=== PATIENT | male | born 1980 | race Caucasian/White ===

== ENCOUNTER 2025-04-13 18:12 | Inpatient (IN) | payer BC, SELFPAY ==
--- NOTE | ~2025-04-13 | CT_ITS ---
EXAMINATION: CTA chest PE protocol DATE: 04/13/2025 19:59 INDICATION: Shortness of breath TECHNIQUE: Computed tomography (CT) pulmonary angiogram of the chest was performed with 100 mL Omnipa que-350 intravenous contrast. Additional 3D reconstructions utilizing coronal maximum intensity proje ction (MIP) were performed. Automated exposure control and iterative reconstruction technique were em ployed. The dose-length product was 324.26 mGy-cm. COMPARISON: None FINDINGS: There are multiple pulmonary arterial filling defects consistent with pulmonary emboli including the medial segment of the right middle lobe, couple branches of the lateral and posterior basilar segment s of the right lower lobe, subsegmental pulmonary artery and the anterior segment of the left upper l obe and the inferior segmental pulmonary artery of the lingula. Mild dependent atelectasis in both rosendo ngs. No pneumonia, pulmonary edema, pleural effusion or pneumothorax. Heart size is normal. No leftwa rd bowing of the ventricular septum to suggest right heart strain. No pericardial effusion. Thoracic aorta is normal in caliber with no dissection. No pathologically enlarged thoracic lymphadenopathy. V isualized upper abdomen and bones are unremarkable. IMPRESSION: 1. Multiple bilateral pulmonary emboli with mild to moderate clot burden but without evident right he art strain. Dr. Leahy discussed these findings with Dr. Hunt at 8:32 PM. Reviewed, dictated and finalized at location A. IMPRESSION: 1. Multiple bilateral pulmonary emboli with mild to moderate clot burden but wi thout evident right heart strain. Dr. Leahy discussed these findings with Dr Kelley Hunt at 8:32 PM.
--- NOTE | ~2025-04-13 | US_ITS ---
EXAMINATION: US venous doppler [facility] DATE: 04/13/2025 19:43 INDICATION: Calf pain TECHNIQUE: Grayscale ultrasound images without and with compression and Doppler ultrasound images of the left lower extremity veins were obtained. COMPARISON: None. FINDINGS: The visualized portions of left common femoral vein, profunda (deep) femoral vein, femoral vein, popl iteal vein, peroneal veins, posterior tibial veins, and greater saphenous vein outflow are patent. IMPRESSION: 1. No deep venous thrombosis. Reviewed, dictated and finalized at location A.
--- NOTE | ~2025-04-13 | XR_ITS ---
CHEST RADIOGRAPH, PA AND LATERAL CLINICAL HISTORY: shortness of breath . COMPARISON: None available TECHNIQUE: PA and lateral views of the chest. FINDINGS The cardiomediastinal silhouette is unremarkable. The lungs are clear. IMPRESSION: No focal infiltrate or effusion. Reviewed, dictated and finalized at location A.
--- NOTE | 2025-04-13 18:29 | ECG_ITS ---
Test Date: 2025-04-13 18:28:53 Measurements Intervals [place] Rate: 82 P: 23 PA: 140 QRS: 27 QRSD: 88 T: 50 QT: 361 QTc: 424 Interpretive Statements SINUS RHYTHM No previous ECG available for comparison Electronically Signed On 04-14-2025 17:15:35 CDT by Francis Dennis D.O
--- NOTE | 2025-04-13 18:38 | ED.SOB ---
HPI - SOB/Dyspnea General Chief Complaint: Extremity Problem,Nontraumatic <Brenda Lay APRN - Last Filed: 04/13/25 18:41> Stated Complaint: concerned for a DVT in the LLE <Brenda Lay APRN - Last Filed: 04/13/25 18:41> Time Seen by Provider: 04/13/25 18:30 <Brenda Lay APRN - Last Filed: 04/13/25 18:41> Focused HPI: Patient is a 45-year-old male who presents to the ER with shortness of breath and tachypnea. He reports he was recently hospitalized for kidney stones and hematuria. Patient reports he was recently discharged, but he has a urologist to follow-up. He reports this morning he started experiencing pain in his left leg that radiates to his chest. Patient denies any history of blood clots, but was more immobile due to his recent hospitalization. He denies any other medical history relevant to this ER visit. Patient denies any acute back pain, recent fevers, chest pain or abdominal pain. GENERAL: Ill-appearing, well-nourished, and in acute distress. HEAD: Normocephalic, atraumatic. CHEST: Clear to auscultation. ?+ respiratory distress. Tachypnea HEART: Regular rate and rhythm.? NEURO: ?Alert and oriented x3. Patient screened in triage and initial orders placed.? ?Additional care and disposition to be based upon?diagnostic testing and treatment. <Brenda Lay APRN - Last Filed: 04/13/25 18:41> Source: patient <Jamal Waldrop MD - Last Filed: 04/13/25 21:27> Mode of arrival: ambulatory <Jamal Waldrop MD - Last Filed: 04/13/25 21:27> Limitations: no limitations <Jamal Waldrop MD - Last Filed: 04/13/25 21:27> History of Present Illness HPI Narrative: 45-year-old with his kidney stones recently discharged from [facility] after a prolonged stay on the bed for Hematuria sec to Kidney stone , pt states he was on the bed with CBI for few days , got discharged home and was lying on the bed started having pain in his left calf and now radiating to his left chest , denies any SOB <Jamal Waldrop MD - Last Filed: 04/13/25 21:27> MD elicited complaint: shortness of breath <Jamal Waldrop MD - Last Filed: 04/13/25 21:27> Onset (ago): day(s) (1) <Jamal Waldrop MD - Last Filed: 04/13/25 21:27> Context: recent illness <Jamal Waldrop MD - Last Filed: 04/13/25 21:27> Timing: constant <Jamal Waldrop MD - Last Filed: 04/13/25 21:27> Severity: moderate <Jamal Waldrop MD - Last Filed: 04/13/25 21:27> Exacerbating factors: nothing <Jamal Waldrop MD - Last Filed: 04/13/25 21:27> Relieving factors: nothing <Jamal Waldrop MD - Last Filed: 04/13/25 21:27> Associated symptoms: denies other symptoms <Jamal Waldrop MD - Last Filed: 04/13/25 21:27> Treatment prior to arrival: none <Jamal Waldrop MD - Last Filed: 04/13/25 21:27> Related Data Home oxygen amount: none <Jamal Waldrop MD - Last Filed: 04/13/25 21:27> Allergies/Adverse Reactions: Allergies Allergy/AdvReac Type Severity Reaction Status Date / Time No Known Allergies Allergy Verified 04/13/25 19:23 <Brenda Lay APRN - Last Filed: 04/13/25 18:41> Review of Systems Review of Systems: All systems reviewed & are unremarkable except as noted in HPI and below <Jamal Waldrop MD - Last Filed: 04/13/25 21:27> Constitutional: Constitutional: Reports no additional constitutional complaints <Jamal Waldrop MD - Last Filed: 04/13/25 21:27> Eyes: Eyes: Reports no additional eye complaints <Jamal Waldrop MD - Last Filed: 04/13/25 21:27> ENT: Reports system reviewed and no additional complaints, except as documented <Jamal Waldrop MD - Last Filed: 04/13/25 21:27> Cardiovascular: Cardiovascular: Reports as per HPI <Jamal Waldrop MD - Last Filed: 04/13/25 21:27> Respiratory: Respiratory: Reports as per HPI <Jamal Waldrop MD - Last Filed: 04/13/25 21:27> Musculoskeletal: Musculoskeletal: Reports as per HPI <Jamal Waldrop MD - Last Filed: 04/13/25 21:27> Neurologic: Reports system reviewed and no additional complaints, except as documented <Jamal Waldrop MD - Last Filed: 04/13/25 21:27> Exam Narrative: GENERAL: Well-appearing, well-nourished, and in no acute distress. HEAD: Normocephalic, atraumatic. EYES: PERRLA and EOMI. ENT: Nares clear, no rhinorrhea or epistaxis. Mucous membranes moist. NECK: Supple. CHEST: Clear to auscultation. No respiratory distress. HEART: Regular rate and rhythm. No murmur heard. Normal peripheral pulses. ABDOMEN: Soft, nontender, nondistended, normal active bowel sounds. EXTREMITIES: Normal range of motion. No edema. SKIN: Warm, dry, no rash. NEURO: No focal deficits. Alert and oriented x3. PSYCH: Normal mood and affect. <Jamal Waldrop MD - Last Filed: 04/13/25 21:27> Course Course Emergency Course: Patient comfortably resting on bed in no discomfort informed him about his lab work, CT findings. Agreeable with admission. <Jamal Waldrop MD - Last Filed: 04/13/25 21:27> Vital Signs Vital signs: Vital Signs Pulse Rate 77 04/13/25 18:46 Respiratory Rate 18 04/13/25 18:46 Blood Pressure 84/50 L 04/13/25 18:46 Pulse Oximetry 100 04/13/25 18:46 Pulse Rate 77 04/13/25 18:46 Respiratory Rate 18 04/13/25 18:46 Blood Pressure 84/50 L 04/13/25 18:46 Pulse Oximetry 100 04/13/25 18:46 <Brenda Lay APRN - Last Filed: 04/13/25 18:41> Vital Signs Pulse Rate 77 04/13/25 18:46 Respiratory Rate 18 04/13/25 18:46 Blood Pressure 84/50 L 04/13/25 18:46 Pulse Oximetry 100 04/13/25 18:46 Pulse Rate 77 04/13/25 18:46 Respiratory Rate 18 04/13/25 18:46 Blood Pressure 84/50 L 04/13/25 18:46 Pulse Oximetry 100 04/13/25 18:46 <Jamal Waldrop MD - Last Filed: 04/13/25 21:27> MDM - SOB/Dyspnea Differential Diagnosis Differential diagnosis: Likely congestive heart failure, community acquired pneumonia and pulmonary embolism <Jamal Waldrop MD - Last Filed: 04/13/25 21:27> Medical Records Attestation: I reviewed the patient's medical records. <Jamal Waldrop MD - Last Filed: 04/13/25 21:27> Lab Data Attestation: I reviewed the patient's lab results. <Jamal Waldrop MD - Last Filed: 04/13/25 21:27> Result diagrams: 04/13/25 18:47 04/13/25 18:47 <Brenda Lay APRN - Last Filed: 04/13/25 18:41> Labs: Lab Results 04/13/25 04/13/25 Range/Units 18:47 20:31 WBC 10.6 H (4.5-10.0) K/mm3 RBC 4.46 L (4.6-6.20) M/mm3 Hgb 13.8 L (14.0-18.0) g/dL Hct 38.8 L (42.0-52.0) % MCV 87.0 (80-100) fl MCH 30.9 (26-34) pg MCHC 35.6 (32-36) g/dl RDW 11.7 (11.5-14.5) % Plt Count 322 (150-375) k/mm3 MPV 10.1 (7.4-10.4) fl Immature Gran % (Auto) 1.7 H (0-0.5) % Neut % (Auto) 58.2 (45.5-73.1) % Lymph % (Auto) 29.2 (18.3-44.2) % [place] % (Auto) 8.7 H (2.6-8.5) % Eos % (Auto) 1.2 (0-4.4) % Baso % (Auto) 1.0 (0.2-1.2) % Lymph # (Auto) 3.10 (0.9-3.2) K/mm3 [place] # (Auto) 0.9 H (0.1-0.6) K/mm3 Eos # (Auto) 0.1 (0-0.3) K/mm3 Baso # (Auto) 0.1 (0.0-0.1) K/mm3 Abs Immat Gran (auto) 0.18 H (0.00-0.031) K/mm3 Absolute Neuts (auto) 6.2 (1.3-6.7) K/mm3 Absolute Nucleated RBC 0.000 (0.0-0.012) K/mm3 Nucleated RBC % 0.0 (0.0-0.2) % PT 12.9 (11.1-14.7) Seconds INR 1.0 APTT 23.8 (22.3-36.8) Seconds Sodium 136 L (137-145) mmol/L Potassium 3.3 L (3.4-5.0) mmol/L Chloride 102 (98-107) mmol/L Carbon Dioxide 21 L (22-30) mmol/L Anion Gap 13 H (4-12) mmol/L BUN 13 (9-20) mg/dL Creatinine 1.09 (0.7-1.3) mg/dL Estim Creat Clear Calc 79 ml/min Estimated GFR > 60 (59 - ) Glucose 111 H (65-110) mg/dL Lactic Acid 4.0 H (0.7-2.0) mmol/L Calcium 9.8 (8.4-10.2) mg/dL Total Bilirubin 0.4 (0.2-1.3) mg/dL AST 26 (17-59) U/L ALT 21 (6-50) U/L Alkaline Phosphatase 69 (38-126) U/L C-Reactive Protein < 0.5 (<1.0) mg/dL Total Protein 7.3 (6.3-8.2) g/dL Albumin 4.4 (3.5-5.1) g/dL Urine Color Yellow (Yellow) Urine Appearance Clear (Clear) Urine pH 6.5 (5.0-9.0) Ur Specific [place] 1.035 (1.001-1.035) Urine Protein Negative (Negative) mg/dL Urine Glucose (UA) Negative (Negative) mg/dL Urine Ketones Negative (Negative) mg/dL Ur Blood (Man) 2+ H (Negative) Urine Nitrate Negative (Negative) Urine Bilirubin Negative (Negative) Urine Urobilinogen 0.2 (<2.0) mg/dL Add Ur Microanalysis Reviewed Leukocyte Esterase Rfl 1+ H (Negative) FLOYD/UL Urine RBC 11-20 H (0-2) /hpf Urine WBC 0-5 (0-3) /hpf Ur Squamous Epith Cells None seen (Few) /hpf Urine Bacteria None seen /hpf Urine Casts 0-2 <Brenda Lay, INJECTION MACHINE OPERATOR - Last Filed: 04/13/25 18:41> Lab Results 04/13/25 04/13/25 Range/Units 18:47 20:31 WBC 10.6 H (4.5-10.0) K/mm3 RBC 4.46 L (4.6-6.20) M/mm3 Hgb 13.8 L (14.0-18.0) g/dL Hct 38.8 L (42.0-52.0) % MCV 87.0 (80-100) fl MCH 30.9 (26-34) pg MCHC 35.6 (32-36) g/dl RDW 11.7 (11.5-14.5) % Plt Count 322 (150-375) k/mm3 MPV 10.1 (7.4-10.4) fl Immature Gran % (Auto) 1.7 H (0-0.5) % Neut % (Auto) 58.2 (45.5-73.1) % Lymph % (Auto) 29.2 (18.3-44.2) % [place] % (Auto) 8.7 H (2.6-8.5) % Eos % (Auto) 1.2 (0-4.4) % Baso % (Auto) 1.0 (0.2-1.2) % Lymph # (Auto) 3.10 (0.9-3.2) K/mm3 [place] # (Auto) 0.9 H (0.1-0.6) K/mm3 Eos # (Auto) 0.1 (0-0.3) K/mm3 Baso # (Auto) 0.1 (0.0-0.1) K/mm3 Abs Immat Gran (auto) 0.18 H (0.00-0.031) K/mm3 Absolute Neuts (auto) 6.2 (1.3-6.7) K/mm3 Absolute Nucleated RBC 0.000 (0.0-0.012) K/mm3 Nucleated RBC % 0.0 (0.0-0.2) % PT 12.9 (11.1-14.7) Seconds INR 1.0 APTT 23.8 (22.3-36.8) Seconds Sodium 136 L (137-145) mmol/L Potassium 3.3 L (3.4-5.0) mmol/L Chloride 102 (98-107) mmol/L Carbon Dioxide 21 L (22-30) mmol/L Anion Gap 13 H (4-12) mmol/L BUN 13 (9-20) mg/dL Creatinine 1.09 (0.7-1.3) mg/dL Estim Creat Clear Calc 79 ml/min Estimated GFR > 60 (59 - ) Glucose 111 H (65-110) mg/dL Lactic Acid 4.0 H (0.7-2.0) mmol/L Calcium 9.8 (8.4-10.2) mg/dL Total Bilirubin 0.4 (0.2-1.3) mg/dL AST 26 (17-59) U/L ALT 21 (6-50) U/L Alkaline Phosphatase 69 (38-126) U/L C-Reactive Protein < 0.5 (<1.0) mg/dL Total Protein 7.3 (6.3-8.2) g/dL Albumin 4.4 (3.5-5.1) g/dL Urine Color Yellow (Yellow) Urine Appearance Clear (Clear) Urine pH 6.5 (5.0-9.0) Ur Specific [place] 1.035 (1.001-1.035) Urine Protein Negative (Negative) mg/dL Urine Glucose (UA) Negative (Negative) mg/dL Urine Ketones Negative (Negative) mg/dL Ur Blood (Man) 2+ H (Negative) Urine Nitrate Negative (Negative) Urine Bilirubin Negative (Negative) Urine Urobilinogen 0.2 (<2.0) mg/dL Add Ur Microanalysis Reviewed Leukocyte Esterase Rfl 1+ H (Negative) FLOYD/UL Urine RBC 11-20 H (0-2) /hpf Urine WBC 0-5 (0-3) /hpf Ur Squamous Epith Cells None seen (Few) /hpf Urine Bacteria None seen /hpf Urine Casts 0-2 <Jamal Waldrop MD - Last Filed: 04/13/25 21:27> Imaging Data Radiologist's impression: ITS Impressions Venous Doppler Study 04/13/25 19:44 IMPRESSION: 1. No deep venous thrombosis. Chest X-Ray 04/13/25 19:55 IMPRESSION: No focal infiltrate or effusion. Chest CTA 04/13/25 20:26 IMPRESSION: 1. Multiple bilateral pulmonary emboli with mild to moderate clot burden but without evident right heart strain. Dr. Leahy discussed these findings with Dr. Hunt at 8:32 PM. <Jamal Waldrop MD - Last Filed: 04/13/25 21:27> ECG Data EKG #1: ECG completion date: 04/13/25 <Jamal Waldrop MD - Last Filed: 04/13/25 21:27> ECG completion time: 18:28 <Jamal Waldrop MD - Last Filed: 04/13/25 21:27> EKG Interpretation: normal rate (82), sinus rhythm, no ectopy, no ST changes and normal QRS <Jamal Waldrop MD - Last Filed: 04/13/25 21:27> Discharge Plan Discharge Clinical Impression: Pulmonary embolism Qualifiers: Pulmonary embolism type: unspecified Chronicity: acute Acute cor pulmonale presence: without acute cor pulmonale Qualified Code(s): I26.99 - Other pulmonary embolism without acute cor pulmonale <Brenda Lay APRN - Last Filed: 04/13/25 18:41> Patient Disposition: Still a Patient <Brenda Lay APRN - Last Filed: 04/13/25 18:41> Condition: Stable <Brenda Lay APRN - Last Filed: 04/13/25 18:41> Patient Language: Czech <Brenda Lay APRN - Last Filed: 04/13/25 18:41> Follow-up/Referrals: Inder Josue M., MD [Physician] - <Brenda Lay APRN - Last Filed: 04/13/25 18:41> Time of Disposition: 21:26 <Brenda Lay APRN - Last Filed: 04/13/25 18:41> 21:26 <Jamal Waldrop MD - Last Filed: 04/13/25 21:27>
[2025-04-13 18:46] VITALS: BP 84/50; PULSE 77; RESP 18; O2SAT 100
[2025-04-13 19:11] LABS: Hematocrit 38.8 % (42.0-52.0); Hemoglobin 13.8 g/dL (14.0-18.0); Immature Granulocyte Percent A 1.7 % (0-0.5); Lymphocytes Absolute Auto 3.10 K/mm3 (0.9-3.2); Mean Corpuscular HGB Conc 35.6 g/dl (32-36); Mean Corpuscular Hemoglobin 30.9 pg (26-34); Mean Corpuscular Volume 87.0 fl (80-100); Nucleated Red Blood Cells Absolute Auto 0.000 K/mm3 (0.0-0.012); Nucleated Red Blood Cells Perc 0.0 % (0.0-0.2); Platelet Count Result 322 k/mm3 (150-375); Red Blood Count 4.46 M/mm3 (4.6-6.20); White Blood Count 10.6 K/mm3 (4.5-10.0)
[2025-04-13 19:23] LABS: INR 1.0; Prothrombin Time 12.9 Seconds (11.1-14.7)
[2025-04-13] MEDS: SODIUM CHLORIDE 0.9% IV 1,000 ML 999 ML IV CONT (19:23)
[2025-04-13 19:24] LABS: Partial Thromboplastin Time 23.8 Seconds (22.3-36.8)
--- OUTSIDE RECORDS SUMMARY | 2025-04-13 19:30 | XMS_ITS | Encounter Summary ---
Author Organization [facility] Healthcare Address [address] [place] [address] Care Team Providers Care Director Personal Name Role Phone Margie Santos MD Primary Care Provider Reason for Visit * Reason Comments Urinary Problem Flank Pain * Auth/Cert (Routine) Specialty Diagnoses / Procedures Referred By Contac t Referred To Contact Diagnoses Gross hematuria Procedures na Referral ID Status Reason Start Date Expiration Date Visits Re quested Visits Authorized [id number] 1 1 Encounter Details Date Type Department Care Team (Latest Contact Info) Description 04/07/2025 1:37 AM CDT - 04/13/2025 10:04 AM CDT Hospital Encounter [place] [id number] Med Surg [address] [place] [id number] Felix Hardy, DO [facility] [place] [address] Feroz Jarquin DO [facility] [place] [address] Indra Welsh MD [facility] [place], [place] [id number] Kirill Stroud MD [facility] [place] [address] Lillie Schafer MD [address] [facility] [address] Gross hematuria (Primary Dx); Acute left flank pain; History of kidney stones Discharge Disposition: Discharge to home or self care Social History Tobacco Use Types Packs/Day Years Used Date Smoking Tobacco: Never Smokeless Tobacco: Never Comments:No usage ever [facility] Utilities Answer Date Recorded In the past 12 months has e [employer], gas, oil, or water company threatened to shut off services in your home? No 04/08/2025 Social Connection and Isolat ion Panel [NHANES] Answer Date Recorded In a typical week, how many times do you talk on the phone with family, friends, or neighbors? More than three times a week 04/08/2025 How often do you get togethe r with friends or relatives? More than three times a week 04/08/2025 How often do you attend chur ch or quaker services? Never 04/08/2025 Do you belong to any clubs o r organizations such as latter-day groups, unions, fraternal or athletic groups, or school groups? No 04/08/2025 How often do you attend meet ings of the clubs or organizations you belong to? Never 04/08/2025 Are you , , di vorced, , never , or living with a partner? 04/08/2025 AUDIT-C Answer Date Recorded Q1: How often do you have a drink containing alc ohol? 2-3 times a week 03/06/2025 Q2: How many drinks containi ng alcohol do you have on a typical day when you are drinking? 1 or 2 03/06/2025 Q3: How often do you have si x or more drinks on one occasion? Never 03/06/2025 Overall Financial Resource Strain (CARDIA) Answe r Date Recorded How hard is it for you to pa y for the very basics like food, housing, medical care, and heating? Not hard at all 04/08/2025 PHQ-2 Answer Date Recorded PHQ-2 Total Score (If total score is 3 or more points, staff should administer the PHQ-9) 0 02/13/2023 Hunger Vital Sign Answer Date Recorded Within the past 12 months, y ou worried that your food would run out before you got the money to buy more. Never true 04/08/20 25 Within the past 12 months, t he food you bought just didn't last and you didn't have money to get more. Never true 04/08/2025 PRAPARE - Transportation Answer Date Re corded In the past 12 months, has l ack of transportation kept you from medical appointments or from getting medications? No 03/18 In the past 12 months, has l ack of transportation kept you from meetings, work, or from getting things needed for daily living? No 04/08/2025 Housing Stability Vital Sign Answer Michael e Recorded In the last 12 months, was t here a time when you were not able to pay the mortgage or rent on time? No 04/08/2025 In the past 12 months, how m any times have you moved where you were living? 0 04/08/2025 At any time in the past 12 m onths, were you homeless or living in a long term (including now)? No 04/08/2025 Personal Safety Answer Date Recorded Have you ever been in or are you currently in a harmful physical or emotional relationship or is someone making you feel afraid or unsafe? Denies 04/07/2025 Sex and Gender Information Value Date Recorded Sex Assigned at Not on file Legal Sex Male 7:26 PM VP PATIENT Gender Identity Not on file Sexual Orientation Not on file documented as of this encounter Last Filed Vital Signs Vital Sign Reading Time Taken Comments Blood Pressure 138/97 04/13/2025 9:50 AM CDT Pulse 81 04/13/2025 9:50 AM CDT Temperature 36.4 C (97.5 F) 04/13/2025 9:50 AM CDT Respiratory Rate 20 04/13/2025 9:50 AM CDT Oxygen Saturation 97% 04/13/2025 9:50 AM CDT Inhaled Oxygen Concentration - - Weight 98.4 kg (216 lb 14.9 oz) 04/07/2025 9:38 PM CDT Height 180.3 cm (5' 11) 04/07/2025 9:38 PM CDT Body Mass Index 30.26 04/07/2025 9:38 PM CDT documented in this encounter Discharge Summaries * Lillie Schafer MD - 04/13/2025 10:04 AM CDT Inpatient Discharge Summary Patient Name - Katelin Solis Patient Age - 45 yrs Patient - [id number] [facility] - [id number] Document Creation Date: 04/13/2025 Admitting Provider, : Indra Calzada MD Discharge Provider, : No att. providers found Primary Care Physician at Discharge: Margie Santos MD [phone] Admission Date: 04/07/2025 Discharge Date/time: Admission Location: [facility] LOS - LOS: 6 days DETAILS OF HOSPITAL STAY Hospital Problems/Diagnoses Principal Problem: Gross hematuria Reason for Hospitalization: Gross hematuria Hospital Course: 45 y.o. male with history of kidney stone. Patient to the ED complaint of hematuria. CT abdomen pelvis results shows Mild left hydronephrosis and proximal hydroureter with heterogeneous high density material seen within the proximal ureter and bladder, consistent with blood products. No discrete stone is identified. The stones seen in the left kidney and proximal left ureter are no longer visualized. High density material layering posteriorly within the bladder, most consistent with blood clots. An underlying bladder tumor cannot entirely be excluded. Stable nonobstructing right nephrolithiasis. Patient was started on continued bladder irrigation. Urology consulted. Patient's hematuria improved, however continued to be persistent. His H&H remained stable without significant drop. He had a CT abdomen and pelvis with contrast that showed Mild patchy enhancement in the midportion and inferior pole of the left kidney, which may be related to pyelonephritis. Tiny, 2 mm nonobstructing stone in the right kidney. No hydronephrosis or hydroureter. Patient's subsequent UA showed possibility of UTI. He was started on IV ceftriaxone and completed for three doses. Urine culture was positive for Greater than or equal to 100,000 colonies/mL of Bacillus species, not Bacillus anthracis No further workup. Discussed with ID. No further need of antibiotics. Patient will be discharged to follow up with primary doctor and Urology as outpatient. Patient was cleared to be discharged by Urology consult. He will be discharged to follow up with primary doctor and Urology as outpatient. These fluid and electrolyte abnormalities are being treated, evaluated or monitored: No fluid or electrolyte disorders Discharge Details Physical Exam at Discharge: Discharge Condition: stable Pulse: 81 Resp: 20 BP: 138/97 Temp: 36.4 ??C (97.5 ??F) Weight: 98.4 kg (216 lb 14.9 oz) Pertinent Exam Findings at Discharge: Physical Exam Constitutional: Patient is awake alert, no acute distress. Skin: Warm, dry, no rashes in visible areas. Eyes: Equal, round and reactive, conjunctiva clear. ENT: Good dentition, oropharynx clear. Neck: Trachea midline, no masses or thyromegaly. Respiratory: Unlabored respirations, lungs clear to auscultation, no wheezes, no rhonchi, no crackles. Cardiovascular: Normal S1, S2, no murmurs. Abdomen: Soft, non tender, no obvious masses noted, bowel sounds + Neuro: No gross focal deficits. Psych: Alert and oriented x3, normal affect. Extremities: No edema. Musculoskeletal: No obvious joint deformities noted. Gait: Not assessed. Discharge Disposition: Discharge to home or self care Code Status at Discharge: Full Code Active Issues & Recommended Plan for Follow-up: Patient should closely follow up with his urologist for further management Allergies: Patient has no known allergies. Discharge Medications: Your medication list CONTINUE taking these medications Instructions Last Dose Given Next Dose Due acetaminophen 500 mg tablet Commonly known as: TYLENOL Take 2 tablets (1,000 mg total) by mouth every 6 (six) hours as needed for pain loratadine 10 mg tablet Commonly known as: CLARITIN Take 1 tablet (10 mg total) by mouth every morning multivitamin tablet Take 1 tablet by mouth daily tamsulosin 0.4 mg extended release capsule Commonly known as: FLOMAX Take 1 capsule (0.4 mg total) by mouth daily Time Spent in Discharge Process: I have spent 34 minutes on discharge planning activities. Time spent was on Coordination of care Test Results Pending at Discharge (If Blank, None Found): Operative Procedures Performed (If Blank, None Found): Outpatient Follow-Up: Future Appointments Date Time Provider Department Center 04/20/2025 3:00 PM Margie Santos MD PCP IM 250 PC 04/21/2025 9:[address] [id number] 04/21/2025 9:40 AM Estela Suh NP URO M[facility]4 [facility] Contact Information for Follow-ups Christopher Yates MD Specialty: Urology [address] [facility] [address] DIV SURG UROLOGY [facility] [address] Next Steps: Call today Instructions: to get follow up in 1 week. Margie Santos MD Specialty: Internal Medicine, Family Medicine Relationship: PCP - General [address] [place] [id number] Next Steps: Follow up in 1 week(s) Margie Santos MD Specialty: Internal Medicine, Family Medicine Relationship: PCP - General [address] [place] [id number] Next Steps: Follow up in 1 week(s) Please schedule an appointment with the following provider(s): Christopher Yates MD [address] [facility] [address] DIV SURG UROLOGY [facility] [address] Call today to get follow up in 1 week. Margie Santos MD [address] [place] [address] [phone] Follow up in 1 week(s) Margie Santos MD [address] [place] [address] [phone] Follow up in 1 week(s) ANCILLARY INFORMATION Other Procedures & Diagnostic Tests: CT Abdomen Pelvis WO Contrast Result Date: 04/07/2025 EXAM DESCRIPTION: CT ABDOMEN PELVIS WO CONTRAST REASON FOR STUDY: Abdominal/flank pain, stone suspected, left flank pain hx kidney stones Pt reports onset of urinating blood clots tonight around 1999, while he was getting ready for bed. Pt then with onset of left flank\lower back pain. Hx of kidney stones at the end of February which he had a stent placed. TECHNIQUE: CT scan of the abdomen and pelvisperformed without intravenous and without oral contrast using helical scanning technique. Reconstructed coronal and sagittal MPR images reviewed. All images stored on PACS. Automated exposure controlwas used as a dose optimization technique for this examination. COMPARISON: CT of the chest of 2024. FINDINGS: The sensitivity for detection of visceral lesions is diminished without the use of intravenous contrast. LOWER CHEST: The lung bases are clear. LIVER: The liver is normal in attenuation without focal lesion. GALLBLADDER: No stones identified. Normal wall. No evidence of pericholecystic fluid. BILE DUCTS: No intrahepatic or extrahepatic ductal dilatation. PANCREAS: Normal. SPLEEN: No focal lesions. Spleen is normal in size. ADRENALS: Normal. KIDNEYS/URINARY TRACT: No significant cystic or solid masses. There is a tiny nonobstructing stone in the right kidney measuring approximately 2 mm, unchanged from previous. There is mild left hydronephrosis and proximal hydroureter with heterogeneous high density material seen within the proximal ureter with Hounsfield units in the 60s. No discrete stone is identified. The 5 mm stone seen in the left kidney on previous study is nolonger visualized. The 4 mm proximal left ureteral stones seen on previous study is also no longer v isualized. There is an irregular area of high density within the posterior aspect of the bladder measuring approximately 3.4 x 1.7 cm with Hounsfield units in the 50s. The bladder is otherwise unremarkable. VASCULATURE: No acute abnormality seen. No abdominal aortic aneurysm. GI: The stomach appears normal. There is no significant small bowel dilation or visible thickening. No gross colonic abnormalities identified. The appendix is normal. PERITONEUM/MESENTERY: No ascites or free air. LYMPH NODES: There are no enlarged lymph nodes seen by CT size criteria. RETROPERITONEUM: No retroperitoneal abnormalities. REPRODUCTIVE: The prostate and seminal vesicles are unremarkable. MUSCULOSKELETAL: Nosignificant abnormality. OTHER: No other abnormality. IMPRESSION: 1. Mild left hydronephrosis and proximal hydroureter with heterogeneous high density material seen within the proximal ureter and bladder, consistent with blood products. No discrete stone is identified. The stones seen in the left kidney and proximal left ureter are no longer visualized. 2. High density material layering posteriorly within the bladder, most consistent with blood clots. An underlying bladder tumor cannot entirelybe excluded. 3. Stable nonobstructing right nephrolithiasis. THIS IS AN ELECTRONICALLY VERIFIED FINAL REPORT 04/07/2025 2:28 AM - Electronically signed by Jane Bailey M.D. SN:SN Report ID: [id number] Reading Location: [place] [address] Recent Labs: Recent Labs Lab Units 04/13/25 0606 04/12/25 0403 04/11/25 0535 WBC K/cumm 8.15 8.10 9.21 HEMOGLOBIN g/dL 13.8 13.9 14.0 HEMATOCRIT % 39.2 39.6 39.1 PLATELETS K/cumm 239 206 220 Recent Labs Lab Units 04/13/25 0606 04/12/25 0403 04/11/25 0535 WBC K/cumm 8.15 8.10 9.21 HEMOGLOBIN g/dL 13.8 13.9 14.0 HEMATOCRIT % 39.2 39.6 39.1 PLATELETS K/cumm 239 206 220 NEUTROS PCT % 70.1 65.1 70.8 LYMPHS PCT % 16.6 19.6 16.6 MONOS PCT % 8.8 9.4 8.7 EOS PCT % 1.8 3.1 1.5 Recent Labs Lab Units 04/13/25 0606 04/12/25 0403 04/11/25 0535 04/08/25 0540 04/07/25 0149 SODIUM mmol/L 140 141 141 < > 138 POTASSIUM PLASMA mmol/L 3.7 4.1 4.4 < > 4.1 CHLORIDE mmol/L 102 103 103 < > 98 CO2 mmol/L 27 24 24 < > 18* BUN SERUM mg/dL 13 13 12 < > 15 CREATININE mg/dL 1.00 1.03 1.06 < > 1.19 [id number] mL/min/1.73 m2 >90 90 87 < > 76 GLUCOSE mg/dL 89 91 97 < > 114 CALCIUM mg/dL 9.3 9.7 9.8 < > 10.2 ALBUMIN g/dL -- -- -- -- 4.7 < > = values in this interval not displayed. Recent Labs Lab Units 04/13/25 0606 04/12/25 0403 04/11/25 0535 04/08/25 0540 04/07/25 0149 SODIUM mmol/L 140 141 141 < > 138 POTASSIUM PLASMA mmol/L 3.7 4.1 4.4 < > 4.1 CHLORIDE mmol/L 102 103 103 < > 98 CO2 mmol/L 27 24 24 < > 18* ANIONGAP mmol/L 11 14 14 < > 22* GLUCOSE mg/dL 89 91 97 < > 114 BUN SERUM mg/dL 13 13 12 < > 15 CREATININE mg/dL 1.00 1.03 1.06 < > 1.19 CALCIUM mg/dL 9.3 9.7 9.8 < > 10.2 ALBUMIN g/dL -- -- -- -- 4.7 ALK PHOS Units/L -- -- -- -- 79 ALT Units/L -- -- -- -- 17 AST Units/L -- -- -- -- 31 BILIRUBIN TOTAL mg/dL -- -- -- -- 0.4 < > = values in this interval not displayed. Recent Labs Lab Units 04/07/25 014 ALK PHOS Units/L 79 BILIRUBIN TOTAL mg/dL 0.4 TOTAL PROTEIN g/dL 7.5 ALT Units/L 17 AST Units/L 31 Lab Results Component Value Date GLUCOSE 89 04/13/2025 GLUCOSE 91 04/12/2025 GLUCOSE 97 04/11/2025 Implant: Implants No active implants to display in this view. General Precautions (If Blank, None Found): Isolation Status: No active isolations Nutritional Status and in-house recommendations: Dietary Orders (From admission, onward) Start Ordered 04/07/25 0708 Adult Diet Regular Diet effective now Question: (MHB/MHE) Diet type Answer: Regular 04/07/25 0707 Anticoagulation Indication: INR: No results found for requested labs within last 30 days. Warfarin Administrations (last 168 hours) None Oxygen Status: O2 Therapy for the past 12 hrs: O2 Therapy 04/13/25 0950 None (Room air) 04/13/25 0815 None (Room air) 04/13/25 0405 None (Room air) Wound Care Instructions Wound (Active) Wound (Active) Other Instructions Call provider for: Temperature -Temperature greater than 101 degrees F Call provider for: difficulty breathing or chest pain Call provider for: extreme fatigue Call provider for: persistent dizziness or light-headedness Call provider for: severe uncontrolled pain Call provider for: headache, visual disturbances, weakness and speech changes Active LDAs (If Blank, None Found): Urethral Catheter Latex;Triple-lumen (Active) Placement Date/Time: 04/07/25 040 Inserted by: AMELIA Vasquez Assisted Insertion?: Yes Assisted By: AMELIA Duran Catheter Type: Latex;Triple-lumen Tube Size (Fr.): 24 Fr Catheter Balloon Size: 30 mL Urine Returned: Yes Peripheral IV 04/07/25 20 G Posterior;Right Hand (Active) Placement Date/Time: 04/07/25 014 Length of Catheter: 1.16 in Size (Gauge): 20 G Location Orientation: Posterior;Right Location: Hand Site Prep: Chlorhexidine Technique: Anatomical landmarks Verification: Able to advance catheter;Irrigates ea... Patient Emergency Contact: Primary Emergency Contact: ODALYS SOLIS Immunization Status at Discharge Immunization History Administered Date(s) Administered COVID-19 mRNA ([employer]) 0.3 mL (30 mcg) vaccine (12 years and up) 07/22/2023 Influenza, Quadrivalent, Cell Culture-based MDCK, Preservative Free, Antibiotic Free, Gxrzozozyfcpq64/18/2018, 07/15/2019, 06/10/2020, 07/13/2021, 07/12/2022, 07/04/2023 Influenza, Trivalent, Cell Culture-based MDCK, Preservative Free, Antibiotic Free, Intramuscular 06/18/2024 Pfizer SARS-CoV-2 Monovalent Vaccination (12+ Yrs) PURPLE 12/13/2020, 01/03/2021, 08/10/2021 Tdap 07/20/2019 Lillie Kingston MD Voice recognition software [employer] Direct was used dictate and transcribe this document. [employer] variances may occur. Despite proofreading, typographical errors may occur. documented in this encounter Discharge Instructions * Attachments The following attachments cannot be sent through Care Everywhere. * Acute Hematuria (Discharge Care) (Bangladeshi) documented in this encounter Medications at Time of Discharge acetaminophen (TYLENOL) 500 mg tablet Take 2 tablets (1,000 mg total) by mouth every 6 (six) hours as needed for pain 30 tablet 02/23/2025 loratadine (CLARITIN) 10 mg tablet Take 1 tablet (10 mg total) by mouth every morning multivitamin tablet Take 1 tablet by mouth daily tamsulosin (FLOMAX) 0.4 mg extended release capsuleIndication s:Urolithiasis Take 1 capsule (0.4 mg total) by mouth daily 30 capsule 1 02/23/2025 04/24/2025 documented as of this encounter Discharge Disposition Disposition Code Departure Means Destination Comment s Discharge to home or self care documented in this encounter Progress Notes * Vashti Madrid, Lillie Elizondo MD - 04/12/2025 1:47 PM CDT Images from the original note were not included. General Medicine Daily Progress SUBJECTIVE Patient is seen in follow up of gross hematuria and left hydronephrosis Patient seen and examined at bedside. Patient denies further hematuria. He has remained afebrile. No other new complaints voiced. OBJECTIVE Vitals: 24hr Min/Max: Temp Min: 36.6 ??C (97.9 ??F) Max: 37.3 ??C (99.1 ??F) Pulse Min: 65 Max: 89 BP Min: 126/89 Max: 140/85 Resp Min: 17 Max: 20 SpO2 Min: 96 % Max: 98 % Most Recent : Vitals: 04/12/25 0847 BP: 139/93 Pulse: 77 Resp: 20 Temp: 36.6 ??C (97.9 ??F) SpO2: 98% I/O last 2 completed shifts: In: 300 [P.O.:300] Out: 450 [Urine:450] I/O this shift: In: 250 [P.O.:250] Out: - O2 Therapy for the past 12 hrs: O2 Therapy 04/12/25 0847 None (Room air) 04/12/25 0845 None (Room air) 04/12/25 0358 None (Room air) Physical Exam: Vitals reviewed Constitutional: NAD, comfortable, in bed Eyes: anicteric, vision grossly intact, glasses ENT: MMM Lungs: Normal depth and effort of breathing, on RA Heart: Regular, no murmur, no ankle edema Abd: +BS, Non Tender, Non distended : no indwelling simmons catheter Neuro: No new deficits appreciated Musculoskeletal: ROM grossly intact Skin: warm dry Psychiatric: alert, oriented Lab/Current Medication Review: Recent Results (from the past 24 hours) Basic metabolic panel Collection Time: 04/12/25 4:03 AM Result Value Ref Range Sodium 141 135 - 145 mmol/L Potassium, pl 4.1 3.3 - 4.9 mmol/L Chloride 103 97 - 110 mmol/L CO2 24 22 - 32 mmol/L Anion gap 14 2 - 15 mmol/L BUN 13 6 - 25 mg/dL Creatinine 1.03 0.80 - 1.30 mg/dL Glucose 91 70 - 199 mg/dL Calcium 9.7 8.5 - 10.3 mg/dL CBC with auto differential Collection Time: 04/12/25 4:03 AM Result Value Ref Range WBC 8.10 3.80 - 9.90 K/cumm Hgb 13.9 13.0 - 17.5 g/dL Hct 39.6 38.9 - 50.3 % Plt 206 150 - 400 K/cumm MPV 11.1 9.1 - 12.3 fL RBC 4.55 4.30 - 5.80 M/cumm MCV 87.0 81.3 - 96.4 fL MCH 30.5 27.1 - 33.3 pg MCHC 35.1 32.3 - 35.7 g/dL RDW CV 11.7 11.1 - 14.9 % RDW SD 37.2 35.7 - 48.1 fL NRBC abs 0.00 0.00 - 0.01 K/cumm Differential, auto Collection Time: 04/12/25 4:03 AM Result Value Ref Range Neutrophil abs 5.27 1.50 - 6.50 K/cumm Imm gran abs 0.13 (H) 0.00 - 0.10 K/cumm Lymphocyte abs 1.59 0.80 - 3.30 K/cumm Monocyte abs 0.76 0.20 - 0.80 K/cumm Eosinophil abs 0.25 0.00 - 0.50 K/cumm Basophil abs 0.10 0.00 - 0.10 K/cumm Neutrophil pct 65.1 % Imm gran pct 1.6 % Lymphocyte pct 19.6 % Monocyte pct 9.4 % Eosinophil pct 3.1 % Basophil pct 1.2 % eGFR Collection Time: 04/12/25 4:03 AM Result Value Ref Range eGFR 90 >=60 mL/min/1.[address] Abdomen Pelvis WO Contrast Result Date: 04/07/2025 Narrative: EXAM DESCRIPTION: CT ABDOMEN PELVIS WO CONTRAST REASON FOR STUDY: Abdominal/flank pain, stone suspected, left flank pain hx kidney stones Pt reports onset of urinating blood clots tonight around 1999, while he was getting ready for bed. Pt then with onset of left flank\lower back pain. Hx of kidney stones at the end of February which he had a stent placed. TECHNIQUE: CT scan of the abdomenand pelvis performed without intravenous and without oral contrast using helical scanning technique. Reconstructed coronal and sagittal MPR images reviewed. All images stored on PACS. Automated exposure control was used as a dose optimization technique for this examination. COMPARISON: CT of the chest of February 15, 2025. FINDINGS: The sensitivity for detection of visceral lesions is diminished without the use of intravenous contrast. LOWER CHEST: The lung bases are clear. LIVER: The liver is normal in attenuation without focal lesion. GALLBLADDER: No stones identified. Normal wall. No evidence of pericholecystic fluid. BILE DUCTS: No intrahepatic or extrahepatic ductal dilatation. PANCREAS: Normal. SPLEEN: No focal lesions. Spleen is normal in size. ADRENALS: Normal. KIDNEYS/URINARY TRACT: No significant cystic or solid masses. There is a tiny nonobstructing stone in the right kidney measuring approximately 2 mm, unchanged from previous. There is mild left hydronephrosis and proximal hydroureter with heterogeneous high density material seen within the proximal ureter with Hounsfield units in the 60s. No discrete stone is identified. The 5 mm stone seen in the left kidney on previous study is no longer visualized. The 4 mm proximal left ureteral stones seen on previous study is alsono longer visualized. There is an irregular area of high density within the posterior aspect of thebladder measuring approximately 3.4 x 1.7 cm with Hounsfield units in the 50s. The bladder is otherwise unremarkable. VASCULATURE: No acute abnormality seen. No abdominal aortic aneurysm. GI: The stomach appears normal. There is no significant small bowel dilation or visible thickening. No gross col onic abnormalities identified. The appendix is normal. PERITONEUM/MESENTERY: No ascites or free air. LYMPH NODES: There are no enlarged lymph nodes seen by CT size criteria. RETROPERITONEUM: No retroperitoneal abnormalities. REPRODUCTIVE: The prostate and seminal vesicles are unremarkable. MUSCULOSKELETAL: No significant abnormality. OTHER: No other abnormality. IMPRESSION: 1. Mild left hydronephrosis and proximal hydroureter with heterogeneous high density material seen within the proximal ureter and bladder, consistent with blood products. No discrete stone is identified. The stones seen inthe left kidney and proximal left ureter are no longer visualized. 2. High density material layering posteriorly within the bladder, most consistent with blood clots. An underlying bladder tumor cannot entirely be excluded. 3. Stable nonobstructing right nephrolithiasis. THIS IS AN ELECTRONICALLY VERIFIED FINAL REPORT 04/07/2025 2:28 AM - Electronically signed by Jane Bailey M.D. SN: Report ID: [id number] Reading Location: [place] [address] A/P: Principal Problem: Gross hematuria Resolved Problems: No resolved hospital problems. Gross hematuria Left hydronephrosis Suspected acute left pyelonephritis CT abdomen pelvis results shows Mild left hydronephrosis and proximal hydroureter with heterogeneous high density material seen within the proximal ureter and bladder, consistent with blood products.No discrete stone is identified. The stones seen in the left kidney and proximal left ureter are no longer visualized.High density material layering posteriorly within the bladder, most consistent with blood clots. An underlying bladder tumor cannot entirely be excluded. Stable nonobstructing rightnephrolithiasis. Patient's gross hematuria has resolved. Discussed with Urology, patient's Simmons catheter will be discontinued. CTA of the abdomen shows Mild patchy enhancement in the midportion and inferior pole of the left kidney, which may be related to pyelonephritis. Repeat clean-catch UA shows 2+ leukocyte esterase and WBC suspicious for UTI. No epithelial cells ruling out possibility of contaminated sample. We will start IV ceftriaxone given concerns for acute pyelonephritis Follow up urine culture results for antibiotic sensitivities. Plan to discharge on oral antibioticsonce culture sensitivities are available. 04/12/25 Continue with IV ceftriaxone day 2. Urine culture is pending, follow up results Patient is currently remaining stable. Tentative discharge planning in 1-2 days after completing 3 days of IV ceftriaxone on oral antibiotics. These fluid and electrolyte abnormalities are being treated, evaluated or monitored: No fluid or electrolyte disorders Code status: Full Code DVT prophylaxis: Patient at low risk PT/OT: As needed Case discussed Air Brake Adjuster Bedside nurse Medical decision making complexity low Voice recognition software MModal Fluency Direct may have been used dictate and transcribe this document. Taxi [employer] variances may occur. Despite proofreading, typographical errors may occur. Lillie Kingston MD 04/12/2025 1:47 PM * Lillie Schafer MD - 04/11/2025 1:10 PM CDT Images from the original note were not included. General Medicine Daily Progress SUBJECTIVE Patient is seen in follow up of gross hematuria and left hydronephrosis Patient seen and examined at bedside. Patient has remained afebrile. Denies any gabriel flank pains. Hematuria has resolved. No other new complaints voiced. OBJECTIVE Vitals: 24hr Min/Max: Temp Min: 36.6 ??C (97.9 ??F) Max: 37.1 ??C (98.8 ??F) Pulse Min: 59 Max: 73 BP Min: 129/93 Max: 148/88 Resp Min: 17 Max: 20 SpO2 Min: 94 % Max: 98 % Most Recent : Vitals: 04/11/25 0815 BP: 148/88 Pulse: 73 Resp: 20 Temp: 37.1 ??C (98.8 ??F) SpO2: 95% I/O last 2 completed shifts: In: - Out: 4950 [Urine:4950] I/O this shift: In: - Out: 450 [Urine:450] O2 Therapy for the past 12 hrs: O2 Therapy 04/11/25 0815 None (Room air) Physical Exam: Vitals reviewed Constitutional: NAD, comfortable, in bed Eyes: anicteric, vision grossly intact, glasses ENT: MMM Lungs: Normal depth and effort of breathing, on RA Heart: Regular, no murmur, no ankle edema Abd: +BS, Non Tender, Non distended : no indwelling simmons catheter Neuro: No new deficits appreciated Musculoskeletal: ROM grossly intact Skin: warm dry Psychiatric: alert, oriented Lab/Current Medication Review: Recent Results (from the past 24 hours) Basic metabolic panel Collection Time: 04/11/25 5:35 AM Result Value Ref Range Sodium 141 135 - 145 mmol/L Potassium, pl 4.4 3.3 - 4.9 mmol/L Chloride 103 97 - 110 mmol/L CO2 24 22 - 32 mmol/L Anion gap 14 2 - 15 mmol/L BUN 12 6 - 25 mg/dL Creatinine 1.06 0.80 - 1.30 mg/dL Glucose 97 70 - 199 mg/dL Calcium 9.8 8.5 - 10.3 mg/dL CBC with auto differential Collection Time: 04/11/25 5:35 AM Result Value Ref Range WBC 9.21 3.80 - 9.90 K/cumm Hgb 14.0 13.0 - 17.5 g/dL Hct 39.1 38.9 - 50.3 % Plt 220 150 - 400 K/cumm MPV 10.5 9.1 - 12.3 fL RBC 4.48 4.30 - 5.80 M/cumm MCV 87.3 81.3 - 96.4 fL MCH 31.3 27.1 - 33.3 pg MCHC 35.8 (H) 32.3 - 35.7 g/dL RDW CV 11.8 11.1 - 14.9 % RDW SD 37.2 35.7 - 48.1 fL NRBC abs 0.00 0.00 - 0.01 K/cumm Differential, auto Collection Time: 04/11/25 5:35 AM Result Value Ref Range Neutrophil abs 6.52 (H) 1.50 - 6.50 K/cumm Imm gran abs 0.11 (H) 0.00 - 0.10 K/cumm Lymphocyte abs 1.53 0.80 - 3.30 K/cumm Monocyte abs 0.80 0.20 - 0.80 K/cumm Eosinophil abs 0.14 0.00 - 0.50 K/cumm Basophil abs 0.11 (H) 0.00 - 0.10 K/cumm Neutrophil pct 70.8 % Imm gran pct 1.2 % Lymphocyte pct 16.6 % Monocyte pct 8.7 % Eosinophil pct 1.5 % Basophil pct 1.2 % eGFR Collection Time: 04/11/25 5:35 AM Result Value Ref Range eGFR 87 >=60 mL/min/1.73 m2 Urinalysis reflex to microscopic and culture Urine, clean voided Collection Time: 04/11/25 9:25 AM Specimen: Urine, clean voided Result Value Ref Range Color, ur Yellow Yellow Clarity, ur Clear Clear Specific gravity, ur 1.015 1.003 - 1.030 pH, urine 6.5 Protein, ur ql Negative Negative Glucose, ur ql Negative Negative Ketones, ur Negative Negative Bilirubin, ur Negative Negative Blood, ur 2+ (A) Negative Urobilinogen, ur <2.0 <2.0 mg/dL Nitrite, ur Negative Negative Leukocyte esterase, ur 2+ (A) Negative UA reflex comment Reflex to microscopic UA will be performed. Urinalysis, microscopic only Collection Time: 04/11/25 9:25 AM Result Value Ref Range WBC, ur 11-20 (A) 0 - 5 /HPF RBC, ur 11-20 (A) 0 - 2 /HPF Epithelial cells, squamous, ur 1-5 0 - 5 /HPF Bacteria, ur 4+ (A) Mucous, ur Present (A) Culture Reflex Comment Reflex to urine culture will be performed. CT Abdomen Pelvis WO Contrast Result Date: 04/07/2025 Narrative: EXAM DESCRIPTION: CT ABDOMEN PELVIS WO CONTRAST REASON FOR STUDY: Abdominal/flank pain, stone suspected, left flank pain hx kidney stones Pt reports onset of urinating blood clots tonight around 1999, while he was getting ready for bed. Pt then with onset of left flank\lower back pain. Hx of kidney stones at the end of February which he had a stent placed. TECHNIQUE: CT scan of the abdomenand pelvis performed without intravenous and without oral contrast using helical scanning technique. Reconstructed coronal and sagittal MPR images reviewed. All images stored on PACS. Automated exposure control was used as a dose optimization technique for this examination. COMPARISON: CT of the chest of February 15, 2025. FINDINGS: The sensitivity for detection of visceral lesions is diminished without the use of intravenous contrast. LOWER CHEST: The lung bases are clear. LIVER: The liver is normal in attenuation without focal lesion. GALLBLADDER: No stones identified. Normal wall. No evidence of pericholecystic fluid. BILE DUCTS: No intrahepatic or extrahepatic ductal dilatation. PANCREAS: Normal. SPLEEN: No focal lesions. Spleen is normal in size. ADRENALS: Normal. KIDNEYS/URINARY TRACT: No significant cystic or solid masses. There is a tiny nonobstructing stone in the right kidney measuring approximately 2 mm, unchanged from previous. There is mild left hydronephrosis and proximal hydroureter with heterogeneous high density material seen within the proximal ureter with Hounsfield units in the 60s. No discrete stone is identified. The 5 mm stone seen in the left kidney on previous study is no longer visualized. The 4 mm proximal left ureteral stones seen on previous study is alsono longer visualized. There is an irregular area of high density within the posterior aspect of thebladder measuring approximately 3.4 x 1.7 cm with Hounsfield units in the 50s. The bladder is otherwise unremarkable. VASCULATURE: No acute abnormality seen. No abdominal aortic aneurysm. GI: The stomach appears normal. There is no significant small bowel dilation or visible thickening. No gross col onic abnormalities identified. The appendix is normal. PERITONEUM/MESENTERY: No ascites or free air. LYMPH NODES: There are no enlarged lymph nodes seen by CT size criteria. RETROPERITONEUM: No retroperitoneal abnormalities. REPRODUCTIVE: The prostate and seminal vesicles are unremarkable. MUSCULOSKELETAL: No significant abnormality. OTHER: No other abnormality. IMPRESSION: 1. Mild left hydronephrosis and proximal hydroureter with heterogeneous high density material seen within the proximal ureter and bladder, consistent with blood products. No discrete stone is identified. The stones seen inthe left kidney and proximal left ureter are no longer visualized. 2. High density material layering posteriorly within the bladder, most consistent with blood clots. An underlying bladder tumor cannot entirely be excluded. 3. Stable nonobstructing right nephrolithiasis. THIS IS AN ELECTRONICALLY VERIFIED FINAL REPORT 04/07/2025 2:28 AM - Electronically signed by Jane Bailey M.D. SN: Report ID: [id number] Reading Location: [place] [address] A/P: Principal Problem: Gross hematuria Resolved Problems: No resolved hospital problems. Gross hematuria Left hydronephrosis Suspected acute left pyelonephritis CT abdomen pelvis results shows Mild left hydronephrosis and proximal hydroureter with heterogeneous high density material seen within the proximal ureter and bladder, consistent with blood products.No discrete stone is identified. The stones seen in the left kidney and proximal left ureter are no longer visualized.High density material layering posteriorly within the bladder, most consistent with blood clots. An underlying bladder tumor cannot entirely be excluded. Stable nonobstructing rightnephrolithiasis. Patient's gross hematuria has resolved. Discussed with Urology, patient's Simmons catheter will be discontinued. CTA of the abdomen shows Mild patchy enhancement in the midportion and inferior pole of the left kidney, which may be related to pyelonephritis. Repeat clean-catch UA shows 2+ leukocyte esterase and WBC suspicious for UTI. No epithelial cells ruling out possibility of contaminated sample. We will start IV ceftriaxone given concerns for acute pyelonephritis Follow up urine culture results for antibiotic sensitivities. Plan to discharge on oral antibioticsonce culture sensitivities are available. These fluid and electrolyte abnormalities are being treated, evaluated or monitored: No fluid or electrolyte disorders Code status: Full Code DVT prophylaxis: Patient at low risk PT/OT: As needed Case discussed Air Brake Adjuster Bedside nurse My total encounter time on 04/11/2025 was 37 minutes which was spent in the activities documented in the note. This includes the time spent prior to the visit and after the visit in direct care of the patient. This time does not include the time spent in any separately reportable services. Voice recognition software [employer] Direct may have been used dictate and transcribe this document. Tax[employer] variances may occur. Despite proofreading, typographical errors may occur. Lillie Kingston MD 04/11/2025 1:10 PM * Lillie Schafer MD - 04/10/2025 3:19 PM CDT Images from the original note were not included. General Medicine Daily Progress SUBJECTIVE Patient is seen in follow up of gross hematuria and left hydronephrosis Patient seen and examined at bedside. Patient continues to have hematuria in Simmons catheter bag. Nolarge blood clots noted. Has remained afebrile. No other complaints. OBJECTIVE Vitals: 24hr Min/Max: Temp Min: 36.5 ??C (97.7 ??F) Max: 37.2 ??C (99 ??F) Pulse Min: 59 Max: 72 BP Min: 133/90 Max: 136/73 Resp Min: 14 Max: 16 SpO2 Min: 95 % Max: 96 % Most Recent : Vitals: 04/10/25 0859 BP: 136/73 Pulse: 72 Resp: Temp: 37.1 ??C (98.8 ??F) SpO2: 96% I/O last 2 completed shifts: In: 3187.5 [P.O.:1400; I.V.:1787.5] Out: 9400 [Urine:9400] I/O this shift: In: - Out: 1500 [Urine:1500] O2 Therapy for the past 12 hrs: O2 Therapy 04/10/25 0352 None (Room air) Physical Exam: Vitals reviewed Constitutional: NAD, comfortable, in bed Eyes: anicteric, vision grossly intact, glasses ENT: MMM Lungs: Normal depth and effort of breathing, on RA Heart: Regular, no murmur, no ankle edema Abd: +BS, Non Tender, Non distended : no indwelling simmons catheter Neuro: No new deficits appreciated Musculoskeletal: ROM grossly intact Skin: warm dry Psychiatric: alert, oriented Lab/Current Medication Review: Recent Results (from the past 24 hours) Basic metabolic panel Collection Time: 04/10/25 5:55 AM Result Value Ref Range Sodium 140 135 - 145 mmol/L Potassium, pl 4.4 3.3 - 4.9 mmol/L Chloride 105 97 - 110 mmol/L CO2 23 22 - 32 mmol/L Anion gap 12 2 - 15 mmol/L BUN 12 6 - 25 mg/dL Creatinine 1.08 0.80 - 1.30 mg/dL Glucose 95 70 - 199 mg/dL Calcium 9.4 8.5 - 10.3 mg/dL CBC with auto differential Collection Time: 04/10/25 5:55 AM Result Value Ref Range WBC 7.73 3.80 - 9.90 K/cumm Hgb 12.8 (L) 13.0 - 17.5 g/dL Hct 36.4 (L) 38.9 - 50.3 % Plt 198 150 - 400 K/cumm MPV 10.6 9.1 - 12.3 fL RBC 4.11 (L) 4.30 - 5.80 M/cumm MCV 88.6 81.3 - 96.4 fL MCH 31.1 27.1 - 33.3 pg MCHC 35.2 32.3 - 35.7 g/dL RDW CV 11.8 11.1 - 14.9 % RDW SD 37.9 35.7 - 48.1 fL NRBC abs 0.00 0.00 - 0.01 K/cumm Differential, auto Collection Time: 04/10/25 5:55 AM Result Value Ref Range Neutrophil abs 5.25 1.50 - 6.50 K/cumm Imm gran abs 0.06 0.00 - 0.10 K/cumm Lymphocyte abs 1.51 0.80 - 3.30 K/cumm Monocyte abs 0.68 0.20 - 0.80 K/cumm Eosinophil abs 0.15 0.00 - 0.50 K/cumm Basophil abs 0.08 0.00 - 0.10 K/cumm Neutrophil pct 68.0 % Imm gran pct 0.8 % Lymphocyte pct 19.5 % Monocyte pct 8.8 % Eosinophil pct 1.9 % Basophil pct 1.0 % eGFR Collection Time: 04/10/25 5:55 AM Result Value Ref Range eGFR 85 >=60 mL/min/1.[address] Abdomen Pelvis WO Contrast Result Date: 04/07/2025 Narrative: EXAM DESCRIPTION: CT ABDOMEN PELVIS WO CONTRAST REASON FOR STUDY: Abdominal/flank pain, stone suspected, left flank pain hx kidney stones Pt reports onset of urinating blood clots tonight around 1999, while he was getting ready for bed. Pt then with onset of left flank\lower back pain. Hx of kidney stones at the end of February which he had a stent placed. TECHNIQUE: CT scan of the abdomenand pelvis performed without intravenous and without oral contrast using helical scanning technique. Reconstructed coronal and sagittal MPR images reviewed. All images stored on PACS. Automated exposure control was used as a dose optimization technique for this examination. COMPARISON: CT of the chest of February 15, 2025. FINDINGS: The sensitivity for detection of visceral lesions is diminished without the use of intravenous contrast. LOWER CHEST: The lung bases are clear. LIVER: The liver is normal in attenuation without focal lesion. GALLBLADDER: No stones identified. Normal wall. No evidence of pericholecystic fluid. BILE DUCTS: No intrahepatic or extrahepatic ductal dilatation. PANCREAS: Normal. SPLEEN: No focal lesions. Spleen is normal in size. ADRENALS: Normal. KIDNEYS/URINARY TRACT: No significant cystic or solid masses. There is a tiny nonobstructing stone in the right kidney measuring approximately 2 mm, unchanged from previous. There is mild left hydronephrosis and proximal hydroureter with heterogeneous high density material seen within the proximal ureter with Hounsfield units in the 60s. No discrete stone is identified. The 5 mm stone seen in the left kidney on previous study is no longer visualized. The 4 mm proximal left ureteral stones seen on previous study is alsono longer visualized. There is an irregular area of high density within the posterior aspect of thebladder measuring approximately 3.4 x 1.7 cm with Hounsfield units in the 50s. The bladder is otherwise unremarkable. VASCULATURE: No acute abnormality seen. No abdominal aortic aneurysm. GI: The stomach appears normal. There is no significant small bowel dilation or visible thickening. No gross col onic abnormalities identified. The appendix is normal. PERITONEUM/MESENTERY: No ascites or free air. LYMPH NODES: There are no enlarged lymph nodes seen by CT size criteria. RETROPERITONEUM: No retroperitoneal abnormalities. REPRODUCTIVE: The prostate and seminal vesicles are unremarkable. MUSCULOSKELETAL: No significant abnormality. OTHER: No other abnormality. IMPRESSION: 1. Mild left hydronephrosis and proximal hydroureter with heterogeneous high density material seen within the proximal ureter and bladder, consistent with blood products. No discrete stone is identified. The stones seen inthe left kidney and proximal left ureter are no longer visualized. 2. High density material layering posteriorly within the bladder, most consistent with blood clots. An underlying bladder tumor cannot entirely be excluded. 3. Stable nonobstructing right nephrolithiasis. THIS IS AN ELECTRONICALLY VERIFIED FINAL REPORT 04/07/2025 2:28 AM - Electronically signed by Jane Bailey M.D. SN: Report ID: [id number] Reading Location: [place] [address] A/P: Principal Problem: Gross hematuria Resolved Problems: No resolved hospital problems. Gross hematuria Left hydronephrosis CT abdomen pelvis results shows Mild left hydronephrosis and proximal hydroureter with heterogeneous high density material seen within the proximal ureter and bladder, consistent with blood products.No discrete stone is identified. The stones seen in the left kidney and proximal left ureter are no longer visualized.High density material layering posteriorly within the bladder, most consistent with blood clots. An underlying bladder tumor cannot entirely be excluded. Stable nonobstructing rightnephrolithiasis. Patient continues to have gross hematuria. Hemoglobin remains stable currently at 12.5. Urology consulted, appreciate recommendations Patient will be restarted on CBI due to continued gross hematuria Hold antiplatelets, anticoagulants Monitor H&H Transfuse RBC as needed IV fluid NS 75 ml.hr Pain control with Tylenol, hydrocodone, Dilaudid IV PRN We will defer definitive treatment to Urology consult 04/09/25 Patient has been restarted on CBI Currently hematuria has resolved Neurology consulted, appreciate recommendations H&H is remaining stable Defer overall management urology consult 04/10/25 Was personally seen and assessed at bedside Currently off of CBI Continues to have hematuria Discussed with Urology. Urology is planning for CTA. If CTA is negative plan for DC Simmons catheter for voiding trial These fluid and electrolyte abnormalities are being treated, evaluated or monitored: No fluid or electrolyte disorders Code status: Full Code DVT prophylaxis: Patient at low risk PT/OT: As needed Case discussed Air Brake Adjuster Bedside nurse Medical decision making complexity low Voice recognition software MModal Fluency Direct may have been used dictate and transcribe this document. Taxi [employer] variances may occur. Despite proofreading, typographical errors may occur. Lillie Kingston MD 04/10/2025 3:19 PM * Brenda Pryor - 04/10/2025 2:37 PM CDT Spiritual Care Note Brenda Pryor M.Div, [facility] Pt supported by his bedside, has a tremendous amount of support/visits/calls from latter-day. Invited pt to reach out if needed. 04/10/25 1400 Time Spent Start Time 1430 Patient Spiritual Assessment Spirituality Assessed Yes Gnosticist Affiliation Judaism Active in [facility] Yes Place of L[facility] Day [facility] Clinical Encounter Type Visited With Patient and family together (supported by his bedside.) Response Type Routine visit Advance Directives (For Healthcare) Advance Directive Patient does not have advance directive Interventions Interventions Offer spiritual/quaker support * Marline Griffin NP - 04/10/2025 7:12 AM CDT Images from the original note were not included. Urology Progress Note Subjective Patient is a 45 y.o. male evaluated for hematuria. Interval History: -CBI stopped since yesterday afternoon - Urine is tubing clear yellow - Hgb 12.8 - Cr 1.08 Objective Recent Vitals(24hr Range): Vitals: 04/09/25 0805 04/09/25 1502 04/09/25202404/10/25 0352 BP: 141/87 135/81 133/92 133/90 BP Location: Right arm Right arm Patient Position: HOB 30 degrees HOB 30 degrees Pulse: 62 65 68 59 Resp: 18 18 16 14 Temp: 36.9 ??C (98.4 ??F) 36.7 ??C (98.1 ??F) 37.2 ??C (99 ??F) 36.5 ??C (97.7 ??F) TempSrc: Oral Oral SpO2: 96% 96% 95% 96% Weight: Height: I and Os: I/O last 3 completed shifts: In: 5597.5 [P.O.:2000; I.V.:3597.5] Out: 17870 [Urine:31825] No intake/output data recorded. I/O last 2 completed shifts: In: 3187.5 [P.O.:1400; I.V.:1787.5] Out: 9400 [Urine:9400] No intake/output data recorded. Physical exam: Physical Exam Constitutional: oriented to person, place, and time and well-developed, well- nourished, and in no distress. Vital signs are normal. Eye: pupils equal. Pulmonary/Chest: Effort normal. No accessory muscle usage. No respiratory distress. Abdominal: Soft. There is no CVA tenderness. Gu: simmons catheter with yellow urine in tubing, blood tinged in catheter bag Lab/Radiology/Diagnostic Review: Chem/LFT Lab History Latest Ref Rng & Units 02/15/2025 01:29 04/07/2025 01:49 04/08/2025 05:40 04/09/2025 06:01 Labs-Chem/LFT Sodium 135 - 145 mmol/L 140 138 141 139 Creatinine 0.80 - 1.30 mg/dL 1.35 1.19 1.12 1.10 Bilirubin, total 0.1 - 1.2 mg/dL 0.3 0.4 AST 10 - 50 Units/L 31 31 ALT 7 - 55 Units/L 28 17 Alk phos 40 - 130 Units/L 72 79 CrCl- Actual Body Weight (Cockcroft-Gault) 94.4 106.8 113.5 115.5 Hematology Lab History Latest Ref Rng & Units 04/07/2025 04/08/2025 04/09/2025 06:01 04/10/2025 05:55 Labs - Hematology WBC 3.80 - 9.90 K/cumm 9.82 6.83 7.71 7.73 Total Hb, POC 13.0 - 17.5 g/dL 12.6 13.3 12.5 12.8 Hct 38.9 - 50.3 % 36.1 37.7 37.3 36.4 Plt 150 - 400 K/cumm 233 166 170 198 Neutrophil abs 1.50 - 6.50 K/cumm 6.21 4.78 5.16 5.25 Lymphocytes, abs 0.80 - 3.30 K/cumm 2.54 1.12 1.56 1.51 Details More abnormal values are hidden. Newest values shown. Go to activity for more data. Assessment /Plan Principal Problem: Gross hematuria 45 y.o. male with history of kidney stone presented to ED with hematuria. He had left ureteroscopy on 02/23 and 03/[address] Yates. His stent was removed 03/13. After stent removal he has had a couple episodes of hematuria that resolved. He went on a trip to [facility] and did a lot of walking while on this trip. He returned and noted to have hematuria with blood clots and was not able to urinate well. He would urinate small amounts and feel as if he was incompletely emptying. CT scan shown tohave mild hydronephrosis and proximal hydroureter with heterogeneous high density material seen within the proximal ureter and bladder, consistent with blood products. High density material layering p osteriorly within the bladder, most consistent with blood clots. Recent cystoscopy on 03/06/2025 didnot reveal any bladder tumors or lesions. CBI started in ED this morning. On rounds CBI had been stopped and urine output was red tinged. Irrigated at bedside with moderate amount of clot return. Patient is roughly a month out from his stent removal in February following ureteroscopy. It is suspected bleeding is likely coming from kidney. UA negative. Expect bleeding will resolve. Continue 3 way simmons catheter at this time and irrigate as needed. Trend Hgb. Reassess urine output tomorrow. If audie aring would recommend removal of simmons catheter. 04/08/25- 3-way simmons catheter draining blood tinged urine without CBI; per patient report hematuriais improved in comparison to yesterday. Simmons irrigated manually by urology at bedside with return of yellow urine and no clots expressed. Plan to reassess urine output tomorrow, if hematuria resolves, then suggest removal of simmons catheter. 04/09/2025 - urine blood tinged with CBI at slow rate. CBI stopped on rounds today. Will continue tomonitor. If clear tomorrow AM recommend discontinue simmons catheter. 04/10/2025 - urine in clear yellow in tubing, blood tinged in catheter bag. Hgb stable, Recommend CTangiogram. If this is negative recommend discontinue simmons catheter for void trial. Marline Griffin NP 04/10/2025 * Lillie Schafer MD - 04/09/2025 2:22 PM CDT Images from the original note were not included. General Medicine Daily Progress SUBJECTIVE Patient is seen in follow up of gross hematuria and left hydronephrosis Patient seen and examined at bedside. Patient started having hematuria again yesterday's afternoon and was restarted on CBI. Currently on CBI. Currently hematuria has resolved. Denies any other specific new complaints. OBJECTIVE Vitals: 24hr Min/Max: Temp Min: 36.9 ??C (98.4 ??F) Max: 37.2 ??C (99 ??F) Pulse Min: 59 Max: 79 BP Min: 132/79 Max: 143/88 Resp Min: 16 Max: 18 SpO2 Min: 95 % Max: 97 % Most Recent : Vitals: 04/09/25 0805 BP: 141/87 Pulse: 62 Resp: 18 Temp: 36.9 ??C (98.4 ??F) SpO2: 96% I/O last 2 completed shifts: In: 5436 [P.O.:2280; I.V.:3156] Out: 88669 [Urine:42630] I/O this shift: In: 200 [P.O.:200] Out: 4675 [Urine:4675] O2 Therapy for the past 12 hrs: O2 Therapy 04/09/25 0351 None (Room air) Physical Exam: Vitals reviewed Constitutional: NAD, comfortable, in bed Eyes: anicteric, vision grossly intact, glasses ENT: MMM Lungs: Normal depth and effort of breathing, on RA Heart: Regular, no murmur, no ankle edema Abd: +BS, Non Tender, Non distended : no indwelling simmons catheter Neuro: No new deficits appreciated Musculoskeletal: ROM grossly intact Skin: warm dry Psychiatric: alert, oriented Lab/Current Medication Review: Recent Results (from the past 24 hours) Hemoglobin and hematocrit Collection Time: 04/08/25 7:21 PM Result Value Ref Range Hgb 13.3 13.0 - 17.5 g/dL Hct 37.7 (L) 38.9 - 50.3 % Basic metabolic panel Collection Time: 04/09/25 6:01 AM Result Value Ref Range Sodium 139 135 - 145 mmol/L Potassium, pl 3.9 3.3 - 4.9 mmol/L Chloride 107 97 - 110 mmol/L CO2 21 (L) 22 - 32 mmol/L Anion gap 11 2 - 15 mmol/L BUN 11 6 - 25 mg/dL Creatinine 1.10 0.80 - 1.30 mg/dL Glucose 94 70 - 199 mg/dL Calcium 8.7 8.5 - 10.3 mg/dL CBC with auto differential Collection Time: 04/09/25 6:01 AM Result Value Ref Range WBC 7.71 3.80 - 9.90 K/cumm Hgb 12.5 (L) 13.0 - 17.5 g/dL Hct 37.3 (L) 38.9 - 50.3 % Plt 170 150 - 400 K/cumm MPV 10.8 9.1 - 12.3 fL RBC 4.09 (L) 4.30 - 5.80 M/cumm MCV 91.2 81.3 - 96.4 fL MCH 30.6 27.1 - 33.3 pg MCHC 33.5 32.3 - 35.7 g/dL RDW CV 11.9 11.1 - 14.9 % RDW SD 39.9 35.7 - 48.1 fL NRBC abs 0.00 0.00 - 0.01 K/cumm Differential, auto Collection Time: 04/09/25 6:01 AM Result Value Ref Range Neutrophil abs 5.16 1.50 - 6.50 K/cumm Imm gran abs 0.05 0.00 - 0.10 K/cumm Lymphocyte abs 1.56 0.80 - 3.30 K/cumm Monocyte abs 0.73 0.20 - 0.80 K/cumm Eosinophil abs 0.13 0.00 - 0.50 K/cumm Basophil abs 0.08 0.00 - 0.10 K/cumm Neutrophil pct 67.0 % Imm gran pct 0.6 % Lymphocyte pct 20.2 % Monocyte pct 9.5 % Eosinophil pct 1.7 % Basophil pct 1.0 % eGFR Collection Time: 04/09/25 6:01 AM Result Value Ref Range eGFR 83 >=60 mL/min/1.[address] Abdomen Pelvis WO Contrast Result Date: 04/07/2025 Narrative: EXAM DESCRIPTION: CT ABDOMEN PELVIS WO CONTRAST REASON FOR STUDY: Abdominal/flank pain, stone suspected, left flank pain hx kidney stones Pt reports onset of urinating blood clots tonight around 1999, while he was getting ready for bed. Pt then with onset of left flank\lower back pain. Hx of kidney stones at the end of February which he had a stent placed. TECHNIQUE: CT scan of the abdomenand pelvis performed without intravenous and without oral contrast using helical scanning technique. Reconstructed coronal and sagittal MPR images reviewed. All images stored on PACS. Automated exposure control was used as a dose optimization technique for this examination. COMPARISON: CT of the chest of February 15, 2025. FINDINGS: The sensitivity for detection of visceral lesions is diminished without the use of intravenous contrast. LOWER CHEST: The lung bases are clear. LIVER: The liver is normal in attenuation without focal lesion. GALLBLADDER: No stones identified. Normal wall. No evidence of pericholecystic fluid. BILE DUCTS: No intrahepatic or extrahepatic ductal dilatation. PANCREAS: Normal. SPLEEN: No focal lesions. Spleen is normal in size. ADRENALS: Normal. KIDNEYS/URINARY TRACT: No significant cystic or solid masses. There is a tiny nonobstructing stone in the right kidney measuring approximately 2 mm, unchanged from previous. There is mild left hydronephrosis and proximal hydroureter with heterogeneous high density material seen within the proximal ureter with Hounsfield units in the 60s. No discrete stone is identified. The 5 mm stone seen in the left kidney on previous study is no longer visualized. The 4 mm proximal left ureteral stones seen on previous study is alsono longer visualized. There is an irregular area of high density within the posterior aspect of thebladder measuring approximately 3.4 x 1.7 cm with Hounsfield units in the 50s. The bladder is otherwise unremarkable. VASCULATURE: No acute abnormality seen. No abdominal aortic aneurysm. GI: The stomach appears normal. There is no significant small bowel dilation or visible thickening. No gross col onic abnormalities identified. The appendix is normal. PERITONEUM/MESENTERY: No ascites or free air. LYMPH NODES: There are no enlarged lymph nodes seen by CT size criteria. RETROPERITONEUM: No retroperitoneal abnormalities. REPRODUCTIVE: The prostate and seminal vesicles are unremarkable. MUSCULOSKELETAL: No significant abnormality. OTHER: No other abnormality. IMPRESSION: 1. Mild left hydronephrosis and proximal hydroureter with heterogeneous high density material seen within the proximal ureter and bladder, consistent with blood products. No discrete stone is identified. The stones seen inthe left kidney and proximal left ureter are no longer visualized. 2. High density material layering posteriorly within the bladder, most consistent with blood clots. An underlying bladder tumor cannot entirely be excluded. 3. Stable nonobstructing right nephrolithiasis. THIS IS AN ELECTRONICALLY VERIFIED FINAL REPORT 04/07/2025 2:28 AM - Electronically signed by Jane Bailey M.D. SN: Report ID: [id number] Reading Location: [place] [address] A/P: Principal Problem: Gross hematuria Resolved Problems: No resolved hospital problems. Gross hematuria Left hydronephrosis CT abdomen pelvis results shows Mild left hydronephrosis and proximal hydroureter with heterogeneous high density material seen within the proximal ureter and bladder, consistent with blood products.No discrete stone is identified. The stones seen in the left kidney and proximal left ureter are no longer visualized.High density material layering posteriorly within the bladder, most consistent with blood clots. An underlying bladder tumor cannot entirely be excluded. Stable nonobstructing rightnephrolithiasis. Patient continues to have gross hematuria. Hemoglobin remains stable currently at 12.5. Urology consulted, appreciate recommendations Patient will be restarted on CBI due to continued gross hematuria Hold antiplatelets, anticoagulants Monitor H&H Transfuse RBC as needed IV fluid NS 75 ml.hr Pain control with Tylenol, hydrocodone, Dilaudid IV PRN We will defer definitive treatment to Urology consult 04/09/25 Patient has been restarted on CBI Currently hematuria has resolved Neurology consulted, appreciate recommendations H&H is remaining stable Defer overall management urology consult These fluid and electrolyte abnormalities are being treated, evaluated or monitored: No fluid or electrolyte disorders Code status: Full Code DVT prophylaxis: Patient at low risk PT/OT: As needed Case discussed Air Brake Adjuster Bedside nurse Medical decision making complexity low Voice recognition software MModal Fluency Direct may have been used dictate and transcribe this document. Taxi Servicer variances may occur. Despite proofreading, typographical errors may occur. Lillie Kingston MD 04/09/2025 2:23 PM * Marline Griffin NP - 04/09/2025 7:33 AM CDT Images from the original note were not included. Urology Progress Note Subjective Patient is a 45 y.o. male evaluated for hematuria . Interval History: - CBI running slowly with lightly blood tinged urine, stopped on rounds. - Hgb 12.5 - Cr 1.10 Objective Recent Vitals(24hr Range): Vitals: 04/08/25 0755 04/08/25 1735 04/08/25 1937 04/09/25 0351 BP: 128/89 143/88 134/90 132/79 BP Location: Right arm Right arm Right arm Right arm Patient Position: Lying Lying HOB 30 degrees HOB 30 degrees Pulse: 67 59 79 61 Resp: 18 18 18 16 Temp: 37.2 ??C (99 ??F) 36.9 ??C (98.4 ??F) 37.2 ??C (99 ??F) 37.1 ??C (98.8 ??F) TempSrc: Oral Oral Oral Oral SpO2: 97% 97% 95% 97% Weight: Height: I and Os: I/O last 3 completed shifts: In: 8222.3 [P.O.:3580; I.V.:4642.3] Out: 48752 [Urine:29950] No intake/output data recorded. I/O last 2 completed shifts: In: 5436 [P.O.:2280; I.V.:3156] Out: 28471 [Urine:62208] No intake/output data recorded. Physical exam: Physical Exam Constitutional: oriented to person, place, and time and well-developed, well- nourished, and in no distress. Vital signs are normal. Eye: pupils equal. Pulmonary/Chest: Effort normal. No accessory muscle usage. No respiratory distress. Abdominal: Soft. There is no CVA tenderness. Gu: 3way simmons catheter with CBI running lightly blood tinged urine Lab/Radiology/Diagnostic Review: Chem/LFT Lab History Latest Ref Rng & Units 02/15/2025 01:29 04/07/2025 01:49 04/08/2025 05:40 04/09/2025 06:01 Labs-Chem/LFT Sodium 135 - 145 mmol/L 140 138 141 139 Creatinine 0.80 - 1.30 mg/dL 1.35 1.19 1.12 1.10 Bilirubin, total 0.1 - 1.2 mg/dL 0.3 0.4 AST 10 - 50 Units/L 31 31 ALT 7 - 55 Units/L 28 17 Alk phos 40 - 130 Units/L 72 79 CrCl- Actual Body Weight (Cockcroft-Gault) 94.4 106.8 113.5 115.5 Hematology Lab History Latest Ref Rng & Units 02/15/2025 01:29 04/07/2025 04/08/2025 04/09/2025 06:01 Labs - Hematology WBC 3.80 - 9.90 K/cumm 9.56 9.82 6.83 7.71 Total Hb, POC 13.0 - 17.5 g/dL 15.0 12.6 13.3 12.5 Hct 38.9 - 50.3 % 42.0 36.1 37.7 37.3 Plt 150 - 400 K/cumm 230 233 166 170 Neutrophil abs 1.50 - 6.50 K/cumm 6.59 6.21 4.78 5.16 Lymphocytes, abs 0.80 - 3.30 K/cumm 1.94 2.54 1.12 1.56 Details More abnormal values are hidden. Newest values shown. Go to activity for more data. Assessment /Plan Principal Problem: Gross hematuria 45 y.o. male with history of kidney stone presented to ED with hematuria. He had left ureteroscopyon 02/23 and 03/[address] Yates. His stent was removed 03/13. After stent removal he has had a coupleepisodes of hematuria that resolved. He went on a trip to [facility] and did a lot of walking while on this trip. He returned and noted to have hematuria with blood clots and was not able to urinat e well. He would urinate small amounts and feel as if he was incompletely emptying. CT scan shown to have mild hydronephrosis and proximal hydroureter with heterogeneous high density material seen within the proximal ureter and bladder, consistent with blood products. High density material layering posteriorly within the bladder, most consistent with blood clots. Recent cystoscopy on 03/06/2025 did not reveal any bladder tumors or lesions. CBI started in ED this morning. On rounds CBI had been stopped and urine output was red tinged. Irrigated at bedside with moderate amount of clot return. Patient is roughly a month out from his stent removal in February following ureteroscopy. It is suspected bleeding is likely coming from kidney. UA negative. Expect bleeding will resolve. Continue [address] way simmons catheter at this time and irrigate as needed. Trend Hgb. Reassess urine output tomorrow. If audie aring would recommend removal of simmons catheter. 04/08/25- 3-way simmons catheter draining blood tinged urine without CBI; per patient report hematuriais improved in comparison to yesterday. Simmons irrigated manually by urology at bedside with return of yellow urine and no clots expressed. Plan to reassess urine output tomorrow, if hematuria resolves, then suggest removal of simmons catheter. 04/09/2025 - urine blood tinged with CBI at slow rate. CBI stopped on rounds today. Will continue tomonitor. If clear tomorrow AM recommend discontinue simmons catheter. Marline Griffin NP 04/09/2025 * Lillie Schafer MD - 04/08/2025 3:41 PM CDT Images from the original note were not included. General Medicine Daily Progress SUBJECTIVE Patient is seen in follow up of gross hematuria and left hydronephrosis Patient seen and examined at bedside. In the morning his hematuria has improved on CBI. However later in the afternoon he started passing blood clots again with urine. He denies any pain. Has remained afebrile. OBJECTIVE Vitals: 24hr Min/Max: Temp Min: 36.7 ??C (98.1 ??F) Max: 37.2 ??C (99 ??F) Pulse Min: 67 Max: 73 BP Min: 127/81 Max: 128/89 Resp Min: 18 Max: 18 SpO2 Min: 94 % Max: 97 % Most Recent : Vitals: 04/08/25 0755 BP: 128/89 Pulse: 67 Resp: 18 Temp: 37.2 ??C (99 ??F) SpO2: 97% I/O last 2 completed shifts: In: 4888.3 [P.O.:1660; I.V.:3228.3] Out: 5000 [Urine:5000] I/O this shift: In: 3026 [P.O.:1680; I.V.:1346] Out: 2400 [Urine:2400] O2 Therapy for the past 12 hrs: O2 Therapy 04/08/25 0755 None (Room air) Physical Exam: Vitals reviewed Constitutional: NAD, comfortable, in bed Eyes: anicteric, vision grossly intact, glasses ENT: MMM Lungs: Normal depth and effort of breathing, on RA Heart: Regular, no murmur, no ankle edema Abd: +BS, Non Tender, Non distended : no indwelling simmons catheter Neuro: No new deficits appreciated Musculoskeletal: ROM grossly intact Skin: warm dry Psychiatric: alert, oriented Lab/Current Medication Review: Recent Results (from the past 24 hours) Hemoglobin and hematocrit Collection Time: 04/07/25 6:36 PM Result Value Ref Range Hgb 12.7 (L) 13.0 - 17.5 g/dL Hct 35.9 (L) 38.9 - 50.3 % Hemoglobin and hematocrit Collection Time: 04/07/25 11:30 PM Result Value Ref Range Hgb 12.6 (L) 13.0 - 17.5 g/dL Hct 36.1 (L) 38.9 - 50.3 % Basic metabolic panel Collection Time: 04/08/25 5:40 AM Result Value Ref Range Sodium 141 135 - 145 mmol/L Potassium, pl 4.2 3.3 - 4.9 mmol/L Chloride 108 97 - 110 mmol/L CO2 23 22 - 32 mmol/L Anion gap 10 2 - 15 mmol/L BUN 12 6 - 25 mg/dL Creatinine 1.12 0.80 - 1.30 mg/dL Glucose 100 70 - 199 mg/dL Calcium 8.7 8.5 - 10.3 mg/dL CBC with auto differential Collection Time: 04/08/25 5:40 AM Result Value Ref Range WBC 6.83 3.80 - 9.90 K/cumm Hgb 12.4 (L) 13.0 - 17.5 g/dL Hct 36.3 (L) 38.9 - 50.3 % Plt 166 150 - 400 K/cumm MPV 10.3 9.1 - 12.3 fL RBC 4.06 (L) 4.30 - 5.80 M/cumm MCV 89.4 81.3 - 96.4 fL MCH 30.5 27.1 - 33.3 pg MCHC 34.2 32.3 - 35.7 g/dL RDW CV 12.0 11.1 - 14.9 % RDW SD 39.1 35.7 - 48.1 fL NRBC abs 0.00 0.00 - 0.01 K/cumm Differential, auto Collection Time: 04/08/25 5:40 AM Result Value Ref Range Neutrophil abs 4.78 1.50 - 6.50 K/cumm Imm gran abs 0.06 0.00 - 0.10 K/cumm Lymphocyte abs 1.12 0.80 - 3.30 K/cumm Monocyte abs 0.71 0.20 - 0.80 K/cumm Eosinophil abs 0.10 0.00 - 0.50 K/cumm Basophil abs 0.06 0.00 - 0.10 K/cumm Neutrophil pct 69.9 % Imm gran pct 0.9 % Lymphocyte pct 16.4 % Monocyte pct 10.4 % Eosinophil pct 1.5 % Basophil pct 0.9 % eGFR Collection Time: 04/08/25 5:40 AM Result Value Ref Range eGFR 82 >=60 mL/min/1.73 m2 Hemoglobin and hematocrit Collection Time: 04/08/25 1:29 PM Result Value Ref Range Hgb 12.5 (L) 13.0 - 17.5 g/dL Hct 36.2 (L) 38.9 - 50.3 % CT Abdomen Pelvis WO Contrast Result Date: 04/07/2025 Narrative: EXAM DESCRIPTION: CT ABDOMEN PELVIS WO CONTRAST REASON FOR STUDY: Abdominal/flank pain, stone suspected, left flank pain hx kidney stones Pt reports onset of urinating blood clots tonight around 1999, while he was getting ready for bed. Pt then with onset of left flank\lower back pain. Hx of kidney stones at the end of February which he had a stent placed. TECHNIQUE: CT scan of the abdomenand pelvis performed without intravenous and without oral contrast using helical scanning technique. Reconstructed coronal and sagittal MPR images reviewed. All images stored on PACS. Automated exposure control was used as a dose optimization technique for this examination. COMPARISON: CT of the chest of February 15, 2025. FINDINGS: The sensitivity for detection of visceral lesions is diminished without the use of intravenous contrast. LOWER CHEST: The lung bases are clear. LIVER: The liver is normal in attenuation without focal lesion. GALLBLADDER: No stones identified. Normal wall. No evidence of pericholecystic fluid. BILE DUCTS: No intrahepatic or extrahepatic ductal dilatation. PANCREAS: Normal. SPLEEN: No focal lesions. Spleen is normal in size. ADRENALS: Normal. KIDNEYS/URINARY TRACT: No significant cystic or solid masses. There is a tiny nonobstructing stone in the right kidney measuring approximately 2 mm, unchanged from previous. There is mild left hydronephrosis and proximal hydroureter with heterogeneous high density material seen within the proximal ureter with Hounsfield units in the 60s. No discrete stone is identified. The 5 mm stone seen in the left kidney on previous study is no longer visualized. The 4 mm proximal left ureteral stones seen on previous study is alsono longer visualized. There is an irregular area of high density within the posterior aspect of thebladder measuring approximately 3.4 x 1.7 cm with Hounsfield units in the 50s. The bladder is otherwise unremarkable. VASCULATURE: No acute abnormality seen. No abdominal aortic aneurysm. GI: The stomach appears normal. There is no significant small bowel dilation or visible thickening. No gross col onic abnormalities identified. The appendix is normal. PERITONEUM/MESENTERY: No ascites or free air. LYMPH NODES: There are no enlarged lymph nodes seen by CT size criteria. RETROPERITONEUM: No retroperitoneal abnormalities. REPRODUCTIVE: The prostate and seminal vesicles are unremarkable. MUSCULOSKELETAL: No significant abnormality. OTHER: No other abnormality. IMPRESSION: 1. Mild left hydronephrosis and proximal hydroureter with heterogeneous high density material seen within the proximal ureter and bladder, consistent with blood products. No discrete stone is identified. The stones seen inthe left kidney and proximal left ureter are no longer visualized. 2. High density material layering posteriorly within the bladder, most consistent with blood clots. An underlying bladder tumor cannot entirely be excluded. 3. Stable nonobstructing right nephrolithiasis. THIS IS AN ELECTRONICALLY VERIFIED FINAL REPORT 04/07/2025 2:28 AM - Electronically signed by Jane Bailey M.D. SN: Report ID: [id number] Reading Location: [place] [address] A/P: Principal Problem: Gross hematuria Resolved Problems: No resolved hospital problems. Gross hematuria Left hydronephrosis CT abdomen pelvis results shows Mild left hydronephrosis and proximal hydroureter with heterogeneous high density material seen within the proximal ureter and bladder, consistent with blood products.No discrete stone is identified. The stones seen in the left kidney and proximal left ureter are no longer visualized.High density material layering posteriorly within the bladder, most consistent with blood clots. An underlying bladder tumor cannot entirely be excluded. Stable nonobstructing rightnephrolithiasis. Patient continues to have gross hematuria. Hemoglobin remains stable currently at 12.5. Urology consulted, appreciate recommendations Patient will be restarted on CBI due to continued gross hematuria Hold antiplatelets, anticoagulants Monitor H&H Transfuse RBC as needed IV fluid NS 75 ml.hr Pain control with Tylenol, hydrocodone, Dilaudid IV PRN We will defer definitive treatment to Urology consult These fluid and electrolyte abnormalities are being treated, evaluated or monitored: No fluid or electrolyte disorders Code status: Full Code DVT prophylaxis: Patient at low risk PT/OT: As needed Case discussed Air Brake Adjuster Bedside nurse My total encounter time on 04/08/2025 was 36 minutes which was spent in the activities documented in the note. This includes the time spent prior to the visit and after the visit in direct care of the patient. This time does not include the time spent in any separately reportable services. Voice recognition software GrupHediye Direct may have been used dictate and transcribe this document. Taxi Servicer variances may occur. Despite proofreading, typographical errors may occur. Lillie Kingston MD 04/08/2025 3:41 PM * John Wallace PRODUCTION CONTROL EXPERT - 04/08/2025 11:23 AM CDT Urology Progress Note Subjective Objective Assessment /Plan Principal Problem: Gross hematuria 45 y.o. male with history of kidney stone presented to ED with hematuria. He had left ureteroscopy on 02/23 and 03/[address] Yates. His stent was removed 03/13. After stent removal he has had a couple episodes of hematuria that resolved. He went on a trip to [facility] and did a lot of walking while on this trip. He returned and noted to have hematuria with blood clots and was not able to urinate well. He would urinate small amounts and feel as if he was incompletely emptying. CT scan shown tohave mild hydronephrosis and proximal hydroureter with heterogeneous high density material seen within the proximal ureter and bladder, consistent with blood products. High density material layering p osteriorly within the bladder, most consistent with blood clots. Recent cystoscopy on 03/06/2025 did not reveal any bladder tumors or lesions. CBI started in ED this morning. On rounds CBI had been stopped and urine output was red tinged. Irrigated at bedside with moderate amount of clot return. Patient is roughly a month out from his stent removal in February following ureteroscopy. It is suspected bleeding is likely coming from kidney. UA negative. Expect bleeding will resolve. Continue [address] way simmons catheter at this time and irrigate as needed. Trend Hgb. Reassess urine output tomorrow. If audie aring would recommend removal of simmons catheter. 04/08/25- 3-way simmons catheter draining blood tinged urine without CBI; per patient report hematuriais improved in comparison to yesterday. Simmons irrigated manually by urology at bedside with return of yellow urine and no clots expressed. Plan to reassess urine output tomorrow, if hematuria resolves, then suggest removal of simmons catheter. John Wallace NP 04/08/2025 documented in this encounter H&P Notes * Kinza Mackey NP - 04/07/2025 7:59 AM CDT History and Physical CHIEF COMPLAINT Chief Complaint Patient presents with Urinary Problem Flank Pain HPI Patient is a 45 y.o. male with history of kidney stone. Patient to the ED complaint of hematuria. Patient reports he was getting ready for bed last night when he went to urinate and saw blood clots in his urine. Patient states he was evaluated on February 15 in the ED and was found to have Kidney stones. Patient reports he followed up with a Urologist on February 23 who tried to take them out, however his ureter was reportedly too narrow. Patient states he went back on the and successfully had them removed. Patient reports left-sided flank pain and hypogastric pain. Denies fever, chills, shortness of breath, chest pain, nausea or vomiting, headache or dizziness. Denies smoking, marijuana or illicit drug use. Claims he drinks 1 beer, 3-4 times per week. Last drink was yesterday night. Pertinent vitals, labs, and diagnostics on admission: Blood pressure 134/66, RR 20, HR 80, temperature 36.9??, SpO2 100%. Chemistry results within normal limits except CO2 18, anion gap 22. Hematology results within normal limits except MCHC 36.0. Urine analysis results shows negative for nitrites and leukocyte esterase. CT abdomen pelvis results shows Mild left hydronephrosis and proximal hydroureter with heterogeneous high density material seen within the proximal ureter and bladder, consistent with blood products. No discrete stone is identified. The stones seen in the left kidney and proximal left ureter are no longer visualized. High density material layering posteriorly within the blad silvino, most consistent with blood clots. An underlying bladder tumor cannot entirely be excluded. Stable nonobstructing right nephrolithiasis. Treatment given in the ED includes [place] 1 tablet p.o. once, ketorolac 30 mg IV once, sodium chloride 2000 mL irrigation once, NS 1000 mL IV bolus. I agree to admit to inpatient for further evaluation and treatment. PAST MEDICAL HISTORY No past medical history on file. PAST SURGICAL HISTORY Past Surgical History: Procedure Laterality Date ORAL SURGERY ALLERGIES No Known Allergies FAMILY HISTORY family history includes Asthma in his mother; Hyperlipidemia in his father; Memory loss in his father's brother; Testicular cancer in his brother. SOCIAL HISTORY Social History Tobacco Use Smoking status: Never Smokeless tobacco: Never Tobacco comments: No usage ever Vaping Use Vaping status: Never Used Substance and Sexual Activity Alcohol use: None Drug use: Never Sexual activity: Defer HOME MEDICATIONS Prior to Admission medications Medication Sig Start Date End Date Taking? Authorizing Provider acetaminophen (TYLENOL) 500 mg tablet Take 2 tablets (1,000 mg total) by mouth every 6 (six) hours as needed for pain 02/23/25 Sonya Small MD loratadine (CLARITIN) 10 mg tablet Take 1 tablet (10 mg total) by mouth every morning Adrián Rosales MD MULTIVITAMIN ORAL Take 1 tablet by mouth every morning Patient not taking: Reported on 04/07/2025 Adrián Rosales MD naproxen (ALEVE) 220 mg tablet Take 2 tablets (440 mg total) by mouth as needed for pain Patient not taking: Reported on 04/07/2025 Adrián Rosales MD ondansetron ODT (ZOFRAN-ODT) 4 mg disintegrating tablet Take 1 tablet (4 mg total) by mouth every 4(four) hours as needed for nausea Patient taking differently: Take 1 tablet (4 mg total) by mouth every 4 (four) hours as needed for nausea Has not taken yet 02/15/25 Felix Hardy DO oxyBUTYnin (DITROPAN) 5 mg tablet Take 1 tablet (5 mg total) by mouth 3 (three) times a day as needed (bladder spasms) 03/06/25 04/07/25 Bereket Bhakta MD phenazopyridine (PYRIDIUM) 100 mg tablet Take 1 tablet (100 mg total) by mouth 3 (three) times a day as needed for urinary pain 03/06/25 Christopher Yates MD tamsulosin (FLOMAX) 0.4 mg extended release capsule Take 1 capsule (0.4 mg total) by mouth daily 02/23/25 04/24/25 Sonya Small MD ZINC ORAL Take 1 tablet by mouth every morning Provider, MD Adrián REVIEW OF SYSTEMS Review of Systems Constitutional: Negative. HENT: Negative. Eyes: Negative. Cardiovascular: Negative. Gastrointestinal: Positive for abdominal pain (hypogastric). Genitourinary: Positive for flank pain (left) and hematuria. Skin: Negative. Neurological: Negative. Endo/Heme/Allergies: Negative. Psychiatric/Behavioral: Negative. OBJECTIVE Temp Av.9 ??C (98.5 ??F) Min: 36.9 ??C (98.5 ??F) Max: 36.9 ??C (98.5 ??F) BP Min: 134/66 Max: 151/77 Pulse Av.3 Min: 70 Max: 85 Resp Av Min: 20 Max: 20 SpO2 Av.8 % Min: 99 % Max: 100 % I/O last 3 completed shifts: In: 1000 [IV Piggyback:1000] Out: 2700 [Urine:2700] Weight: Wt Readings from Last 1 Encounters: 04/07/25 98.4 kg (216 lb 14.9 oz) PHYSICAL EXAM Physical Exam Vitals and nursing note reviewed. HENT: Head: Normocephalic. Nose: Nose normal. Eyes: Pupils: Pupils are equal, round, and reactive to light. Cardiovascular: Rate and Rhythm: Normal rate and regular rhythm. Pulses: Normal pulses. Heart sounds: Normal heart sounds. Pulmonary: Effort: Pulmonary effort is normal. Breath sounds: Normal breath sounds. Abdominal: General: Bowel sounds are normal. Tenderness: There is abdominal tenderness (hypogastric area). Genitourinary: Comments: Simmons catheter with bloody urine Musculoskeletal: General: Normal range of motion. Cervical back: Normal range of motion. Skin: General: Skin is warm. Capillary Refill: Capillary refill takes less than 2 seconds. Neurological: Mental Status: He is alert and oriented to person, place, and time. Psychiatric: Behavior: Behavior normal. LAB/RADIOLOGY/DIAGNOSTIC: Recent Labs Lab Units 04/07/25 0149 WBC K/cumm 9.82 HEMOGLOBIN g/dL 14.9 HEMATOCRIT % 41.4 PLATELETS K/cumm 233 NEUTROS PCT % 63.3 LYMPHS PCT % 25.9 MONOS PCT % 8.2 EOS PCT % 0.9 Recent Labs Lab Units 04/07/25 0149 SODIUM mmol/L 138 POTASSIUM PLASMA mmol/L 4.1 CHLORIDE mmol/L 98 CO2 mmol/L 18* ANIONGAP mmol/L 22* GLUCOSE mg/dL 114 BUN SERUM mg/dL 15 CREATININE mg/dL 1.19 CALCIUM mg/dL 10.2 ALBUMIN g/dL 4.7 ALK PHOS Units/L 79 ALT Units/L 17 AST Units/L 31 BILIRUBIN TOTAL mg/dL 0.4 No results found for: TROPONINI No results found for: BNP No results found for: TSH Recent Labs Lab Units 04/07/25 0639 COLOR U Red* CLARITY U Cloudy* SPEC GRAV U 1.013 PH, URINE 8.0 PROTEIN UR QL Trace* GLUCOSE URQL Negative KETONES UR Negative BLOOD UR 3+* NITRITE UR Negative LEUKOCYTE ESTERASE UR Negative LAB TREND CBC: Lab Results Component Value Date WBC 9.82 04/07/2025 HGB 14.9 04/07/2025 HCT 41.4 04/07/2025 BMP: Lab Results Component Value Date SODIUM 138 04/07/2025 POTASSIUM 4.1 04/07/2025 CHLORIDE 98 04/07/2025 CREATININE 1.19 04/07/2025 CALCIUM 10.2 04/07/2025 No results found for: BNP Lab Results Component Value Date ALKPHOS 79 04/07/2025 No results found for: MAGNESIUM Lab Results Component Value Date AST 31 04/07/2025 Lab Results Component Value Date ALT 17 04/07/2025 Radiology: Recent Results (from the past 72 hours) CBC with auto differential Collection Time: 04/07/25 1:49 AM Result Value Ref Range WBC 9.82 3.80 - 9.90 K/cumm Hgb 14.9 13.0 - 17.5 g/dL Hct 41.4 38.9 - 50.3 % Plt 233 150 - 400 K/cumm MPV 10.5 9.1 - 12.3 fL RBC 4.78 4.30 - 5.80 M/cumm MCV 86.6 81.3 - 96.4 fL MCH 31.2 27.1 - 33.3 pg MCHC 36.0 (H) 32.3 - 35.7 g/dL RDW CV 11.5 11.1 - 14.9 % RDW SD 36.6 35.7 - 48.1 fL NRBC abs 0.00 0.00 - 0.01 K/cumm Comprehensive metabolic panel Collection Time: 04/07/25 1:49 AM Result Value Ref Range Sodium 138 135 - 145 mmol/L Potassium, pl 4.1 3.3 - 4.9 mmol/L Chloride 98 97 - 110 mmol/L CO2 18 (L) 22 - 32 mmol/L Anion gap 22 (H) 2 - 15 mmol/L BUN 15 6 - 25 mg/dL Creatinine 1.19 0.80 - 1.30 mg/dL Glucose 114 70 - 199 mg/dL Calcium 10.2 8.5 - 10.3 mg/dL Bilirubin, total 0.4 0.1 - 1.2 mg/dL Protein, pl 7.5 6.5 - 8.5 g/dL Albumin 4.7 3.5 - 5.0 g/dL Alk phos 79 40 - 130 Units/L ALT 17 7 - 55 Units/L AST 31 10 - 50 Units/L Lipase Collection Time: 04/07/25 1:49 AM Result Value Ref Range Lipase 84 10 - 99 Units/L Differential, auto Collection Time: 04/07/25 1:49 AM Result Value Ref Range Neutrophil abs 6.21 1.50 - 6.50 K/cumm Imm gran abs 0.08 0.00 - 0.10 K/cumm Lymphocyte abs 2.54 0.80 - 3.30 K/cumm Monocyte abs 0.81 (H) 0.20 - 0.80 K/cumm Eosinophil abs 0.09 0.00 - 0.50 K/cumm Basophil abs 0.09 0.00 - 0.10 K/cumm Neutrophil pct 63.3 % Imm gran pct 0.8 % Lymphocyte pct 25.9 % Monocyte pct 8.2 % Eosinophil pct 0.9 % Basophil pct 0.9 % eGFR Collection Time: 04/07/25 1:49 AM Result Value Ref Range eGFR 76 >=60 mL/min/1.73 m2 Urinalysis reflex to microscopic and culture Urine Collection Time: 04/07/25 6:39 AM Specimen: Urine Result Value Ref Range Color, ur Red (A) Yellow Clarity, ur Cloudy (A) Clear Specific gravity, ur 1.013 1.003 - 1.030 pH, urine 8.0 Protein, ur ql Trace (A) Negative Glucose, ur ql Negative Negative Ketones, ur Negative Negative Bilirubin, ur Negative Negative Blood, ur 3+ (A) Negative Urobilinogen, ur <2.0 <2.0 mg/dL Nitrite, ur Negative Negative Leukocyte esterase, ur Negative Negative UA reflex comment Reflex to microscopic UA will be performed. Urinalysis, microscopic only Collection Time: 04/07/25 6:39 AM Result Value Ref Range WBC, ur 0-5 0 - 5 /HPF RBC, ur >50 (A) 0 - 2 /HPF Epithelial cells, squamous, ur 11-20 (A) 0 - 5 /HPF Culture Reflex Comment Reflex conditions for urine culture (WBC >10) not met. ASSESSMENT AND PLAN Active Problems: No Active Problems: There are no active problems currently on the Problem List. Please update the Problem List and refresh. Gross hematuria Left hydronephrosis CT abdomen pelvis results shows Mild left hydronephrosis and proximal hydroureter with heterogeneous high density material seen within the proximal ureter and bladder, consistent with blood products.No discrete stone is identified. The stones seen in the left kidney and proximal left ureter are no longer visualized.High density material layering posteriorly within the bladder, most consistent with blood clots. An underlying bladder tumor cannot entirely be excluded. Stable nonobstructing rightnephrolithiasis. Urine analysis results shows protein trace, blood 3+, RBC >50, CBI 3000 mL irrigation given once Hold antiplatelets, anticoagulants Urology consulted. Pending recommendations Monitor H&H Transfuse RBC as needed IV fluid NS 75 ml.hr Pain control with Tylenol, hydrocodone, Dilaudid IV PRN These fluid and electrolyte abnormalities are being treated, evaluated or monitored: No fluid or electrolyte disorders Obesity. Would likely benefit from outpatient weight loss. DVT prophylaxis: SCD GI prophylaxis: Diet: Regular PT/OT: Consult to Case Management and/or Social Work: Estimated Length of Stay: Greater than 2 midnights Medical Decision Making: Moderate Code Status: FULL CODE Advance Care Planning Advance Care Planning Conversation Pertinent diagnoses: Left hydronephrosis The patient and/or family consented to a voluntary Advance Care Planning conversation. Individuals present for the conversation: patient Summary of the conversation: PRODUCTION CONTROL EXPERT discussed with patient life-saving intervention suggests compressions, defibrillation, cardioversion, and intubation if the patient should go into cardiac or respiratory arrest. Patient states that she would like to have all life-saving interventions initiated if they should occur. Outcome of the conversation and documents completed (select all that apply): CHANGE code status to FULL CODE I spent less than 16 minutes providing separately identifiable ACP services with the patient and/orsurrogate decision maker in a voluntary, in-person conversation discussing the patient's wishes andgoals as detailed in the above note. Kinza Mackey NP CONSULTS IP CONSULT TO UROLOGY Kinza Mackey NP 04/07/2025 7:59 AM Primary Care Physician: Margie Santos MD Voice recognition software [employer] was used dictate and transcribe this document. Taxi Servicer variances may occur. Despite proofreading, typographical errors may occur. Cosigned by Indra Welsh MD at 04/07/2025 2:03 PM CDT documented in this encounter Nursing Notes * Radha Armijo RN - 04/13/2025 10:02 AM CDT Discharge instructions reviewed with patient. Patient verbalized understanding of discharge instructions including medications and follow up appointments. Patient declined transport and walked to the lobby with family. documented in this encounter ED Notes * Bettina Arnold RN - 04/07/2025 1:41 PM CDT Hospitalist and fork lift mechanic Kellie aware pt growing frustrated with wait on bed and for urology. Bettina Arnold RN 04/07/25 1342 * Felix Hardy DO - 04/07/2025 2:06 AM CDT HPI Chief Complaint Patient presents with Urinary Problem Flank Pain Katelin Solis is a 45 y.o. male w/ PMHx including renal calculi, and other PMHx as below presenting to the ED w/ c/o hematuria. Pt was evaluated by this provider on February 15, was found to have kidney stones. Pt reports he f/u w/ a urologist on February 23, who tried to take them out, however his ureter was reportedly too narrow. Pt states he went back on the , and successfully had them removed. Pt arrives to the ED tonight c/o hematuria. Pt states when he attempted to urinate at 2029 he was peeing out blood clots. Pt notes very minimal urine came out. Pt does have the urge to urinate. Pt is also c/o left sided flank pain. Pt notes that he's had a few other intermittent episodes of h ematuria since the of last month. Pt has no other acute complaints. History provided by: Patient and medical records Patient History: No past medical history on file. Past Surgical History: Procedure Laterality Date ORAL SURGERY Family History Problem Relation Age of Onset Asthma Mother Hyperlipidemia Father Testicular cancer Brother Memory loss Father's Brother Social History Tobacco Use Smoking status: Never Smokeless tobacco: Never Tobacco comments: No usage ever Substance and Sexual Activity Drug use: Never Sexual activity: Defer Alcohol Use: Not At Risk (03/06/2025) AUDIT-C Frequency of Alcohol Consumption: 2-3 times a week Average Number of Drinks: 1 or 2 Frequency of Binge Drinking: Never Current Facility-Administered Medications: acetaminophen (TYLENOL) tablet 975 mg, 975 mg, oral, Q6H PRN HYDROcodone-acetaminophen (NORCO) 5-325 mg per tablet 1 tablet, 1 tablet, oral, Once ondansetron (ZOFRAN) injection 4 mg, 4 mg, intravenous, Once PRN Current Outpatient Medications: acetaminophen (TYLENOL) 500 mg tablet loratadine (CLARITIN) 10 mg tablet MULTIVITAMIN ORAL naproxen (ALEVE) 220 mg tablet ondansetron ODT (ZOFRAN-ODT) 4 mg disintegrating tablet oxyBUTYnin (DITROPAN) 5 mg tablet phenazopyridine (PYRIDIUM) 100 mg tablet tamsulosin (FLOMAX) 0.4 mg extended release capsule ZINC ORAL Review of Systems Review of Systems Genitourinary: Positive for flank pain and hematuria. All systems reviewed and are negative or noncontributory for this patients presentation today otherthan as stated in the HPI . Physical Exam ED Triage Vitals [04/07/25 0134] Temp Pulse Resp BP SpO2 36.9 ??C (98.5 ??F) 80 20 134/66 100 % Temp src Heart Rate Source Patient Position BP Location FiO2 (%) -- -- -- -- -- Height Height Method Weight Weight Method -- -- 98.4 kg (216 lb 14.9 oz) -- Physical Exam Vitals and nursing note reviewed. Constitutional: General: He is not in acute distress. Appearance: Normal appearance. He is not ill-appearing. HENT: Head: Normocephalic and atraumatic. Right Ear: External ear normal. Left Ear: External ear normal. Nose: Nose normal. Eyes: Extraocular Movements: Extraocular movements intact. Conjunctiva/sclera: Conjunctivae normal. Pupils: Pupils are equal, round, and reactive to light. Cardiovascular: Rate and Rhythm: Normal rate and regular rhythm. Pulmonary: Effort: Pulmonary effort is normal. No respiratory distress. Abdominal: General: Abdomen is flat. There is no distension. Tenderness: There is no guarding or rebound. Hernia: No hernia is present. Comments: L flank pain, not reproducible w/ palpation Musculoskeletal: General: Normal range of motion. Cervical back: Normal range of motion and neck supple. Skin: General: Skin is warm and dry. Neurological: General: No focal deficit present. Mental Status: He is alert and oriented to person, place, and time. Psychiatric: Behavior: Behavior normal. Procedures MDM Labs Reviewed CBC WITH AUTO DIFFERENTIAL - Abnormal Result Value WBC 9.82 Hgb 14.9 Hct 41.4 Plt 233 MPV 10.5 RBC 4.78 MCV 86.6 MCH 31.2 MCHC 36.0 (*) RDW CV 11.5 RDW SD 36.6 NRBC abs 0.00 COMPREHENSIVE METABOLIC PANEL - Abnormal Sodium 138 Potassium, pl 4.1 Chloride 98 CO2 18 (*) Anion gap 22 (*) BUN 15 Creatinine 1.19 Glucose 114 Calcium 10.2 Bilirubin, total 0.4 Protein, pl 7.5 Albumin 4.7 Alk phos 79 ALT 17 AST 31 DIFFERENTIAL AUTO - Abnormal Neutrophil abs 6.21 Imm gran abs 0.08 Lymphocyte abs 2.54 Monocyte abs 0.81 (*) Eosinophil abs 0.09 Basophil abs 0.09 Neutrophil pct 63.3 Imm gran pct 0.8 Lymphocyte pct 25.9 Monocyte pct 8.2 Eosinophil pct 0.9 Basophil pct 0.9 URINALYSIS AND REFLEX TO MICROSCOPIC AND CULTURE LIPASE Lipase [address] Abdomen Pelvis WO Contrast Final Result CT Abdomen Pelvis WO Contrast EXAM DESCRIPTION: CT ABDOMEN PELVIS WO CONTRAST REASON FOR STUDY: Abdominal/flank pain, stone suspected, left flank pain hx kidney stones Pt reports onset of urinating blood clots tonight around 1999, while he was getting ready for bed. Pt then with onset of left flank\lower back pain. Hx of kidney stones at the end of February which he had a stent placed. TECHNIQUE: CT scan of the abdomen and pelvis performed without intravenous and without oral contrast using helical scanning technique. Reconstructed coronal and sagittal MPR images reviewed. All images stored on PACS. Automated exposure control was used as a dose optimization technique for this examination. COMPARISON: CT of the chest of February 15, 2025. FINDINGS: The sensitivity for detection of visceral lesions is diminished without the use of intravenous contrast. LOWER CHEST: The lung bases are clear. LIVER: The liver is normal in attenuation without focal lesion. GALLBLADDER: No stones identified. Normal wall. No evidence of pericholecystic fluid. BILE DUCTS: No intrahepatic or extrahepatic ductal dilatation. PANCREAS: Normal. SPLEEN: No focal lesions. Spleen is normal in size. ADRENALS: Normal. KIDNEYS/URINARY TRACT: No significant cystic or solid masses. There is a tiny nonobstructing stone in the right kidney measuring approximately 2 mm, unchanged from previous. There is mild left hydronephrosis and proximal hydroureter with heterogeneous high density material seen within the proximal ureter with Hounsfield units in the 60s. No discrete stone is identified. The 5 mm stone seen in the left kidney on previous study is no longer visualized. The 4 mm proximal left ureteral stones seen on previous study is also no longer visualized. There is an irregular area of high density within the posterior aspect of the bladder measuring approximately 3.4 x 1.7 cm with Hounsfield units in the 50s. The bladder is otherwise unremarkable. VASCULATURE: No acute abnormality seen. No abdominal aortic aneurysm. GI: The stomach appears normal. There is no significant small bowel dilation or visible thickening. No gross colonic abnormalities identified. The appendix is normal. PERITONEUM/MESENTERY: No ascites or free air. LYMPH NODES: There are no enlarged lymph nodes seen by CT size criteria. RETROPERITONEUM: No retroperitoneal abnormalities. REPRODUCTIVE: The prostate and seminal vesicles are unremarkable. MUSCULOSKELETAL: No significant abnormality. OTHER: No other abnormality. IMPRESSION: 1. Mild left hydronephrosis and proximal hydroureter with heterogeneous high density material seen within the proximal ureter and bladder, consistent with blood products. No discrete stone is identified. The stones seen in the left kidney and proximal left ureter are no longer visualized. 2. High density material layering posteriorly within the bladder, most consistent with blood clots. An underlying bladder tumor cannot entirely be excluded. 3. Stable nonobstructing right nephrolithiasis. THIS IS AN ELECTRONICALLY VERIFIED FINAL REPORT 04/07/2025 2:28 AM - Electronically signed by Jane Bailey M.D. SN: Report ID: [id number] Reading Location: [id number] BP 149/78 Pulse 79 Temp 36.9 ??C (98.5 ??F) Resp 20 Wt 98.4 kg (216 lb 14.9 oz) SpO2 99% BMI 30.26 kg/m?? MDM Bladder scan showed 513cc - 22 lithuanian simmons placed and started CBI ED Course as of 04/07/25 0614 Time: 04/07 0230 Comment: Pt had 513 mL of urine on bladder scan By: Adrian Gant Time: 04/07 0556 Comment: Pt signed out to Dr. Jarquin at shift change By: Adrian Gant Time: 04/07 0559 Comment: Spoke with Dr. Perez, urologist, who recommends discharge w/ urinary catheter as long as the urine is able to stay clear off CBI By: Adrian Gant Clinical Impression: Gross hematuria Acute left flank pain History of kidney stones This note was prepared by Adrian Gant, acting as a Scribe for Felix Hardy DO. I electronically signed this note at 6:14 AM on 04/07/2025. I, Felix Hardy DO, personally performed the services described in this documentation, reviewedand edited the documentation which was dictated to the scribe in my presence, and it accurately records my words and actions. Felix Hardy DO 04/07/25 0615 * Batsheva Benitez RN - 04/07/2025 1:31 AM CDT Pt reports onset of urinating blood clots tonight around 1999, while he was getting ready for bed. Pt then with onset of left flank\lower back pain. Hx of kidney stones at the end of February which he had a stent placed. documented in this encounter Miscellaneous Notes * Plan of Care - Delaney Lovelace RN - 04/13/2025 10:04 AM CDT DISCHARGE PLANNING HAS BEEN FINALIZED AT THIS TIME: If there is a change in patient condition whichcould impact this plan and/or additional discharge needs arise, please contact Case Management. Care management team met with patient and finalized discharge planning, please see below. If additional discharge needs arise, please reach out to the care management team. ELIZABETH: 04/13/25 TRANSPORTATION: provided by patient's family *IF THERE ARE ISSUES WITH DC PLANNING OR TRANSPORTATION AFTER HOURS, PLEASE REACH OUT TO THE ORDER CONTROL CLERK BLOOD BANK SOCIAL WORK TEAM* 04/13/25 1029 Discharge Summary Discharge Disposition Private residence Recommended Discharge Level of Care Private residence Actual Discharge Level of Care Private residence Does Actual Level of Care Match Care Team Recommendation? Yes Post Acute Care Plan Post Acute Care Needs Identified No Discharge Additional Assistance Does the patient need discharge transport arranged? No * Plan of Care - Libertad Goddard RN - 04/13/2025 6:34 AM CDT Goals: Clinical Goals for the Shift: Watch for blood clots in simmons, cares, comfort, and safety Geophysical 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 Goal for Treatment: D/C home w/ hematuria resolved Problem: Discharge Planning Goal: Understanding discharge needs will improve Outcome: Progressing Problem: Gastrointestinal Goal: Minimal or absence of nausea and vomiting Outcome: Progressing Goal: Maintains or returns to baseline bowel function Outcome: Progressing Goal: Maintains adequate nutritional intake Outcome: Progressing Goal: Establish and maintain optimal ostomy function Outcome: Progressing Goal: Will show no signs and symptoms of gastrointestinal bleeding Outcome: Progressing Problem: Genitourinary Goal: Absence of urinary retention Outcome: Progressing Goal: Urinary catheter remains patent Outcome: Progressing Problem: Lack of Knowledge Goal: Ability to develop a pain control plan will improve Outcome: Progressing Problem: Medication Goal: Satisfaction with pain management medication regimen will improve Outcome: Progressing * Plan of Care - Megan Boyd RN - 04/12/2025 4:18 PM CDT Goals: Clinical Goals for the Shift: Watch for blood clots in simmons, cares, comfort, and safety Geophysical 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 Goal for Treatment: D/C home w/ hematuria resolved Problem: Discharge Planning Goal: Understanding discharge needs will improve Outcome: Ongoing Flowsheets (Taken 04/07/2025 [id number] by Batsheva Garcia, RN) Understanding of discharge needs will improve: Discuss information regarding discharge instructions Collaborate with case management interdisciplinary team Identify discharge barriers Identify discharge learning needs (meds, wound care, etc.) Arrange for needed discharge resources and transportation as appropriate Collaborate with language interpretation Problem: Gastrointestinal Goal: Minimal or absence of nausea and vomiting Outcome: Ongoing Flowsheets (Taken 04/08/2025 0323 by Batsheva Garcia, AMELIA) Minimal or absence of nausea and vomiting: Assess gastrointestinal status Provide a clean room free from unpleasant odors Administer ordered antiemetic medications as needed, assess medication effects Provide appropriate dietary choices Monitor intake and output Provide fluid volume management Monitor diagnostic test results Discuss complementary and alternative therapies Nutrition consult to assist patient with adequate nutrition and appropriate food choices Goal: Maintains or returns to baseline bowel function Outcome: Ongoing Flowsheets (Taken 04/08/2025 [id number] by Batsheva Garcia, RN) Maintains or returns to baseline bowel function: Assess bowel function, evaluate bowel sounds and signs of abdominal distention Encourage oral fluids to ensure adequate hydration Administer ordered medications as needed Nutrition consult to assist patient with appropriate food choices Manage nasogastric tube care Monitor amount, characteristics and/or frequency of stool Administer IV fluids as ordered to ensure adequate hydration Encourage mobilization and activity Encourage increased dietary fiber intake Goal: Maintains adequate nutritional intake Outcome: Ongoing Flowsheets (Taken 04/08/202587 by Batsheva Garcia, RN) Maintains adequate nutritional intake: Monitor percentage of each meal consumed Monitor I&O, weight and lab values Obtain nutritional consult as needed Assist with meals as needed Identify factors contributing to decreased intake, treat as appropriate Goal: Establish and maintain optimal ostomy function Outcome: Ongoing Goal: Will show no signs and symptoms of gastrointestinal bleeding Outcome: Ongoing Flowsheets (Taken 04/08/2025 0336 by Batsheva Garcia, RN) Will show no signs and symptoms of gastrointestinal bleeding: Assess amount, characteristics and/or frequency of stool Perform placement of nasogastric tube Assess amount and/or characteristics of nasogastric tube drainage Monitor bowel sounds Problem: Lack of Knowledge Goal: Ability to develop a pain control plan will improve Outcome: Ongoing Flowsheets (Taken 04/08/2025746 by Batsheva Garcia, AMELIA) Ability to develop a pain control plan will improve: Explain causes of pain and how long pain can be expected to last Educate pain scale for assessing level of pain Teach notification to healthcare provider of episodes of pain Teach information regarding pain management Problem: Medication Goal: Satisfaction with pain management medication regimen will improve Outcome: Ongoing Flowsheets (Taken 04/08/2025746 by Batsheva Garcia, RN) Satisfaction with pain management medication regimen will improve: Assess satisfaction with pain management regimen Monitor patient controlled analgesia or anesthesia Provide administration of medications prior to painful activities Evaluate medication effects Manage analgesics Report inadequate pain control to healthcare provider Problem: Sensory Goal: Ability to identify factors that increase pain levels will improve while working to decrease the patient's pain levels Outcome: Ongoing Flowsheets (Taken 04/09/2025643 by Margie Shepard, AMELIA) Ability to identify factors that increase pain levels will improve while working to decrease patients pain levels: Assess pain status Evaluate treatment plan for related conditions Problem: Coping Goal: Ability to cope will improve Outcome: Ongoing Flowsheets (Taken 04/09/2025643 by Margie Shepard, AMELIA) Ability to cope will Improve: Encourage vebalization of feelings surrounding pain Provide emotional support Problem: Health Behavior Goal: Identification of resources available to assist in meeting health care needs will improve Outcome: Ongoing Flowsheets (Taken 04/08/2025746 by Batsheva Garcia, AMELIA) Identification of resources available to assist in meeting health care needs will improve: Collaborate with pain management Refer to pain support group Collaborate with all therapies Problem: Genitourinary Goal: Absence of urinary retention Outcome: Ongoing Flowsheets (Taken 04/09/2025643 by Margie Shepard, AMELIA) Absence of urinary retention: Monitor intake/output and perform bladder scan as needed Goal: Urinary catheter remains patent Outcome: Ongoing Flowsheets (Taken 04/09/2025643 by Margie Shepard, AMELIA) Urinary catheter remains patent: Assess patency of urinary catheter Assess need for a larger catheter size or a 3-way catheter for continuous bladder irrigation * Plan of Care - Eliane Suggs RN - 04/11/2025 9:00 AM CDT Goals: Clinical Goals for the Shift: Watch for blood clots in simmons, cares, comfort, and safety 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 Goal for Treatment: D/C home w/ hematuria resolved Problem: Discharge Planning Goal: Understanding discharge needs will improve Outcome: Ongoing Flowsheets (Taken 04/07/2025 1507 by Batsheva Garcia, RN) Understanding of discharge needs will improve: Discuss information regarding discharge instructions Collaborate with case management interdisciplinary team Identify discharge barriers Identify discharge learning needs (meds, wound care, etc.) Arrange for needed discharge resources and transportation as appropriate Collaborate with language interpretation Problem: Genitourinary Goal: Absence of urinary retention Outcome: Ongoing Flowsheets (Taken 04/09/2025 0644 by Margie Shepard, AMELIA) Absence of urinary retention: Monitor intake/output and perform bladder scan as needed Summary: Assessment of patient???s baseline is established at the beginning of the shift in flowsheets. Patient reassessed per order, unexpected findings and/or deviations from baseline are captured in flowsheets. Frequent safety checks and comfort rounds provided. Orders and/or nursing care completed as indicated. Patient monitored for response to interventions and treatments as documented in flowsheets. Plan of care discussed with patient/technical sales representatives, including as it relates to Principal Problem: Gross hematuria Patient progressing. Clinical goals for the shift UA and IV abx. Education provided includes Treatments/Therapies: . Patient and/or technical sales representatives Verbalizes understanding. Will continue to monitor. * Plan of Care - Maurice Maravilla RN - 04/11/2025 1:30 AM CDT Problem: Discharge Planning Goal: Understanding discharge needs will improve Outcome: Ongoing Problem: Gastrointestinal Goal: Minimal or absence of nausea and vomiting Outcome: Ongoing Goal: Maintains or returns to baseline bowel function Outcome: Ongoing Goal: Maintains adequate nutritional intake Outcome: Ongoing Goal: Establish and maintain optimal ostomy function Outcome: Ongoing Goal: Will show no signs and symptoms of gastrointestinal bleeding Outcome: Ongoing Problem: Lack of Knowledge Goal: Ability to develop a pain control plan will improve Outcome: Ongoing Problem: Medication Goal: Satisfaction with pain management medication regimen will improve Outcome: Ongoing Problem: Sensory Goal: Ability to identify factors that increase pain levels will improve while working to decrease the patient's pain levels Outcome: Ongoing Problem: Coping Goal: Ability to cope will improve Outcome: Ongoing Problem: Health Behavior Goal: Identification of resources available to assist in meeting health care needs will improve Outcome: Ongoing Problem: Genitourinary Goal: Absence of urinary retention Outcome: Ongoing Goal: Urinary catheter remains patent Outcome: Ongoing Goals: Clinical Goals for the Shift: Watch for blood clots in simmons, cares, comfort, and safety Intermediate Patient Centered Goal for Treatment: D/C home w/ hematuria resolved Summary: Ct completed. Patient awaiting CT results. Urine yellow and clear. * Plan of Care - Delaney Lovelace RN - 04/10/2025 8:15 AM CDT DISCHARGE PLANNING HAS BEEN FINALIZED AT THIS TIME: If there is a change in patient condition whichcould impact this plan and/or additional discharge needs arise, please contact Case Management. Care management team met with patient and finalized discharge planning, please see below. If additional discharge needs arise, please reach out to the care management team. ELIZABETH: 04/10/25 TRANSPORTATION: provided by patient's spouse *IF THERE ARE ISSUES WITH DC PLANNING OR TRANSPORTATION AFTER HOURS, PLEASE REACH OUT TO THE ORDER CONTROL CLERK BLOOD BANK SOCIAL WORK TEAM* 04/10/25 0889 Discharge Summary Discharge Disposition Private residence Recommended Discharge Level of Care Private residence Actual Discharge Level of Care Private residence Does Actual Level of Care Match Care Team Recommendation? Yes Post Acute Care Plan Post Acute Care Needs Identified No Discharge Additional Assistance Does the patient need discharge transport arranged? No * Plan of Care - Margie Shepard RN - 04/10/2025 6:05 AM CDT Goals: Clinical Goals for the Shift: Watch for blood clots in simmons, cares, comfort, and safety Intermediate Patient Centered Goal for Treatment: D/C home w/ hematuria resolved Summary: Problem: Health Behavior Goal: Identification of resources available to assist in meeting health care needs will improve Flowsheets (Taken 04/08/2025746 by Batsheva Garcia, RN) Identification of resources available to assist in meeting health care needs will improve: Collaborate with pain management Refer to pain support group Collaborate with all therapies Problem: Coping Goal: Ability to cope will improve Flowsheets (Taken 04/09/2025643) Ability to cope will Improve: Encourage vebalization of feelings surrounding pain Provide emotional support Problem: Sensory Goal: Ability to identify factors that increase pain levels will improve while working to decrease the patient's pain levels Flowsheets (Taken 04/09/2025643) Ability to identify factors that increase pain levels will improve while working to decrease patients pain levels: Assess pain status Evaluate treatment plan for related conditions Problem: Medication Goal: Satisfaction with pain management medication regimen will improve Flowsheets (Taken 04/08/2025746 by Batsheva Garcia, RN) Satisfaction with pain management medication regimen will improve: Assess satisfaction with pain management regimen Monitor patient controlled analgesia or anesthesia Provide administration of medications prior to painful activities Evaluate medication effects Manage analgesics Report inadequate pain control to healthcare provider Problem: Lack of Knowledge Goal: Ability to develop a pain control plan will improve Flowsheets (Taken 04/08/2025746 by Batsheva Garcia, RN) Ability to develop a pain control plan will improve: Explain causes of pain and how long pain can be expected to last Educate pain scale for assessing level of pain Teach notification to healthcare provider of episodes of pain Teach information regarding pain management Problem: Genitourinary Goal: Absence of urinary retention Flowsheets (Taken 04/09/2025643) Absence of urinary retention: Monitor intake/output and perform bladder scan as needed Goal: Urinary catheter remains patent Flowsheets (Taken 04/09/2025643) Urinary catheter remains patent: Assess patency of urinary catheter Assess need for a larger catheter size or a 3-way catheter for continuous bladder irrigation Problem: Gastrointestinal Goal: Minimal or absence of nausea and vomiting Flowsheets (Taken 04/08/2025746 by Batsheva Garcia, RN) Minimal or absence of nausea and vomiting: Assess gastrointestinal status Provide a clean room free from unpleasant odors Administer ordered antiemetic medications as needed, assess medication effects Provide appropriate dietary choices Monitor intake and output Provide fluid volume management Monitor diagnostic test results Discuss complementary and alternative therapies Nutrition consult to assist patient with adequate nutrition and appropriate food choices Goal: Maintains or returns to baseline bowel function Flowsheets (Taken 04/08/2025 0737 by Batsheva Garcia, RN) Maintains or returns to baseline bowel function: Assess bowel function, evaluate bowel sounds and signs of abdominal distention Encourage oral fluids to ensure adequate hydration Administer ordered medications as needed Nutrition consult to assist patient with appropriate food choices Manage nasogastric tube care Monitor amount, characteristics and/or frequency of stool Administer IV fluids as ordered to ensure adequate hydration Encourage mobilization and activity Encourage increased dietary fiber intake Problem: Discharge Planning Goal: Understanding discharge needs will improve Flowsheets (Taken 04/07/2025 1507 by Batsheva Garcia, RN) Understanding of discharge needs will improve: Discuss information regarding discharge instructions Collaborate with case management interdisciplinary team Identify discharge barriers Identify discharge learning needs (meds, wound care, etc.) Arrange for needed discharge resources and transportation as appropriate Collaborate with language interpretation * Plan of Care - Kristin Bear RN - 04/09/2025 5:23 PM CDT Problem: Discharge Planning Goal: Understanding discharge needs will improve Outcome: Progressing Problem: Gastrointestinal Goal: Minimal or absence of nausea and vomiting Outcome: Progressing Goal: Maintains or returns to baseline bowel function Outcome: Progressing Goal: Maintains adequate nutritional intake Outcome: Progressing Goal: Establish and maintain optimal ostomy function Outcome: Progressing Goal: Will show no signs and symptoms of gastrointestinal bleeding Outcome: Progressing Problem: Lack of Knowledge Goal: Ability to develop a pain control plan will improve Outcome: Progressing Problem: Medication Goal: Satisfaction with pain management medication regimen will improve Outcome: Progressing Problem: Sensory Goal: Ability to identify factors that increase pain levels will improve while working to decrease the patient's pain levels Outcome: Progressing Problem: Coping Goal: Ability to cope will improve Outcome: Progressing Problem: Health Behavior Goal: Identification of resources available to assist in meeting health care needs will improve Outcome: Progressing Problem: Genitourinary Goal: Absence of urinary retention Outcome: Progressing Goal: Urinary catheter remains patent Outcome: Progressing Goals: Clinical Goals for the Shift: Cares, comfort, safety, no blod clots in urine Geophysical 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 Goal for Treatment: D/C home w/ hematuria resolved Summary: Assessment of patient???s baseline is established at the beginning of the shift in flowsheets. CBI stopped by urology during shift. Will monitor urine output. Patient reassessed per order, unexpected findings and/or deviations from baseline are captured in flowsheets. Frequent safety checks and comfort rounds provided. Orders and/or nursing care completed as indicated. Patient monitored f or response to interventions and treatments as documented in flowsheets. Plan of care discussed with patient/technical sales representatives, including as it relates to Principal Problem: Gross hematuria Patient progressing. Will continue to monitor. * Plan of Care - Margie Shepard RN - 04/09/2025 6:45 AM CDT Goals: Clinical Goals for the Shift: Cares, comfort, safety, no blod clots in urine Intermediate Patient Centered Goal for Treatment: D/C home w/ hematuria resolved Summary: Problem: Health Behavior Goal: Identification of resources available to assist in meeting health care needs will improve Outcome: Progressing Flowsheets (Taken 04/08/2025746 by Batsheva Garcia, RN) Identification of resources available to assist in meeting health care needs will improve: Collaborate with pain management Refer to pain support group Collaborate with all therapies Problem: Coping Goal: Ability to cope will improve Outcome: Progressing Flowsheets (Taken 04/09/202544) Ability to cope will Improve: Encourage vebalization of feelings surrounding pain Provide emotional support Problem: Sensory Goal: Ability to identify factors that increase pain levels will improve while working to decrease the patient's pain levels Outcome: Progressing Flowsheets (Taken 04/09/2025643) Ability to identify factors that increase pain levels will improve while working to decrease patients pain levels: Assess pain status Evaluate treatment plan for related conditions Problem: Medication Goal: Satisfaction with pain management medication regimen will improve Outcome: Progressing Flowsheets (Taken 04/08/202547 by Batsheva Garcia, RN) Satisfaction with pain management medication regimen will improve: Assess satisfaction with pain management regimen Monitor patient controlled analgesia or anesthesia Provide administration of medications prior to painful activities Evaluate medication effects Manage analgesics Report inadequate pain control to healthcare provider Problem: Genitourinary Goal: Absence of urinary retention Outcome: Progressing Flowsheets (Taken 04/09/2025 0644) Absence of urinary retention: Monitor intake/output and perform bladder scan as needed Goal: Urinary catheter remains patent Outcome: Progressing Flowsheets (Taken 04/09/2025 0644) Urinary catheter remains patent: Assess patency of urinary catheter Assess need for a larger catheter size or a 3-way catheter for continuous bladder irrigation Problem: Gastrointestinal Goal: Maintains or returns to baseline bowel function Outcome: Progressing Flowsheets (Taken 04/08/2025 0747 by Batsheva Garcia, RN) Maintains or returns to baseline bowel function: Assess bowel function, evaluate bowel sounds and signs of abdominal distention Encourage oral fluids to ensure adequate hydration Administer ordered medications as needed Nutrition consult to assist patient with appropriate food choices Manage nasogastric tube care Monitor amount, characteristics and/or frequency of stool Administer IV fluids as ordered to ensure adequate hydration Encourage mobilization and activity Encourage increased dietary fiber intake Problem: Discharge Planning Goal: Understanding discharge needs will improve Outcome: Progressing Flowsheets (Taken 04/07/2025 1507 by Batsheva Garcia, RN) Understanding of discharge needs will improve: Discuss information regarding discharge instructions Collaborate with case management interdisciplinary team Identify discharge barriers Identify discharge learning needs (meds, wound care, etc.) Arrange for needed discharge resources and transportation as appropriate Collaborate with language interpretation * Initial Assessments - Delaney Lovelace RN - 04/08/2025 10:40 AM CDT CM Initial Assessment Interview Note Information Obtained From: Patient (04/08/25 1040) Admission Source: ED from home Impression: Presented with hematuria. Admitted for gross hematuria with 3 way catheter placement. CBI initiated. Met with patient at bedside. He is A/Ox4, VSS on RA. He resides at home with his ,has good family support. Denies any DME or in home services. Patient is pleasant and looks well kept. He is employed and drive himself to appointments. Plan Includes: Possible simmons catheter at home. Return home with family support. Additional Information: Urology consulted. Simmons irrigated by them this morning, will monitor overnight and re-evaluate in AM for simmons removal. Primary Source of Transportation: Does the patient need discharge transport arranged?: No (04/08/25 1040) Health Insurance Coverage: Primary Coverage Payor Plan Insurance Group Employer/Plan Group [facility] ANTHEM ACCESS CHOICE [id number] Payor Plan Address Payor Plan Phone Number Payor Plan Fax Number Effective Dates [address] 09/17/2023 - None Entered [facility] [address] Subscriber Name Subscriber Date Member ID KATELIN SOLIS 1980 [id number] Pharmacy: [id number] - [place], [place] - [id number] [facility] [id number] Primary Care Provider: Margie Santos MD Prior to Admission: Functional Status: Independent with ADLs Primary Caregiver: Self Support System: Spouse/Significant Other, Family members, Friends/neighbors When was the last time you have seen your PCP?: Within last 6 months Home Care Services: No Outpatient Services: No Durable Medical Equipment: None Living Arrangements: Spouse/significant other Type of Residence: Private residence Medication management: Independent (04/08/25 1040) SDOH: Transportation: In the past 12 months, has lack of transportation kept you from medical appointments or from getting medications?: No In the past 12 months, has lack of transportation kept you from meetings, work, or from getting things needed for daily living?: No (04/08/251420) Financial Resource: How hard is it for you to pay for the very basics like food, housing, medical care, and heating?: Not hard at all (04/08/25 142) Housing: In the last 12 months, was there a time when you were not able to pay the mortgage or rent on time?: No In the past 12 months, how many times have you moved where you were living?: 0 At any time in the past 12 months, were you homeless or living in a long term (including now)?: No (04/08/251421) Utilities: No, (04/08/251420) Social Connections: In a typical week, how many times do you talk on the phone with family, friends, or neighbors?: More than three times a week How often do you get together with friends or relatives?: More than three times a week How often do you attend latter-day or quaker services?: Never Do you belong to any clubs or organizations such as latter-day groups, unions, fraternal or athletic groups, or school groups?: No How often do you attend meetings of the clubs or organizations you belong to?: Never Are you , , , , never , or living with a partner?: (04/08/251420) Food Insecurity: Within the past 12 months, you worried that your food would run out before you got the money to buymore.: Never true Within the past 12 months, the food you bought just didn't last and you didn't have money to get more.: Never true (04/08/251420) Anticipated Level of Care: Anticipated discharge level of care: Private residence Pt/Family agrees with Anticipated Level of Care: Yes (04/08/25 104) Patient expects to be Discharged to: Private residence, (04/08/25 1040) Patient's Identified Problem/Goal Problem: Ensure acute medical needs are met and that patient has a safe discharge plan. Goal: Secure a discharge plan that patient/family are agreeable with and ensure patient has continuum of care. Case management will follow for discharge planning and send referrals as needed. Delaney Lovelace RN * Plan of Care - Batsheva Garcia RN - 04/08/2025 7:47 AM CDT Goals: Clinical Goals for the Shift: pain control, no blood clots, cares, and safety Geophysical 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 Goal for Treatment: D/C Home w/ hematuria resolved Problem: Discharge Planning Goal: Understanding discharge needs will improve Outcome: Progressing Flowsheets (Taken 04/07/2025 1507) Understanding of discharge needs will improve: Discuss information regarding discharge instructions Collaborate with case management interdisciplinary team Identify discharge barriers Identify discharge learning needs (meds, wound care, etc.) Arrange for needed discharge resources and transportation as appropriate Collaborate with language interpretation Problem: Gastrointestinal Goal: Minimal or absence of nausea and vomiting Flowsheets (Taken 04/08/2025746) Minimal or absence of nausea and vomiting: Assess gastrointestinal status Provide a clean room free from unpleasant odors Administer ordered antiemetic medications as needed, assess medication effects Provide appropriate dietary choices Monitor intake and output Provide fluid volume management Monitor diagnostic test results Discuss complementary and alternative therapies Nutrition consult to assist patient with adequate nutrition and appropriate food choices Goal: Maintains or returns to baseline bowel function Flowsheets (Taken 04/08/2025746) Maintains or returns to baseline bowel function: Assess bowel function, evaluate bowel sounds and signs of abdominal distention Encourage oral fluids to ensure adequate hydration Administer ordered medications as needed Nutrition consult to assist patient with appropriate food choices Manage nasogastric tube care Monitor amount, characteristics and/or frequency of stool Administer IV fluids as ordered to ensure adequate hydration Encourage mobilization and activity Encourage increased dietary fiber intake Goal: Maintains adequate nutritional intake Flowsheets (Taken 04/08/2025746) Maintains adequate nutritional intake: Monitor percentage of each meal consumed Monitor I&O, weight and lab values Obtain nutritional consult as needed Assist with meals as needed Identify factors contributing to decreased intake, treat as appropriate Goal: Will show no signs and symptoms of gastrointestinal bleeding Flowsheets (Taken 04/08/2025746) Will show no signs and symptoms of gastrointestinal bleeding: Assess amount, characteristics and/or frequency of stool Perform placement of nasogastric tube Assess amount and/or characteristics of nasogastric tube drainage Monitor bowel sounds Problem: Lack of Knowledge Goal: Ability to develop a pain control plan will improve Flowsheets (Taken 04/08/2025746) Ability to develop a pain control plan will improve: Explain causes of pain and how long pain can be expected to last Educate pain scale for assessing level of pain Teach notification to healthcare provider of episodes of pain Teach information regarding pain management Problem: Medication Goal: Satisfaction with pain management medication regimen will improve Flowsheets (Taken 04/08/2025746) Satisfaction with pain management medication regimen will improve: Assess satisfaction with pain management regimen Monitor patient controlled analgesia or anesthesia Provide administration of medications prior to painful activities Evaluate medication effects Manage analgesics Report inadequate pain control to healthcare provider Problem: Sensory Goal: Ability to identify factors that increase pain levels will improve while working to decrease the patient's pain levels Flowsheets (Taken 04/08/2025 0747) Ability to identify factors that increase pain levels will improve while working to decrease patients pain levels: Assess pain status Explore factors that precipitate, worsens, or relieves pain or discomfort Encourage distraction activities Use TENS therapy Evaluate treatment plan for related conditions Observe non-verbal cues of discomfort, such as restlessness, muscle tension, or altered vital signs Explore and collaborate with complimentary and alternative therapies Provide hot or cold therapy Assess effects of pain control measures Explore alternative treatments for pain from the patient's culture Problem: Coping Goal: Ability to cope will improve Flowsheets (Taken 04/08/2025 0747) Ability to cope will Improve: Encourage vebalization of feelings surrounding pain Perform depression screening Provide emotional support Assess beliefs of pain Problem: Health Behavior Goal: Identification of resources available to assist in meeting health care needs will improve Flowsheets (Taken 04/08/2025 0747) Identification of resources available to assist in meeting health care needs will improve: Collaborate with pain management Refer to pain support group Collaborate with all therapies Summary: * Plan of Care - Margie Shepard RN - 04/08/2025 6:13 AM CDT Goals: Clinical Goals for the Shift: Pain control, no blood clots, and rest. 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 Pt has a history of kidney stones and had a L ureter stent removed 03/13/25. ED placed a 16fr [address] way simmons cath and started CBI. CBI was discontinued before admission to the 5th floor. Patient did not need irrigation on this shift. Patient urine visually red tinged w/ specs of blood. No clots noted this shift. Patient had 1250 documented output thisshift and simmons still appears to be draining w/ no issues. Patient had c/o pain and discomfort and received PRN dilaudid around 2217. Patient had no other c/o pain or discomfort the rest of shift. Patient VSS on RA. Patient tolerating PO intake. Will continue to monitor. * Plan of Care - Batsheva Garcia RN - 04/07/2025 3:07 PM CDT Goals: Problem: Discharge Planning Goal: Understanding discharge needs will improve Outcome: Progressing Flowsheets (Taken 04/07/2025 1507) Understanding of discharge needs will improve: Discuss information regarding discharge instructions Collaborate with case management interdisciplinary team Identify discharge barriers Identify discharge learning needs (meds, wound care, etc.) Arrange for needed discharge resources and transportation as appropriate Collaborate with language interpretation Summary: * ED Re-evaluation Note - Feroz Jarquin DO - 04/07/2025 7:34 AM CDT ED Re-evaluation Patient signed out to me by Dr. Hardy. Plan to check urinalysis after CBI and re-evaluate bleedingand pain. Suspected infection at sign-out, but urinalysis clean. Patient is still having active bleeding although no current clots. Patient states severe bladder spasms at times. Unclear etiology with persistent bleeding. Discussed again with Urology, Marline Griffin. Will admit for Urology consult. Admission discussed with Dr. Pereira. Feroz Jarquin DO 04/07/25 0834 documented in this encounter Plan of Treatment Not on file documented as of this encounter Procedures Procedure Name Priority Date/Time Associated Diagnosis Comments EGFR Routine 04/13/2025 6:06 AM CDT DIFFERENTIAL AUTO Routine 04/13/2025 6:0 6 AM CDT CBC WITH AUTO DIFFERENTIAL Routine 04/13/2025 6:06 AM CDT BASIC METABOLIC PANEL Routine 04/13/2025 6:06 AM CDT EGFR Routine 04/12/2025 4:03 AM CDT DIFFERENTIAL AUTO Routine 04/12/2025 4:0 3 AM CDT CBC WITH AUTO DIFFERENTIAL Routine 04/12/2025 4:03 AM CDT BASIC METABOLIC PANEL Routine 04/12/2025 4:03 AM CDT URINALYSIS AND REFLEX TO MICROSCOPIC AND CULTURE STAT 04/11/2025 9:25 AM CDT URINALYSIS, MICROSCOPIC ONLY STAT 04/11/2025 9:25 AM CDT URINE CULTURE STAT 04/11/2025 9:25 AM CDT EGFR Routine 04/11/2025 5:35 AM CDT DIFFERENTIAL AUTO Routine 04/11/2025 5:3 5 AM CDT CBC WITH AUTO DIFFERENTIAL Routine 04/11/2025 5:35 AM CDT BASIC METABOLIC PANEL Routine 04/11/2025 5:[address] ABDOMEN PELVIS W WO CONTRAST IP Routine 04/10/2025 11:03 PM CDT EGFR Routine 04/10/2025 5:55 AM CDT DIFFERENTIAL AUTO Routine 04/10/2025 5:5 5 AM CDT CBC WITH AUTO DIFFERENTIAL Routine 04/10/2025 5:55 AM CDT BASIC METABOLIC PANEL Routine 04/10/2025 5:55 AM CDT EGFR Routine 04/09/2025 6:01 AM CDT DIFFERENTIAL AUTO Routine 04/09/2025 6:0 1 AM CDT CBC WITH AUTO DIFFERENTIAL Routine 04/09/2025 6:01 AM CDT BASIC METABOLIC PANEL Routine 04/09/2025 6:01 AM CDT HEMOGLOBIN AND HEMATOCRIT Timed 04/08/2025 7:21 PM CDT HEMOGLOBIN AND HEMATOCRIT Timed 04/08/2025 1:29 PM CDT EGFR Routine 04/08/2025 5:40 AM CDT DIFFERENTIAL AUTO Routine 04/08/2025 5:4 0 AM CDT CBC WITH AUTO DIFFERENTIAL Routine 04/08/2025 5:40 AM CDT BASIC METABOLIC PANEL Routine 04/08/2025 5:40 AM CDT HEMOGLOBIN AND HEMATOCRIT Timed 04/07/2025 11:30 PM CDT HEMOGLOBIN AND HEMATOCRIT Timed 04/07/2025 6:36 PM CDT HEMOGLOBIN AND HEMATOCRIT Timed 04/07/2025 11:50 AM CDT URINALYSIS AND REFLEX TO MICROSCOPIC AND CULTURE STAT 04/07/2025 6:39 AM CDT URINALYSIS, MICROSCOPIC ONLY STAT 04/07/2025 6:[address] ABDOMEN PELVIS WO CONTRAST ED 04/07/2025 1:55 AM CDT EGFR STAT 04/07/2025 1:49 AM CDT DIFFERENTIAL AUTO STAT 04/07/2025 1:4 9 AM CDT CBC WITH AUTO DIFFERENTIAL STAT 04/07/2025 1:49 AM CDT LIPASE STAT 04/07/2025 1:49 AM CDT COMPREHENSIVE METABOLIC PANEL STAT 04/07/2025 1:49 AM CDT documented in this encounter Results * eGFR (04/13/2025 6:06 AM CDT) eGFR >90 >=60 mL/min/1. 73 m2 Comment: Interpretive Data Reference Interval Normal >/= 90 mL/min/1.73m2 Mildly decreased* 60 - 89 mL/min/1.73m2 Mildly to moderately decreased 45 - 59 mL/min/1.73m2 Moderately to severely decreased 30 - 44 mL/min/1.73m2 Severely decreased 15 - 29 mL/min/1.73m2 Kidney Failure < 15 mL/min/1.73m2 *Relative to young adult level Estimated glomerular filtration rate is determined by the 2020 CKD-EPI equation recommended by the National Kidney Foundation (A Unifying Approach to GFR Estimation: Recommendations of the NKF-ASK Task Force on Reassessing the Inclusion of Race in Diagnosing Kidney Disease, JASN 2020). The CKD-EPI equation should not be used for patients with unstable renal function and has not been validated in children and those over 70. Current interpretive data was last reviewed 2021. Testing performed by: [address] [address] Blood 04/13/2025 6:06 AM CDT 04/13/2025 6:42 AM CDT us Kinza Mackey NP LAB BLOOD ORDERABLES Final Re sult [facility] [address] [facility] Department [place] [address] * (ABNORMAL) Differential, auto (04/13/2025 6:06 AM CDT) Neutrophil abs 5.71 1.50 - 6.50 K/cumm Comment:Testing performed by : [address] [place] [address] Imm gran abs 0.13(H) 0.00 - 0.10 K/cumm [facility] Comment:Testing performed by : [address] [address] Lymphocyte abs 1.35 0.80 - 3.30 K/cumm [facility] Comment:Testing performed by : [address] [address] Monocyte abs 0.72 0.20 - 0.80 K/cumm [facility] Comment:Testing performed by : [address], [place]., [address] Eosinophil abs 0.15 0.00 - 0.50 K/cumm [facility] Comment:Testing performed by : [address] [address] Basophil abs 0.09 0.00 - 0.10 K/cumm [facility] Comment:Testing performed by : [address] [address] Neutrophil pct 70.1 % [facility] Comment: Interpretive Data Percent cell count reference ranges are not reported, since discordance with absolute values may lead to misinterpretation of CBC data. Current Interpretive Data was last revised on 2017. Testing performed by: [address] [address] Imm gran pct 1.6 % [facility] Comment: Interpretive Data Percent cell count reference ranges are not reported, since discordance with absolute values may lead to misinterpretation of CBC data. Current Interpretive Data was last revised on 2017. Testing performed by: [address] [address] Lymphocyte pct 16.6 % [facility] Comment: Interpretive Data Percent cell count reference ranges are not reported, since discordance with absolute values may lead to misinterpretation of CBC data. Current Interpretive Data was last revised on 2017. Testing performed by: [address] [address] Monocyte pct 8.8 % [facility] Comment: Interpretive Data Percent cell count reference ranges are not reported, since discordance with absolute values may lead to misinterpretation of CBC data. Current Interpretive Data was last revised on 2017. Testing performed by: [address] [address] Eosinophil pct 1.8 % [facility] Comment: Interpretive Data Percent cell count reference ranges are not reported, since discordance with absolute values may lead to misinterpretation of CBC data. Current Interpretive Data was last revised on 2017. Testing performed by: [address] [address] Basophil pct 1.1 % [facility] Comment: Interpretive Data Percent cell count reference ranges are not reported, since discordance with absolute values may lead to misinterpretation of CBC data. Current Interpretive Data was last revised on 2017. Testing performed by: [address] [address] Blood 04/13/2025 6:06 AM CDT 04/13/2025 6:45 AM CDT Kinza Mackey [employer] LAB BLOOD ORDERABLES Final Re sult [facility] [address] [facility] Department [place] [address] * CBC with auto differential (04/13/2025 6:06 AM CDT) WBC 8.15 3.80 - 9.90 K/cumm Comment:Testing performed by : [address] [address] Hgb 13.8 13.0 - 17.5 g/dL [facility] Comment:Testing performed by : [address] [address] Hct 39.2 38.9 - 50.3 % [facility] Comment:Testing performed by : [address] [address] Plt 239 150 - 400 K/cumm [facility] Comment:Testing performed by : [address] [address] MPV 10.2 9.1 - 12.3 fL [facility] Comment:Testing performed by : [address] [address] RBC 4.41 4.30 - 5.80 M/cumm [facility] Comment:Testing performed by : [address] [address] MCV 88.9 81.3 - 96.4 fL [facility] Comment:Testing performed by : [address], [address] MCH 31.3 27.1 - 33.3 pg [facility] Comment:Testing performed by : [address] [address] MCHC 35.2 32.3 - 35.7 g/dL [facility] Comment:Testing performed by : [address], [address] RDW CV 11.6 11.1 - 14.9 % [facility] Comment:Testing performed by : [address], [address] RDW SD 37.2 35.7 - 48.1 fL [facility] Comment:Testing performed by : [address] [address] NRBC abs 0.00 0.00 - 0.01 K/cumm [facility] Comment:Testing performed by : [address], [address] Blood 04/13/2025 6:06 AM CDT 04/13/2025 6:45 AM CDT Kinza Mackey PR[employer]PERT LAB BLOOD ORDERABLES Final [facility] [address] [facility] Department [place] [address] * Basic metabolic panel (04/13/2025 6:06 AM CDT) Sodium 140 135 - 145 mmol/L Comment:Testing performed by : [address], [address] Potassium, pl 3.7 3.3 - 4.9 mmol/L [facility] Comment:Testing performed by : [address] [address] Chloride 102 97 - 110 mmol/L [facility] Comment:Testing performed by : [address] [address] CO2 27 22 - 32 mmol/L [facility] Comment:Testing performed by : [address] [address] Anion gap 11 2 - 15 mmol/L [facility] Comment:Testing performed by : [address] [address] BUN 13 6 - 25 mg/dL [facility] Comment:Testing performed by : [address] [address] Creatinine 1.00 0.80 - 1.30 mg/dL [facility] Comment:Testing performed by : [address] [address] Glucose 89 70 - 199 mg/dL [facility] Comment: Interpretive Data Fasting glucose >/= 126 mg/dl is diagnostic for diabetes. Fasting is defined as no caloric intake for at least 8 hours. Fasting glucose between 100 mg/dl to 125 mg/dl is diagnostic of prediabetes. In a patient with classic symptoms of hyperglycemia or hyperglycemic crisis, a random glucose >/= 200 mg/dl is diagnostic for diabetes. In the absence of unequivocal hyperglycemia, results should be confirmed by repeat testing. The classification and Diagnosis of Diabetes Diabetes Care 202; 46: S19-S40. Current interpretive data was last revised 2022. Testing performed by: [address] [address] Calcium 9.3 8.5 - 10.3 mg/dL [facility] Comment:Testing performed by : [address] [address] Blood 04/13/2025 6:06 AM CDT 04/13/2025 6:42 AM CDT us Kinza Mackey NP LAB BLOOD ORDERABLES Final Re sult [facility] [address] [facility] Department [place] [address] * eGFR (04/12/2025 4:03 AM CDT) eGFR 90 >=60 mL/min/1. 73 m2 Comment: Interpretive Data Reference Interval Normal >/= 90 mL/min/1.73m2 Mildly decreased* 60 - 89 mL/min/1.73m2 Mildly to moderately decreased 45 - 59 mL/min/1.73m2 Moderately to severely decreased 30 - 44 mL/min/1.73m2 Severely decreased 15 - 29 mL/min/1.73m2 Kidney Failure < 15 mL/min/1.73m2 *Relative to young adult level Estimated glomerular filtration rate is determined by the 2020 CKD-EPI equation recommended by the National Kidney Foundation (A Unifying Approach to GFR Estimation: Recommendations of the NKF-ASK Task Force on Reassessing the Inclusion of Race in Diagnosing Kidney Disease, JASN 2020). The CKD-EPI equation should not be used for patients with unstable renal function and has not been validated in children and those over 70. Current interpretive data was last reviewed 2021. Testing performed by: [address] [address] Blood 04/12/2025 4:03 AM CDT 04/12/2025 5:18 AM CDT us Kinza Mackey NP LAB BLOOD ORDERABLES Final Re sult [facility] [address] [facility] Department [place] [address] * (ABNORMAL) Differential, auto (04/12/2025 4:03 AM CDT) Neutrophil abs 5.27 1.50 - 6.50 K/cumm Comment:Testing performed by : [address] [address] Imm gran abs 0.13(H) 0.00 - 0.10 K/cumm [facility] Comment:Testing performed by : [address] [address] Lymphocyte abs 1.59 0.80 - 3.30 K/cumm [facility] Comment:Testing performed by : [address] [address] Monocyte abs 0.76 0.20 - 0.80 K/cumm [facility] Comment:Testing performed by : [address], [place]., [address] Eosinophil abs 0.25 0.00 - 0.50 K/cumm [facility] Comment:Testing performed by : [address], [place]., [address] Basophil abs 0.10 0.00 - 0.10 K/cumm [facility] Comment:Testing performed by : [address] [address] Neutrophil pct 65.1 % [facility] Comment: Interpretive Data Percent cell count reference ranges are not reported, since discordance with absolute values may lead to misinterpretation of CBC data. Current Interpretive Data was last revised on 2017. Testing performed by: [address] [address] Imm gran pct 1.6 % [facility] Comment: Interpretive Data Percent cell count reference ranges are not reported, since discordance with absolute values may lead to misinterpretation of CBC data. Current Interpretive Data was last revised on 2017. Testing performed by: [address] [address] Lymphocyte pct 19.6 % [facility] Comment: Interpretive Data Percent cell count reference ranges are not reported, since discordance with absolute values may lead to misinterpretation of CBC data. Current Interpretive Data was last revised on 2017. Testing performed by: [address] [address] Monocyte pct 9.4 % [facility] Comment: Interpretive Data Percent cell count reference ranges are not reported, since discordance with absolute values may lead to misinterpretation of CBC data. Current Interpretive Data was last revised on 2017. Testing performed by: [address] [address] Eosinophil pct 3.1 % [facility] Comment: Interpretive Data Percent cell count reference ranges are not reported, since discordance with absolute values may lead to misinterpretation of CBC data. Current Interpretive Data was last revised on 2017. Testing performed by: [address] [address] Basophil pct 1.2 % [facility] Comment: Interpretive Data Percent cell count reference ranges are not reported, since discordance with absolute values may lead to misinterpretation of CBC data. Current Interpretive Data was last revised on 2017. Testing performed by: [address] [address] Blood 04/12/2025 4:03 AM CDT 04/12/2025 5:18 AM CDT us Kizna Mackey NP LAB BLOOD ORDERABLES Final Re sult [facility] Department [place] [address] * CBC with auto differential (04/12/2025 4:03 AM CDT) WBC 8.10 3.80 - 9.90 K/cumm Comment:Testing performed by : [address] [address] Hgb 13.9 13.0 - 17.5 g/dL [facility] Comment:Testing performed by : [address] [address] Hct 39.6 38.9 - 50.3 % [facility] Comment:Testing performed by : [address] [address] Plt 206 150 - 400 K/cumm [facility] Comment:Testing performed by : [address] [address] MPV 11.1 9.1 - 12.3 fL [facility] Comment:Testing performed by : [address] [address] RBC 4.55 4.30 - 5.80 M/cumm [facility] Comment:Testing performed by : [address] [address] MCV 87.0 81.3 - 96.4 fL [facility] Comment:Testing performed by : [facility], [address] [place] [address]., [address] MCH 30.5 27.1 - 33.3 pg [facility] Comment:Testing performed by : [address] [address] MCHC 35.1 32.3 - 35.7 g/dL [facility] Comment:Testing performed by : [address] [address] RDW CV 11.7 11.1 - 14.9 % [facility] Comment:Testing performed by : [address] [address] RDW SD 37.2 35.7 - 48.1 fL [facility] Comment:Testing performed by : [address] [address] NRBC abs 0.00 0.00 - 0.01 K/cumm [facility] Comment:Testing performed by : [address] [address] Blood 04/12/2025 4:03 AM CDT 04/12/2025 5:18 AM CDT Kinza Mackey NP LAB BLOOD ORDERABLES Final Re sult [facility] [address] [facility] Department of Laboratories [place], [place] [id number] * Basic metabolic panel (04/12/2025 4:03 AM CDT) Sodium 141 135 - 145 mmol/L Comment:Testing performed by : [address] [address] Potassium, pl 4.1 3.3 - 4.9 mmol/L [facility] Comment: Hemolyzed; Potassium value may be falsely elevated by as much as 1.0 mmol/L. Suggest redraw and reanalysis. Testing performed by: [address] [address] Chloride 103 97 - 110 mmol/L [facility] Comment:Testing performed by : [address] [address] CO2 24 22 - 32 mmol/L [facility] Comment:Testing performed by : [address] [address] Anion gap 14 2 - 15 mmol/L [facility] Comment:Testing performed by : [address] [address] BUN 13 6 - 25 mg/dL [facility] Comment:Testing performed by : [address] [address] Creatinine 1.03 0.80 - 1.30 mg/dL [facility] Comment:Testing performed by : [address] [address] Glucose 91 70 - 199 mg/dL [facility] Comment: Interpretive Data Fasting glucose >/= 126 mg/dl is diagnostic for diabetes. Fasting is defined as no caloric intake for at least 8 hours. Fasting glucose between 100 mg/dl to 125 mg/dl is diagnostic of prediabetes. In a patient with classic symptoms of hyperglycemia or hyperglycemic crisis, a random glucose >/= 200 mg/dl is diagnostic for diabetes. In the absence of unequivocal hyperglycemia, results should be confirmed by repeat testing. The classification and Diagnosis of Diabetes Diabetes Care 202; 46: S19-S40. Current interpretive data was last revised 2022. Testing performed by: [address] [address] Calcium 9.7 8.5 - 10.3 mg/dL [facility] Comment:Testing performed by : [address] [address] Blood 04/12/2025 4:03 AM CDT 04/12/2025 5:18 AM CDT us Kinza Mackey NP LAB BLOOD ORDERABLES Final Re sult [facility] [address] [facility] Department [place] [address] * (ABNORMAL) Urine culture Urine, clean voided (04/11/2025 9:25 AM CDT) Report Final Report: Greater than or equal to 100,000 colonies/mL of Bacillus species, not Bacillus anthracis No further workup. (.) Comment:Testing performed by : [facility], [address] [place]., [address] Organism BACILLUS SPECIES, NOT BACILLUS ANTHRACIS [facility] Urine, clean voided 04/11/2025 9:25 AM CDT 04/11/2025 2:35 PM CDT Narrative [facility] - 04/13/2025 6:11 AM CDT Urine culture reflexed based upon urinalysis results. Testing performed by [facility] ([phone]) us Lillie gonzalez MD LAB MICROBIOLOGY - GENERAL ORDERABLES Final Result [facility] [address] [facility] Department [place] [address] * (ABNORMAL) Urinalysis, microscopic only (04/11/2025 9:25 AM CDT) WBC, ur 11-20(A) 0 - 5 /HPF Comment:Testing performed by : [address] [address] RBC, ur 11-20(A) 0 - 2 /HPF [facility] Comment:Testing performed by : [address] [address] Epithelial cells, squamous, ur 1-5 0 - 5 /HPF [facility] Comment:Testing performed by : [address] [address] Bacteria, ur 4+(A) [facility] Comment:Testing performed by : [address] [address] Mucous, ur Present(A) [facility] Comment:Testing performed by : [address] [address] Culture Reflex Comment Reflex to urine culture will be performed. [facility] Comment:Testing performed by : [address] [place] [address] Urine, clean voided 04/11/2025 9:25 AM CDT 04/11/2025 9:29 AM CDT Lillie Madrid MD LAB URINE ORDERABLES Final Result [facility] [address] [facility] Department [place] [address] * (ABNORMAL) Urinalysis reflex to microscopic and culture Urine, clean voided (04/11/2025 9:25 AM CDT) Color, ur Yellow Yellow Comment:Testing performed by : [address] [address] Clarity, ur Clear Clear [facility] Comment:Testing performed by : [address] [address] Specific gravity, ur 1.015 1.003 - 1.030 [facility] Comment:Testing performed by : [address] [address] pH, urine 6.5 [facility] Comment: Interpretive Data U rine pH is affected by diet, medications, systemic acid-base disturbances, and renal tubular function. pH may affect urinary stone formation. For example, urine pH below 6.0 may help reduce the tendency for calcium phosphate stones and pH greater than 6.0 may reduce the tendency for uric acid stone formation. Source: [facility] [place] Current Interpretive Data was last revised on 2017 Testing performed by: [address] [address] Protein, ur ql Negative Negative [facility] Comment:Testing performed by : [address] [address] Glucose, ur ql Negative Negative [facility] Comment:Testing performed by : [address] [address] Ketones, ur Negative Negative [facility] Comment:Testing performed by : [address] [address] Bilirubin, ur Negative Negative [facility] Comment:Testing performed by : [facility], [address] [place] [address]., [address] Blood, ur 2+(A) Negative [facility] Comment:Testing performed by : [address] [address] Urobilinogen, ur <2.0 <2.0 mg/dL [facility] Comment:Testing performed by : [address] [address] Nitrite, ur Negative Negative [facility] Comment:Testing performed by : [address], [place]., [address] Leukocyte esterase, ur 2+(A) Negative [facility] Comment:Testing performed by : [address] [address] UA reflex comment Reflex to microscopic UA will be performed. [facility] Comment:Testing performed by : [address] [address] Urine, clean voided 04/11/2025 9:25 AM CDT 04/11/2025 9:29 AM CDT us Lillie gonzalez MD LAB MICROBIOLOGY - GENERAL ORDERABLES Final Result [facility] [address] [facility] Department of [facility] [place], [place] [id number] * eGFR (04/11/2025 5:35 AM CDT) eGFR 87 >=60 mL/min/1. 73 m2 Comment: Interpretive Data Reference Interval Normal >/= 90 mL/min/1.73m2 Mildly decreased* 60 - 89 mL/min/1.73m2 Mildly to moderately decreased 45 - 59 mL/min/1.73m2 Moderately to severely decreased 30 - 44 mL/min/1.73m2 Severely decreased 15 - 29 mL/min/1.73m2 Kidney Failure < 15 mL/min/1.73m2 *Relative to young adult level Estimated glomerular filtration rate is determined by the 2020 CKD-EPI equation recommended by the National Kidney [employer] (A Unifying Approach to GFR Estimation: Recommendations of the NKF-ASK Task Force on Reassessing the Inclusion of Race in Diagnosing Kidney Disease, JASN 202). The CKD-EPI equation should not be used for patients with unstable renal function and has not been validated in children and those over 70. Current interpretive data was last reviewed 2021. Testing performed by: [address] [address] Blood 04/11/2025 5:35 AM CDT 04/11/2025 6:17 AM CDT us Kinza Mackey NP LAB BLOOD ORDERABLES Final Re sult ELIDA [address] [facility] Department [place] [address] * (ABNORMAL) Differential, auto (04/11/2025 5:35 AM CDT) Neutrophil abs 6.52(H) 1.50 - 6.50 K/cumm Comment:Testing performed by : [address] [address] Imm gran abs 0.11(H) 0.00 - 0.10 K/cumm ELIDA Comment:Testing performed by : [address] [address] Lymphocyte abs 1.53 0.80 - 3.30 K/cumm ELIDA Comment:Testing performed by : [address] [address] Monocyte abs 0.80 0.20 - 0.80 K/cumm ELIDA Comment:Testing performed by : [address] [address] Eosinophil abs 0.14 0.00 - 0.50 K/cumm ELIDA Comment:Testing performed by : [address] [address] Basophil abs 0.11(H) 0.00 - 0.10 K/cumm ELIDA Comment:Testing performed by : [address] [address] Neutrophil pct 70.8 % [facility] Comment: Interpretive Data Percent cell count reference ranges are not reported, since discordance with absolute values may lead to misinterpretation of CBC data. Current Interpretive Data was last revised on 2017. Testing performed by: [address] [address] Imm gran pct 1.2 % [facility] Comment: Interpretive Data Percent cell count reference ranges are not reported, since discordance with absolute values may lead to misinterpretation of CBC data. Current Interpretive Data was last revised on 2017. Testing performed by: [address] [address] Lymphocyte pct 16.6 % [facility] Comment: Interpretive Data Percent cell count reference ranges are not reported, since discordance with absolute values may lead to misinterpretation of CBC data. Current Interpretive Data was last revised on 2017. Testing performed by: [address] [address] Monocyte pct 8.7 % [facility] Comment: Interpretive Data Percent cell count reference ranges are not reported, since discordance with absolute values may lead to misinterpretation of CBC data. Current Interpretive Data was last revised on 2017. Testing performed by: [address] [address] Eosinophil pct 1.5 % [facility] Comment: Interpretive Data Percent cell count reference ranges are not reported, since discordance with absolute values may lead to misinterpretation of CBC data. Current Interpretive Data was last revised on 2017. Testing performed by: [address] [address] Basophil pct 1.2 % [facility] Comment: Interpretive Data Percent cell count reference ranges are not reported, since discordance with absolute values may lead to misinterpretation of CBC data. Current Interpretive Data was last revised on 2017. Testing performed by: [address] [address] Blood 04/11/2025 5:35 AM CDT 04/11/2025 6:17 AM CDT Sherrywin Saner [employer] LAB BLOOD ORDERABLES Final Re sult [facility] [address] [facility] Department [place] [address] * (ABNORMAL) CBC with auto differential (04/11/2025 5:35 AM CDT) WBC 9.21 3.80 - 9.90 K/cumm Comment:Testing performed by : [address] [address] Hgb 14.0 13.0 - 17.5 g/dL ELIDA Comment:Testing performed by : [address] [address] Hct 39.1 38.9 - 50.3 % ELIDA Comment:Testing performed by : [address] [address] Plt 220 150 - 400 K/cumm ELIDA Comment:Testing performed by : [address] [address] MPV 10.5 9.1 - 12.3 fL ELIDA Comment:Testing performed by : [address] [address] RBC 4.48 4.30 - 5.80 M/cumm ELIDA Comment:Testing performed by : [address] [address] MCV 87.3 81.3 - 96.4 fL ELIDA Comment:Testing performed by : [address] [address] MCH 31.3 27.1 - 33.3 pg ELIDA Comment:Testing performed by : [address] [address] MCHC 35.8(H) 32.3 - 35.7 g/dL ELIDA Comment:Testing performed by : [address] [address] RDW CV 11.8 11.1 - 14.9 % ELIDA Comment:Testing performed by : [address] [address] RDW SD 37.2 35.7 - 48.1 fL ELIDA KLINE Comment:Testing performed by : [address] [address] NRBC abs 0.00 0.00 - 0.01 K/cumm ELIDA KLINE Comment:Testing performed by : [address] [address] Blood 04/11/2025 5:35 AM CDT 04/11/2025 6:17 AM CDT us Kinza Mackey NP LAB BLOOD ORDERABLES Final Re sult ELIDA KLINE [address] [facility] Department [place] [address] * Basic metabolic panel (04/11/2025 5:35 AM CDT) Sodium 141 135 - 145 mmol/L Comment:Testing performed by : [address] [address] Potassium, pl 4.4 3.3 - 4.9 mmol/L ELIDA KLINE Comment: Hemolyzed; Potassium value may be falsely elevated by as much as 1.0 mmol/L. Suggest redraw and reanalysis. Testing performed by: [address] [address] Chloride 103 97 - 110 mmol/L ELIDA KLINE Comment:Testing performed by : [address] [address] CO2 24 22 - 32 mmol/L ELIDA Comment:Testing performed by : [address] [address] Anion gap 14 2 - 15 mmol/L ELIDA Comment:Testing performed by : [address] [address] BUN 12 6 - 25 mg/dL ELIDA Comment:Testing performed by : [address] [address] Creatinine 1.06 0.80 - 1.30 mg/dL ELIDA KLINE Comment:Testing performed by : [address] [address] Glucose 97 70 - 199 mg/dL ELIDA KLINE Comment: Interpretive Data Fasting glucose >/= 126 mg/dl is diagnostic for diabetes. Fasting is defined as no caloric intake for at least 8 hours. Fasting glucose between 100 mg/dl to 125 mg/dl is diagnostic of prediabetes. In a patient with classic symptoms of hyperglycemia or hyperglycemic crisis, a random glucose >/= 200 mg/dl is diagnostic for diabetes. In the absence of unequivocal hyperglycemia, results should be confirmed by repeat testing. The classification and Diagnosis of Diabetes Diabetes Care 2021; 46: S19-S40. Current interpretive data was last revised 2022. Testing performed by: [facility], [address] [place] [address]., [address] Calcium 9.8 8.5 - 10.3 mg/dL ELIDA Comment:Testing performed by : [facility], [address] [place] [address]., [address] Blood 04/11/2025 5:35 AM CDT 04/11/2025 6:17 AM CDT us Kinza Mackey NP LAB BLOOD ORDERABLES Final Re sult ELIDA [address] [facility] Department [place] [address] * CT Abdomen Pelvis W WO Contrast (04/10/2025 11:03 PM CDT) Anatomical Region Laterality Modality Body N/A Computed Tomogra phy 04/11/2025 5:09 AM CDT Narrative 04/11/2025 5:19 AM CDT EXAM DESCRIPTION: CT ABDOMEN PELVIS W WO CONTRAST REASON FOR STUDY: hematuria protocol Md note today: Patient seen and examined at bedside. Patient continues to have hematuria in Simmons catheter bag. No large blood clots noted. Has remained afebrile. No other complaints. Chart note 45 y.o. male with history of kidney stone presented to ED with hematuria. He had left ureteroscopy on 02/23 and 03/[address] Yates. His stent was removed 03/13. After stent removal he has had a couple episodes of hematuria that resolved. He went on a trip to [facility] and did a lot of walking while on this trip. He returned and noted to have hematuria with blood clots and was not able to urinate well. He would urinate small amounts and feel as if he was incompletely emptying. CT scan shown to have mild hydronephrosis and proximal hydroureter with heterogeneous high density material seen within the proximal ureter and bladder, consistent with blood products. High density material layering posteriorly within the bladder, most consistent with blood clots. Recent cystoscopy on 03/06/2025 did not reveal any bladder tumors or lesions. CBI started in ED this morning. On rounds CBI had been stopped and urine output was red tinged. Irrigated at bedside with moderate amount of clot return. Patient is roughly a month out from his stent removal in February following ureteroscopy. It is suspected bleeding is likely coming from kidney. UA negative. Expect bleeding will resolve. Continue 3 way simmons catheter at this time and irrigate as needed. Trend Hgb. Reassess urine output tomorrow. If clearing would recommend removal of simmons catheter. 04/08/25- 3-way simmons catheter draining blood tinged urine without CBI; per patient report hematuria is improved in comparison to yesterday. Simmons irrigated manually by urology at bedside with return of yellow urine and no clots expressed. Plan to reassess urine output tomorrow, if hematuria resolves, then suggest removal of simmons catheter. 04/09/2025 - urine blood tinged with CBI at slow rate. CBI stopped on rounds today. Will continue to monitor. If clear tomorrow AM recommend discontinue simmons catheter. 04/10/2025 - urine in clear yellow in tubing, blood tinged in catheter bag. Hgb stable, If this is negative recommend discontinue simmons catheter for void trial. TECHNIQUE: CT scan of the abdomen and pelvis performed without and with intravenous and without oral contrast using helical scanning technique with dynamic intravenous contrast injection. Postcontrast images are obtained in the corticomedullary phase, nephrogenic phase and excretory phase. Reconstructed coronal and sagittal MPR images reviewed. All images stored on PACS. Automated exposure control was used as a dose optimization technique for this examination. CONTRAST TYPE/DOSE: 100mL of IOVERSOL 350 MG IODINE/ML INTRAVENOUS SYRINGE injected via intravenous COMPARISON: CT of the abdomen and pelvis of April 07, 2025. FINDINGS: LOWER CHEST: There is bibasilar atelectasis. LIVER: The liver is normal in attenuation without focal lesion. GALLBLADDER: The gallbladder is contracted. BILE DUCTS: No intrahepatic or extrahepatic ductal dilatation. PANCREAS: Normal. SPLEEN: Normal size. No focal lesions. ADRENALS: Normal. KIDNEYS/URINARY TRACT: There is mild patchy enhancement in the midportion and inferior pole of the left kidney. Renal parenchyma otherwise appears unremarkable. There is a tiny, 2 mm nonobstructing stone seen within the right kidney. No additional urinary tract stones are identified. There is no hydronephrosis or hydroureter. There are no filling defects seen of the collecting system bilaterally on delayed images. There are scattered short segments of poor opacification of the distal ureters bilaterally. The bladder is partially decompressed with a large caliber Simmons catheter in place. VASCULATURE: No acute abnormality seen. No abdominal aortic aneurysm. GI: The stomach appears normal. There is no significant small bowel dilation or visible thickening. No gross colonic abnormalities identified. The appendix is normal. PERITONEUM/MESENTERY: No ascites or free air. LYMPH NODES: There are no enlarged lymph nodes seen by CT size criteria. REPRODUCTIVE: The prostate and seminal vesicles are unremarkable. MUSCULOSKELETAL: No significant abnormality. OTHER: No other abnormality. IMPRESSION: 1. Mild patchy enhancement in the midportion and inferior pole of the left kidney, which may be related to pyelonephritis. 2. Tiny, 2 mm nonobstructing stone in the right kidney. 3. No hydronephrosis or hydroureter. 4. No filling defects seen of the collecting system bilaterally on delayed images. 5. Large caliber Simmons catheter in place. THIS IS AN ELECTRONICALLY VERIFIED FINAL REPORT 04/11/2025 5:19 AM - Electronically signed by Jane Bailey M.D. SN: Report ID: [id number] Reading Location: [id number] Procedure Note Jane Bailey MD - 04/11/2025 EXAM DESCRIPTION: CT ABDOMEN PELVIS W WO CONTRAST REASON FOR STUDY: hematuria protocol note today: Patient seen and examined at bedside. Patient continues to have hematuria in Simmons catheter bag. No large blood clots noted. Has remained afebrile. No other complaints. Chart note 45 y.o. male with history of kidney stone presented to ED with hematuria. He had left ureteroscopy on 02/23 and 03/[address] Yates. His stent was removed 03/13.After stent removal he has had a couple episodes of hematuria that resolved. Hewent on a trip to [facility] and did a lot of walking while on this trip.He returned and noted to have hematuria with blood clots and was not able to urinate well. He would urinate small amounts and feel as if he was incompletely emptying. CT scan shown to have mild hydronephrosis and proximal hydroureter with heterogeneous high density material seen withinthe proximal ureter and bladder, consistent with blood products. High density material layering posteriorly within the bladder, most consistent withblood clots. Recent cystoscopy on 03/06/2025 did not reveal any bladder tumors or lesions. CBI started in ED this morning. On rounds CBI had been stoppedand urine output was red tinged. Irrigated at bedside with moderate amount ofclot return. Patient is roughly a month out from his stent removal in February following ureteroscopy. It is suspected bleeding is likely coming fromkidney. UA negative. Expect bleeding will resolve. Continue 3 way simmons catheterat this time and irrigate as needed. Trend Hgb. Reassess urine outputtomorrow. If clearing would recommend removal of simmons catheter. 04/08/25- 3-way simmons catheter draining blood tinged urine without CBI; per patient report hematuria is improved in comparison to yesterday. Simmons irrigated manuallyby urology at bedside with return of yellow urine and no clots expressed.Plan to reassess urine output tomorrow, if hematuria resolves, then suggestremoval of simmons catheter. 04/09/2025 - urine blood tinged with CBI at slowrate. CBI stopped on rounds today. Will continue to monitor. If clear tomorrowAM recommend discontinue simmons catheter. 04/10/2025 - urine in clearyellow in tubing, blood tinged in catheter bag. Hgb stable, If this is negative recommend discontinue simmons catheter for void trial. TECHNIQUE: CT scan of the abdomen and pelvis performed without and with intravenous and without oral contrast using helical scanning techniquewith dynamic intravenous contrast injection. Postcontrast images are obtainedin the corticomedullary phase, nephrogenic phase and excretory phase. Reconstructed coronal and sagittal MPR images reviewed. All images storedon PACS. Automated exposure control was used as a dose optimization techniquefor this examination. CONTRAST TYPE/DOSE: 100mL of IOVERSOL 350 MG IODINE/ML INTRAVENOUSSYRINGE injected via intravenous COMPARISON: CT of the abdomen and pelvis of April 07, 2025. FINDINGS: LOWER CHEST: There is bibasilar atelectasis. LIVER: The liver is normal in attenuation without focal lesion. GALLBLADDER: The gallbladder is contracted. BILE DUCTS: No intrahepatic or extrahepatic ductal dilatation. PANCREAS: Normal. SPLEEN: Normal size. No focal lesions. ADRENALS: Normal. KIDNEYS/URINARY TRACT: There is mild patchy enhancement in the midportionand inferior pole of the left kidney. Renal parenchyma otherwise appears unremarkable. There is a tiny, 2 mm nonobstructing stone seen within the right kidney. No additional urinary tract stones are identified. Thereis no hydronephrosis or hydroureter. There are no filling defects seen ofthe collecting system bilaterally on delayed images. There are scatteredshort segments of poor opacification of the distal ureters bilaterally. The bladder is partially decompressed with a large caliber Simmons catheter in place. VASCULATURE: No acute abnormality seen. No abdominal aortic aneurysm. GI: The stomach appears normal. There is no significant small bowel dilation or visible thickening. No gross colonic abnormalitiesidentified. The appendix is normal. PERITONEUM/MESENTERY: No ascites or free air. LYMPH NODES: There are no enlarged lymph nodes seen by CT size criteria. REPRODUCTIVE: The prostate and seminal vesicles are unremarkable. MUSCULOSKELETAL: No significant abnormality. OTHER: No other abnormality. IMPRESSION: 1. Mild patchy enhancement in the midportion and inferior pole of theleft kidney, which may be related to pyelonephritis. 2. Tiny, 2 mm nonobstructing stone in the right kidney. 3. No hydronephrosis or hydroureter. 4. No filling defects seen of the collecting system bilaterally ondelayed images. 5. Large caliber Simmons catheter in place. THIS IS AN ELECTRONICALLY VERIFIED FINAL REPORT 04/11/2025 5:19 AM - Electronically signed by Jane Bailey M.D. SN: Report ID: [id number] Reading Location: [id number] us Marline AshtynKelley Griffin PRODUCTION CONTROL EXPERT IMG CT PROCEDURES Final Res ult * eGFR (04/10/2025 5:55 AM CDT) eGFR 85 >=60 mL/min/1. 73 m2 Comment: Interpretive Data Reference Interval Normal >/= 90 mL/min/1.73m2 Mildly decreased* 60 - 89 mL/min/1.73m2 Mildly to moderately decreased 45 - 59 mL/min/1.73m2 Moderately to severely decreased 30 - 44 mL/min/1.73m2 Severely decreased 15 - 29 mL/min/1.73m2 Kidney Failure < 15 mL/min/1.73m2 *Relative to young adult level Estimated glomerular filtration rate is determined by the 2020 CKD-EPI equation recommended by the National Kidney Foundation (A Unifying Approach to GFR Estimation: Recommendations of the NKF-ASK Task Force on Reassessing the Inclusion of Race in Diagnosing Kidney Disease, JASN 2020). The CKD-EPI equation should not be used for patients with unstable renal function and has not been validated in children and those over 70. Current interpretive data was last reviewed 2021. Testing performed by: [address] [address] Blood 04/10/2025 5:55 AM CDT 04/10/2025 6:39 AM CDT us Kinza Mackey PR[employer]PERT LAB BLOOD ORDERABLES Final Re sult ELIDA [address] [facility] Department [place] [address] * Differential, auto (04/10/2025 5:55 AM CDT) Neutrophil abs 5.25 1.50 - 6.50 K/cumm Comment:Testing performed by : [address] [address] Imm gran abs 0.06 0.00 - 0.10 K/cumm ELIDA KLINE Comment:Testing performed by : [facility], [address] [place] [address], [place]., [address] Lymphocyte abs 1.51 0.80 - 3.30 K/cumm ELIDA Comment:Testing performed by : [address], [place]., [address] Monocyte abs 0.68 0.20 - 0.80 K/cumm ELIDA Comment:Testing performed by : [address], [place]., [address] Eosinophil abs 0.15 0.00 - 0.50 K/cumm ELIDA Comment:Testing performed by : [address], [place]., [address] Basophil abs 0.08 0.00 - 0.10 K/cumm ELIDA Comment:Testing performed by : [address] [address] Neutrophil pct 68.0 % [facility] Comment: Interpretive Data Percent cell count reference ranges are not reported, since discordance with absolute values may lead to misinterpretation of CBC data. Current Interpretive Data was last revised on 2017. Testing performed by: [address] [address] Imm gran pct 0.8 % [facility] Comment: Interpretive Data Percent cell count reference ranges are not reported, since discordance with absolute values may lead to misinterpretation of CBC data. Current Interpretive Data was last revised on 2017. Testing performed by: [address] [address] Lymphocyte pct 19.5 % [facility] Comment: Interpretive Data Percent cell count reference ranges are not reported, since discordance with absolute values may lead to misinterpretation of CBC data. Current Interpretive Data was last revised on 2017. Testing performed by: [address] [address] Monocyte pct 8.8 % [facility] Comment: Interpretive Data Percent cell count reference ranges are not reported, since discordance with absolute values may lead to misinterpretation of CBC data. Current Interpretive Data was last revised on 2017. Testing performed by: [address] [address] Eosinophil pct 1.9 % ELIDA Comment: Interpretive Data Percent cell count reference ranges are not reported, since discordance with absolute values may lead to misinterpretation of CBC data. Current Interpretive Data was last revised on 2017. Testing performed by: [address] [address] Basophil pct 1.0 % ELIDA Comment: Interpretive Data Percent cell count reference ranges are not reported, since discordance with absolute values may lead to misinterpretation of CBC data. Current Interpretive Data was last revised on 2017. Testing performed by: [address] [address] Blood 04/10/2025 5:55 AM CDT 04/10/2025 6:40 AM CDT us Kinza Mackey NP LAB BLOOD ORDERABLES Final Re sult ELIDA [facility] Department [place] [address] * (ABNORMAL) CBC with auto differential (04/10/2025 5:55 AM CDT) WBC 7.73 3.80 - 9.90 K/cumm Comment:Testing performed by : [address] [address] Hgb 12.8(L) 13.0 - 17.5 g/dL ELIDA KLINE Comment:Testing performed by : [address] [address] Hct 36.4(L) 38.9 - 50.3 % ELIDA KLNIE Comment:Testing performed by : [address] [address] Plt 198 150 - 400 K/cumm ELIDA KLINE Comment:Testing performed by : [address] [address] MPV 10.6 9.1 - 12.3 fL ELIDA KLINE Comment:Testing performed by : [address] [address] RBC 4.11(L) 4.30 - 5.80 M/cumm ELIDA KLINE Comment:Testing performed by : [address] [address] MCV 88.6 81.3 - 96.4 fL ELIDA KLINE Comment:Testing performed by : [address] [address] MCH 31.1 27.1 - 33.3 pg ELIDA KLINE Comment:Testing performed by : [address] [address] MCHC 35.2 32.3 - 35.7 g/dL ELIDA Comment:Testing performed by : [address], [address] RDW CV 11.8 11.1 - 14.9 % ELIDA Comment:Testing performed by : [address] [address] RDW SD 37.9 35.7 - 48.1 fL ELIDA Comment:Testing performed by : [address] [address] NRBC abs 0.00 0.00 - 0.01 K/cumm ELIDA Comment:Testing performed by : [address], [address] Blood 04/10/2025 5:55 AM CDT 04/10/2025 6:40 AM CDT Kinza Mackey NP LAB BLOOD ORDERABLES Final Re sult ELIDA [address] [facility] Department [place] [address] * Basic metabolic panel (04/10/2025 5:55 AM CDT) Sodium 140 135 - 145 mmol/L Comment:Testing performed by : [address] [address] Potassium, pl 4.4 3.3 - 4.9 mmol/L ELIDA Comment: Hemolyzed; Potassium value may be falsely elevated by as much as 1.0 mmol/L. Suggest redraw and reanalysis. Testing performed by: [address] [address] Chloride 105 97 - 110 mmol/L ELIDA Comment:Testing performed by : [address] [address] CO2 23 22 - 32 mmol/L ELIDA Comment:Testing performed by : [address] [address] Anion gap 12 2 - 15 mmol/L ELIDA Comment:Testing performed by : [address], [place]., [address] BUN 12 6 - 25 mg/dL ELIDA Comment:Testing performed by : [address] [address] Creatinine 1.08 0.80 - 1.30 mg/dL ELIDA Comment:Testing performed by : [address], [place]., [address] Glucose 95 70 - 199 mg/dL ELIDA Comment: Interpretive Data Fasting glucose >/= 126 mg/dl is diagnostic for diabetes. Fasting is defined as no caloric intake for at least 8 hours. Fasting glucose between 100 mg/dl to 125 mg/dl is diagnostic of prediabetes. In a patient with classic symptoms of hyperglycemia or hyperglycemic crisis, a random glucose >/= 200 mg/dl is diagnostic for diabetes. In the absence of unequivocal hyperglycemia, results should be confirmed by repeat testing. The classification and Diagnosis of Diabetes Diabetes Care 2021; 46: S19-S40. Current interpretive data was last revised 2022. Testing performed by: 05 [address] [address] Calcium 9.4 8.5 - 10.3 mg/dL ELIDA Comment:Testing performed by : [address] [address] Blood 04/10/2025 5:55 AM CDT 04/10/2025 6:39 AM CDT us Kinza Mackey NP LAB BLOOD ORDERABLES Final Re sult ELIDA [address] [facility] Department [place] [address] * eGFR (04/09/2025 6:01 AM CDT) Pathologist [facility] eGFR 83 >=60 mL/min/1. 73 m2 Comment: Interpretive Data Reference Interval Normal >/= 90 mL/min/1.73m2 Mildly decreased* 60 - 89 mL/min/1.73m2 Mildly to moderately decreased 45 - 59 mL/min/1.73m2 Moderately to severely decreased 30 - 44 mL/min/1.73m2 Severely decreased 15 - 29 mL/min/1.73m2 Kidney Failure < 15 mL/min/1.73m2 *Relative to young adult level Estimated glomerular filtration rate is determined by the 2020 CKD-EPI equation recommended by the National Kidney Foundation (A Unifying Approach to GFR Estimation: Recommendations of the NKF-ASK Task Force on Reassessing the Inclusion of Race in Diagnosing Kidney Disease, JASN 2020). The CKD-EPI equation should not be used for patients with unstable renal function and has not been validated in children and those over 70. Current interpretive data was last reviewed 2021. Testing performed by: [address] [address] Blood 04/09/2025 6:01 AM CDT 04/09/2025 6:28 AM CDT us Kinza Mackey NP LAB BLOOD ORDERABLES Final Re sult ELIDA 4500 [facility] Department [place] [address] * Differential, auto (04/09/2025 6:01 AM CDT) Pathologist [facility] Department Neutrophil abs 5.16 1.50 - 6.50 K/cumm Comment:Testing performed by : [address] [address] Imm gran abs 0.05 0.00 - 0.10 K/cumm ELIDA Comment:Testing performed by : [address] [address] Lymphocyte abs 1.56 0.80 - 3.30 K/cumm [facility] Comment:Testing performed by : [address], [place]., [address] Monocyte abs 0.73 0.20 - 0.80 K/cumm [facility] Comment:Testing performed by : [address], [place]., [address] Eosinophil abs 0.13 0.00 - 0.50 K/cumm [facility] Comment:Testing performed by : [address], [place]., [address] Basophil abs 0.08 0.00 - 0.10 K/cumm [facility] Comment:Testing performed by : [address] [address] Neutrophil pct 67.0 % [facility] Comment: Interpretive Data Percent cell count reference ranges are not reported, since discordance with absolute values may lead to misinterpretation of CBC data. Current Interpretive Data was last revised on 2017. Testing performed by: [address] [address] Imm gran pct 0.6 % [facility] Comment: Interpretive Data Percent cell count reference ranges are not reported, since discordance with absolute values may lead to misinterpretation of CBC data. Current Interpretive Data was last revised on 2017. Testing performed by: [address] [address] Lymphocyte pct 20.2 % [facility] Comment: Interpretive Data Percent cell count reference ranges are not reported, since discordance with absolute values may lead to misinterpretation of CBC data. Current Interpretive Data was last revised on 2017. Testing performed by: [address] [address] Monocyte pct 9.5 % [facility] Comment: Interpretive Data Percent cell count reference ranges are not reported, since discordance with absolute values may lead to misinterpretation of CBC data. Current Interpretive Data was last revised on 2017. Testing performed by: [address] [address] Eosinophil pct 1.7 % [facility] Comment: Interpretive Data Percent cell count reference ranges are not reported, since discordance with absolute values may lead to misinterpretation of CBC data. Current Interpretive Data was last revised on 2017. Testing performed by: [address] [address] Basophil pct 1.0 % ELIDA KLINE Comment: Interpretive Data Percent cell count reference ranges are not reported, since discordance with absolute values may lead to misinterpretation of CBC data. Current Interpretive Data was last revised on 2017. Testing performed by: [address] [address] Blood 04/09/2025 6:01 AM CDT 04/09/2025 6:29 AM CDT us Kinza Mackey NP LAB BLOOD ORDERABLES Final Re sult ELIDA 45[address] [facility] Department [place] [address] * (ABNORMAL) CBC with auto differential (04/09/2025 6:01 AM CDT) WBC 7.71 3.80 - 9.90 K/cumm Comment:Testing performed by : [address] [address] Hgb 12.5(L) 13.0 - 17.5 g/dL ELIDA KLINE Comment:Testing performed by : [address] [address] Hct 37.3(L) 38.9 - 50.3 % ELIDA KLINE Comment:Testing performed by : [address] [address] Plt 170 150 - 400 K/cumm ELIDA KLINE Comment:Testing performed by : [address] [address] MPV 10.8 9.1 - 12.3 fL ELIDA KLINE Comment:Testing performed by : [address] [address] RBC 4.09(L) 4.30 - 5.80 M/cumm ELIDA KLINE Comment:Testing performed by : [address] [address] MCV 91.2 81.3 - 96.4 fL ELIDA KLINE Comment:Testing performed by : [address] [address] MCH 30.6 27.1 - 33.3 pg ELIDA KLINE Comment:Testing performed by : [address] [address] MCHC 33.5 32.3 - 35.7 g/dL ELIDA KLINE Comment:Testing performed by : [address] [address] RDW CV 11.9 11.1 - 14.9 % ELIDA Comment:Testing performed by : [address] [address] RDW SD 39.9 35.7 - 48.1 fL ELIDA KLINE Comment:Testing performed by : [address] [address] NRBC abs 0.00 0.00 - 0.01 K/cumm ELIDA Comment:Testing performed by : [address] [address] Blood 04/09/2025 6:01 AM CDT 04/09/2025 6:29 AM CDT us Kinza Mackey NP LAB BLOOD ORDERABLES Final Re sult ELIDA [address] [facility] Department [place] [address] * (ABNORMAL) Basic metabolic panel (04/09/2025 6:01 AM CDT) Sodium 139 135 - 145 mmol/L Comment:Testing performed by : [address] [address] Potassium, pl 3.9 3.3 - 4.9 mmol/L ELIDA KLINE Comment: Hemolyzed; Potassium value may be falsely elevated by as much as 1.0 mmol/L. Suggest redraw and reanalysis. Testing performed by: [address] [address] Chloride 107 97 - 110 mmol/L ELIDA Comment:Testing performed by : [address] [address] CO2 21(L) 22 - 32 mmol/L ELIDA Comment:Testing performed by : [address] [address] Anion gap 11 2 - 15 mmol/L ELIDA Comment:Testing performed by : [address] [address] BUN 11 6 - 25 mg/dL ELIDA Comment:Testing performed by : [address] [address] Creatinine 1.10 0.80 - 1.30 mg/dL ELIDA Comment:Testing performed by : [address] [address] Glucose 94 70 - 199 mg/dL ELIDA Comment: Interpretive Data Fasting glucose >/= 126 mg/dl is diagnostic for diabetes. Fasting is defined as no caloric intake for at least 8 hours. Fasting glucose between 100 mg/dl to 125 mg/dl is diagnostic of prediabetes. In a patient with classic symptoms of hyperglycemia or hyperglycemic crisis, a random glucose >/= 200 mg/dl is diagnostic for diabetes. In the absence of unequivocal hyperglycemia, results should be confirmed by repeat testing. The classification and Diagnosis of Diabetes Diabetes Care 202; 46: S19-S40. Current interpretive data was last revised 2022. Testing performed by: [address] [address] Calcium 8.7 8.5 - 10.3 mg/dL ELIDA Comment:Testing performed by : [address] [address] Blood 04/09/2025 6:01 AM CDT 04/09/2025 6:28 AM CDT us Kinza Mackey NP LAB BLOOD ORDERABLES Final Re sult ELIDA 9[address] [facility] Department [place] [address] * (ABNORMAL) Hemoglobin and hematocrit (04/08/2025 7:21 PM CDT) [facility] Hgb 13.3 13.0 - 17.5 g/dL Comment:Testing performed by : [address] [address] Hct 37.7(L) 38.9 - 50.3 % ELIDA Comment:Testing performed by : [address] [address] Blood 04/08/2025 7:21 PM CDT 04/08/2025 7:50 PM CDT [facility] LAB BLOOD ORDERABLES Final Re sult Performing Organization Address [facility] Co de Phone Number CHARITY[address] [place] [address] * (ABNORMAL) Hemoglobin and hematocrit (04/08/2025 1:29 PM CDT) [facility] Hgb 12.5(L) 13.0 - 17.5 g/dL Comment:Testing performed by : [address] [address] Hct 36.2(L) 38.9 - 50.3 % ELIDA Comment:Testing performed by : [address] [address] Blood 04/08/2025 1:29 PM CDT 04/08/2025 1:45 PM CDT [employer] [facility] LAB BLOOD ORDERABLES Final Re sult Performing Organization Address City/[facility] Co de Phone Number [address] [place] [address] * eGFR (04/08/2025 5:40 AM CDT) [facility] eGFR 82 >=60 mL/min/1. 73 m2 Comment: Interpretive Data Reference Interval Normal >/= 90 mL/min/1.73m2 Mildly decreased* 60 - 89 mL/min/1.73m2 Mildly to moderately decreased 45 - 59 mL/min/1.73m2 Moderately to severely decreased 30 - 44 mL/min/1.73m2 Severely decreased 15 - 29 mL/min/1.73m2 Kidney Failure < 15 mL/min/1.73m2 *Relative to young adult level Estimated glomerular filtration rate is determined by the 2020 CKD-EPI equation recommended by the National Kidney Foundation (A Unifying Approach to GFR Estimation: Recommendations of the NKF-ASK Task Force on Reassessing the Inclusion of Race in Diagnosing Kidney Disease, JASN 2020). The CKD-EPI equation should not be used for patients with unstable renal function and has not been validated in children and those over 70. Current interpretive data was last reviewed 2021. Testing performed by: [address] [address] Blood 04/08/2025 5:40 AM CDT 04/08/2025 5:53 AM CDT Kinza Mackey NP LAB BLOOD ORDERABLES Final Re sult [facility] 0[address] [facility] Department [place] [address] * Differential, auto (04/08/2025 5:40 AM CDT) Neutrophil abs 4.78 1.50 - 6.50 K/cumm Comment:Testing performed by : [address] [address] Imm gran abs 0.06 0.00 - 0.10 K/cumm ELIDA Comment:Testing performed by : [address] [address] Lymphocyte abs 1.12 0.80 - 3.30 K/cumm ELIDA Comment:Testing performed by : [address] [address] Monocyte abs 0.71 0.20 - 0.80 K/cumm ELIDA Comment:Testing performed by : [address] [address] Eosinophil abs 0.10 0.00 - 0.50 K/cumm [facility] Comment:Testing performed by : [address] [address] Basophil abs 0.06 0.00 - 0.10 K/cumm [facility] Comment:Testing performed by : [address] [address] Neutrophil pct 69.9 % [facility] Comment: Interpretive Data Percent cell count reference ranges are not reported, since discordance with absolute values may lead to misinterpretation of CBC data. Current Interpretive Data was last revised on 2017. Testing performed by: [address] [address] Imm gran pct 0.9 % [facility] Comment: Interpretive Data Percent cell count reference ranges are not reported, since discordance with absolute values may lead to misinterpretation of CBC data. Current Interpretive Data was last revised on 2017. Testing performed by: [address] [address] Lymphocyte pct 16.4 % [facility] Comment: Interpretive Data Percent cell count reference ranges are not reported, since discordance with absolute values may lead to misinterpretation of CBC data. Current Interpretive Data was last revised on 2017. Testing performed by: [address] [address] Monocyte pct 10.4 % [facility] Comment: Interpretive Data Percent cell count reference ranges are not reported, since discordance with absolute values may lead to misinterpretation of CBC data. Current Interpretive Data was last revised on 2017. Testing performed by: [address] [address] Eosinophil pct 1.5 % [facility] Comment: Interpretive Data Percent cell count reference ranges are not reported, since discordance with absolute values may lead to misinterpretation of CBC data. Current Interpretive Data was last revised on 2017. Testing performed by: [address] [address] Basophil pct 0.9 % [facility] Comment: Interpretive Data Percent cell count reference ranges are not reported, since discordance with absolute values may lead to misinterpretation of CBC data. Current Interpretive Data was last revised on 2017. Testing performed by: [address] [address] Blood 04/08/2025 5:40 AM CDT 04/08/2025 5:54 AM CDT us Kinza Mackey NP LAB BLOOD ORDERABLES Final Re sult ELIDA 6[address] [facility] Department [place] [address] * (ABNORMAL) CBC with auto differential (04/08/2025 5:40 AM CDT) WBC 6.83 3.80 - 9.90 K/cumm Comment:Testing performed by : [address] [address] Hgb 12.4(L) 13.0 - 17.5 g/dL ELIDA Comment:Testing performed by : [address] [address] Hct 36.3(L) 38.9 - 50.3 % EILDA Comment:Testing performed by : [address] [address] Plt 166 150 - 400 K/cumm ELIDA Comment:Testing performed by : [address] [address] MPV 10.3 9.1 - 12.3 fL ELIDA Comment:Testing performed by : [address] [address] RBC 4.06(L) 4.30 - 5.80 M/cumm ELIDA Comment:Testing performed by : [address] [address] MCV 89.4 81.3 - 96.4 fL ELIDA KLINE Comment:Testing performed by : [address] [address] MCH 30.5 27.1 - 33.3 pg ELIDA KLINE Comment:Testing performed by : [address] [address] MCHC 34.2 32.3 - 35.7 g/dL ELIDA KLINE Comment:Testing performed by : [address] [address] RDW CV 12.0 11.1 - 14.9 % ELIDA KLINE Comment:Testing performed by : [address] [address] RDW SD 39.1 35.7 - 48.1 fL ELIDA KLINE Comment:Testing performed by : [address] [address] NRBC abs 0.00 0.00 - 0.01 K/cumm ELIDA KLINE Comment:Testing performed by : [address] [address] Blood 04/08/2025 5:40 AM CDT 04/08/2025 5:54 AM CDT Kinza Mackey NP LAB BLOOD ORDERABLES Final Re sult ELIDA 4500 [facility] Department of Laboratories [place], [place] [id number] * Basic metabolic panel (04/08/2025 5:40 AM CDT) Sodium 141 135 - 145 mmol/L Comment:Testing performed by : [address] [address] Potassium, pl 4.2 3.3 - 4.9 mmol/L ELIDA KLINE Comment:Testing performed by : [address] [address] Chloride 108 97 - 110 mmol/L ELIDA Comment:Testing performed by : [address] [address] CO2 23 22 - 32 mmol/L ELIDA KLINE Comment:Testing performed by : [address] [address] Anion gap 10 2 - 15 mmol/L ELIDA KLINE Comment:Testing performed by : [address] [address] BUN 12 6 - 25 mg/dL ELIDA Comment:Testing performed by : [address] [address] Creatinine 1.12 0.80 - 1.30 mg/dL ELIDA KLINE Comment:Testing performed by : [address] [address] Glucose 100 70 - 199 mg/dL ELIDA Comment: Interpretive Data Fasting glucose >/= 126 mg/dl is diagnostic for diabetes. Fasting is defined as no caloric intake for at least 8 hours. Fasting glucose between 100 mg/dl to 125 mg/dl is diagnostic of prediabetes. In a patient with classic symptoms of hyperglycemia or hyperglycemic crisis, a random glucose >/= 200 mg/dl is diagnostic for diabetes. In the absence of unequivocal hyperglycemia, results should be confirmed by repeat testing. The classification and Diagnosis of Diabetes Diabetes Care 2021; 46: S19-S40. Current interpretive data was last revised 2022. Testing performed by: [address] [address] Calcium 8.7 8.5 - 10.3 mg/dL ELIDA Comment:Testing performed by : [address] [address] Blood 04/08/2025 5:40 AM CDT 04/08/2025 5:53 AM CDT us Kinza Mackey NP LAB BLOOD ORDERABLES Final Re sult ELIDA 8[address] [facility] Department [place] [address] * (ABNORMAL) Hemoglobin and hematocrit (04/07/2025 11:30 PM CDT) Hgb 12.6(L) 13.0 - 17.5 g/dL Comment:Testing performed by : [address] [address] Hct 36.1(L) 38.9 - 50.3 % ELIDA Comment:Testing performed by : [address] [address] Blood 04/07/2025 11:3 0 PM CDT 04/08/2025 12:28 AM CDT Kinza Kaiguille [employer] LAB BLOOD ORDERABLES Final Re sult Performing Organization Address [facility] de Phone Number ELIDA [address] [address] * (ABNORMAL) Hemoglobin and hematocrit (04/07/2025 6:36 PM CDT) Hgb 12.7(L) 13.0 - 17.5 g/dL Comment:Testing performed by : [address] [address] Hct 35.9(L) 38.9 - 50.3 % ELIDA Comment:Testing performed by : [address] [address] Blood 04/07/2025 6:36 PM CDT 04/07/2025 6:47 PM CDT Kinza Mackey [employer] LAB BLOOD ORDERABLES Final Re sult Performing Organization Address [facility] de Phone Number ELIDA [address] [address] * (ABNORMAL) Hemoglobin and hematocrit (04/07/2025 11:50 AM CDT) Hgb 13.5 13.0 - 17.5 g/dL Comment:Testing performed by : [address] [address] Hct 37.3(L) 38.9 - 50.3 % ELIDA Comment:Testing performed by : [address] [address] Blood 04/07/2025 11:5 0 AM CDT 04/07/2025 11:53 AM CDT Ashleychari Quinner [employer] LAB BLOOD ORDERABLES Final Re sult Performing Organization Address [facility] Co de Phone Number ELIDA [address] [facility] Department [place] [address] * (ABNORMAL) Urinalysis, microscopic only (04/07/2025 6:39 AM CDT) WBC, ur 0-5 0 - 5 /HPF Comment:Testing performed by : [address] [address] RBC, ur >50(A) 0 - 2 /HPF ELIDA Comment:Testing performed by : [address] [address] Epithelial cells, squamous, ur 11-20(A) 0 - 5 /HPF ELIDA Comment:Testing performed by : [address] [address] Culture Reflex Comment Reflex conditions for urine culture (WBC >10) not met. ELIDA Comment:Testing performed by : [address] [address] Urine 04/07/2025 6:39 AM CDT 04/07/2025 6:51 AM CDT Felix Hardy DO LAB URINE ORDERABLES Final Res ult Performing Organization Address [facility] Co de Phone Number ELIDA [address] [facility] [place] [address] * (ABNORMAL) Urinalysis reflex to microscopic and culture Urine (04/07/2025 6:39 AM CDT) Color, ur Red(A) Yellow Comment:Testing performed by : [address] [address] Clarity, ur Cloudy(A) Clear ELIDA Comment:Testing performed by : [address] [address] Specific gravity, ur 1.013 1.003 - 1.030 ELIDA Comment:Testing performed by : [address] [address] pH, urine 8.0 ELIDA Comment: Interpretive Data U rine pH is affected by diet, medications, systemic acid-base disturbances, and renal tubular function. pH may affect urinary stone formation. For example, urine pH below 6.0 may help reduce the tendency for calcium phosphate stones and pH greater than 6.0 may reduce the tendency for uric acid stone formation. Source: [facility] [place] Current Interpretive Data was last revised on 2017 Testing performed by: [facility], [address] [place] [address]., [address] Protein, ur ql Trace(A) Negative ELIDA Comment:Testing performed by : [address], [place]., [address] Glucose, ur ql Negative Negative ELIDA Comment:Testing performed by : [address], [place]., [address] Ketones, ur Negative Negative ELIDA Comment:Testing performed by : [address], [place]., [address] Bilirubin, ur Negative Negative ELIDA Comment:Testing performed by : [address], [place]., [address] Blood, ur 3+(A) Negative ELIDA Comment:Testing performed by : [address], [place]., [address] Urobilinogen, ur <2.0 <2.0 mg/dL ELIDA Comment:Testing performed by : [address], [place]., [address] Nitrite, ur Negative Negative ELIDA Comment:Testing performed by : [address] [address] Leukocyte esterase, ur Negative Negative ELIDA Comment:Testing performed by : [address], [place]., [address] UA reflex comment Reflex to microscopic UA will be performed. ELIDA Comment:Testing performed by : [address], [place]., [address] Urine 04/07/2025 6:39 AM CDT 04/07/2025 6:51 AM CDT us Felix Hardy DO LAB MICROBIOLOGY - GENERAL ORD ERABLES Final Result ELIDA MH [address] [facility] Department [place] [address] * CT Abdomen Pelvis WO Contrast (04/07/2025 1:55 AM CDT) Anatomical Region Laterality Modality Body N/A Computed Tomogra phy 04/07/2025 2:21 AM CDT Narrative 04/07/2025 2:28 AM CDT EXAM DESCRIPTION: CT ABDOMEN PELVIS WO CONTRAST REASON FOR STUDY: Abdominal/flank pain, stone suspected, left flank pain hx kidney stones Pt reports onset of urinating blood clots tonight around 1999, while he was getting ready for bed. Pt then with onset of left flank\lower back pain. Hx of kidney stones at the end of February which he had a stent placed. TECHNIQUE: CT scan of the abdomen and pelvis performed without intravenous and without oral contrast using helical scanning technique. Reconstructed coronal and sagittal MPR images reviewed. All images stored on PACS. Automated exposure control was used as a dose optimization technique for this examination. COMPARISON: CT of the chest of February 15, 2025. FINDINGS: The sensitivity for detection of visceral lesions is diminished without the use of intravenous contrast. LOWER CHEST: The lung bases are clear. LIVER: The liver is normal in attenuation without focal lesion. GALLBLADDER: No stones identified. Normal wall. No evidence of pericholecystic fluid. BILE DUCTS: No intrahepatic or extrahepatic ductal dilatation. PANCREAS: Normal. SPLEEN: No focal lesions. Spleen is normal in size. ADRENALS: Normal. KIDNEYS/URINARY TRACT: No significant cystic or solid masses. There is a tiny nonobstructing stone in the right kidney measuring approximately 2 mm, unchanged from previous. There is mild left hydronephrosis and proximal hydroureter with heterogeneous high density material seen within the proximal ureter with Hounsfield units in the 60s. No discrete stone is identified. The 5 mm stone seen in the left kidney on previous study is no longer visualized. The 4 mm proximal left ureteral stones seen on previous study is also no longer visualized. There is an irregular area of high density within the posterior aspect of the bladder measuring approximately 3.4 x 1.7 cm with Hounsfield units in the 50s. The bladder is otherwise unremarkable. VASCULATURE: No acute abnormality seen. No abdominal aortic aneurysm. GI: The stomach appears normal. There is no significant small bowel dilation or visible thickening. No gross colonic abnormalities identified. The appendix is normal. PERITONEUM/MESENTERY: No ascites or free air. LYMPH NODES: There are no enlarged lymph nodes seen by CT size criteria. RETROPERITONEUM: No retroperitoneal abnormalities. REPRODUCTIVE: The prostate and seminal vesicles are unremarkable. MUSCULOSKELETAL: No significant abnormality. OTHER: No other abnormality. IMPRESSION: 1. Mild left hydronephrosis and proximal hydroureter with heterogeneous high density material seen within the proximal ureter and bladder, consistent with blood products. No discrete stone is identified. The stones seen in the left kidney and proximal left ureter are no longer visualized. 2. High density material layering posteriorly within the bladder, most consistent with blood clots. An underlying bladder tumor cannot entirely be excluded. 3. Stable nonobstructing right nephrolithiasis. THIS IS AN ELECTRONICALLY VERIFIED FINAL REPORT 04/07/2025 2:28 AM - Electronically signed by Jane Bailey M.D. SN: SN Report ID: [id number] Reading Location: [id number] Procedure Note Jane Bailey MD - 04/07/2025 EXAM DESCRIPTION: CT ABDOMEN PELVIS WO CONTRAST REASON FOR STUDY: Abdominal/flank pain, stone suspected, left flank painhx kidney stones Pt reports onset of urinating blood clots tonight around 1999, while hewas getting ready for bed. Pt then with onset of left flank\lower back pain.Hx of kidney stones at the end of February which he had a stent placed. TECHNIQUE: CT scan of the abdomen and pelvis performed without intravenousand without oral contrast using helical scanning technique. Reconstructed coronal and sagittal MPR images reviewed. All images stored on PACS.Automated exposure control was used as a dose optimization technique for this examination. COMPARISON: CT of the chest of February 15, 2025. FINDINGS: The sensitivity for detection of visceral lesions is diminished without the use of intravenous contrast. LOWER CHEST: The lung bases are clear. LIVER: The liver is normal in attenuation without focal lesion. GALLBLADDER: No stones identified. Normal wall. No evidence of pericholecystic fluid. BILE DUCTS: No intrahepatic or extrahepatic ductal dilatation. PANCREAS: Normal. SPLEEN: No focal lesions. Spleen is normal in size. ADRENALS: Normal. KIDNEYS/URINARY TRACT: No significant cystic or solid masses. There ap tiny nonobstructing stone in the right kidney measuring approximately 2mm, unchanged from previous. There is mild left hydronephrosis and proximal hydroureter with heterogeneous high density material seen within theproximal ureter with Hounsfield units in the 60s. No discrete stone is identified. The 5 mm stone seen in the left kidney on previous study is no longer visualized. The 4 mm proximal left ureteral stones seen on previous studyis also no longer visualized. There is an irregular area of high densitywithin the posterior aspect of the bladder measuring approximately 3.4 x 1.7 cmwith Hounsfield units in the 50s. The bladder is otherwise unremarkable. VASCULATURE: No acute abnormality seen. No abdominal aortic aneurysm. GI: The stomach appears normal. There is no significant small bowel dilation or visible thickening. No gross colonic abnormalitiesidentified. The appendix is normal. PERITONEUM/MESENTERY: No ascites or free air. LYMPH NODES: There are no enlarged lymph nodes seen by CT size criteria. RETROPERITONEUM: No retroperitoneal abnormalities. REPRODUCTIVE: The prostate and seminal vesicles are unremarkable. MUSCULOSKELETAL: No significant abnormality. OTHER: No other abnormality. IMPRESSION: 1. Mild left hydronephrosis and proximal hydroureter with heterogeneoushigh density material seen within the proximal ureter and bladder, consistentwith blood products. No discrete stone is identified. The stones seen in theleft kidney and proximal left ureter are no longer visualized. 2. High density material layering posteriorly within the bladder, most consistent with blood clots. An underlying bladder tumor cannot entirelybe excluded. 3. Stable nonobstructing right nephrolithiasis. THIS IS AN ELECTRONICALLY VERIFIED FINAL REPORT 04/07/2025 2:28 AM - Electronically signed by Jnae Bailey M.D. SN: Report ID: [id number] Reading Location: [place] [address] us Felix Hardy DO IMG CT PROCEDURES Final Result * eGFR (04/07/2025 1:49 AM CDT) eGFR 76 >=60 mL/min/1. 73 m2 Comment: Interpretive Data Reference Interval Normal >/= 90 mL/min/1.73m2 Mildly decreased* 60 - 89 mL/min/1.73m2 Mildly to moderately decreased 45 - 59 mL/min/1.73m2 Moderately to severely decreased 30 - 44 mL/min/1.73m2 Severely decreased 15 - 29 mL/min/1.73m2 Kidney Failure < 15 mL/min/1.73m2 *Relative to young adult level Estimated glomerular filtration rate is determined by the 2020 CKD-EPI equation recommended by the National [employer] (A Unifying Approach to GFR Estimation: Recommendations of the NKF-ASK Task Force on Reassessing the Inclusion of Race in Diagnosing Kidney Disease, JASN 2020). The CKD-EPI equation should not be used for patients with unstable renal function and has not been validated in children and those over 70. Current interpretive data was last reviewed 2021. Testing performed by: [address] [id number] Blood 04/07/2025 1:49 AM CDT 04/07/2025 1:55 AM CDT us Felix Hardy DO LAB BLOOD ORDERABLES Final Res ult [place] [address] [facility] Department [place] [address] * (ABNORMAL) Differential, auto (04/07/2025 1:49 AM CDT) Neutrophil abs 6.21 1.50 - 6.50 K/cumm Comment:Testing performed by : [address] [address] Imm gran abs 0.08 0.00 - 0.10 K/cumm ELIDA Comment:Testing performed by : [address] [address] Lymphocyte abs 2.54 0.80 - 3.30 K/cumm ELIDA Comment:Testing performed by : [address] [address] Monocyte abs 0.81(H) 0.20 - 0.80 K/cumm [place] KLINE Comment:Testing performed by : [address] [address] Eosinophil abs 0.09 0.00 - 0.50 K/cumm ELIDA Comment:Testing performed by : [address] [address] Basophil abs 0.09 0.00 - 0.10 K/cumm [place] Comment:Testing performed by : [address] [address] Neutrophil pct 63.3 % [facility] Comment: Interpretive Data Percent cell count reference ranges are not reported, since discordance with absolute values may lead to misinterpretation of CBC data. Current Interpretive Data was last revised on 2017. Testing performed by: [address] [address] Imm gran pct 0.8 % [facility] Comment: Interpretive Data Percent cell count reference ranges are not reported, since discordance with absolute values may lead to misinterpretation of CBC data. Current Interpretive Data was last revised on 2017. Testing performed by: [address] [address] Lymphocyte pct 25.9 % [facility] Comment: Interpretive Data Percent cell count reference ranges are not reported, since discordance with absolute values may lead to misinterpretation of CBC data. Current Interpretive Data was last revised on 2017. Testing performed by: [address] [address] Monocyte pct 8.2 % [facility] Comment: Interpretive Data Percent cell count reference ranges are not reported, since discordance with absolute values may lead to misinterpretation of CBC data. Current Interpretive Data was last revised on 2017. Testing performed by: [address] [address] Eosinophil pct 0.9 % [facility] Comment: Interpretive Data Percent cell count reference ranges are not reported, since discordance with absolute values may lead to misinterpretation of CBC data. Current Interpretive Data was last revised on 2017. Testing performed by: [address] [address] Basophil pct 0.9 % [facility] Comment: Interpretive Data Percent cell count reference ranges are not reported, since discordance with absolute values may lead to misinterpretation of CBC data. Current Interpretive Data was last revised on 2017. Testing performed by: [address] [address] Blood 04/07/2025 1:49 AM CDT 04/07/2025 1:55 AM CDT [facility] LAB BLOOD ORDERABLES Final Res ult Performing Organization Address [facility] Co de Phone Number [address] [place] [address] * Lipase (04/07/2025 1:49 AM CDT) Pathologist [facility] Lipase 84 10 - 99 Units/L Comment:Testing performed by : [address] [address] Blood Venous blood specimen / Unknown 04/07/2025 1:49 AM CDT 04/07/2025 1:55 AM CDT [facility] LAB BLOOD ORDERABLES Final Res ult Performing Organization Address [facility] de Phone Number [address] [address] * (ABNORMAL) Comprehensive metabolic panel (04/07/2025 1:49 AM CDT) Pathologist [facility] Sodium 138 135 - 145 mmol/L Comment:Testing performed by : [address] [address] Potassium, pl 4.1 3.3 - 4.9 mmol/L [place] Comment: Hemolyzed; Potassium value may be falsely elevated by as much as 1.0 mmol/L. Suggest redraw and reanalysis. Testing performed by: [address] [address] Chloride 98 97 - 110 mmol/L [place] Comment:Testing performed by : [address] [address] CO2 18(L) 22 - 32 mmol/L [facility] Comment:Testing performed by : [address] [address] Anion gap 22(H) 2 - 15 mmol/L [facility] Comment:Testing performed by : [address] [address] BUN 15 6 - 25 mg/dL [facility] Comment:Testing performed by : [address] [address] Creatinine 1.19 0.80 - 1.30 mg/dL [facility] Comment:Testing performed by : [address] [address] Glucose 114 70 - 199 mg/dL [facility] Comment: Interpretive Data Fasting glucose >/= 126 mg/dl is diagnostic for diabetes. Fasting is defined as no caloric intake for at least 8 hours. Fasting glucose between 100 mg/dl to 125 mg/dl is diagnostic of prediabetes. In a patient with classic symptoms of hyperglycemia or hyperglycemic crisis, a random glucose >/= 200 mg/dl is diagnostic for diabetes. In the absence of unequivocal hyperglycemia, results should be confirmed by repeat testing. The classification and Diagnosis of Diabetes Diabetes Care 202; 46: S19-S40. Current interpretive data was last revised 2022. Testing performed by: [address] [address] Calcium 10.2 8.5 - 10.3 mg/dL [facility] Comment:Testing performed by : [address] [address] Bilirubin, total 0.4 0.1 - 1.2 mg/dL [facility] Comment:Testing performed by : [address] [address] Protein, pl 7.5 6.5 - 8.5 g/dL [facility] Comment:Testing performed by : [address] [address] Albumin 4.7 3.5 - 5.0 g/dL [facility] Comment:Testing performed by : [address] [address] Alk phos 79 40 - 130 Units/L [place] KLINE Comment:Testing performed by : [address] [address] ALT 17 7 - 55 Units/L [place] KLINE Comment:Testing performed by : [address] [address] AST 31 10 - 50 Units/L [place] Comment: Hemolyzed; result may be falsely elevated Testing performed by: [address] [address] Blood Venous blood specimen / Unknown 04/07/2025 1:49 AM CDT 04/07/2025 1:55 AM CDT us Felix Hardy DO LAB BLOOD ORDERABLES Final Res ult [place] Department of Laboratories [place], [place] [id number] * (ABNORMAL) CBC with auto differential (04/07/2025 1:49 AM CDT) WBC 9.82 3.80 - 9.90 K/cumm Comment:Testing performed by : [address] [address] Hgb 14.9 13.0 - 17.5 g/dL [place] KLINE Comment:Testing performed by : [address] [address] Hct 41.4 38.9 - 50.3 % [place] KLINE Comment:Testing performed by : [address] [address] Plt 233 150 - 400 K/cumm [place] KLINE Comment:Testing performed by : [address] [address] MPV 10.5 9.1 - 12.3 fL [place] KLINE Comment:Testing performed by : [address] [address] RBC 4.78 4.30 - 5.80 M/cumm [place] KLINE Comment:Testing performed by : [address] [address] MCV 86.6 81.3 - 96.4 fL [place] KLINE Comment:Testing performed by : [address] [address] MCH 31.2 27.1 - 33.3 pg [place] KLINE Comment:Testing performed by : [address] [address] MCHC 36.0(H) 32.3 - 35.7 g/dL [place] KLINE Comment:Testing performed by : [address] [address] RDW CV 11.5 11.1 - 14.9 % [place] Comment:Testing performed by : [address] [address] RDW SD 36.6 35.7 - 48.1 fL [place] Comment:Testing performed by : [address] [address] NRBC abs 0.00 0.00 - 0.01 K/cumm [place] Comment:Testing performed by : [address] [address] Blood Venous blood specimen / Unknown 04/07/2025 1:49 AM CDT 04/07/2025 1:55 AM CDT Felix Hardy DO LAB BLOOD ORDERABLES Final Res ult [place] [address] [facility] Department [place] [address] documented in this encounter Visit Diagnoses Diagnosis Gross hematuria- Primary Gross hematuria Acute left flank pain History of kidney stones documented in this encounter Admitting Diagnoses Diagnosis Gross hematuria documented in this encounter Administered Medications Inactive Administered Medications - up to 3 most recent administrations Medication Order MAR Action Action Date Dose Rate Site acetaminophen (TYLENOL) tablet 975 mg 975 mg (rounded from 1,000 mg), oral, Every 6 hours PRN, pain, Starting on Sun04/07/25 at 0135, For 2 doses, Do not administer if patient has taken greater than 3g of acetaminophen in the past 24 hours. Do not administer if patient has history of liver disease., Indications: PainIndications:Pain Carrier Fluids for Secondary Infusion - 0.9% Sodium Chloride 30 mL, intravenous, As needed, For priming tubing and/or flushing, Starting on Sun04/07/25 at 0914, 0-250 ml/hr to flush line after IV infusions when no maintenance IV ordered. Infuse 30mL at the same rate as the secondary infusion. Run as primary IV, not intended for KVO. cefTRIAXone (ROCEPHIN) 2,000 mg/20 mL in sterile water (premix) 2,000 mg 2,000 mg, intravenous, at 240 mL/hr, Administer over 5 Minutes, Every 24 hours scheduled, First dose on Sun04/11/25 at 1130, Indications: Urinary Tract/Genitourinary InfectionIndications:Urinary Tract/Genitourinary Infection Given 04/13/2025 8:23 AM CDT 2,000 mg 240 mL/hr Given 04/12/2025 8:46 AM CDT 2,000 mg 240 mL/hr Given 04/11/2025 1:54 PM CDT 2,000 mg 240 mL/hr HYDROcodone-acetaminophen (NORCO) 5-325 mg per tablet 1 tablet 1 tablet, oral, Once, On Sun04/07/25 at 0609, For 1 dose, Indications: PainIndications:Pain Given 04/07/2025 6:35 AM CDT 1 tablet HYDROcodone-acetaminophen (NORCO) 5-325 mg per tablet 1 tablet 1 tablet, oral, 4 times daily PRN, 2nd line for pain, Starting on Sun04/07/25 at 0913, Indications: PainIndications:Pain Given 04/07/2025 11:01 AM CDT 1 tablet HYDROcodone-acetaminophen (NORCO) 5-325 mg per tablet 1 tablet 1 tablet, oral, 4 times daily PRN, 1st line for pain, Starting on Sun04/07/25 at 1629, Indications: PainIndications:Pain Given 04/07/2025 5:09 PM CDT 1 tablet HYDROmorphone (DILAUDID) injection 0.5 mg 0.5 mg, intravenous, Administer over 2 Minutes, Every 4 hours PRN, breakthrough pain, 2nd line for pain, Starting on Sun04/07/25 at 1629 Given 04/07/2025 10:17 PM CDT 0.5 mg ioversoL (OPTIRAY 350) syringe 100 mL 100 mL, intravenous, Once in imaging, contrast, Starting on Sun04/10/25 at 2245, For 1 dose Contrast Given 04/10/2025 10:45 PM CDT 100 mL ketorolac (TORADOL) 30 mg/mL injection 30 mg 30 mg, intravenous, Once, On Sun04/07/25 at 0144, For 1 dose, For Adult IV push, administer over 15 seconds Given 04/07/2025 2:13 AM CDT 30 mg lidocaine (GLYDO) 2 % jelly - ADS Override Pull Starting on Sun04/07/25 at 0353, For 1 dose, Created by cabinet override Given by Other 04/07/2025 4:51 AM CDT ondansetron (ZOFRAN) injection 4 mg 4 mg, intravenous, Administer over 2 Minutes, Every 8 hours PRN, nausea, vomiting, Starting on Sun04/07/25 at 0917 polyethylene glycol (MIRALAX) packet 17 g 17 g, oral, Daily PRN, constipation, Starting on Sun04/07/25 at 0914, Indications: constipationIndications:co nstipation sodium chloride 0.9 % for continuous bladder irrigation 3,000 mL 3,000 mL, irrigation, Once, On Sun04/07/25 at 0258, For 1 dose Given 04/07/2025 4:11 AM CDT 3,000 mL Other (Comment) sodium chloride 0.9 % for continuous bladder irrigation 3,000 mL 3,000 mL, irrigation, Continuous, Starting on Sun04/08/25 at 1615 New Bag 04/09/2025 11:42 AM CDT 3,000 mL New Bag 04/09/2025 7:25 AM CDT 3,000 mL New Bag 04/09/2025 3:48 AM CDT 3,000 mL sodium chloride 0.9 % for continuous bladder irrigation 3,000 mL 3,000 mL, irrigation, Continuous, Starting on Sun04/12/25 at 1530 sodium chloride 0.9% 0.9 % irrigation - ADS Override Pull Starting on Sun04/07/25 at 1640, For 1 dose, Created by cabinet override Given 04/07/2025 5:10 PM CDT 1,000 mL sodium chloride 0.9% bolus 1,000 mL 1,000 mL, intravenous, Once, On Sun04/07/25 at 0144, For 1 dose New Bag 04/07/2025 2:12 AM CDT 1,000 mL 999 mL/hr Right Hand sodium chloride 0.9% flush 0.5-20 mL 0.5-20 mL, intra-catheter, Every 8 hours scheduled, First dose on Sun04/07/25 at 0917, Flush volume based on line type and size. Given 04/13/2025 6:14 AM CDT 10 mL Given 04/12/2025 8:38 PM CDT 10 mL Given 04/12/2025 8:46 AM CDT 10 mL sodium chloride 0.9% flush 0.5-20 mL 0.5-20 mL, intra-catheter, As needed, line care, Starting on Sun04/07/25 at 0914, Flush volume based on line type and size. Flush before and after each use. sodium chloride 0.9% infusion 75 mL/hr, intravenous, Continuous, Starting on Sun04/07/25 at 0911 Rate/Dose Verify 04/10/2025 5:20 AM CDT 75 mL/hr 75 mL/hr New Bag 04/09/2025 11:00 PM CDT 75 mL/hr 75 mL/hr New Bag 04/09/2025 11:42 AM CDT 75 mL/hr 75 mL/hr sterile water irrigation - ADS Override Pull Starting on Sun04/07/25 at 1425, For 1 dose, Created by cabinet override Given 04/07/2025 2:30 PM CDT tamsulosin (FLOMAX) extended release capsule 0.4 mg 0.4 mg, oral, Daily, First dose on Sun04/11/25 at 0900, Do not crush, chew, cut, dissolve, open or otherwise manipulate tablet/capsule., Indications: UrolithiasisIndications:Urolithiasis Given 04/13/2025 8:22 AM CDT 0.4 mg Given 04/12/2025 8:46 AM CDT 0.4 mg Given 04/11/2025 8:11 AM CDT 0.4 mg documented in this encounter Discontinued Medications Medication Sig Discontinue Reason Start Date End Da te MULTIVITAMIN ORALIndications:supplement Take 1 tablet by mouth every morning 04/07/2025 naproxen (ALEVE) 220 mg tabletIndications:Pain Take 2 tablets (440 mg total) by mouth as needed for pain 04/07/2025 oxyBUTYnin (DITROPAN) 5 mg tablet Take 1 tablet (5 mg total) by mouth 3 (three) times a day as needed (bladder spasms) 03/06/2025 04/07/2025 ondansetron ODT (ZOFRAN-ODT) 4 mg disintegrating tablet Take 1 tablet (4 mg total) by mouth every 4 (four) hours as needed for nausea 02/15/2025 04/07/2025 phenazopyridine (PYRIDIUM) 100 mg tabletIndications:Dysuria Take 1 tablet (100 mg total) by mouth 3 (three) times a day as needed for urinary pain 03/06/2025 04/07/2025 ZINC ORALIndications:supplement Take 1 tablet by mouth every morning 04/07/2025 documented as of this encounter Historical Medications * This list may reflect changes made after this encounter. multivitamin tablet Take 1 tablet by mouth daily added in this encounter Active and Recently Administered Medications Times are shown in CDT. Scheduled Medication Order 04/11/2025 04/12/2025 04/13/2025 cefTRIAXone (ROCEPHIN) 2,000 mg/20 mL in sterile water (premix) 2,000 mg 2,000 mg, intravenous, at 240 mL/hr, Administer over 5 Minutes, Every 24 hours scheduled, First dose on Sun04/11/25 at 1130, Indications: Urinary Tract/Genitourinary Infection 1354 (Given - Provider: Eliane Suggs RN) 0846 (Given - Provider: Megan Boyd RN) 0823 (Given - Provider: Radha Armijo RN) sodium chloride 0.9% flush 0.5-20 mL 0.5-20 mL, intra-catheter, Every 8 hours scheduled, First dose on Sun04/07/25 at 0917, Flush volume based on line type and size. 0544 (Given - Provider: Maurice Maravilla RN)1354 (Given - Provider: Eliane Suggs RN)2238 (Given - Provider: Libertad Goddard, RN) 0618 (Given - Provider: Libertad Goddard, RN)0846 (Given - Provider: Megan Boyd, AMELIA)2037 (Given - Provider: Libertad Goddard, RN) 06 (Given - Provider: Libertad Goddard, RN) tamsulosin (FLOMAX) extended release capsule 0.4 mg 0.4 mg, oral, Daily, First dose on Sun04/11/25 at 0900, Do not crush, chew, cut, dissolve, open or otherwise manipulate tablet/capsule., Indications: Urolithiasis 0811 (Given - Provider: Eliane Suggs, AMELIA) 0846 (Given - Provider: Megan Boyd, AMELIA) 08 (Given - Provider: Radha Armijo RN) Continuous Medication Order 04/11/2025 04/12/2025 04/13/2025 sodium chloride 0.9 % for continuous bladder irrigation 3,000 mL 3,000 mL, irrigation, Continuous, Starting on Sun04/12/25 at 1530 1553 (Hold - Provider: Megan Boyd RN - Reason: Other - Comment: Per Dr. Vashti alejo to hold unless patient starts passing large clots) PRN Medication Order 04/11/2025 04/12/2025 04/13/2025 acetaminophen (TYLENOL) tablet 975 mg 975 mg (rounded from 1,000 mg), oral, Every 6 hours PRN, pain, Starting on Sun04/07/25 at 0135, For 2 doses, Do not administer if patient has taken greater than 3g of acetaminophen in the past 24 hours. Do not administer if patient has history of liver disease., Indications: Pain Carrier Fluids for Secondary Infusion - 0.9% Sodium Chloride 30 mL, intravenous, As needed, For priming tubing and/or flushing, Starting on Sun04/07/25 at 0914, 0-250 ml/hr to flush line after IV infusions when no maintenance IV ordered. Infuse 30mL at the same rate as the secondary infusion. Run as primary IV, not intended for KVO. HYDROcodone-acetaminophen (NORCO) 5-325 mg per tablet 1 tablet 1 tablet, oral, 4 times daily PRN, 1st line for pain, Starting on Sun04/07/25 at 1629, Indications: Pain HYDROmorphone (DILAUDID) injection 0.5 mg 0.5 mg, intravenous, Administer over 2 Minutes, Every 4 hours PRN, breakthrough pain, 2nd line for pain, Starting on Sun04/07/25 at 1629 ondansetron (ZOFRAN) injection 4 mg 4 mg, intravenous, Administer over 2 Minutes, Every 8 hours PRN, nausea, vomiting, Starting on Sun04/07/25 at 0917 polyethylene glycol (MIRALAX) packet 17 g 17 g, oral, Daily PRN, constipation, Starting on Sun04/07/25 at 0914, Indications: constipation sodium chloride 0.9% flush 0.5-20 mL 0.5-20 mL, intra-catheter, As needed, line care, Starting on Sun04/07/25 at 0914, Flush volume based on line type and size. Flush before and after each use. documented in this encounter Orders Medications Ordered That Julio Cesar ht Not Have Been Administered Count Last Ordered Date First Ordered Date sodium chloride 0.9 % for co ntinuous bladder irrigation 3,000 mL 1 04/12/2025 cefTRIAXone (ROCEPHIN) 2,000 mg/20 mL in sterile water (premix) 2,000 mg 1 04/11/2025 sterile water irrigation - A DS Override Pull 04/10/2025 acetaminophen (TYLENOL) tablet 975 mg 1 Carrier Fluids for Secondary Infusion - 0.9% Sodium Chloride 1 04/07/2025 HYDROmorphone (DILAUDID) injection 0.5 mg 1 04/07/2025 ondansetron (ZOFRAN) injection 4 mg 2 04/07 polyethylene glycol (MIRALAX) packet 17 g 1 04/07/2025 sodium chloride 0.9% flush 0.5-20 mL 1 03/18 General Supply Count Last Ordered Date First Or dered Date 3-WAY [employer] CATHETER 24FR 30CC ([id number]) 1 0 04/07/2025 Diet Count Last Ordered Date First Orde red Date ADULT DISCHARGE DIET 1 04/13/2025 Nursing Count Last Ordered Date First Orde red Date DISCHARGE ACTIVITY 1 04/13/2025 DISCHARGE CALL PROVIDER 5 04/13/2025 DISCHARGE INSTRUCTIONS 1 04/13/2025 MAINTAIN IV ACCESS 1 04/07/2025 NOTIFY PROVIDER (SPECIFY) 1 04/07/[address] PLACE SEQUENTIAL COMPRESSION DEVICE 1 04/07 WEIGH PATIENT 1 04/07/2025 Consult Count Last Ordered Date First Orde red Date IP CONSULT TO UROLOGY 1 04/07/2025 IV Count Last Ordered Date First Orde red Date INSERT PERIPHERAL IV 1 04/07/2025 SALINE LOCK IV 1 04/07/2025 Admission Count Last Ordered Date First Orde red Date ADMIT TO INPATIENT 1 04/07/2025 Transfer Count Last Ordered Date First Orde red Date ED TO FLOOR BED REQUEST 1 04/07/2025 Discharge Count Last Ordered Date First Orde red Date DISCHARGE PATIENT 1 04/13/2025 CORE MEASURES Count Last Ordered Date First Ord ered Date REASON FOR NO VTE PROPHYLAXI S - HOSPITAL ADMISSION - MEDICATIONS 1 04/07/2025 documented in this encounter Care Teams Director Personal Relationship Specialty Start Date End Date Margie Santos MD [address] [place] [id number] PCP - General Internal Medicine 02/13/23 documented as of this encounter
--- OUTSIDE RECORDS SUMMARY | 2025-04-13 19:30 | XMS_ITS | Encounter Summary ---
Author Organization [facility] Address [address] [place] [address] Care Team Providers Care Junior Paralegal Name Role Phone Margie Santos MD Primary Care Provider Reason for Visit * Reason Onset Date Comments ABDIAS Questions 04/13/2025 Encounter Details Date Type Department Care Team (Late st Contact Info) Description 04/13/2025 Telephone [facility] Primary Care [address] [place] [phone] Margie Santos MD [address] [place] [phone] ABDIAS Questions Social History Tobacco Use Types Packs/Day Years Used Date Smoking Tobacco: Never Smokeless Tobacco: Never Comments:No usage ever [facility] Utilities Answer Date Recorded In the past 12 months has [employer], gas, oil, or water [employer] threatened to shut off services in your [...] often do you attend chur ch or oriental orthodox services? Never 04/08/2025 Do you belong to any clubs o r organizations such as yazdanism groups, unions, fraternal or athletic groups, or [...] any time in the past 12 m [facility], were you homeless or living in a fci (including now)? No 04/08/2025 Personal Safety Answer Date Recorded Have you ever been in or are you currently in a harmful physical or emotional relationship or is someone making you feel afraid or unsafe? Denies 04/07/2025 Sex and Gender Information Value Date Recorded Sex Assigned at Not on file Legal Sex Male 7:26 PM [employer] Gender Identity Not on file Sexual Orientation Not on file documented as of this encounter Miscellaneous Notes * Telephone Encounter - Ameya Tse - 04/13/2025 9:48 AM CDT ABDIAS Questions (Message from [facility] Executive Director): Has patient been discharged at time of call? Yes Date Admitted: 04/07/25 Date Discharged: 04/13/25 Facility Admitted To: [facility] Reason for Stay? Hematuria If prescribed new medications, do you have any questions or concerns? None Do you have enough medication to get you to your follow-up appointment? NA Since being released do you feel better, the same, or worse? Better Date of ABDIAS Appointment: 04/20/25 Do you have transportation to the appointment? eEs Additional Comments: none Does message need to be routed? Yes-Action Needed documented in this encounter Plan of Treatment Not on file documented as of this encounter Visit Diagnoses Not on filedocumented in this encounter Care Teams Junior Paralegal Relationship Specialty Start Date End Date Margie Santos MD [address] [place] [phone] PCP - General Internal Medicine 02/13/23 documented as of this encounter
--- OUTSIDE RECORDS SUMMARY | 2025-04-13 19:30 | XMS_ITS | Referral Summary ---
Author Organization [facility] Address [address] [place] [address] Care Team Providers Care Criminal Psychologist Name Role Phone Margie Santos MD Primary Care Provider Encounters Date Type Department Care Team Description 04/13/2025 Telephone [facility] Medical [facility] Primary Care [address] [place] [phone] Margie Santos MD ABDIAS Questions 04/13/2025 Telephone [facility] Primary Care [address] [place] [phone] Margie Santos MD ABDIAS Questions 04/07/2025 1:37 AM CDT - 04/13/2025 10:04 AM CDT Hospital Encounter [facility] 5 Med Surg [address] [place] [address] Felix Hardy DO Abbeg, Andrew Paul, Indra Hernandez MD Nyquist, David J., MD Gaspe Mudiyanselage, Lillie Elizondo MD Gross hematuria (Primary Dx); Acute left flank pain; History of kidney stones Discharge Disposition: Discharge to home or self care 03/24/2025 Orders Only [facility] ([facility]) - [facility] Urology [address] [facility] 11th [place] [address] [place] [address] Estela Suh NP 03/13/2025 10:40 AM CDT Office Visit [facility] Advanced Medicine ([facility]) - [facility] Urology [address] [facility] 11th [place] [address] [place] [address] Estela Suh NP Left ureteral stone (Primary Dx) 03/06/2025 11:55 AM CDT Anesthesia Event [facility] Operating Room [address] [place] [address] Kristopher Murphy MD Thurman, Kathryn Ann, CRNA 03/06/2025 1:55 PM CDT - 03/06/2025 3:45 PM CDT Surgery [facility] Operating Room [address] [place] [address] Christopher Yates MD LEFT URETEROSCOPY 03/06/2025 11:08 AM CDT - 03/06/2025 2:54 PM CDT Hospital Encounter [facility] Operating Room [address] [place] [address] Christopher Yates MD Left nephrolithiasis [N20.0] (Primary Dx) Discharge Disposition: Discharge to home or self care 02/25/2025 Orders Only [facility] Surgery [address] [place] [address] Christopher Yates MD Kidney stone (Primary Dx) 02/23/2025 4:30 PM CDT - 02/23/2025 6:30 PM CDT Surgery [facility] Operating Room [address] [place] [address] Christopher Yates MD LEFT URETEROSCOPY 02/23/2025 3:43 PM CDT Anesthesia Event [facility] Operating Room [address] [place], [place] [address] Mariana Santana MD Heuvelman, Katherine Marie, NP 02/23/2025 1:22 PM CDT - 02/23/2025 5:33 PM CDT Hospital Encounter [facility] Operating Room [address] [place] [address] Christopher Yates MD Kidney stone [N20.0] (Primary Dx) Discharge Disposition: Discharge to home or self care 02/18/2025 Telephone [facility] Surgery [address] [place] [address] Julia Gaitan 02/17/2025 Telephone [facility] ([facility] Urology [address] [facility] 11th [place] [address] [place] [address] Ashley Bullard B.A. 02/17/2025 Orders Only [facility] Urology [address] [place] [address] Office [facility] [address] [place] [address] Darby Rubio NP Left ureteral stone (Primary Dx) 02/17/2025 8:00 AM CDT Office Visit [facility] Urology [address] [place] [address] Office [facility] [address] [place] [address] Darby Rubio NP Left ureteral stone 02/15/2025 1:23 AM CDT - 02/15/2025 3:46 AM CDT Emergency [facility] Emergency Department [address] [place] [phone] Felix Hardy DO Kidney stone on left side (Primary Dx) Discharge Disposition: Discharge to home or self care from Last 3 Months Allergies No known active allergies Medications loratadine (CLARITIN) 10 mg tablet Take 1 tablet (10 mg total) by mouth every morning Active acetaminophen (TYLENOL) 500 mg tablet Take 2 tablets (1,000 mg total) by mouth every 6 (six) hours as needed for pain 30 tablet 02/24/20 25 Active tamsulosin (FLOMAX) 0.4 mg extended release capsuleIndications :Urolithiasis Take 1 capsule (0.4 mg total) by mouth daily 30 capsule 1 02/24/20 25 025 Active multivitamin tablet Take 1 tablet by mouth daily Active ondansetron ODT (ZOFRAN-ODT) 4 mg disintegrating tablet Take 1 tablet (4 mg total) by mouth every 4 (four) hours as needed for nausea 20 tablet 02/16/20 25 025 Discontinued naproxen (ALEVE) 220 mg tabletIndications: Pain Take 2 tablets (440 mg total) by mouth as needed for pain 025 Discontinued MULTIVITAMIN ORALIndications:espinoza pplement Take 1 tablet by mouth every morning 025 Discontinued ZINC ORALIndications:espinoza pplement Take 1 tablet by mouth every morning 025 Discontinued phenazopyridine (PYRIDIUM) 100 mg tabletIndications: Dysuria Take 1 tablet (100 mg total) by mouth 3 (three) times a day as needed for urinary pain 12 tablet 03/06/20 25 025 Discontinued oxyBUTYnin (DITROPAN) 5 mg tablet Take 1 tablet (5 mg total) by mouth 3 (three) times a day as needed (bladder spasms) 30 tablet 1 03/06/20 25 025 Discontinued Active Problems Problem Noted Date Diagnosed Date Gross hematuria 04/07/2025 Left nephrolithiasis 02/25/2025 Kidney stone 02/18/2025 Immunizations Immunization Administration Dates Next Due Influenza, Quadrivalent, Iveth l Culture-based MDCK, Preservative Free, Antibiotic Free, Intramuscular 07/04/2023,07/12/2022,07/13/2021,06/10,07/15/2019,07/04/2018 Influenza, Trivalent, Cell Culture-based MDCK, Preservative Free, Antibiotic Free, Intramuscular 06/18/2024 Tdap 07/20/2019 Social History Tobacco Use Types Packs/Day Years Used Date Smoking Tobacco: Never Smokeless Tobacco: Never Tobacco Cessation:Counseling Given: Not Answered Comments:No usage ever [employer] Answer Date Recorded In the past 12 months has [employer], oil, or water [employer] threatened to shut off services in your [...] often do you attend chur ch or gnosticist services? Never 04/08/2025 Do you belong to any clubs o r organizations such as restorationist groups, unions, fraternal or athletic groups, or [...] any time in the past 12 m [facility], were you homeless or living in a prison (including now)? No 04/08/2025 Personal Safety Answer Date Recorded Have you ever been in or are you currently in a harmful physical or emotional relationship or is someone making you feel afraid or unsafe? 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 Gender Identity Not on file Sexual Orientation Not on file Last Filed Vital Signs Vital Sign Reading [...] Mass Index 30.26 04/07/2025 9:38 PM CDT Plan of Treatment Not on file Medical Devices Explanted Type Area Electrical Repairer Device Identifier Shelf Expiration Date Model / Serial / Lot [employer] Stent Ureteral Set Double Pigtail Radiopaque Tip Universa [id number] Polyurethane Hydrophilic Coated [id number] - [id number] Implanted:Qty: 1 on 02/23/2025 at [facility] Explanted:Qty: 1 on 03/06/2025 by Christopher Yates MD at [facility] Left: Ureter [employer] 11/20/2027 [id number] / / [id number] Description:Discarded per [employer] Stent Ureteral Set Double Pigtail Radiopaque Tip Universa [id number] Polyurethane Hydrophilic Coated [id number] - [id number] Implanted:Qty: 1 on 03/06/2025 at [facility] Explanted:Qty: 1 on 03/13/2025 by Estela Suh NP Left: Ureter [employer] 11/20/2027 [id number] / / [id number] Procedures Procedure Name Priority Date/Time Associated Diagnosis [...] METABOLIC PANEL Routine 04/12/2025 4:03 AM CDT URINALYSIS, MICROSCOPIC ONLY STAT 04/11/2025 9:25 AM CDT URINE CULTURE STAT 04/11/2025 9:25 AM CDT URINALYSIS AND REFLEX TO MICROSCOPIC AND CULTURE STAT 04/11/2025 9:25 AM CDT EGFR [...] AND HEMATOCRIT Timed 04/07/2025 11:50 AM CDT URINALYSIS, MICROSCOPIC ONLY STAT 04/07/2025 6:39 AM CDT URINALYSIS AND REFLEX TO MICROSCOPIC AND CULTURE STAT 04/07/2025 6:[address] ABDOMEN PELVIS WO CONTRAST ED 04/07/2025 1:55 AM CDT EGFR STAT 04/07/2025 1:49 AM CDT DIFFERENTIAL AUTO STAT 04/07/2025 1:4 9 AM CDT LIPASE STAT 04/07/2025 1:49 AM CDT COMPREHENSIVE METABOLIC PANEL STAT 04/07/2025 1:49 AM CDT CBC WITH AUTO DIFFERENTIAL STAT 04/07/2025 1:49 AM CDT FL FLUOROSCOPY < 1 HOUR IP Routine 03/06/2025 1:31 PM CDT SC AN PROCEDURE PLACEHOLDER Routine 03/06/2025 12:11 PM CDT SC AN ELECTIVE SUPRAGLOTTIC AIRWAY Routine 03/06/2025 12:11 PM CDT EXCHANGE STENT - URETERAL 03/06/2025 12:00 PM CDT Left nephrolithiasis LASER - LITHOTRIPSY - THULIUM 03/06/2025 12:00 PM CDT Left nephrolithiasis CYSTOSCOPY 03/06/2025 12:00 PM CDT Left nephrolithiasis URETEROSCOPY 03/06/2025 12:00 PM CDT Left nephrolithiasis FL FLUOROSCOPY < 1 HOUR IP Routine 02/23/2025 4:26 PM CDT SC AN PROCEDURE PLACEHOLDER Routine 02/23/2025 3:59 PM CDT SC AN ELECTIVE SUPRAGLOTTIC AIRWAY Routine 02/23/2025 3:59 PM CDT PLACEMENT STENT - URETERAL 02/23/2025 3:43 PM CDT Kidney stone PYELOGRAM - RETROGRADE 02/23/2025 3:43 PM CDT Kidney stone URETEROSCOPY 02/23/2025 3:43 PM CDT Kidney stone URINE CULTURE Routine 02/17/2025 4:01 PM CDT Left ureteral stone CT ABDOMEN PELVIS WO CONTRAST ED 02/15/2025 1:59 AM CDT EGFR STAT 02/15/2025 1:29 AM CDT URINALYSIS, MICROSCOPIC ONLY STAT 02/15/2025 1:29 AM CDT DIFFERENTIAL AUTO STAT 02/15/2025 1:2 9 AM CDT LIPASE STAT 02/15/2025 1:29 AM CDT CBC WITH AUTO DIFFERENTIAL STAT 02/15/2025 1:29 AM CDT COMPREHENSIVE METABOLIC PANEL STAT 02/15/2025 1:29 AM CDT URINALYSIS AND REFLEX TO MICROSCOPIC AND CULTURE STAT 02/15/2025 1:29 AM CDT from Last 3 Months Results * eGFR (04/13/2025 6:06 AM CDT) [...] was last reviewed 2021. Testing performed by: [address] [address] Blood 04/13/2025 6:06 AM CDT 04/13/2025 6:42 AM CDT us Kinza Mackey NP LAB BLOOD ORDERABLES Final Re sult [facility] [address] [facility] Department [place] [address] * (ABNORMAL) Differential, auto (04/13/2025 6:06 AM CDT) Neutrophil abs 5.71 1.50 - 6.50 K/cumm Comment:Testing performed by : [address] [address] Imm gran abs 0.13(H) 0.00 - 0.10 K/cumm [place] Comment:Testing performed by : [address] [address] Lymphocyte abs 1.35 0.80 - 3.30 K/cumm [place] Comment:Testing performed by : [address] [address] Monocyte abs 0.72 0.20 - 0.80 K/cumm [facility] Comment:Testing performed by : [address] [address] Eosinophil abs 0.15 0.00 - 0.50 K/cumm [place] Comment:Testing performed by : [address] [address] Basophil abs 0.09 0.00 - 0.10 K/cumm [place] Comment:Testing performed by : [address] [address] Neutrophil pct 70.1 % [facility] Comment: Interpretive Data Percent cell count reference ranges are not reported, since discordance with absolute values may lead to misinterpretation of CBC data. Current Interpretive Data was last revised on 2017. Testing performed by: [address] [place]., [address] Imm gran pct 1.6 % [facility] Comment: Interpretive Data Percent cell count reference ranges are not reported, since discordance with absolute values may lead to misinterpretation of CBC data. Current Interpretive Data was last revised on 2017. Testing performed by: [address] [address] Lymphocyte pct 16.6 % [facility] Comment: Interpretive Data Percent cell count reference ranges are not reported, since discordance with absolute values may lead to misinterpretation of CBC data. Current Interpretive Data was last revised on 2017. Testing performed by: [address] [address] Monocyte pct 8.8 % [facility] Comment: Interpretive Data Percent cell count reference ranges are not reported, since discordance with absolute values may lead to misinterpretation of CBC data. Current Interpretive Data was last revised on 2017. Testing performed by: [address] [address] Eosinophil pct 1.8 % [facility] Comment: Interpretive Data Percent cell count reference ranges are not reported, since discordance with absolute values may lead to misinterpretation of CBC data. Current Interpretive Data was last revised on 2017. Testing performed by: [address] [address] Basophil pct 1.1 % [facility] Comment: Interpretive Data Percent cell count reference ranges are not reported, since discordance with absolute values may lead to misinterpretation of CBC data. Current Interpretive Data was last revised on 2017. Testing performed by: [address] [address] Blood 04/13/2025 6:06 AM CDT 04/13/2025 6:45 AM CDT us Kinza Mackey NP LAB BLOOD ORDERABLES Final Re sult [facility] [address] [facility] Department of Laboratories [place], [place] [id number] * CBC with auto differential (04/13/2025 6:06 AM CDT) [facility] Signature WBC 8.15 3.80 - 9.90 K/cumm Comment:Testing performed by : [address], [address] Hgb 13.8 13.0 - 17.5 g/dL [place] Comment:Testing performed by : [address] [address] Hct 39.2 38.9 - 50.3 % [facility] Comment:Testing performed by : [address], [address] Plt 239 150 - 400 K/cumm [place] Comment:Testing performed by : [address], [address] MPV 10.2 9.1 - 12.3 fL [place] Comment:Testing performed by : [address], [address] RBC 4.41 4.30 - 5.80 M/cumm [place] Comment:Testing performed by : [address], [address] MCV 88.9 81.3 - 96.4 fL [place] Comment:Testing performed by : [address], [address] MCH 31.3 27.1 - 33.3 pg [place] Comment:Testing performed by : [address], [address] MCHC 35.2 32.3 - 35.7 g/dL [place] Comment:Testing performed by : [address], [address] RDW CV 11.6 11.1 - 14.9 % [facility] Comment:Testing performed by : [address], [address] RDW SD 37.2 35.7 - 48.1 fL [place] Comment:Testing performed by : [address], [address] NRBC abs 0.00 0.00 - 0.01 K/cumm [place] Comment:Testing performed by : [address] [address] Blood 04/13/2025 6:06 AM CDT 04/13/2025 6:45 AM CDT us Kinza Mackey NP LAB BLOOD ORDERABLES Final Re sult [facility] [address] [facility] Department [place] [address] * Basic metabolic panel (04/13/2025 6:06 AM CDT) Sodium 140 135 - 145 mmol/L Comment:Testing performed by : [address] [address] Potassium, pl 3.7 3.3 - 4.9 mmol/L [facility] Comment:Testing performed by : [address] [address] Chloride 102 97 - 110 mmol/L [place] Comment:Testing performed by : [address] [address] CO2 27 22 - 32 mmol/L [facility] Comment:Testing performed by : [address] [address] Anion gap 11 2 - 15 mmol/L [facility] Comment:Testing performed by : [address] [address] BUN 13 6 - 25 mg/dL [place] Comment:Testing performed by : [address] [address] Creatinine 1.00 0.80 - 1.30 mg/dL [place] Comment:Testing performed by : [address] [address] Glucose 89 70 - 199 mg/dL [place] [...] was last revised 2022. Testing performed by: [facility], [address] [place] [address]., [address] Calcium 9.3 8.5 - 10.3 mg/dL [place] KLINE Comment:Testing performed by : [address] [address] Blood 04/13/2025 6:06 AM CDT 04/13/2025 6:42 AM CDT us Kinza Mackey NP LAB BLOOD ORDERABLES Final Re sult [facility]LINE [address] [facility] Department [place] [address] * eGFR (04/12/2025 4:03 AM CDT) eGFR [...] was last reviewed 2021. Testing performed by: [address] [address] Blood 04/12/2025 4:03 AM CDT 04/12/2025 5:18 AM CDT us Kinza Mackey NP LAB BLOOD ORDERABLES Final Re sult [facility] [address] [facility] Department [place] [address] * (ABNORMAL) Differential, auto (04/12/2025 4:03 AM CDT) Neutrophil abs 5.27 1.50 - 6.50 K/cumm Comment:Testing performed by : [address] [address] Imm gran abs 0.13(H) 0.00 - 0.10 K/cumm [place] Comment:Testing performed by : [address] [address] Lymphocyte abs 1.59 0.80 - 3.30 K/cumm [place] Comment:Testing performed by : [address] [address] Monocyte abs 0.76 0.20 - 0.80 K/cumm [place] Comment:Testing performed by : [address] [address] Eosinophil abs 0.25 0.00 - 0.50 K/cumm [place] Comment:Testing performed by : [address] [address] Basophil abs 0.10 0.00 - 0.10 K/cumm [place] Comment:Testing performed by : [address] [address] Neutrophil pct 65.1 % [facility] Comment: Interpretive Data Percent cell count reference ranges are not reported, since discordance with absolute values may lead to misinterpretation of CBC data. Current Interpretive Data was last revised on 2017. Testing performed by: [address] [address] Imm gran pct 1.6 % [facility] Comment: Interpretive Data Percent cell count reference ranges are not reported, since discordance with absolute values may lead to misinterpretation of CBC data. Current Interpretive Data was last revised on 2017. Testing performed by: [address] [address] Lymphocyte pct 19.6 % [facility] Comment: Interpretive Data Percent cell count reference ranges are not reported, since discordance with absolute values may lead to misinterpretation of CBC data. Current Interpretive Data was last revised on 2017. Testing performed by: [address] [address] Monocyte pct 9.4 % [facility] Comment: Interpretive Data Percent cell count reference ranges are not reported, since discordance with absolute values may lead to misinterpretation of CBC data. Current Interpretive Data was last revised on 2017. Testing performed by: [address] [address] Eosinophil pct 3.1 % [facility] Comment: Interpretive Data Percent cell count reference ranges are not reported, since discordance with absolute values may lead to misinterpretation of CBC data. Current Interpretive Data was last revised on 2017. Testing performed by: [address] [address] Basophil pct 1.2 % [facility] Comment: Interpretive Data Percent cell count reference ranges are not reported, since discordance with absolute values may lead to misinterpretation of CBC data. Current Interpretive Data was last revised on 2017. Testing performed by: [address] [address] Blood 04/12/2025 4:03 AM CDT 04/12/2025 5:18 AM CDT us Kinza Mackey NP LAB BLOOD ORDERABLES Final Re sult [facility] [address] [facility] Department [place] [address] * CBC with auto differential (04/12/2025 4:03 AM CDT) WBC 8.10 3.80 - 9.90 K/cumm Comment:Testing performed by : [address] [address] Hgb 13.9 13.0 - 17.5 g/dL [place] Comment:Testing performed by : [address], [address] Hct 39.6 38.9 - 50.3 % [facility] Comment:Testing performed by : [address] [address] Plt 206 150 - 400 K/cumm [place] Comment:Testing performed by : [address] [address] MPV 11.1 9.1 - 12.3 fL [place] Comment:Testing performed by : [address], [address] RBC 4.55 4.30 - 5.80 M/cumm [place] Comment:Testing performed by : [address], [address] MCV 87.0 81.3 - 96.4 fL [facility] Comment:Testing performed by : [address] [address] MCH 30.5 27.1 - 33.3 pg [place] Comment:Testing performed by : [address] [address] MCHC 35.1 32.3 - 35.7 g/dL E[facility] Comment:Testing performed by : [address], [address] RDW CV 11.7 11.1 - 14.9 % [facility] Comment:Testing performed by : [address] [address] RDW SD 37.2 35.7 - 48.1 fL [place] Comment:Testing performed by : [address] [address] NRBC abs 0.00 0.00 - 0.01 K/cumm [place] Comment:Testing performed by : [address] [address] Blood 04/12/2025 4:03 AM CDT 04/12/2025 5:18 AM CDT Kinza Mackey NP LAB BLOOD ORDERABLES Final Re sult [facility] [address] [facility] Department [place] [address] * Basic metabolic panel (04/12/2025 4:03 AM CDT) Sodium 141 135 - 145 mmol/L Comment:Testing performed by : [address] [address] Potassium, pl 4.1 3.3 - 4.9 mmol/L [facility] Comment: Hemolyzed; Potassium value may be falsely elevated by as much as 1.0 mmol/L. Suggest redraw and reanalysis. Testing performed by: [address] [address] Chloride 103 97 - 110 mmol/L [place] Comment:Testing performed by : [address] [address] CO2 24 22 - 32 mmol/L [place] Comment:Testing performed by : [address] [address] Anion gap 14 2 - 15 mmol/L [place] Comment:Testing performed by : [address] [address] BUN 13 6 - 25 mg/dL [place] Comment:Testing performed by : [address] [address] Creatinine 1.03 0.80 - 1.30 mg/dL [place] Comment:Testing performed by : [address] [address] Glucose 91 70 - 199 mg/dL [place] [...] was last revised 2022. Testing performed by: [address] [address] Calcium 9.7 8.5 - 10.3 mg/dL [place] KLINE Comment:Testing performed by : [address] [address] Blood 04/12/2025 4:03 AM CDT 04/12/2025 5:18 AM CDT us Kinza Mackey NP LAB BLOOD ORDERABLES Final Re sult [facility] [address] [facility] Department [place] [address] * (ABNORMAL) Urinalysis reflex to microscopic and culture Urine, clean voided (04/11/2025 9:25 AM CDT) Color, ur Yellow Yellow Comment:Testing performed by : [address] [address] Clarity, ur Clear Clear [place] Comment:Testing performed by : [address] [address] Specific gravity, ur 1.015 1.003 - 1.030 [place] Comment:Testing performed by : [address] [address] pH, urine 6.5 [facility] Comment: Interpretive Data U rine pH is affected by diet, medications, systemic acid-base disturbances, and renal tubular function. pH may affect urinary stone formation. For example, urine pH below 6.0 may help reduce the tendency for calcium phosphate stones and pH greater than 6.0 may reduce the tendency for uric acid stone formation. Source: [facility] [employer] Current Interpretive Data was last revised on 2017 Testing performed by: [address] [address] Protein, ur ql Negative Negative [place] Comment:Testing performed by : [address] [address] Glucose, ur ql Negative Negative [place] Comment:Testing performed by : [address] [address] Ketones, ur Negative Negative [place] KLINE Comment:Testing performed by : [address], [place]., [address] Bilirubin, ur Negative Negative [facility] KLINE Comment:Testing performed by : [address], [place]., [address] Blood, ur 2+(A) Negative [place] KLINE Comment:Testing performed by : [address], [place]., [address] Urobilinogen, ur <2.0 <2.0 mg/dL [place] KLINE Comment:Testing performed by : [address], [place]., [address] Nitrite, ur Negative Negative [place] KLINE Comment:Testing performed by : [address], [place]., [address] Leukocyte esterase, ur 2+(A) Negative [place] KLINE Comment:Testing performed by : [address] [address] UA reflex comment Reflex to microscopic UA will be performed. [facility] Comment:Testing performed by : [address] [address] Urine, clean voided 04/11/2025 9:25 AM CDT 04/11/2025 9:29 AM CDT Lillie gonzalez MD LAB MICROBIOLOGY - GENERAL ORDERABLES Final Result [facility] [address] [facility] Department [place] [address] * (ABNORMAL) Urinalysis, microscopic only (04/11/2025 9:25 AM CDT) WBC, ur 11-20(A) 0 - 5 /HPF Comment:Testing performed by : [address] [address] RBC, ur 11-20(A) 0 - 2 /HPF [facility] KLINE Comment:Testing performed by : [address] [address] Epithelial cells, squamous, ur 1-5 0 - 5 /HPF [facility] Comment:Testing performed by : [facility], [address] [place] [address]., [address] Bacteria, ur 4+(A) [facility] Comment:Testing performed by : [facility], [address] [place] [address]., [address] Mucous, ur Present(A) [facility] Comment:Testing performed by : [address] [address] Culture Reflex Comment Reflex to urine culture will be performed. [facility] Comment:Testing performed by : [facility], [address] [place] [address]., [address] Urine, clean voided 04/11/2025 9:25 AM CDT 04/11/2025 9:29 AM CDT us Lillie Madrid MD LAB URINE ORDERABLES Final Result Performing Organization Address City/[facility] Co de Phone Number [facility] [address] [facility] Department of Laboratories [place] [address] * (ABNORMAL) Urine culture Urine, clean voided (04/11/2025 9:25 AM CDT) Report Final Report: Greater than or equal to 100,000 colonies/mL of Bacillus species, not Bacillus anthracis No further workup. (.) Comment:Testing performed by : [facility], [address] [place]., [address] Organism BACILLUS SPECIES, NOT BACILLUS ANTHRACIS ELIDA Urine, clean voided 04/11/2025 9:25 AM CDT 04/11/2025 2:35 PM CDT Narrative ELIDA - 04/13/2025 6:11 AM CDT Urine culture reflexed based upon urinalysis results. Testing performed by [facility] Microbiology Laboratory ([phone]) Lillie gonzalez MD LAB MICROBIOLOGY - GENERAL ORDERABLES Final Result Performing Organization Address City/[facility] de Phone Number [place] [id number] [facility] Department [place] [address] * eGFR (04/11/2025 5:35 AM CDT) eGFR [...] was last reviewed 2021. Testing performed by: [address] [address] Blood 04/11/2025 5:35 AM CDT 04/11/2025 6:17 AM CDT us Kinza Mackey NP LAB BLOOD ORDERABLES Final Re sult Performing Organization Address [facility] Co de Phone Number [facility] [address] [facility] Department [place] [address] * (ABNORMAL) Differential, auto (04/11/2025 5:35 AM CDT) Pathologist [facility] Neutrophil abs 6.52(H) 1.50 - 6.50 K/cumm Comment:Testing performed by : [address] [address] Imm gran abs 0.11(H) 0.00 - 0.10 K/cumm ELIDA Comment:Testing performed by : [address] [address] Lymphocyte abs 1.53 0.80 - 3.30 K/cumm CERNER Comment:Testing performed by : [address] [address] Monocyte abs 0.80 0.20 - 0.80 K/cumm CERELVIE Comment:Testing performed by : [address], [place]., [address] Eosinophil abs 0.14 0.00 - 0.50 K/cumm [facility] Comment:Testing performed by : [address], [place]., [address] Basophil abs 0.11(H) 0.00 - 0.10 K/cumm [facility] Comment:Testing performed by : [address] [address] Neutrophil pct 70.8 % CERNER Comment: Interpretive Data Percent cell count reference ranges are not reported, since discordance with absolute values may lead to misinterpretation of CBC data. Current Interpretive Data was last revised on 2017. Testing performed by: [address] [address] Imm gran pct 1.2 % CERNER Comment: Interpretive Data Percent cell count reference ranges are not reported, since discordance with absolute values may lead to misinterpretation of CBC data. Current Interpretive Data was last revised on 2017. Testing performed by: [address] [address] Lymphocyte pct 16.6 % CERNER Comment: Interpretive Data Percent cell count reference ranges are not reported, since discordance with absolute values may lead to misinterpretation of CBC data. Current Interpretive Data was last revised on 2017. Testing performed by: [address] [address] Monocyte pct 8.7 % CERNER Comment: Interpretive Data Percent cell count reference ranges are not reported, since discordance with absolute values may lead to misinterpretation of CBC data. Current Interpretive Data was last revised on 2017. Testing performed by: [address] [address] Eosinophil pct 1.5 % CERNER MH Comment: Interpretive Data Percent cell count reference ranges are not reported, since discordance with absolute values may lead to misinterpretation of CBC data. Current Interpretive Data was last revised on 2017. Testing performed by: [address] [address] Basophil pct 1.2 % ELIDA KLINE Comment: Interpretive Data Percent cell count reference ranges are not reported, since discordance with absolute values may lead to misinterpretation of CBC data. Current Interpretive Data was last revised on 2017. Testing performed by: [address] [address] Blood 04/11/2025 5:35 AM CDT 04/11/2025 6:17 AM CDT us Kinza Mackey NP LAB BLOOD ORDERABLES Final Re sult ELIDA [address] [facility] Department [place] [address] * (ABNORMAL) CBC with auto differential (04/11/2025 5:35 AM CDT) WBC 9.21 3.80 - 9.90 K/cumm Comment:Testing performed by : [address] [address] Hgb 14.0 13.0 - 17.5 g/dL ELIAD KLINE Comment:Testing performed by : [address] [address] Hct 39.1 38.9 - 50.3 % ELIDA KLINE Comment:Testing performed by : [address] [address] Plt 220 150 - 400 K/cumm ELIDA KLINE Comment:Testing performed by : [address] [address] MPV 10.5 9.1 - 12.3 fL ELIDA KLINE Comment:Testing performed by : [address] [address] RBC 4.48 4.30 - 5.80 M/cumm ELIDA KLINE Comment:Testing performed by : [address] [address] MCV 87.3 81.3 - 96.4 fL ELIDA KLINE Comment:Testing performed by : [address] [address] MCH 31.3 27.1 - 33.3 pg ELIDA KLINE Comment:Testing performed by : [address] [address] MCHC 35.8(H) 32.3 - 35.7 g/dL ELIDA KLINE Comment:Testing performed by : [address] [address] RDW CV 11.8 11.1 - 14.9 % ELIDA KLINE Comment:Testing performed by : [address] [address] RDW SD 37.2 35.7 - 48.1 fL ELIDA KLINE Comment:Testing performed by : [address] [address] NRBC abs 0.00 0.00 - 0.01 K/cumm ELIDA KLINE Comment:Testing performed by : [address] [address] Blood 04/11/2025 5:35 AM CDT 04/11/2025 6:17 AM CDT Kinza Mackey NP LAB BLOOD ORDERABLES Final Re sult ELIDA [address] [facility] Department of Laboratories [place], [place] [id number] * Basic metabolic panel (04/11/2025 5:35 AM CDT) Sodium 141 135 - 145 mmol/L Comment:Testing performed by : [address] [address] Potassium, pl 4.4 3.3 - 4.9 mmol/L ELIDA KLINE Comment: Hemolyzed; Potassium value may be falsely elevated by as much as 1.0 mmol/L. Suggest redraw and reanalysis. Testing performed by: [address] [address] Chloride 103 97 - 110 mmol/L ELIDA Comment:Testing performed by : [address] [address] CO2 24 22 - 32 mmol/L ELIDA Comment:Testing performed by : [address] [address] Anion gap 14 2 - 15 mmol/L ELIDA Comment:Testing performed by : [address] [address] BUN 12 6 - 25 mg/dL ELIDA Comment:Testing performed by : [address] [address] Creatinine 1.06 0.80 - 1.30 mg/dL ELIDA Comment:Testing performed by : [address] [address] Glucose 97 70 - 199 mg/dL ELIDA Comment: Interpretive [...] was last revised 2022. Testing performed by: [address] [address] Calcium 9.8 8.5 - 10.3 mg/dL ELIDA Comment:Testing performed by : [address] [address] Blood 04/11/2025 5:35 AM CDT 04/11/2025 6:17 AM CDT us Kinza Mackey NP LAB BLOOD ORDERABLES Final Re sult ELIDA KLINE [address] [facility] Department of Laboratories [place], [place] [id number] [phone] * CT Abdomen Pelvis W WO Contrast (04/10/2025 11:03 PM CDT) Anatomical Region Laterality Modality Body N/A Computed Tomogra phy 04/11/2025 5:09 AM CDT Narrative 04/11/2025 5:19 AM CDT EXAM DESCRIPTION: CT ABDOMEN PELVIS W WO CONTRAST REASON FOR STUDY: hematuria protocol Md note today: Patient seen and examined at bedside. Patient continues to have hematuria in Oliva catheter bag. No large blood clots noted. Has remained afebrile. No other complaints. Chart note 45 y.o. male with history of kidney stone presented to ED with hematuria. He had left ureteroscopy on 02/23 and 03/[address] Yates. His stent was removed 03/13. After stent removal he has had a couple episodes of hematuria that resolved. He went on a trip to [place] and did a lot of walking while [...] Expect bleeding will resolve. Continue 3 way oliva catheter at this time and irrigate as needed. Trend Hgb. Reassess urine output tomorrow. If clearing would recommend removal of oliva catheter. 04/08/25- 3-way oliva catheter draining blood tinged urine without CBI; per patient report hematuria is improved in comparison to yesterday. Oliva irrigated manually by urology at bedside with return of yellow urine and no clots expressed. Plan to reassess urine output tomorrow, if hematuria resolves, then suggest removal of oliva catheter. 04/09/2025 - urine blood tinged with CBI at slow rate. CBI stopped on rounds today. Will continue to monitor. If clear tomorrow AM recommend discontinue oliva catheter. 04/10/2025 - urine in clear yellow in tubing, blood tinged in catheter bag. Hgb stable, If this is negative recommend discontinue oliva catheter for void trial. TECHNIQUE: CT scan [...] is partially decompressed with a large caliber Oliva catheter in place. VASCULATURE: No acute abnormality [...] bilaterally on delayed images. 5. Large caliber Oliva catheter in place. THIS IS AN ELECTRONICALLY VERIFIED FINAL REPORT 04/11/2025 5:19 AM - Electronically signed by Jane Bailey M.D. SN: SN Report ID: [id number] Reading Location: [id number] Procedure Note Jane Bailey MD - 04/11/2025 EXAM DESCRIPTION: CT ABDOMEN PELVIS W WO CONTRAST REASON FOR STUDY: hematuria protocol Md note today: Patient seen and examined at bedside. Patient continues to have hematuria in Oliva catheter bag. No large blood clots noted. Has remained afebrile. No other complaints. Chart note 45 y.o. male with history of kidney stone presented to ED with hematuria. He had left ureteroscopy on 02/23 and 03/[address] Yates. His stent was removed 03/13.After stent removal he has had a couple episodes of hematuria that resolved. Hewent on a trip to [place] and did a lot of walking while [...] Expect bleeding will resolve. Continue 3 way oliva catheterat this time and irrigate as needed. Trend Hgb. Reassess urine outputtomorrow. If clearing would recommend removal of oliva catheter. 04/08/25- 3-way oliva catheter draining blood tinged urine without CBI; per patient report hematuria is improved in comparison to yesterday. Oliva irrigated manuallyby urology at bedside with return of yellow urine and no clots expressed.Plan to reassess urine output tomorrow, if hematuria resolves, then suggestremoval of oliva catheter. 04/09/2025 - urine blood tinged with CBI at slowrate. CBI stopped on rounds today. Will continue to monitor. If clear tomorrowAM recommend discontinue oliva catheter. 04/10/2025 - urine in clearyellow in tubing, blood tinged in catheter bag. Hgb stable, If this is negative recommend discontinue oliva catheter for void trial. TECHNIQUE: CT scan [...] is partially decompressed with a large caliber Oliva catheter in place. VASCULATURE: No acute abnormality [...] system bilaterally ondelayed images. 5. Large caliber Oliva catheter in place. THIS IS AN ELECTRONICALLY VERIFIED FINAL REPORT 04/11/2025 5:19 AM - Electronically signed by Jane Bailey M.D. SN: Report ID: [id number] Reading Location: [place] [address] Marline Griffin [employer] IMG CT PROCEDURES Final Res ult * [...] was last reviewed 2021. Testing performed by: [facility] [address] [address] Blood 04/10/2025 5:55 AM CDT 04/10/2025 6:39 AM CDT us Kinza Mackey NP LAB BLOOD ORDERABLES Final Re sult [facility] [address] [facility] Department [place] [address] * Differential, auto (04/10/2025 5:55 AM CDT) Neutrophil abs 5.25 1.50 - 6.50 K/cumm Comment:Testing performed by : [address] [address] Imm gran abs 0.06 0.00 - 0.10 K/cumm ELIDA Comment:Testing performed by : [address] [address] Lymphocyte abs 1.51 0.80 - 3.30 K/cumm ELIDA Comment:Testing performed by : [address] [address] Monocyte abs 0.68 0.20 - 0.80 K/cumm ELIDA Comment:Testing performed by : [address] [address] Eosinophil abs 0.15 0.00 - 0.50 K/cumm ELIDA Comment:Testing performed by : [address] [address] Basophil abs 0.08 0.00 - 0.10 K/cumm ELIDA Comment:Testing performed by : [address] [address] Neutrophil pct 68.0 % ELIDA Comment: Interpretive Data Percent cell count reference ranges are not reported, since discordance with absolute values may lead to misinterpretation of CBC data. Current Interpretive Data was last revised on 2017. Testing performed by: [address] [address] Imm gran pct 0.8 % ELIDA Comment: Interpretive Data Percent cell count reference ranges are not reported, since discordance with absolute values may lead to misinterpretation of CBC data. Current Interpretive Data was last revised on 2017. Testing performed by: [address] [address] Lymphocyte pct 19.5 % [facility] Comment: Interpretive Data Percent cell count reference ranges are not reported, since discordance with absolute values may lead to misinterpretation of CBC data. Current Interpretive Data was last revised on 2017. Testing performed by: [address] [address] Monocyte pct 8.8 % [facility] Comment: Interpretive Data Percent cell count reference ranges are not reported, since discordance with absolute values may lead to misinterpretation of CBC data. Current Interpretive Data was last revised on 2017. Testing performed by: [address] [address] Eosinophil pct 1.9 % [facility] Comment: Interpretive Data Percent cell count reference ranges are not reported, since discordance with absolute values may lead to misinterpretation of CBC data. Current Interpretive Data was last revised on 2017. Testing performed by: [address] [address] Basophil pct 1.0 % [facility] Comment: Interpretive Data Percent cell count reference ranges are not reported, since discordance with absolute values may lead to misinterpretation of CBC data. Current Interpretive Data was last revised on 2017. Testing performed by: [address] [address] Blood 04/10/2025 5:55 AM CDT 04/10/2025 6:40 AM CDT us Kinza Mackey NP LAB BLOOD ORDERABLES Final Re sult ELIDA KLINE [address] [facility] Department of Laboratories [place], [place] [id number] * (ABNORMAL) CBC with auto differential (04/10/2025 5:55 AM CDT) WBC 7.73 3.80 - 9.90 K/cumm Comment:Testing performed by : [address] [address] Hgb 12.8(L) 13.0 - 17.5 g/dL ELIDA Comment:Testing performed by : [address], [address] Hct 36.4(L) 38.9 - 50.3 % ELIDA Comment:Testing performed by : [address] [address] Plt 198 150 - 400 K/cumm ELIDA Comment:Testing performed by : [address], [address] MPV 10.6 9.1 - 12.3 fL ELIDA Comment:Testing performed by : [address], [address] RBC 4.11(L) 4.30 - 5.80 M/cumm ELIDA Comment:Testing performed by : [address], [address] MCV 88.6 81.3 - 96.4 fL CERELVIE Comment:Testing performed by : [address], [address] MCH 31.1 27.1 - 33.3 pg CERELVIE Comment:Testing performed by : [address], [address] MCHC 35.2 32.3 - 35.7 g/dL ELIDA Comment:Testing performed by : [address], [address] RDW CV 11.8 11.1 - 14.9 % ELIDA Comment:Testing performed by : [address], [address] RDW SD 37.9 35.7 - 48.1 fL ELIDA Comment:Testing performed by : [address], [address] NRBC abs 0.00 0.00 - 0.01 K/cumm ELIDA Comment:Testing performed by : [address], [address] Blood 04/10/2025 5:55 AM CDT 04/10/2025 6:40 AM CDT us Kinza Mackey NP LAB BLOOD ORDERABLES Final Re sult ELIDA [address] [facility] Department [place] [address] * Basic metabolic panel (04/10/2025 5:55 AM CDT) Sodium 140 135 - 145 mmol/L Comment:Testing performed by : [address] [address] Potassium, pl 4.4 3.3 - 4.9 mmol/L ELIDA Comment: Hemolyzed; Potassium value may be falsely elevated by as much as 1.0 mmol/L. Suggest redraw and reanalysis. Testing performed by: [address] [address] Chloride 105 97 - 110 mmol/L ELIDA Comment:Testing performed by : [address] [address] CO2 23 22 - 32 mmol/L ELIDA Comment:Testing performed by : [address] [address] Anion gap 12 2 - 15 mmol/L ELIDA Comment:Testing performed by : [address] [address] BUN 12 6 - 25 mg/dL ELIDA Comment:Testing performed by : [address] [address] Creatinine 1.08 0.80 - 1.30 mg/dL ELIDA Comment:Testing performed by : [address] [address] Glucose 95 70 - 199 mg/dL ELIDA [...] was last revised 2022. Testing performed by: [facility], [address] [place] [address]., [address] Calcium 9.4 8.5 - 10.3 mg/dL ELIDA KLINE Comment:Testing performed by : [address] [address] Blood 04/10/2025 5:55 AM CDT 04/10/2025 6:39 AM CDT us Kinza Mackey NP LAB BLOOD ORDERABLES Final Re sult ELIDA KLINE [address] [facility] Department of Laboratories [place], [place] [id number] * eGFR (04/09/2025 6:01 AM CDT) eGFR 83 >=60 mL/min/1. 73 m2 Comment: [...] was last reviewed 2021. Testing performed by: [address] [address] Blood 04/09/2025 6:01 AM CDT 04/09/2025 6:28 AM CDT us Kinza Mackey NP LAB BLOOD ORDERABLES Final Re sult ELIDA [address] [facility] Department [place] [address] * Differential, auto (04/09/2025 6:01 AM CDT) Neutrophil abs 5.16 1.50 - 6.50 K/cumm Comment:Testing performed by : [address] [address] Imm gran abs 0.05 0.00 - 0.10 K/cumm ELIDA Comment:Testing performed by : [address] [address] Lymphocyte abs 1.56 0.80 - 3.30 K/cumm ELIDA Comment:Testing performed by : [address] [address] Monocyte abs 0.73 0.20 - 0.80 K/cumm ELIDA Comment:Testing performed by : [address] [address] Eosinophil abs 0.13 0.00 - 0.50 K/cumm ELIDA Comment:Testing performed by : [address] [address] Basophil abs 0.08 0.00 - 0.10 K/cumm ELIDA Comment:Testing performed by : [address] [address] Neutrophil pct 67.0 % ELIDA Comment: Interpretive Data Percent cell count reference ranges are not reported, since discordance with absolute values may lead to misinterpretation of CBC data. Current Interpretive Data was last revised on 2017. Testing performed by: [address] [address] Imm gran pct 0.6 % ELIDA Comment: Interpretive Data Percent cell count reference ranges are not reported, since discordance with absolute values may lead to misinterpretation of CBC data. Current Interpretive Data was last revised on 2017. Testing performed by: [address] [address] Lymphocyte pct 20.2 % [facility] Comment: Interpretive Data Percent cell count reference ranges are not reported, since discordance with absolute values may lead to misinterpretation of CBC data. Current Interpretive Data was last revised on 2017. Testing performed by: [address] [address] Monocyte pct 9.5 % [facility] Comment: Interpretive Data Percent cell count reference ranges are not reported, since discordance with absolute values may lead to misinterpretation of CBC data. Current Interpretive Data was last revised on 2017. Testing performed by: [address] [address] Eosinophil pct 1.7 % [facility] Comment: Interpretive Data Percent cell count reference ranges are not reported, since discordance with absolute values may lead to misinterpretation of CBC data. Current Interpretive Data was last revised on 2017. Testing performed by: [address] [address] Basophil pct 1.0 % [facility] Comment: Interpretive Data Percent cell count reference ranges are not reported, since discordance with absolute values may lead to misinterpretation of CBC data. Current Interpretive Data was last revised on 2017. Testing performed by: [address] [address] Blood 04/09/2025 6:01 AM CDT 04/09/2025 6:29 AM CDT us Kinza Mackey NP LAB BLOOD ORDERABLES Final Re sult [facility]ELVIE [address] [facility] Department [place] [address] * (ABNORMAL) CBC with auto differential (04/09/2025 6:01 AM CDT) WBC 7.71 3.80 - 9.90 K/cumm Comment:Testing performed by : [address] [address] Hgb 12.5(L) 13.0 - 17.5 g/dL ELIDA Comment:Testing performed by : [address] [address] Hct 37.3(L) 38.9 - 50.3 % ELIDA Comment:Testing performed by : [address] [address] Plt 170 150 - 400 K/cumm ELIDA Comment:Testing performed by : [address] [address] MPV 10.8 9.1 - 12.3 fL ELIDA Comment:Testing performed by : [address], [address] RBC 4.09(L) 4.30 - 5.80 M/cumm ELIDA Comment:Testing performed by : [address] [address] MCV 91.2 81.3 - 96.4 fL ELIDA Comment:Testing performed by : [address] [address] MCH 30.6 27.1 - 33.3 pg ELIDA Comment:Testing performed by : [address] [address] MCHC 33.5 32.3 - 35.7 g/dL ELIDA Comment:Testing performed by : [address] [address] RDW CV 11.9 11.1 - 14.9 % ELIDA Comment:Testing performed by : [address], [address] RDW SD 39.9 35.7 - 48.1 fL ELIDA Comment:Testing performed by : [address], [address] NRBC abs 0.00 0.00 - 0.01 K/cumm ELIDA Comment:Testing performed by : [address] [address] Blood 04/09/2025 6:01 AM CDT 04/09/2025 6:29 AM CDT us Kinza Mackey NP LAB BLOOD ORDERABLES Final Re sult ELIDA [address] [facility] Department [place] [address] * (ABNORMAL) Basic metabolic panel (04/09/2025 6:01 AM CDT) Sodium 139 135 - 145 mmol/L Comment:Testing performed by : [address] [address] Potassium, pl 3.9 3.3 - 4.9 mmol/L ELIDA Comment: Hemolyzed; Potassium value may be falsely elevated by as much as 1.0 mmol/L. Suggest redraw and reanalysis. Testing performed by: [address] [address] Chloride 107 97 - 110 mmol/L ELIDA Comment:Testing performed by : [address] [address] CO2 21(L) 22 - 32 mmol/L ELIDA Comment:Testing performed by : [address] [address] Anion gap 11 2 - 15 mmol/L ELIDA Comment:Testing performed by : [address] [address] BUN 11 6 - 25 mg/dL ELIDA Comment:Testing performed by : [address] [address] Creatinine 1.10 0.80 - 1.30 mg/dL ELIDA Comment:Testing performed by : [address] [address] Glucose 94 70 - 199 mg/dL ELIDA [...] was last revised 2022. Testing performed by: [address] [address] Calcium 8.7 8.5 - 10.3 mg/dL ELIDA KLINE Comment:Testing performed by : [address] [address] Blood 04/09/2025 6:01 AM CDT 04/09/2025 6:28 AM CDT Kinza Mackey LAB BLOOD ORDERABLES Final Re sult Performing Organization Address [facility] Co de Phone Number [address] [employer] [place] [address] * (ABNORMAL) Hemoglobin and hematocrit (04/08/2025 7:21 PM CDT) Hgb 13.3 13.0 - 17.5 g/dL Comment:Testing performed by : [address] [address] Hct 37.7(L) 38.9 - 50.3 % ELIDA Comment:Testing performed by : [address] [address] Blood 04/08/2025 7:21 PM CDT 04/08/2025 7:50 PM CDT [facility] LAB BLOOD ORDERABLES Final Re sult Performing Organization Address [facility] Co de Phone Number [address] [employer] [place] [address] * (ABNORMAL) Hemoglobin and hematocrit (04/08/2025 1:29 PM CDT) Hgb 12.5(L) 13.0 - 17.5 g/dL Comment:Testing performed by : [address] [address] Hct 36.2(L) 38.9 - 50.3 % ELIDA Comment:Testing performed by : [facility], [address] [place] [address]., [address] Blood 04/08/2025 1:29 PM CDT 04/08/2025 1:45 PM CDT Kinza Mackey [employer] LAB BLOOD ORDERABLES Final Re sult Performing Organization Address [facility] Co de Phone Number ELIDA [address] [facility] [place] [address] * eGFR (04/08/2025 5:40 AM CDT) eGFR 82 >=60 mL/min/1. 73 m2 Comment: [...] was last reviewed 2021. Testing performed by: [facility], [address] [place] [address]., [address] Blood 04/08/2025 5:40 AM CDT 04/08/2025 5:53 AM CDT Kinza Mackey LAB BLOOD ORDERABLES Final Re sult Performing Organization Address City/[facility]/ZIP Co de Phone Number [place] [id number] [facility] [employer] [place] [address] * Differential, auto (04/08/2025 5:40 AM CDT) Neutrophil abs 4.78 1.50 - 6.50 K/cumm Comment:Testing performed by : [address] [address] Imm gran abs 0.06 0.00 - 0.10 K/cumm ELIDA Comment:Testing performed by : [address] [address] Lymphocyte abs 1.12 0.80 - 3.30 K/cumm [facility] [facility] Comment:Testing performed by : [address] [address] Monocyte abs 0.71 0.20 - 0.80 K/cumm [facility] Comment:Testing performed by : [address] [address] Eosinophil abs 0.10 0.00 - 0.50 K/cumm [facility] Comment:Testing performed by : [address] [address] Basophil abs 0.06 0.00 - 0.10 K/cumm [facility] Comment:Testing performed by : [address] [address] Neutrophil pct 69.9 % [facility] Comment: Interpretive Data Percent cell count reference ranges are not reported, since discordance with absolute values may lead to misinterpretation of CBC data. Current Interpretive Data was last revised on 2017. Testing performed by: [address] [address] Imm gran pct 0.9 % [facility] Comment: Interpretive Data Percent cell count reference ranges are not reported, since discordance with absolute values may lead to misinterpretation of CBC data. Current Interpretive Data was last revised on 2017. Testing performed by: [address] [address] Lymphocyte pct 16.4 % [facility] Comment: Interpretive Data Percent cell count reference ranges are not reported, since discordance with absolute values may lead to misinterpretation of CBC data. Current Interpretive Data was last revised on 2017. Testing performed by: [address] [address] Monocyte pct 10.4 % [facility] Comment: Interpretive Data Percent cell count reference ranges are not reported, since discordance with absolute values may lead to misinterpretation of CBC data. Current Interpretive Data was last revised on 2017. Testing performed by: [address] [address] Eosinophil pct 1.5 % [facility] Comment: Interpretive Data Percent cell count reference ranges are not reported, since discordance with absolute values may lead to misinterpretation of CBC data. Current Interpretive Data was last revised on 2017. Testing performed by: [address] [address] Basophil pct 0.9 % [facility] Comment: Interpretive Data Percent cell count reference ranges are not reported, since discordance with absolute values may lead to misinterpretation of CBC data. Current Interpretive Data was last revised on 2017. Testing performed by: [address] [address] Blood 04/08/2025 5:40 AM CDT 04/08/2025 5:54 AM CDT us Kinza Mackey NP LAB BLOOD ORDERABLES Final Re sult [facility] [address] [facility] Department [place] [address] * (ABNORMAL) CBC with auto differential (04/08/2025 5:40 AM CDT) WBC 6.83 3.80 - 9.90 K/cumm Comment:Testing performed by : [address] [address] Hgb 12.4(L) 13.0 - 17.5 g/dL [facility]LINE Comment:Testing performed by : [address] [address] Hct 36.3(L) 38.9 - 50.3 % [facility] Comment:Testing performed by : [address] [address] Plt 166 150 - 400 K/cumm [facility]LINE Comment:Testing performed by : [address] [address] MPV 10.3 9.1 - 12.3 fL [facility] Comment:Testing performed by : [address] [address] RBC 4.06(L) 4.30 - 5.80 M/cumm [facility]LINE Comment:Testing performed by : [address] [address] MCV 89.4 81.3 - 96.4 fL [facility] Comment:Testing performed by : [address] [address] MCH 30.5 27.1 - 33.3 pg [facility]LINE Comment:Testing performed by : [address] [address] MCHC 34.2 32.3 - 35.7 g/dL [facility]LINE Comment:Testing performed by : [address], [address] RDW CV 12.0 11.1 - 14.9 % [facility]LINE Comment:Testing performed by : [address], [address] RDW SD 39.1 35.7 - 48.1 fL [facility] Comment:Testing performed by : [address] [address] NRBC abs 0.00 0.00 - 0.01 K/cumm [facility] Comment:Testing performed by : [address] [address] Blood 04/08/2025 5:40 AM CDT 04/08/2025 5:54 AM CDT us Kinza Mackey NP LAB BLOOD ORDERABLES Final Re sult [facility] [address] [facility] Department of Laboratories [place], [place] [id number] * Basic metabolic panel (04/08/2025 5:40 AM CDT) Sodium 141 135 - 145 mmol/L Comment:Testing performed by : [facility], [address] [place] [address], [place]., [address] Potassium, pl 4.2 3.3 - 4.9 mmol/L [facility] Comment:Testing performed by : [address], [place]., [address] Chloride 108 97 - 110 mmol/L [facility] Comment:Testing performed by : [address], [place]., [address] CO2 23 22 - 32 mmol/L [facility] Comment:Testing performed by : [address], [place]., [address] Anion gap 10 2 - 15 mmol/L [facility] Comment:Testing performed by : [address], [place]., [address] BUN 12 6 - 25 mg/dL [facility] Comment:Testing performed by : [address], [place]., [address] Creatinine 1.12 0.80 - 1.30 mg/dL [facility] Comment:Testing performed by : [address], [place]., [address] Glucose 100 70 - 199 mg/dL [facility] Comment: Interpretive Data Fasting glucose >/= 126 [...] was last revised 2022. Testing performed by: [address] [address] Calcium 8.7 8.5 - 10.3 mg/dL [facility] Comment:Testing performed by : [address], [place]., [address] Blood 04/08/2025 5:40 AM CDT 04/08/2025 5:53 AM CDT Kinza Mackey TWISTER FRAME TENDER LAB BLOOD ORDERABLES Final Re sult Performing Organization Address City/[facility] Co de Phone Number ELIDA [address] [employer] [place] [address] * (ABNORMAL) Hemoglobin and hematocrit (04/07/2025 11:30 PM CDT) Hgb 12.6(L) 13.0 - 17.5 g/dL Comment:Testing performed by : [address] [address] Hct 36.1(L) 38.9 - 50.3 % [facility] Comment:Testing performed by : [address] [address] Blood 04/07/2025 11:3 0 PM CDT 04/08/2025 12:28 AM CDT Kinza [facility] TWISTER FRAME TENDER LAB BLOOD ORDERABLES Final Re sult Performing Organization Address [facility] Co de Phone Number ELIDA [address] [address] * (ABNORMAL) Hemoglobin and hematocrit (04/07/2025 6:36 PM CDT) Hgb 12.7(L) 13.0 - 17.5 g/dL Comment:Testing performed by : [address] [address] Hct 35.9(L) 38.9 - 50.3 % [facility] Comment:Testing performed by : [address] [address] Blood 04/07/2025 6:3 6 PM CDT 04/07/2025 6:47 PM CDT Kinza [facility] [employer] LAB BLOOD ORDERABLES Final Re sult Performing Organization Address City/[facility]/ZIP Co de Phone Number ELIDA [address] [place] [address] * (ABNORMAL) Hemoglobin and hematocrit (04/07/2025 11:50 AM CDT) Hgb 13.5 13.0 - 17.5 g/dL Comment:Testing performed by : [address] [address] Hct 37.3(L) 38.9 - 50.3 % [facility] Comment:Testing performed by : [address] [address] Blood 04/07/2025 11:5 0 AM CDT 04/07/2025 11:53 AM CDT Kinza Mackey NP LAB BLOOD ORDERABLES Final Re sult ELIDA [address] [place] [address] * (ABNORMAL) Urinalysis reflex to microscopic and culture Urine (04/07/2025 6:39 AM CDT) Pathologist [facility] Color, ur Red(A) Yellow Comment:Testing performed by : [address] [address] Clarity, ur Cloudy(A) Clear [facility] Comment:Testing performed by : [address] [address] Specific gravity, ur 1.013 1.003 - 1.030 [facility] Comment:Testing performed by : [address] [address] pH, urine 8.0 [facility] Comment: Interpretive Data U rine pH is affected by diet, medications, systemic acid-base disturbances, and renal tubular function. pH may affect urinary stone formation. For example, urine pH below 6.0 may help reduce the tendency for calcium phosphate stones and pH greater than 6.0 may reduce the tendency for uric acid stone formation. Source: [facility] [employer] Current Interpretive Data was last revised on 2017 Testing performed by: [address] [address] Protein, ur ql Trace(A) Negative [facility] Comment:Testing performed by : [address] [address] Glucose, ur ql Negative Negative [facility] Comment:Testing performed by : [address], [place]., [address] Ketones, ur Negative Negative [facility] Comment:Testing performed by : [address], [place]., [address] Bilirubin, ur Negative Negative [facility] Comment:Testing performed by : [address], [place]., [address] Blood, ur 3+(A) Negative [facility] Comment:Testing performed by : [address], [place]., [address] Urobilinogen, ur <2.0 <2.0 mg/dL [facility] Comment:Testing performed by : [address], [place]., [address] Nitrite, ur Negative Negative [facility] Comment:Testing performed by : [address], [place]., [address] Leukocyte esterase, ur Negative Negative [facility] Comment:Testing performed by : [address] [address] UA reflex comment Reflex to microscopic UA will be performed. [facility] Comment:Testing performed by : [address], [place]., [address] Urine 04/07/2025 6:39 AM CDT 04/07/2025 6:51 AM CDT us Felix Hardy DO LAB MICROBIOLOGY - GENERAL ORD ERABLES Final Result [facility] KLINE [address] [facility] Department [place] [address] * (ABNORMAL) Urinalysis, microscopic only (04/07/2025 6:39 AM CDT) WBC, ur 0-5 0 - 5 /HPF Comment:Testing performed by : [address] [address] RBC, ur >50(A) 0 - 2 /HPF [facility] Comment:Testing performed by : [address] [address] Epithelial cells, squamous, ur 11-20(A) 0 - 5 /HPF [facility] Comment:Testing performed by : [address] [address] Culture Reflex Comment Reflex conditions for urine culture (WBC >10) not met. [facility] Comment:Testing performed by : [facility], [address] [place] [address], [place]., [address] Urine 04/07/2025 6:39 AM CDT 04/07/2025 6:51 AM CDT us Felix Hardy DO LAB URINE ORDERABLES Final Res ult [facility] [address] [facility] Department [place] [address] * CT Abdomen Pelvis WO Contrast (04/07/2025 [...] by Jane Bailey M.D. SN: Report ID: [id number] Reading Location: [place] [address] Procedure Note Jane Bailey MD - 04/07/2025 [...] by Jane Bailey M.D. SN: Report ID: [id number] Reading Location: [place] [address] us Felix Hardy DO IMG CT PROCEDURES [...] was last reviewed 2021. Testing performed by: [facility], [address] [place] [address], [place]., [address] Blood 04/07/2025 1:49 AM CDT 04/07/2025 1:55 AM CDT us Felix Hardy DO LAB BLOOD ORDERABLES Final Res ult [facility] [address] [facility] Department [place] [address] * (ABNORMAL) Differential, auto (04/07/2025 1:49 AM CDT) Neutrophil abs 6.21 1.50 - 6.50 K/cumm Comment:Testing performed by : [address] [address] Imm gran abs 0.08 0.00 - 0.10 K/cumm [facility] Comment:Testing performed by : [address] [address] Lymphocyte abs 2.54 0.80 - 3.30 K/cumm [facility] Comment:Testing performed by : [address] [address] Monocyte abs 0.81(H) 0.20 - 0.80 K/cumm [facility] Comment:Testing performed by : [address] [address] Eosinophil abs 0.09 0.00 - 0.50 K/cumm [facility] Comment:Testing performed by : [address] [address] Basophil abs 0.09 0.00 - 0.10 K/cumm [facility] Comment:Testing performed by : [address] [address] Neutrophil pct 63.3 % [facility] Comment: Interpretive Data Percent cell count reference ranges are not reported, since discordance with absolute values may lead to misinterpretation of CBC data. Current Interpretive Data was last revised on 2017. Testing performed by: [address] [address] Imm gran pct 0.8 % [facility] Comment: Interpretive Data Percent cell count reference ranges are not reported, since discordance with absolute values may lead to misinterpretation of CBC data. Current Interpretive Data was last revised on 2017. Testing performed by: [address] [address] Lymphocyte pct 25.9 % [facility] Comment: Interpretive Data Percent cell count reference ranges are not reported, since discordance with absolute values may lead to misinterpretation of CBC data. Current Interpretive Data was last revised on 2017. Testing performed by: [address] [address] Monocyte pct 8.2 % [facility] Comment: Interpretive Data Percent cell count reference ranges are not reported, since discordance with absolute values may lead to misinterpretation of CBC data. Current Interpretive Data was last revised on 2017. Testing performed by: [address] [address] Eosinophil pct 0.9 % [facility] Comment: Interpretive Data Percent cell count reference ranges are not reported, since discordance with absolute values may lead to misinterpretation of CBC data. Current Interpretive Data was last revised on 2017. Testing performed by: [address] [address] Basophil pct 0.9 % [facility] Comment: Interpretive Data Percent cell count reference ranges are not reported, since discordance with absolute values may lead to misinterpretation of CBC data. Current Interpretive Data was last revised on 2017. Testing performed by: [address] [address] Blood 04/07/2025 1:49 AM CDT 04/07/2025 1:55 AM CDT us Felix Hardy DO LAB BLOOD ORDERABLES Final Res ult [facility] [address] [facility] Department [place] [address] * (ABNORMAL) CBC with auto differential (04/07/2025 1:49 AM CDT) WBC 9.82 3.80 - 9.90 K/cumm Comment:Testing performed by : [address] [address] Hgb 14.9 13.0 - 17.5 g/dL [facility] Comment:Testing performed by : [address] [address] Hct 41.4 38.9 - 50.3 % [facility] Comment:Testing performed by : [address] [address] Plt 233 150 - 400 K/cumm [facility] Comment:Testing performed by : [address] [address] MPV 10.5 9.1 - 12.3 fL [facility] Comment:Testing performed by : [address] [address] RBC 4.78 4.30 - 5.80 M/cumm [facility] Comment:Testing performed by : [address] [address] MCV 86.6 81.3 - 96.4 fL [facility] Comment:Testing performed by : [address] [address] MCH 31.2 27.1 - 33.3 pg [facility] Comment:Testing performed by : [address] [address] MCHC 36.0(H) 32.3 - 35.7 g/dL [facility] Comment:Testing performed by : [address] [address] RDW CV 11.5 11.1 - 14.9 % [facility] Comment:Testing performed by : [address] [address] RDW SD 36.6 35.7 - 48.1 fL [facility] Comment:Testing performed by : [address] [address] NRBC abs 0.00 0.00 - 0.01 K/cumm [facility] Comment:Testing performed by : [address] [address] Blood Venous blood specimen / Unknown 04/07/2025 1:49 AM CDT 04/07/2025 1:55 AM CDT us Felix Hardy DO LAB BLOOD ORDERABLES Final Res ult [facility] [address] [facility] Department [place] [address] * Lipase (04/07/2025 1:49 AM CDT) Lipase 84 10 - 99 Units/L Comment:Testing performed by : [address] [address] Blood Venous blood specimen / Unknown 04/07/2025 1:49 AM CDT 04/07/2025 1:55 AM CDT Felix Hardy DO LAB BLOOD ORDERABLES Final Res ult [facility] [address] [facility] Department [place] [address] * (ABNORMAL) Comprehensive metabolic panel (04/07/2025 1:49 AM CDT) Pathologist [facility] Sodium 138 135 - 145 mmol/L Comment:Testing performed by : [address] [address] Potassium, pl 4.1 3.3 - 4.9 mmol/L [facility] Comment: Hemolyzed; Potassium value may be falsely elevated by as much as 1.0 mmol/L. Suggest redraw and reanalysis. Testing performed by: [address] [address] Chloride 98 97 - 110 mmol/L [facility] Comment:Testing performed by : [address] [address] CO2 18(L) 22 - 32 mmol/L [facility] Comment:Testing performed by : [address] [address] Anion gap 22(H) 2 - 15 mmol/L [facility] Comment:Testing performed by : [address] [address] BUN 15 6 - 25 mg/dL [facility] Comment:Testing performed by : [address] [address] Creatinine 1.19 0.80 - 1.30 mg/dL [facility] Comment:Testing performed by : [address] [address] Glucose 114 70 - 199 mg/dL [facility] Comment: Interpretive [...] was last revised 2022. Testing performed by: [address] [address] Calcium 10.2 8.5 - 10.3 mg/dL [facility] Comment:Testing performed by : [address] [address] Bilirubin, total 0.4 0.1 - 1.2 mg/dL [facility] Comment:Testing performed by : [address] [address] Protein, pl 7.5 6.5 - 8.5 g/dL [facility] Comment:Testing performed by : [address] [address] Albumin 4.7 3.5 - 5.0 g/dL [facility]IE Comment:Testing performed by : [address] [address] Alk phos 79 40 - 130 Units/L [facility] Comment:Testing performed by : [address] [address] ALT 17 7 - 55 Units/L [facility] Comment:Testing performed by : [address] [address] AST 31 10 - 50 Units/L [facility] Comment: Hemolyzed; result may be falsely elevated Testing performed by: [address] [address] Blood Venous blood specimen / Unknown 04/07/2025 1:49 AM CDT 04/07/2025 1:55 AM CDT Felix Hardy DO LAB BLOOD ORDERABLES Final Res ult Performing Organization Address City/[facility]/ZIP Co de Phone Number ELIDA [address] [facility] Department [place] [address] * FL Fluoroscopy < 1 Hour (03/06/2025 1:31 PM CDT) Narrative [email or web address] - 03/06/2025 1:32 PM CDT The images from this study are not interpreted by Radiology. Please refer to the physician's procedure / OR operative note. Christopher Yates MD IMG FLUOROSCOPY PROCED URES Final Result Performing Organization Address [facility] de Phone Number [email or web address] * SC AN ELECTIVE SUPRAGLOTTIC AIRWAY, SC AN PROCEDURE PLACEHOLDER (03/06/2025 12:11 PM CDT) Narrative Dionna Stewart CRNA - 03/06/2025 12:11 PM CDT Dionna Stewart CRNA 03/06/2025 12:11 PM Airway Patient location: OR Urgency: elective Indications for airway management: anesthesia Difficult airway: no Staff: Placed by: GLACING MACHINE TENDER: Dionna Stewart CRNA Emergent airway documentation: Risks and benefits discussed: yes Consent obtained: yes Consent given by: patient Airway prep: Preoxygenated: yes Patient position: sniffing Mask difficulty assessment: 0 - not attempted Spontaneous ventilation during airway: absent Sedation level during airway: GA Final airway details: Final airway type: supraglottic airway Final supraglottic airway: IGel SGA size: 5 Number of attempts: 1 Ventilation between attempts: none Kristopher Murphy MD ANESTHESIA ORDERABLES Final Result * FL Fluoroscopy < 1 Hour (02/23/2025 4:26 PM CDT) Narrative [email or web address][facility] - 02/23/2025 4:27 PM CDT The images from this study are not interpreted by Radiology. Please refer to the physician's procedure / OR operative note. Christopher Yates MD IMG FLUOROSCOPY PROCED URES Final Result Performing Organization Address [facility]/ZIP Co de Phone Number [email or web address] * SC AN ELECTIVE SUPRAGLOTTIC AIRWAY, SC AN PROCEDURE PLACEHOLDER (02/23/2025 3:59 PM CDT) Narrative Magy Brianna KVNG [place] - 02/23/2025 3:59 PM CDT Brianna Bhatti CRNA 02/23/2025 4:00 PM Airway Patient location: OR Urgency: elective Indications for airway management: anesthesia Difficult airway: no Airway prep: Preoxygenated: yes Patient position: sniffing Mask difficulty assessment: 1 - vent by mask Spontaneous ventilation during airway: absent Sedation level during airway: GA Final airway details: Final airway type: supraglottic airway Final supraglottic airway: IGel SGA size: 5 Number of attempts: 1 Ventilation between attempts: none Additional comments: Atraumatic Mariana Santana MD ANESTHESIA ORDERABLES Fi nal Result * Urine culture Urine, bladder (02/17/2025 4:01 PM CDT) Urine culture [employer] [facility] Comment: CULTURE, URINE, ROUTINE Micro Number: [id number] Test Status: Final Specimen Source: Urine, clean catch Specimen Quality: Adequate Result: No Growth Urine, bladder 02/17/2025 4: 01 PM CDT 02/17/2025 4:02 PM CDT Darby Rubio TWISTER FRAME TENDER LAB MICROBIOLOGY - [facility] AL ORDERABLES Final Result [email or web address] [address] [place] [address] * CT Abdomen Pelvis WO Contrast (02/15/2025 1:59 AM CDT) Anatomical Region Laterality Modality Body N/A Computed Tomogra phy 02/15/2025 2:46 AM CDT Narrative 02/15/2025 2:49 AM CDT EXAM DESCRIPTION: CT ABDOMEN PELVIS WO CONTRAST REASON FOR STUDY: Abdominal/flank pain, stone suspected Pt arrived with c/o left flank pain that started an hour prior to arrival. Reports nausea. TECHNIQUE: CT scan of the abdomen and pelvis performed without intravenous and without oral contrast using helical scanning technique. Reconstructed coronal and sagittal MPR images reviewed. All images stored on PACS. Automated exposure control was used as a dose optimization technique for this examination. COMPARISON: CT of the abdomen and pelvis of December 14, 2014. FINDINGS: The sensitivity for detection of visceral lesions is diminished without the use of intravenous contrast. LOWER CHEST: There is bibasilar atelectasis. LIVER: The liver is normal in attenuation without focal lesion. GALLBLADDER: No stones identified. Normal wall. No evidence of pericholecystic fluid. BILE DUCTS: No intrahepatic or extrahepatic ductal dilatation. PANCREAS: Normal. SPLEEN: Normal size. No focal lesions. ADRENALS: Normal. KIDNEYS/URINARY TRACT: There are multiple nonobstructing stones seen within the kidneys bilaterally measuring up to 5 mm on the left. The renal parenchyma appears unremarkable on this noncontrast enhanced exam. There is no right hydronephrosis or hydroureter. There is mild left hydronephrosis and proximal left hydroureter to the level a 4 mm stone just beyond the ureteropelvic junction. The bladder is collapsed. VASCULATURE: No acute abnormality seen. No abdominal aortic aneurysm. GI: The stomach appears normal. There is no significant small bowel dilation or visible thickening. No gross colonic abnormalities identified. The appendix is normal. PERITONEUM/MESENTERY: No ascites or free air. LYMPH NODES: There are no enlarged lymph nodes seen by CT size criteria. REPRODUCTIVE: The prostate and seminal vesicles are unremarkable. MUSCULOSKELETAL: Multilevel degenerative changes are present in the spine. No acute abnormality is seen. OTHER: No other abnormality. IMPRESSION: Mild left hydronephrosis and proximal left hydroureter to the level of a 4 mm stone just beyond the ureteropelvic junction. Bilateral nonobstructing nephrolithiasis. THIS IS AN ELECTRONICALLY VERIFIED FINAL REPORT 02/15/2025 2:49 AM - Electronically signed by Jane Bailey M.D. SN: Report ID: [id number] Reading Location: [id number] Procedure Note Jane Bailey MD - 02/15/2025 EXAM DESCRIPTION: CT ABDOMEN PELVIS WO CONTRAST REASON FOR STUDY: Abdominal/flank pain, stone suspected Pt arrived with c/o left flank pain that started an hour prior to arrival. Reports nausea. TECHNIQUE: CT scan of the abdomen and pelvis performed without intravenousand without oral contrast using helical scanning technique. Reconstructed coronal and sagittal MPR images reviewed. All images stored on PACS.Automated exposure control was used as a dose optimization technique for this examination. COMPARISON: CT of the abdomen and pelvis of December 14, 2014. FINDINGS: The sensitivity for detection of visceral lesions is diminished without the use of intravenous contrast. LOWER CHEST: There is bibasilar atelectasis. LIVER: The liver is normal in attenuation without focal lesion. GALLBLADDER: No stones identified. Normal wall. No evidence of pericholecystic fluid. BILE DUCTS: No intrahepatic or extrahepatic ductal dilatation. PANCREAS: Normal. SPLEEN: Normal size. No focal lesions. ADRENALS: Normal. KIDNEYS/URINARY TRACT: There are multiple nonobstructing stones seenwithin the kidneys bilaterally measuring up to 5 mm on the left. The renal parenchyma appears unremarkable on this noncontrast enhanced exam. Thereis no right hydronephrosis or hydroureter. There is mild left hydronephrosisand proximal left hydroureter to the level a 4 mm stone just beyond the ureteropelvic junction. The bladder is collapsed. VASCULATURE: No acute abnormality seen. No abdominal aortic aneurysm. GI: The stomach appears normal. There is no significant small bowel dilation or visible thickening. No gross colonic abnormalitiesidentified. The appendix is normal. PERITONEUM/MESENTERY: No ascites or free air. LYMPH NODES: There are no enlarged lymph nodes seen by CT size criteria. REPRODUCTIVE: The prostate and seminal vesicles are unremarkable. MUSCULOSKELETAL: Multilevel degenerative changes are present in thespine. No acute abnormality is seen. OTHER: No other abnormality. IMPRESSION: Mild left hydronephrosis and proximal left hydroureter to the level of a4 mm stone just beyond the ureteropelvic junction. Bilateral nonobstructing nephrolithiasis. THIS IS AN ELECTRONICALLY VERIFIED FINAL REPORT 02/15/2025 2:49 AM - Electronically signed by Jane Bailey M.D. SN: Report ID: [id number] Reading Location: [id number] us Felix Hardy DO IMG CT PROCEDURES Final Result * eGFR (02/15/2025 1:29 AM CDT) eGFR 65 >=60 mL/min/1. 73 m2 Comment: Interpretive Data [...] was last reviewed 2021. Testing performed by: [address] [address] Blood 02/15/2025 1:29 AM CDT 02/15/2025 1:32 AM CDT Felix Hardy DO LAB BLOOD ORDERABLES Final Res ult ELIDA [address] [facility] Department [place] [address] * (ABNORMAL) Differential, auto (02/15/2025 1:29 AM CDT) Neutrophil abs 6.59(H) 1.50 - 6.50 K/cumm Comment:Testing performed by : [address] [address] Imm gran abs 0.06 0.00 - 0.10 K/cumm ELIDA KLINE Comment:Testing performed by : [address], [place]., [address] Lymphocyte abs 1.94 0.80 - 3.30 K/cumm ELIDA Comment:Testing performed by : [address], [place]., [address] Monocyte abs 0.76 0.20 - 0.80 K/cumm ELIDA Comment:Testing performed by : [address], [place]., [address] Eosinophil abs 0.12 0.00 - 0.50 K/cumm ELIDA Comment:Testing performed by : [address], [place]., [address] Basophil abs 0.09 0.00 - 0.10 K/cumm ELIDA Comment:Testing performed by : [address] [address] Neutrophil pct 69.0 % ELIDA Comment: Interpretive Data Percent cell count reference ranges are not reported, since discordance with absolute values may lead to misinterpretation of CBC data. Current Interpretive Data was last revised on 2017. Testing performed by: [address] [address] Imm gran pct 0.6 % [facility]ELVIE Comment: Interpretive Data Percent cell count reference ranges are not reported, since discordance with absolute values may lead to misinterpretation of CBC data. Current Interpretive Data was last revised on 2017. Testing performed by: [address] [address] Lymphocyte pct 20.3 % CERELVIE Comment: Interpretive Data Percent cell count reference ranges are not reported, since discordance with absolute values may lead to misinterpretation of CBC data. Current Interpretive Data was last revised on 2017. Testing performed by: [address] [address] Monocyte pct 7.9 % [facility] Comment: Interpretive Data Percent cell count reference ranges are not reported, since discordance with absolute values may lead to misinterpretation of CBC data. Current Interpretive Data was last revised on 2017. Testing performed by: [address] [address] Eosinophil pct 1.3 % ELIDA Comment: Interpretive Data Percent cell count reference ranges are not reported, since discordance with absolute values may lead to misinterpretation of CBC data. Current Interpretive Data was last revised on 2017. Testing performed by: [address] [address] Basophil pct 0.9 % ELIDA Comment: Interpretive Data Percent cell count reference ranges are not reported, since discordance with absolute values may lead to misinterpretation of CBC data. Current Interpretive Data was last revised on 2017. Testing performed by: [address] [address] Blood 02/15/2025 1:29 AM CDT 02/15/2025 1:32 AM CDT us Felix Hardy DO LAB BLOOD ORDERABLES Final Res ult ELIDA [address] [facility] Department [place] [address] * (ABNORMAL) Urinalysis reflex to microscopic and culture Urine (02/15/2025 1:29 AM CDT) Color, ur Yellow Yellow Comment:Testing performed by : [address] [address] Clarity, ur Clear Clear ELIDA Comment:Testing performed by : [address] [address] Specific gravity, ur 1.029 1.003 - 1.030 ELIDA Comment:Testing performed by : [address] [address] pH, urine 7.0 ELIDA Comment: Interpretive Data U rine pH is affected by diet, medications, systemic acid-base disturbances, and renal tubular function. pH may affect urinary stone formation. For example, urine pH below 6.0 may help reduce the tendency for calcium phosphate stones and pH greater than 6.0 may reduce the tendency for uric acid stone formation. Source: [employer] Current Interpretive Data was last revised on 2017 Testing performed by: [address], [place]., [address] Protein, ur ql Trace(A) Negative ELIDA Comment:Testing performed by : [address], [place]., [address] Glucose, ur ql Negative Negative ELIDA Comment:Testing performed by : [address], [place]., [address] Ketones, ur Trace(A) Negative ELIDA Comment:Testing performed by : [address], [place]., [address] Bilirubin, ur Negative Negative ELIDA Comment:Testing performed by : [address], [place]., [address] Blood, ur 2+(A) Negative ELIDA Comment:Testing performed by : [address], [place]., [address] Urobilinogen, ur <2.0 <2.0 mg/dL ELIDA Comment:Testing performed by : [address], [place]., [address] Nitrite, ur Negative Negative ELIDA Comment:Testing performed by : [address], [place]., [address] Leukocyte esterase, ur Negative Negative ELIDA Comment:Testing performed by : [address] [address] UA reflex comment Reflex to microscopic UA will be performed. ELIDA Comment:Testing performed by : [address] [address] Urine 02/15/2025 1:29 AM CDT 02/15/2025 1:32 AM CDT us Felix Hardy DO LAB MICROBIOLOGY - GENERAL ORD ERABLES Final Result ELIDA KLINE [address] [facility] Department [place] [address] * (ABNORMAL) CBC with auto differential (02/15/2025 1:29 AM CDT) WBC 9.56 3.80 - 9.90 K/cumm Comment:Testing performed by : [address] [address] Hgb 15.0 13.0 - 17.5 g/dL ELIDA Comment:Testing performed by : [address] [address] Hct 42.0 38.9 - 50.3 % ELIDA Comment:Testing performed by : [address] [address] Plt 230 150 - 400 K/cumm ELIDA Comment:Testing performed by : [address] [address] MPV 10.4 9.1 - 12.3 fL ELIDA Comment:Testing performed by : [address], [address] RBC 4.93 4.30 - 5.80 M/cumm ELIDA Comment:Testing performed by : [address] [address] MCV 85.2 81.3 - 96.4 fL ELIDA Comment:Testing performed by : [address] [address] MCH 30.4 27.1 - 33.3 pg ELIDA Comment:Testing performed by : [address] [address] MCHC 35.7 32.3 - 35.7 g/dL ELIDA Comment:Testing performed by : [address], [address] RDW CV 11.5 11.1 - 14.9 % ELIDA Comment:Testing performed by : [address] [address] RDW SD 35.4(L) 35.7 - 48.1 fL ELIDA Comment:Testing performed by : [address] [address] NRBC abs 0.00 0.00 - 0.01 K/cumm ELIDA Comment:Testing performed by : [address] [address] Blood 02/15/2025 1:29 AM CDT 02/15/2025 1:32 AM CDT Felix [employer] DO LAB BLOOD ORDERABLES Final Res ult Performing Organization Address [facility] Co de Phone Number ELIDA [address] [place] [address] * (ABNORMAL) Urinalysis, microscopic only (02/15/2025 1:29 AM CDT) WBC, ur 6-10(A) 0 - 5 /HPF Comment:Testing performed by : [facility], [address] [place] [address]., [address] RBC, ur >50(A) 0 - 2 /HPF ELIDA Comment:Testing performed by : [facility], [address] [place] [address]., [address] Mucous, ur Present(A) ELIDA Comment:Testing performed by : [address] [address] Culture Reflex Comment Reflex conditions for urine culture (WBC >10) not met. ELIDA Comment:Testing performed by : [address] [address] Urine 02/15/2025 1:29 AM CDT 02/15/2025 1:32 AM CDT [employer] DO LAB URINE ORDERABLES Final Res ult Performing Organization Address [facility] Co de Phone Number ELIDA [facility] [place] [address] * Lipase (02/15/2025 1:29 AM CDT) Lipase 67 10 - 99 Units/L Comment:Testing performed by : [address] [address] Blood Venous blood specimen / Unknown 02/15/2025 1:29 AM CDT 02/15/2025 1:32 AM CDT [employer] DO LAB BLOOD ORDERABLES Final Res ult ELIDA [address] [facility] Department [place] [address] * (ABNORMAL) Comprehensive metabolic panel (02/15/2025 1:29 AM CDT) Sodium 140 135 - 145 mmol/L Comment:Testing performed by : [address] [address] Potassium, pl 3.6 3.3 - 4.9 mmol/L ELIDA Comment: Hemolyzed; Potassium value may be falsely elevated by as much as 1.0 mmol/L. Suggest redraw and reanalysis. Testing performed by: [address] [address] Chloride 101 97 - 110 mmol/L ELIDA Comment:Testing performed by : [address] [address] CO2 25 22 - 32 mmol/L ELIDA Comment:Testing performed by : [address] [address] Anion gap 14 2 - 15 mmol/L ELIDA Comment:Testing performed by : [address] [address] BUN 17 6 - 25 mg/dL ELIDA Comment:Testing performed by : [address] [address] Creatinine 1.35(H) 0.80 - 1.30 mg/dL ELIDA Comment:Testing performed by : [address] [address] Glucose 125 70 - 199 mg/dL ELIDA Comment: Interpretive [...] was last revised 2022. Testing performed by: [facility], [address] [place] [address]., [address] Calcium 9.7 8.5 - 10.3 mg/dL ELIDA Comment:Testing performed by : [address] [address] Bilirubin, total 0.3 0.1 - 1.2 mg/dL ELIDA Comment:Testing performed by : [address] [address] Protein, pl 7.1 6.5 - 8.5 g/dL ELIDA Comment:Testing performed by : [address] [address] Albumin 4.4 3.5 - 5.0 g/dL ELIDA Comment:Testing performed by : [address] [address] Alk phos 72 40 - 130 Units/L ELIDA Comment:Testing performed by : [address] [address] ALT 28 7 - 55 Units/L ELIDA Comment:Testing performed by : [address] [address] AST 31 10 - 50 Units/L ELIDA Comment: Hemolyzed; result may be falsely elevated Testing performed by: [address] [address] Blood 02/15/2025 1:29 AM CDT 02/15/2025 1:32 AM CDT us Felix Hardy DO LAB BLOOD ORDERABLES Final Res ult ELIDA [address] [facility] Department [place] [address] from Last 3 Months Insurance [employer] ACCESS CHOICE BLUE ACC CHOICE [facility] Advance Directives For more information, please contact: [phone] * Full Code (Latest Code Status on File) Date Activated Date Inactivated Comments 04/07/2025 9:16 AM 04/13/2025 2:19 PM Care Teams Criminal Psychologist Relationship Specialty Start Date End Date Margie Santos MD [address] [place] [id number] PCP - General Internal Medicine 02/13/23
--- OUTSIDE RECORDS SUMMARY | 2025-04-13 19:30 | XMS_ITS | Encounter Summary ---
Author Organization [facility] Healthcare Address [address] [place] [address] Care Team Providers Care Mass Spec Name Role Phone Margie Santos MD Primary Care Provider Reason for Visit * Reason Onset Date Comments ABDIAS Questions 04/13/2025 Encounter Details Date Type Department Care Team (Late st Contact Info) Description 04/13/2025 Telephone [facility] Primary Care [address] [place] [phone] Margie Santos MD [address] [place] [phone] ABDIAS Questions Social History Tobacco Use Types Packs/Day Years Used Date Smoking Tobacco: Never Smokeless Tobacco: Never Comments:No usage ever [facility] Utilities Answer Date Recorded In the past 12 months has [employer], gas, oil, or water [employer] threatened to shut off services in your [...] often do you attend chur ch or anglican services? Never 04/08/2025 Do you belong to any clubs o r organizations such as uatsdin groups, unions, fraternal or athletic groups, or [...] any time in the past [address] [facility], were you homeless or living in a chcf (including now)? No 04/08/2025 Personal Safety Answer Date Recorded Have you ever been in or are you currently in a harmful physical or emotional relationship or is someone making you feel afraid or unsafe? Denies 04/07/2025 Sex and Gender Information Value Date Recorded Sex Assigned at Not on file Legal Sex Male 7:26 PM NEUROPSYCHIATRIST Gender Identity Not on file Sexual Orientation Not on file documented as of this encounter Miscellaneous Notes * Telephone Encounter - Ila Carrillo - 04/13/2025 9:35 AM CDT ABDIAS Questions (Message from [facility] Field Engineer): Has patient been discharged at time of call? No Will patient be transferred to another inpatient facility (e.g. [facility], inpatient rehab, etc.)? No The patient was not discharged at the time of the call. Patient will need to be contacted after discharge to complete remaining questions. Date Admitted: 04.07.25 Tentative Discharge Date: 04.13.25 Facility Admitted To: [facility] Date of ABDIAS Appointment: 04.20.25 Additional Comments: Admitted for hematuria and polynephritis Does message need to be routed? Yes-Action Needed documented in this encounter Plan of Treatment Not on file documented as of this encounter Visit Diagnoses Not on filedocumented in this encounter Care Teams Mass Spec Relationship Specialty Start Date End Date Margie Santos MD [address] [place] [id number] PCP - General Internal Medicine 02/13/23 documented as of this encounter
--- OUTSIDE RECORDS SUMMARY | 2025-04-13 19:31 | XMS_ITS | Clinical Summary ---
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 Name Role Phone Margie Santos MD Primary Care Provider Allergies No known active allergies Medications loratadine [...] 04/07/2025 Left nephrolithiasis 02/25/2025 Kidney stone 02/18/2025 Encounters Date Type Department Care Team Description 04/13/2025 Telephone [facility] Primary Care [address] [place] [phone] Margie Santos MD ABDIAS Questions 04/13/2025 Telephone [facility] Care [address] [place] [phone] Margie Santos MD ABDIAS Questions 04/07/2025 1:37 AM CDT - 04/13/2025 10:04 AM CDT Hospital Encounter [facility] 5 Med Surg [address] [place] [address] Felix Hardy DO Abbeg, Andrew Paul, Indra Hernandez MD Nyquist, David J., MD Gaspe Mudiyanselage, Lillie Elizondo MD Gross hematuria (Primary Dx); Acute left flank pain; History of kidney stones Discharge Disposition: Discharge to home or self care 03/24/2025 Orders Only [facility] ([facility]) - [facility] Urology [address] [place] [address] Advanced Medicine 11th [place] [address] Estela Suh NP 03/13/2025 10:40 AM CDT Office Visit [facility] Advanced Medicine ([facility]) - [facility] Urology [facility] Advanced Medicine 11th [place] [address] [place] [address] Estela Suh NP Left ureteral stone (Primary Dx) 03/06/2025 1:55 PM CDT - 03/06/2025 3:45 PM CDT Surgery [facility] Operating Room [address] [place], [place] [address] Christopher Yates MD LEFT URETEROSCOPY 03/06/2025 11:55 AM CDT Anesthesia Event [facility] Operating Room [address] [place] [address] Kristopher Murhpy MD Thurman, Kathryn Ann, CRNA 03/06/2025 11:08 AM CDT - 03/06/2025 2:54 PM CDT Hospital Encounter [facility] Operating Room [address] [place], [place] [address] Christopher Yates MD Left nephrolithiasis [N20.0] (Primary Dx) Discharge Disposition: Discharge to home or self care 02/25/2025 Orders Only [facility] Surgery [address] [place] [address] Christopher Yates MD Kidney stone (Primary Dx) 02/23/2025 4:30 PM CDT - 02/23/2025 6:30 PM CDT Surgery [facility] Operating Room [address] [address] [place], [place] [address] Christopher Yates MD LEFT URETEROSCOPY 02/23/2025 3:43 PM CDT Anesthesia Event [facility] Operating Room [address] [place] [address] Mariana Santana MD Heuvelman, Katherine Marie, NP 02/23/2025 1:22 PM CDT - 02/23/2025 5:33 PM CDT Hospital Encounter [facility] Operating Room [address] Eli [place], [place] [address] Christopher Yates MD Kidney stone [N20.0] (Primary Dx) Discharge Disposition: Discharge to home or self care 02/18/2025 Telephone [facility] Surgery [address] [place] [address] Julia Gaitan 02/17/2025 8:00 AM CDT Office Visit [facility] Urology [address] [facility] Medical Office Building [address] [place] [phone] Darby Rubio NP Left ureteral stone 02/17/2025 [facility] ([facility]) - [facility] Urology [address] [place] [address] Advanced Medicine 11th [place] [address] [place] [address] Ashley Bullard B.A. 02/17/2025 Orders Only [facility] Urology [address] [facility] Medical Office Building [address] [place] [address] Darby Rubio NP Left ureteral stone (Primary Dx) 02/15/2025 1:23 AM CDT - 02/15/2025 3:46 AM CDT Emergency [facility] Emergency Department [address] [place] [phone] Felix Hardy DO Kidney stone on left side (Primary Dx) Discharge Disposition: Discharge to home or self care from Last 3 Months Immunizations Immunization Administration Dates Next Due Influenza, Quadrivalent, Iveth l Culture-based MDCK, Preservative Free, Antibiotic Free, Intramuscular 07/04/2023,07/12/2022,07/13/2021,06/10,07/15/2019,07/04/2018 Influenza, Trivalent, Cell Culture-based MDCK, Preservative Free, Antibiotic Free, Intramuscular 06/18/2024 Tdap 07/20/2019 Surgical History Surgery Date Site/Laterality Comments ORAL SURGERY Family History Medical History Relation Name Comments Testicular cancer Brother Hyperlipidemia Father Mort Memory loss Father's Brother Gale Asthma Mother Pat Relation Name Status Comments Brother Alive Father Mort Alive Father's Brother Gale Mother Pat Alive Social History Tobacco Use Types Packs/Day Years Used Date Smoking Tobacco: Never Smokeless Tobacco: Never Tobacco Cessation:Counseling Given: Not Answered Comments:No usage ever [facility] Utilities Answer Date Recorded In the past 12 months has [employer], gas, oil, or water [employer] threatened to shut off services in your [...] often do you attend chur ch or worship services? Never 04/08/2025 Do you belong to [...] any time in the past 12 [facility], were you homeless or living in a fpc (including now)? No 04/08/2025 Personal Safety Answer Date Recorded Have you ever been in or are you currently in a harmful physical or emotional relationship or is someone making you feel afraid or unsafe? 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 Gender Identity Not on file Sexual Orientation Not on file Obstetrics History Last Filed Vital Signs Vital Sign Reading [...] 04/07/2025 9:38 PM CDT Plan of Treatment Health Maintenance Due Date Last Done Comments Colon Cancer Screening-Colonoscopy 1980 Hepatitis C Screening 1978 Hepatitis B Screening 01/02/1996 Depression Screening 02/14/2024 02/13/2023 Regular Well Visit/Exam 18-64 02/14/2024 02/13/2023 Covid-19 Vaccine ( season) 2024 07/22/2023, 08/10/2021, 01/03/2021, Additional history exists Influenza Vaccine (#1) 2025 , 07/04/2023, 07/12/2022, Additional history exists DTaP/Tdap/Td Vaccine (2 - Td or Tdap) 07/20/2029 07/20/2019 Pneumococcal vaccine <65 Aged Out No longer eligible based on patient's age to complete this topic Medical Devices Explanted Type Area Lobby Attendant Device Identifier Shelf Expiration Date Model / Serial / Lot [employer] Stent Ureteral Set Double Pigtail Radiopaque Tip Univers[employer] [id number] Polyurethane Hydrophilic Coated [id number] - [id number] Implanted:Qty: 1 on 02/23/2025 at [facility] Explanted:Qty: 1 on 03/06/2025 by Christopher Yates MD at [facility] Left: Ureter [employer] 11/20/2027 [id number] / / [id number] Description:Discarded per [employer] Stent Ureteral Set Double Pigtail Radiopaque Tip Universa [id number] Polyurethane Hydrophilic Coated [id number] - [id number] Implanted:Qty: 1 on 03/06/2025 at [facility] Explanted:Qty: 1 on 03/13/2025 by Estela Suh NP Left: Ureter [employer] 11/20/2027 [id number] / / [id number] Procedures Procedure Name Priority Date/Time Associated Diagnosis [...] HOUR IP Routine 03/06/2025 1:31 PM CDT MA AN PROCEDURE PLACEHOLDER Routine 03/06/2025 12:11 PM CDT MA AN ELECTIVE SUPRAGLOTTIC AIRWAY Routine 03/06/2025 12:11 PM CDT EXCHANGE STENT - URETERAL 03/06/2025 12:00 PM CDT Left nephrolithiasis LASER - LITHOTRIPSY - THULIUM 03/06/2025 12:00 PM CDT Left nephrolithiasis CYSTOSCOPY 03/06/2025 12:00 PM CDT Left nephrolithiasis URETEROSCOPY 03/06/2025 12:00 PM CDT Left nephrolithiasis FL FLUOROSCOPY < 1 HOUR IP Routine 02/23/2025 4:26 PM CDT MA AN PROCEDURE PLACEHOLDER Routine 02/23/2025 3:59 PM CDT MA AN ELECTIVE SUPRAGLOTTIC AIRWAY Routine 02/23/2025 3:59 [...] was last reviewed 2021. Testing performed by: [address] [address] Blood 04/13/2025 6:06 AM CDT 04/13/2025 6:42 AM CDT us Kinza Mackey NP LAB BLOOD ORDERABLES Final Re sult ELIDA KLINE [address] [facility] [place] [address] * (ABNORMAL) Differential, auto (04/13/2025 6:06 AM CDT) Pathologist [facility] Neutrophil abs 5.71 1.50 - 6.50 K/cumm Comment:Testing performed by : [address] [address] Imm gran abs 0.13(H) 0.00 - 0.10 K/cumm ELIDA KLINE Comment:Testing performed by : [address] [address] Lymphocyte abs 1.35 0.80 - 3.30 K/cumm [facility] Comment:Testing performed by : [address] [address] Monocyte abs 0.72 0.20 - 0.80 K/cumm [facility] Comment:Testing performed by : [address], [place]., [address] Eosinophil abs 0.15 0.00 - 0.50 K/cumm [facility] Comment:Testing performed by : [address], [place]., [address] Basophil abs 0.09 0.00 - 0.10 K/cumm [facility] Comment:Testing performed by : [address] [address] Neutrophil pct 70.1 % [facility] Comment: Interpretive Data Percent cell count reference ranges are not reported, since discordance with absolute values may lead to misinterpretation of CBC data. Current Interpretive Data was last revised on 2017. Testing performed by: [address] [address] Imm gran pct 1.6 % [facility] Comment: Interpretive Data Percent cell count reference ranges are not reported, since discordance with absolute values may lead to misinterpretation of CBC data. Current Interpretive Data was last revised on 2017. Testing performed by: [address] [address] Lymphocyte pct 16.6 % [facility] Comment: Interpretive Data Percent cell count reference ranges are not reported, since discordance with absolute values may lead to misinterpretation of CBC data. Current Interpretive Data was last revised on 2017. Testing performed by: [address] [address] Monocyte pct 8.8 % [facility] Comment: Interpretive Data Percent cell count reference ranges are not reported, since discordance with absolute values may lead to misinterpretation of CBC data. Current Interpretive Data was last revised on 2017. Testing performed by: [address] [address] Eosinophil pct 1.8 % [facility] Comment: Interpretive Data Percent cell count reference ranges are not reported, since discordance with absolute values may lead to misinterpretation of CBC data. Current Interpretive Data was last revised on 2017. Testing performed by: [address] [address] Basophil pct 1.1 % ELIDA KLINE Comment: Interpretive Data Percent cell count reference ranges are not reported, since discordance with absolute values may lead to misinterpretation of CBC data. Current Interpretive Data was last revised on 2017. Testing performed by: [address] [address] Blood 04/13/2025 6:06 AM CDT 04/13/2025 6:45 AM CDT us Kinza Mackey NP LAB BLOOD ORDERABLES Final Re sult ELIDA [facility] [place] [address] * CBC with auto differential (04/13/2025 6:06 AM CDT) WBC 8.15 3.80 - 9.90 K/cumm Comment:Testing performed by : [address] [address] Hgb 13.8 13.0 - 17.5 g/dL ELIDA KLINE Comment:Testing performed by : [address] [address] Hct 39.2 38.9 - 50.3 % ELIDA KLINE Comment:Testing performed by : [address] [address] Plt 239 150 - 400 K/cumm ELIDA KLINE Comment:Testing performed by : [address] [address] MPV 10.2 9.1 - 12.3 fL ELIDA KLINE Comment:Testing performed by : [address] [address] RBC 4.41 4.30 - 5.80 M/cumm ELIDA KLINE Comment:Testing performed by : [address] [place]., [address] MCV 88.9 81.3 - 96.4 fL ELIDA KLINE Comment:Testing performed by : [address] [address] MCH 31.3 27.1 - 33.3 pg ELIDA KLINE Comment:Testing performed by : [address] [address] MCHC 35.2 32.3 - 35.7 g/dL ELIDA KLIEN Comment:Testing performed by : [address] [address] RDW CV 11.6 11.1 - 14.9 % ELIDA KLINE Comment:Testing performed by : [address] [address] RDW SD 37.2 35.7 - 48.1 fL ELIDA KLINE Comment:Testing performed by : [address] [address] NRBC abs 0.00 0.00 - 0.01 K/cumm ELIDA KLINE Comment:Testing performed by : [address] [address] Blood 04/13/2025 6:06 AM CDT 04/13/2025 6:45 AM CDT us Kinza Mackey NP LAB BLOOD ORDERABLES Final Re sult ELIDA [address] [facility] Department of Laboratories [place], [place] [id number] * Basic metabolic panel (04/13/2025 6:06 AM CDT) Sodium 140 135 - 145 mmol/L Comment:Testing performed by : [address] [address] Potassium, pl 3.7 3.3 - 4.9 mmol/L ELIDA KLINE Comment:Testing performed by : [address] [address] Chloride 102 97 - 110 mmol/L ELIDA KLINE Comment:Testing performed by : [address] [address] CO2 27 22 - 32 mmol/L ELIDA Comment:Testing performed by : [address] [address] Anion gap 11 2 - 15 mmol/L ELIDA Comment:Testing performed by : [address] [address] BUN 13 6 - 25 mg/dL ELIDA Comment:Testing performed by : [address] [address] Creatinine 1.00 0.80 - 1.30 mg/dL ELIDA Comment:Testing performed by : [address] [address] Glucose 89 70 - 199 mg/dL ELIDA [...] was last revised 2022. Testing performed by: [address] [address] Calcium 9.3 8.5 - 10.3 mg/dL ELIDA Comment:Testing performed by : [address] [address] Blood 04/13/2025 6:06 AM CDT 04/13/2025 6:42 AM CDT us Kinza Mackey NP LAB BLOOD ORDERABLES Final Re sult ELIDA KLINE [address] [facility] Department of Laboratories [place], [place] [id number] * eGFR (04/12/2025 4:03 AM CDT) eGFR [...] was last reviewed 2021. Testing performed by: [address] [address] Blood 04/12/2025 4:03 AM CDT 04/12/2025 5:18 AM CDT us Kinza Mackey NP LAB BLOOD ORDERABLES Final Re sult ELIDA [address] [facility] [place] [address] * (ABNORMAL) Differential, auto (04/12/2025 4:03 AM CDT) Neutrophil abs 5.27 1.50 - 6.50 K/cumm Comment:Testing performed by : [address] [address] Imm gran abs 0.13(H) 0.00 - 0.10 K/cumm ELIDA KLINE Comment:Testing performed by : [address] [address] Lymphocyte abs 1.59 0.80 - 3.30 K/cumm ELIDA Comment:Testing performed by : [address] [address] Monocyte abs 0.76 0.20 - 0.80 K/cumm ELIDA KLINE Comment:Testing performed by : [address] [address] Eosinophil abs 0.25 0.00 - 0.50 K/cumm ELIDA Comment:Testing performed by : [address] [address] Basophil abs 0.10 0.00 - 0.10 K/cumm [facility] Comment:Testing performed by : [address] [address] Neutrophil pct 65.1 % [facility] Comment: Interpretive Data Percent cell count reference ranges are not reported, since discordance with absolute values may lead to misinterpretation of CBC data. Current Interpretive Data was last revised on 2017. Testing performed by: [address] [address] Imm gran pct 1.6 % [facility] Comment: Interpretive Data Percent cell count reference ranges are not reported, since discordance with absolute values may lead to misinterpretation of CBC data. Current Interpretive Data was last revised on 2017. Testing performed by: [address] [address] Lymphocyte pct 19.6 % [facility] Comment: Interpretive Data Percent cell count reference ranges are not reported, since discordance with absolute values may lead to misinterpretation of CBC data. Current Interpretive Data was last revised on 2017. Testing performed by: [address] [address] Monocyte pct 9.4 % [facility] Comment: Interpretive Data Percent cell count reference ranges are not reported, since discordance with absolute values may lead to misinterpretation of CBC data. Current Interpretive Data was last revised on 2017. Testing performed by: [address] [address] Eosinophil pct 3.1 % [facility] Comment: Interpretive Data Percent cell count reference ranges are not reported, since discordance with absolute values may lead to misinterpretation of CBC data. Current Interpretive Data was last revised on 2017. Testing performed by: [address] [address] Basophil pct 1.2 % [facility] Comment: Interpretive Data Percent cell count reference ranges are not reported, since discordance with absolute values may lead to misinterpretation of CBC data. Current Interpretive Data was last revised on 2017. Testing performed by: [address] [address] Blood 04/12/2025 4:03 AM CDT 04/12/2025 5:18 AM CDT us Kinza Mackey CLINICAL LAB SCIENTIST LAB BLOOD ORDERABLES Final Re sult ELIDA [address] [facility] [place] [address] * CBC with auto differential (04/12/2025 4:03 AM CDT) WBC 8.10 3.80 - 9.90 K/cumm Comment:Testing performed by : [address] [address] Hgb 13.9 13.0 - 17.5 g/dL ELIDA Comment:Testing performed by : [address] [address] Hct 39.6 38.9 - 50.3 % ELIDA Comment:Testing performed by : [address] [address] Plt 206 150 - 400 K/cumm ELIDA Comment:Testing performed by : [address] [address] MPV 11.1 9.1 - 12.3 fL ELIDA Comment:Testing performed by : [address] [address] RBC 4.55 4.30 - 5.80 M/cumm ELIDA KLINE Comment:Testing performed by : [address] [address] MCV 87.0 81.3 - 96.4 fL ELIDA Comment:Testing performed by : [address] [address] MCH 30.5 27.1 - 33.3 pg ELIDA KLINE Comment:Testing performed by : [address] [address] MCHC 35.1 32.3 - 35.7 g/dL ELIDA KLINE Comment:Testing performed by : [address] [address] RDW CV 11.7 11.1 - 14.9 % ELIDA KLINE Comment:Testing performed by : [address] [address] RDW SD 37.2 35.7 - 48.1 fL ELIDA KLINE Comment:Testing performed by : [address] [address] NRBC abs 0.00 0.00 - 0.01 K/cumm ELIDA KLINE Comment:Testing performed by : [address] [address] Blood 04/12/2025 4:03 AM CDT 04/12/2025 5:18 AM CDT us Kinza Mackey NP LAB BLOOD ORDERABLES Final Re sult ELIDA KLINE [facility] [facility] [place] [address] * Basic metabolic panel (04/12/2025 4:03 AM CDT) Sodium 141 135 - 145 mmol/L Comment:Testing performed by : [address] [address] Potassium, pl 4.1 3.3 - 4.9 mmol/L ELIDA KLINE Comment: Hemolyzed; Potassium value may be falsely elevated by as much as 1.0 mmol/L. Suggest redraw and reanalysis. Testing performed by: [address] [address] Chloride 103 97 - 110 mmol/L ELIDA KLINE Comment:Testing performed by : [address] [address] CO2 24 22 - 32 mmol/L ELIDA KLINE Comment:Testing performed by : [address] [address] Anion gap 14 2 - 15 mmol/L ELIDA Comment:Testing performed by : [address] [address] BUN 13 6 - 25 mg/dL ELIDA Comment:Testing performed by : [address] [address] Creatinine 1.03 0.80 - 1.30 mg/dL ELIDA Comment:Testing performed by : [address] [address] Glucose 91 70 - 199 mg/dL ELIDA [...] was last revised 2022. Testing performed by: [address] [address] Calcium 9.7 8.5 - 10.3 mg/dL ELIDA Comment:Testing performed by : [address] [address] Blood 04/12/2025 4:03 AM CDT 04/12/2025 5:18 AM CDT us Kinza Mackey NP LAB BLOOD ORDERABLES Final Re sult ELIDA [address] [facility] [place] [address] * (ABNORMAL) Urinalysis reflex to microscopic and culture Urine, clean voided (04/11/2025 9:25 AM CDT) Color, ur Yellow Yellow Comment:Testing performed by : [address] [address] Clarity, ur Clear Clear ELIDA KLINE Comment:Testing performed by : [facility], [address] [place] [address]., [address] Specific gravity, ur 1.015 1.003 - 1.030 ELIDA Comment:Testing performed by : [address], [place]., [address] pH, urine 6.5 ELIDA Comment: Interpretive Data U rine pH is affected by diet, medications, systemic acid-base disturbances, and renal tubular function. pH may affect urinary stone formation. For example, urine pH below 6.0 may help reduce the tendency for calcium phosphate stones and pH greater than 6.0 may reduce the tendency for uric acid stone formation. Source: [facility] Latest Medical Current Interpretive Data was last revised on 2017 Testing performed by: [address] [address] Protein, ur ql Negative Negative ELIDA Comment:Testing performed by : [address] [address] Glucose, ur ql Negative Negative ELIDA Comment:Testing performed by : [address] [address] Ketones, ur Negative Negative ELIDA Comment:Testing performed by : [address] [address] Bilirubin, ur Negative Negative ELIDA Comment:Testing performed by : [address] [address] Blood, ur 2+(A) Negative ELIDA Comment:Testing performed by : [address] [address] Urobilinogen, ur <2.0 <2.0 mg/dL ELIDA Comment:Testing performed by : [address] [address] Nitrite, ur Negative Negative ELIDA Comment:Testing performed by : [address] [address] Leukocyte esterase, ur 2+(A) Negative ELIDA Comment:Testing performed by : [address] [address] UA reflex comment Reflex to microscopic UA will be performed. ELIDA Comment:Testing performed by : [address] [address] Urine, clean voided 04/11/2025 9:25 AM CDT 04/11/2025 9:29 AM CDT us Lillie gonzalez MD LAB MICROBIOLOGY - GENERAL ORDERABLES Final Result Performing Organization Address [facility] Co de Phone Number [facility] [address] [facility] [place] [address] * (ABNORMAL) Urinalysis, microscopic only (04/11/2025 9:25 AM CDT) WBC, ur 11-20(A) 0 - 5 /HPF Comment:Testing performed by : [address] [address] RBC, ur 11-20(A) 0 - 2 /HPF ELIDA Comment:Testing performed by : [address] [address] Epithelial cells, squamous, ur 1-5 0 - 5 /HPF ELIDA Comment:Testing performed by : [address] [address] Bacteria, ur 4+(A) ELIDA Comment:Testing performed by : [address] [address] Mucous, ur Present(A) ELIDA Comment:Testing performed by : [address] [address] Culture Reflex Comment Reflex to urine culture will be performed. ELIDA Comment:Testing performed by : [address] [address] Urine, clean voided 04/11/2025 9:25 AM CDT 04/11/2025 9:29 AM CDT us Lillie Madrid MD LAB URINE ORDERABLES Final Result Performing Organization Address [facility] Co de Phone Number ELIDA [address] Department [place] [address] * (ABNORMAL) Urine culture Urine, clean voided (04/11/2025 9:25 AM CDT) Report Final Report: Greater than or equal to 100,000 colonies/mL of Bacillus species, not Bacillus anthracis No further workup. (.) Comment:Testing performed by : [facility], [address] [place]., [address] Organism BACILLUS SPECIES, NOT BACILLUS ANTHRACIS ELIDA Urine, clean voided 04/11/2025 9:25 AM CDT 04/11/2025 2:35 PM CDT Narrative ELIDA - 04/13/2025 6:11 AM CDT Urine culture reflexed based upon urinalysis results. Testing performed by [facility] Microbiology Laboratory ([phone]) Lillie gonzalez MD LAB MICROBIOLOGY - GENERAL ORDERABLES Final Result ELIDA [address] [facility] [place] [address] * eGFR (04/11/2025 5:35 AM CDT) eGFR [...] was last reviewed 2021. Testing performed by: [address] [address] Blood 04/11/2025 5:35 AM CDT 04/11/2025 6:17 AM CDT us Kinza Mackey NP LAB BLOOD ORDERABLES Final Re sult [facility] [address] [facility] [place] [address] * (ABNORMAL) Differential, auto (04/11/2025 5:35 AM CDT) Neutrophil abs 6.52(H) 1.50 - 6.50 K/cumm Comment:Testing performed by : [address] [address] Imm gran abs 0.11(H) 0.00 - 0.10 K/cumm ELIDA Comment:Testing performed by : [address] [address] Lymphocyte abs 1.53 0.80 - 3.30 K/cumm ELIDA Comment:Testing performed by : [address] [address] Monocyte abs 0.80 0.20 - 0.80 K/cumm ELIDA Comment:Testing performed by : [address] [address] Eosinophil abs 0.14 0.00 - 0.50 K/cumm ELIDA Comment:Testing performed by : [address] [address] Basophil abs 0.11(H) 0.00 - 0.10 K/cumm ELIDA Comment:Testing performed by : [address] [address] Neutrophil pct 70.8 % EL[place] Comment: Interpretive Data Percent cell count reference ranges are not reported, since discordance with absolute values may lead to misinterpretation of CBC data. Current Interpretive Data was last revised on 2017. Testing performed by: [address] [address] Imm gran pct 1.2 % [facility] Comment: Interpretive Data Percent cell count reference ranges are not reported, since discordance with absolute values may lead to misinterpretation of CBC data. Current Interpretive Data was last revised on 2017. Testing performed by: [address] [address] Lymphocyte pct 16.6 % [facility] Comment: Interpretive Data Percent cell count reference ranges are not reported, since discordance with absolute values may lead to misinterpretation of CBC data. Current Interpretive Data was last revised on 2017. Testing performed by: [address] [address] Monocyte pct 8.7 % [facility] Comment: Interpretive Data Percent cell count reference ranges are not reported, since discordance with absolute values may lead to misinterpretation of CBC data. Current Interpretive Data was last revised on 2017. Testing performed by: [address] [address] Eosinophil pct 1.5 % [facility] Comment: Interpretive Data Percent cell count reference ranges are not reported, since discordance with absolute values may lead to misinterpretation of CBC data. Current Interpretive Data was last revised on 2017. Testing performed by: [address] [address] Basophil pct 1.2 % [facility] Comment: Interpretive Data Percent cell count reference ranges are not reported, since discordance with absolute values may lead to misinterpretation of CBC data. Current Interpretive Data was last revised on 2017. Testing performed by: [address] [address] Blood 04/11/2025 5:35 AM CDT 04/11/2025 6:17 AM CDT us Kinza Mackey NP LAB BLOOD ORDERABLES Final Re sult ELIDA [address] [facility] [place] [address] * (ABNORMAL) CBC with auto differential (04/11/2025 5:35 AM CDT) [facility] WBC 9.21 3.80 - 9.90 K/cumm Comment:Testing performed by : [address], [address] Hgb 14.0 13.0 - 17.5 g/dL EL[place] Comment:Testing performed by : [address], [address] Hct 39.1 38.9 - 50.3 % [place] Comment:Testing performed by : [address], [address] Plt 220 150 - 400 K/cumm EL[place] Comment:Testing performed by : [address] [address] MPV 10.5 9.1 - 12.3 fL [place] Comment:Testing performed by : [address], [address] RBC 4.48 4.30 - 5.80 M/cumm [place] Comment:Testing performed by : [address], [address] MCV 87.3 81.3 - 96.4 fL [place] Comment:Testing performed by : [address], [address] MCH 31.3 27.1 - 33.3 pg [place] Comment:Testing performed by : [address], [address] MCHC 35.8(H) 32.3 - 35.7 g/dL [place] Comment:Testing performed by : [address], [address] RDW CV 11.8 11.1 - 14.9 % [place] Comment:Testing performed by : [address], [address] RDW SD 37.2 35.7 - 48.1 fL [place] Comment:Testing performed by : [address], [address] NRBC abs 0.00 0.00 - 0.01 K/cumm [place] Comment:Testing performed by : [address] [address] Blood 04/11/2025 5:35 AM CDT 04/11/2025 6:17 AM CDT us Kinza Mackey NP LAB BLOOD ORDERABLES Final Re sult [place] [address] [facility] [place] [address] * Basic metabolic panel (04/11/2025 5:35 AM CDT) Sodium 141 135 - 145 mmol/L Comment:Testing performed by : [address] [address] Potassium, pl 4.4 3.3 - 4.9 mmol/L [place] Comment: Hemolyzed; Potassium value may be falsely elevated by as much as 1.0 mmol/L. Suggest redraw and reanalysis. Testing performed by: [address] [address] Chloride 103 97 - 110 mmol/L [place] Comment:Testing performed by : [address] [address] CO2 24 22 - 32 mmol/L [place] Comment:Testing performed by : [address] [address] Anion gap 14 2 - 15 mmol/L [place] Comment:Testing performed by : [address] [address] BUN 12 6 - 25 mg/dL [place] Comment:Testing performed by : [address] [address] Creatinine 1.06 0.80 - 1.30 mg/dL [place] Comment:Testing performed by : [address] [address] Glucose 97 70 - 199 mg/dL ELIDA [...] was last revised 2022. Testing performed by: [facility], [address] [place] [address]., [address] Calcium 9.8 8.5 - 10.3 mg/dL ELIDA KLINE Comment:Testing performed by : [facility], [address] [place] [address]., [address] Blood 04/11/2025 5:35 AM CDT 04/11/2025 6:17 AM CDT us Kinza Mackey NP LAB BLOOD ORDERABLES Final Re sult Performing Organization Address City/State/[facility] Co de Phone Number ELIDA KLINE [address] [facility] [place] [address] * CT Abdomen Pelvis W WO Contrast [...] resolved. He went on a trip to [facility] and did a lot of walking while [...] by Jane Bailey M.D. SN: Report ID: [id number] Reading Location: [id number] Procedure Note Jane Bailey MD - 04/11/2025 [...] that resolved. Hewent on a trip to [facility] and did a lot of walking while [...] by Jane Bailey M.D. SN: Report ID: [id number] Reading Location: [place] [address] Marline Griffin NP IMG CT PROCEDURES Final Res ult * [...] was last reviewed 2021. Testing performed by: [address] [address] Blood 04/10/2025 5:55 AM CDT 04/10/2025 6:39 AM CDT us Kinza Mackey NP LAB BLOOD ORDERABLES Final Re sult [place] [address] [facility] [place] [address] * Differential, auto (04/10/2025 5:55 AM CDT) Pathologist [facility] Neutrophil abs 5.25 1.50 - 6.50 K/cumm Comment:Testing performed by : [address] [address] Imm gran abs 0.06 0.00 - 0.10 K/cumm EL[place] KLINE Comment:Testing performed by : [address] [address] Lymphocyte abs 1.51 0.80 - 3.30 K/cumm [place] Comment:Testing performed by : [address] [address] Monocyte abs 0.68 0.20 - 0.80 K/cumm [facility] Comment:Testing performed by : [address] [address] Eosinophil abs 0.15 0.00 - 0.50 K/cumm [facility] Comment:Testing performed by : [address], [place]., [address] Basophil abs 0.08 0.00 - 0.10 K/cumm [facility] Comment:Testing performed by : [address] [address] Neutrophil pct 68.0 % [facility] Comment: Interpretive Data Percent cell count reference ranges are not reported, since discordance with absolute values may lead to misinterpretation of CBC data. Current Interpretive Data was last revised on 2017. Testing performed by: [address] [address] Imm gran pct 0.8 % [facility] Comment: Interpretive Data Percent cell count reference ranges are not reported, since discordance with absolute values may lead to misinterpretation of CBC data. Current Interpretive Data was last revised on 2017. Testing performed by: [address] [address] Lymphocyte pct 19.5 % [facility] Comment: Interpretive Data Percent cell count reference ranges are not reported, since discordance with absolute values may lead to misinterpretation of CBC data. Current Interpretive Data was last revised on 2017. Testing performed by: [address] [address] Monocyte pct 8.8 % [facility] Comment: Interpretive Data Percent cell count reference ranges are not reported, since discordance with absolute values may lead to misinterpretation of CBC data. Current Interpretive Data was last revised on 2017. Testing performed by: [address] [address] Eosinophil pct 1.9 % [facility] Comment: Interpretive Data Percent cell count reference ranges are not reported, since discordance with absolute values may lead to misinterpretation of CBC data. Current Interpretive Data was last revised on 2017. Testing performed by: [address] [address] Basophil pct 1.0 % [facility] KLINE Comment: Interpretive Data Percent cell count reference ranges are not reported, since discordance with absolute values may lead to misinterpretation of CBC data. Current Interpretive Data was last revised on 2017. Testing performed by: [address] [address] Blood 04/10/2025 5:55 AM CDT 04/10/2025 6:40 AM CDT us Kinza Mackey NP LAB BLOOD ORDERABLES Final Re sult [place] KLINE [address] [facility] [place] [address] * (ABNORMAL) CBC with auto differential (04/10/2025 5:55 AM CDT) WBC 7.73 3.80 - 9.90 K/cumm Comment:Testing performed by : [address] [address] Hgb 12.8(L) 13.0 - 17.5 g/dL [place] KLINE Comment:Testing performed by : [address] [address] Hct 36.4(L) 38.9 - 50.3 % [place] KLINE Comment:Testing performed by : [address] [address] Plt 198 150 - 400 K/cumm [place] KLINE Comment:Testing performed by : [address] [address] MPV 10.6 9.1 - 12.3 fL [place] KLINE Comment:Testing performed by : [address] [address] RBC 4.11(L) 4.30 - 5.80 M/cumm [place] KLINE Comment:Testing performed by : [address] [address] MCV 88.6 81.3 - 96.4 fL [place] KLINE Comment:Testing performed by : [address] [address] MCH 31.1 27.1 - 33.3 pg [place] KLINE Comment:Testing performed by : [address] [address] MCHC 35.2 32.3 - 35.7 g/dL [place] KLINE Comment:Testing performed by : [address] [address] RDW CV 11.8 11.1 - 14.9 % [place] KLINE Comment:Testing performed by : [address] [address] RDW SD 37.9 35.7 - 48.1 fL [place] KLINE Comment:Testing performed by : [address] [address] NRBC abs 0.00 0.00 - 0.01 K/cumm [place] KLINE Comment:Testing performed by : [address] [address] Blood 04/10/2025 5:55 AM CDT 04/10/2025 6:40 AM CDT Kinza Mackey NP LAB BLOOD ORDERABLES Final Re sult EL[place] [address] [facility] [place], [place] [id number] * Basic metabolic panel (04/10/2025 5:55 AM CDT) Sodium 140 135 - 145 mmol/L Comment:Testing performed by : [address] [address] Potassium, pl 4.4 3.3 - 4.9 mmol/L [place] KLINE Comment: Hemolyzed; Potassium value may be falsely elevated by as much as 1.0 mmol/L. Suggest redraw and reanalysis. Testing performed by: [address] [address] Chloride 105 97 - 110 mmol/L [place] KLINE Comment:Testing performed by : [address] [address] CO2 23 22 - 32 mmol/L [place] Comment:Testing performed by : [address] [address] Anion gap 12 2 - 15 mmol/L [place] Comment:Testing performed by : [address] [address] BUN 12 6 - 25 mg/dL [place] Comment:Testing performed by : [address] [address] Creatinine 1.08 0.80 - 1.30 mg/dL [place] Comment:Testing performed by : [address] [address] Glucose 95 70 - 199 mg/dL ELIDA [...] was last revised 2022. Testing performed by: [address] [address] Calcium 9.4 8.5 - 10.3 mg/dL [place] Comment:Testing performed by : [address] [address] Blood 04/10/2025 5:55 AM CDT 04/10/2025 6:39 AM CDT us Kinza Mackey NP LAB BLOOD ORDERABLES Final Re sult [place] KLINE [address] [facility] [place] [address] * eGFR (04/09/2025 6:01 AM CDT) eGFR [...] was last reviewed 2021. Testing performed by: [address] [address] Blood 04/09/2025 6:01 AM CDT 04/09/2025 6:28 AM CDT us Kinza Mackey NP LAB BLOOD ORDERABLES Final Re sult ELIDA [address] [facility] [place] [address] * Differential, auto (04/09/2025 6:01 AM CDT) Pathologist [facility] Neutrophil abs 5.16 1.50 - 6.50 K/cumm Comment:Testing performed by : [address] [address] Imm gran abs 0.05 0.00 - 0.10 K/cumm EL[place] KLINE Comment:Testing performed by : [address] [address] Lymphocyte abs 1.56 0.80 - 3.30 K/cumm [place] Comment:Testing performed by : [address] [address] Monocyte abs 0.73 0.20 - 0.80 K/cumm [place] Comment:Testing performed by : [address] [address] Eosinophil abs 0.13 0.00 - 0.50 K/cumm [place] Comment:Testing performed by : [address] [address] Basophil abs 0.08 0.00 - 0.10 K/cumm [facility] Comment:Testing performed by : [address] [address] Neutrophil pct 67.0 % [facility] Comment: Interpretive Data Percent cell count reference ranges are not reported, since discordance with absolute values may lead to misinterpretation of CBC data. Current Interpretive Data was last revised on 2017. Testing performed by: [address] [address] Imm gran pct 0.6 % [facility] Comment: Interpretive Data Percent cell count reference ranges are not reported, since discordance with absolute values may lead to misinterpretation of CBC data. Current Interpretive Data was last revised on 2017. Testing performed by: [address] [address] Lymphocyte pct 20.2 % [facility] Comment: Interpretive Data Percent cell count reference ranges are not reported, since discordance with absolute values may lead to misinterpretation of CBC data. Current Interpretive Data was last revised on 2017. Testing performed by: [address] [address] Monocyte pct 9.5 % [facility] Comment: Interpretive Data Percent cell count reference ranges are not reported, since discordance with absolute values may lead to misinterpretation of CBC data. Current Interpretive Data was last revised on 2017. Testing performed by: [address] [address] Eosinophil pct 1.7 % [facility] Comment: Interpretive Data Percent cell count reference ranges are not reported, since discordance with absolute values may lead to misinterpretation of CBC data. Current Interpretive Data was last revised on 2017. Testing performed by: [address] [address] Basophil pct 1.0 % [place] Comment: Interpretive Data Percent cell count reference ranges are not reported, since discordance with absolute values may lead to misinterpretation of CBC data. Current Interpretive Data was last revised on 2017. Testing performed by: [address] [address] Blood 04/09/2025 6:01 AM CDT 04/09/2025 6:29 AM CDT us Kinza Mackey NP LAB BLOOD ORDERABLES Final Re sult EL[place] [address] [facility] [place] [address] * (ABNORMAL) CBC with auto differential (04/09/2025 6:01 AM CDT) WBC 7.71 3.80 - 9.90 K/cumm Comment:Testing performed by : [address] [address] Hgb 12.5(L) 13.0 - 17.5 g/dL [place] Comment:Testing performed by : [address] [address] Hct 37.3(L) 38.9 - 50.3 % [place] Comment:Testing performed by : [address] [address] Plt 170 150 - 400 K/cumm [place] Comment:Testing performed by : [address] [address] MPV 10.8 9.1 - 12.3 fL [place] Comment:Testing performed by : [address] [address] RBC 4.09(L) 4.30 - 5.80 M/cumm [place] Comment:Testing performed by : [address] [address] MCV 91.2 81.3 - 96.4 fL [place] Comment:Testing performed by : [address] [address] MCH 30.6 27.1 - 33.3 pg [place] KLINE Comment:Testing performed by : [address] [address] MCHC 33.5 32.3 - 35.7 g/dL [place] KLINE Comment:Testing performed by : [address] [address] RDW CV 11.9 11.1 - 14.9 % [place] KLINE Comment:Testing performed by : [address] [address] RDW SD 39.9 35.7 - 48.1 fL [place] KLINE Comment:Testing performed by : [address] [address] NRBC abs 0.00 0.00 - 0.01 K/cumm [place] KLINE Comment:Testing performed by : [address] [address] Blood 04/09/2025 6:01 AM CDT 04/09/2025 6:29 AM CDT us Kinza Mackey NP LAB BLOOD ORDERABLES Final Re sult [place] [address] [facility] [place], [place] [id number] * (ABNORMAL) Basic metabolic panel (04/09/2025 6:01 AM CDT) Sodium 139 135 - 145 mmol/L Comment:Testing performed by : [address] [address] Potassium, pl 3.9 3.3 - 4.9 mmol/L [place] KLINE Comment: Hemolyzed; Potassium value may be falsely elevated by as much as 1.0 mmol/L. Suggest redraw and reanalysis. Testing performed by: [address] [address] Chloride 107 97 - 110 mmol/L [place] KLINE Comment:Testing performed by : [address] [address] CO2 21(L) 22 - 32 mmol/L [place] KLINE Comment:Testing performed by : [address] [address] Anion gap 11 2 - 15 mmol/L [place] Comment:Testing performed by : [address] [address] BUN 11 6 - 25 mg/dL [place] Comment:Testing performed by : [address] [address] Creatinine 1.10 0.80 - 1.30 mg/dL [place] Comment:Testing performed by : [address] [address] Glucose 94 70 - 199 mg/dL ELIDA [...] was last revised 2022. Testing performed by: [address] [address] Calcium 8.7 8.5 - 10.3 mg/dL [place] Comment:Testing performed by : [address] [address] Blood 04/09/2025 6:01 AM CDT 04/09/2025 6:28 AM CDT us Kinza Mackey NP LAB BLOOD ORDERABLES Final Re sult ELIDA [address] [facility] [place] [address] * (ABNORMAL) Hemoglobin and hematocrit (04/08/2025 7:21 PM CDT) [facility] Hgb 13.3 13.0 - 17.5 g/dL Comment:Testing performed by : [address] [address] Hct 37.7(L) 38.9 - 50.3 % ELIDA Comment:Testing performed by : [address] [address] Blood 04/08/2025 7:21 PM CDT 04/08/2025 7:50 PM CDT [facility] Final Re sult Performing Organization Address [facility] de Phone Number ELIDA [address] [place] [address] * (ABNORMAL) Hemoglobin and hematocrit (04/08/2025 1:29 PM CDT) Hgb 12.5(L) 13.0 - 17.5 g/dL Comment:Testing performed by : [address] [address] Hct 36.2(L) 38.9 - 50.3 % ELIDA Comment:Testing performed by : [address] [address] Blood 04/08/2025 1:29 PM CDT 04/08/2025 1:45 PM CDT [facility] CLINICAL LAB SCIENTIST LAB BLOOD ORDERABLES Final Re sult Performing Organization Address [facility] de Phone Number CHARITY[address] [place] [address] * eGFR (04/08/2025 5:40 AM CDT) eGFR [...] was last reviewed 2021. Testing performed by: [address] [address] Blood 04/08/2025 5:40 AM CDT 04/08/2025 5:53 AM CDT us Kinza Mackey NP LAB BLOOD ORDERABLES Final Re sult EL[place] [facility] [facility] [place] [address] * Differential, auto (04/08/2025 5:40 AM CDT) Neutrophil abs 4.78 1.50 - 6.50 K/cumm Comment:Testing performed by : [address] [address] Imm gran abs 0.06 0.00 - 0.10 K/cumm EL[place] Comment:Testing performed by : [address] [address] Lymphocyte abs 1.12 0.80 - 3.30 K/cumm [place] Comment:Testing performed by : [address] [address] Monocyte abs 0.71 0.20 - 0.80 K/cumm [place] Comment:Testing performed by : [address] [address] Eosinophil abs 0.10 0.00 - 0.50 K/cumm [place] Comment:Testing performed by : [address] [address] Basophil abs 0.06 0.00 - 0.10 K/cumm [place] Comment:Testing performed by : [address] [address] Neutrophil pct 69.9 % [place] Comment: Interpretive Data Percent cell count reference ranges are not reported, since discordance with absolute values may lead to misinterpretation of CBC data. Current Interpretive Data was last revised on 2017. Testing performed by: [address] [address] Imm gran pct 0.9 % [facility] Comment: Interpretive Data Percent cell count reference ranges are not reported, since discordance with absolute values may lead to misinterpretation of CBC data. Current Interpretive Data was last revised on 2017. Testing performed by: [address] [address] Lymphocyte pct 16.4 % [facility] Comment: Interpretive Data Percent cell count reference ranges are not reported, since discordance with absolute values may lead to misinterpretation of CBC data. Current Interpretive Data was last revised on 2017. Testing performed by: [address] [address] Monocyte pct 10.4 % [facility] Comment: Interpretive Data Percent cell count reference ranges are not reported, since discordance with absolute values may lead to misinterpretation of CBC data. Current Interpretive Data was last revised on 2017. Testing performed by: [address] [address] Eosinophil pct 1.5 % [facility] Comment: Interpretive Data Percent cell count reference ranges are not reported, since discordance with absolute values may lead to misinterpretation of CBC data. Current Interpretive Data was last revised on 2017. Testing performed by: [address] [address] Basophil pct 0.9 % [facility] Comment: Interpretive Data Percent cell count reference ranges are not reported, since discordance with absolute values may lead to misinterpretation of CBC data. Current Interpretive Data was last revised on 2017. Testing performed by: [address] [address] Blood 04/08/2025 5:40 AM CDT 04/08/2025 5:54 AM CDT us Kinza Mackey NP LAB BLOOD ORDERABLES Final Re sult CHARITYELVIE [address] [facility] [place] [address] * (ABNORMAL) CBC with auto differential (04/08/2025 5:40 AM CDT) WBC 6.83 3.80 - 9.90 K/cumm Comment:Testing performed by : [address] [address] Hgb 12.4(L) 13.0 - 17.5 g/dL [place] Comment:Testing performed by : [address] [address] Hct 36.3(L) 38.9 - 50.3 % [place] Comment:Testing performed by : [address] [address] Plt 166 150 - 400 K/cumm [place] Comment:Testing performed by : [address] [address] MPV 10.3 9.1 - 12.3 fL [place] Comment:Testing performed by : [address] [address] RBC 4.06(L) 4.30 - 5.80 M/cumm [place] Comment:Testing performed by : [address] [address] MCV 89.4 81.3 - 96.4 fL [place] Comment:Testing performed by : [address] [address] MCH 30.5 27.1 - 33.3 pg [place] KLINE Comment:Testing performed by : [address] [address] MCHC 34.2 32.3 - 35.7 g/dL [place] Comment:Testing performed by : [address] [address] RDW CV 12.0 11.1 - 14.9 % [place] KLINE Comment:Testing performed by : [address] [address] RDW SD 39.1 35.7 - 48.1 fL [place] KLINE Comment:Testing performed by : [address] [address] NRBC abs 0.00 0.00 - 0.01 K/cumm [place] KLINE Comment:Testing performed by : [address] [address] Blood 04/08/2025 5:40 AM CDT 04/08/2025 5:54 AM CDT us Kinza Mackey NP LAB BLOOD ORDERABLES Final Re sult ELIDA [facility] [place] [address] * Basic metabolic panel (04/08/2025 5:40 AM CDT) Sodium 141 135 - 145 mmol/L Comment:Testing performed by : [address] [address] Potassium, pl 4.2 3.3 - 4.9 mmol/L [place] KLINE Comment:Testing performed by : [address] [address] Chloride 108 97 - 110 mmol/L [place] Comment:Testing performed by : [address] [address] CO2 23 22 - 32 mmol/L [place] KLINE Comment:Testing performed by : [address] [address] Anion gap 10 2 - 15 mmol/L [place] KLINE Comment:Testing performed by : [address] [address] BUN 12 6 - 25 mg/dL [place] KLINE Comment:Testing performed by : [address] [address] Creatinine 1.12 0.80 - 1.30 mg/dL [place] KLINE Comment:Testing performed by : [address] [address] Glucose 100 70 - 199 mg/dL [place] KLINE Comment: [...] was last revised 2022. Testing performed by: [address] [address] Calcium 8.7 8.5 - 10.3 mg/dL [place] Comment:Testing performed by : [address] [address] Blood 04/08/2025 5:40 AM CDT 04/08/2025 5:53 AM CDT Kinza Mackey CLINICAL LAB SCIENTIST LAB BLOOD ORDERABLES Final Re sult ELIDA [address] [facility] [place] [address] * (ABNORMAL) Hemoglobin and hematocrit (04/07/2025 11:30 PM CDT) [facility] Hgb 12.6(L) 13.0 - 17.5 g/dL Comment:Testing performed by : [address] [address] Hct 36.1(L) 38.9 - 50.3 % [place] KLINE Comment:Testing performed by : [address] [address] Blood 04/07/2025 11:3 0 PM CDT 04/08/2025 12:28 AM CDT Kinza Mackey CLINICAL LAB SCIENTIST LAB BLOOD ORDERABLES Final Re sult Performing Organization Address [facility] Co de Phone Number ELIDA [address] [address] * (ABNORMAL) Hemoglobin and hematocrit (04/07/2025 6:36 PM CDT) Hgb 12.7(L) 13.0 - 17.5 g/dL Comment:Testing performed by : [address] [address] Hct 35.9(L) 38.9 - 50.3 % ELIDA Comment:Testing performed by : [address] [address] Blood 04/07/2025 6:36 PM CDT 04/07/2025 6:47 PM CDT [facility] LAB BLOOD ORDERABLES Final Re sult Performing Organization Address [facility] de Phone Number CHARITY[address] [address] * (ABNORMAL) Hemoglobin and hematocrit (04/07/2025 11:50 AM CDT) Hgb 13.5 13.0 - 17.5 g/dL Comment:Testing performed by : [address] [address] Hct 37.3(L) 38.9 - 50.3 % ELIDA Comment:Testing performed by : [address] [address] Blood 04/07/2025 11:5 0 AM CDT 04/07/2025 11:53 AM CDT [facility] LAB BLOOD ORDERABLES Final Re sult Performing Organization Address [facility] Co de Phone Number CHARITY[address] [address] * (ABNORMAL) Urinalysis reflex to microscopic and culture Urine (04/07/2025 6:39 AM CDT) Color, ur Red(A) Yellow Comment:Testing performed by : [address] [address] Clarity, ur Cloudy(A) Clear ELIDA Comment:Testing performed by : [address] [address] Specific gravity, ur 1.013 1.003 - 1.030 ELIDA Comment:Testing performed by : [address] [address] pH, urine 8.0 ELIDA Comment: Interpretive Data U rine pH is affected by diet, medications, systemic acid-base disturbances, and renal tubular function. pH may affect urinary stone formation. For example, urine pH below 6.0 may help reduce the tendency for calcium phosphate stones and pH greater than 6.0 may reduce the tendency for uric acid stone formation. Source: [facility] Latest Medical Current Interpretive Data was last revised on 2017 Testing performed by: [address] [address] Protein, ur ql Trace(A) Negative ELIDA Comment:Testing performed by : [address] [address] Glucose, ur ql Negative Negative ELIDA Comment:Testing performed by : [address] [address] Ketones, ur Negative Negative ELIDA Comment:Testing performed by : [address] [address] Bilirubin, ur Negative Negative ELIDA Comment:Testing performed by : [address] [address] Blood, ur 3+(A) Negative ELIDA Comment:Testing performed by : [address] [address] Urobilinogen, ur <2.0 <2.0 mg/dL ELIDA Comment:Testing performed by : [address] [address] Nitrite, ur Negative Negative ELIDA Comment:Testing performed by : [address] [address] Leukocyte esterase, ur Negative Negative ELIDA Comment:Testing performed by : [address] [address] UA reflex comment Reflex to microscopic UA will be performed. ELIDA Comment:Testing performed by : [facility], [address] [place] [address]., [address] Urine 04/07/2025 6:39 AM CDT 04/07/2025 6:51 AM CDT [employer] LAB MICROBIOLOGY - GENERAL ORD ERABLES Final Result Performing Organization Address [facility]/ZIP Co de Phone Number ELIDA [facility] [place] [address] * (ABNORMAL) Urinalysis, microscopic only (04/07/2025 6:39 AM CDT) WBC, ur 0-5 0 - 5 /HPF Comment:Testing performed by : [facility], [address] [place] [address]., [address] RBC, ur >50(A) 0 - 2 /HPF ELIDA Comment:Testing performed by : [address] [address] Epithelial cells, squamous, ur 11-20(A) 0 - 5 /HPF ELIDA Comment:Testing performed by : [address] [address] Culture Reflex Comment Reflex conditions for urine culture (WBC >10) not met. ELIDA Comment:Testing performed by : [address] [address] Urine 04/07/2025 6:39 AM CDT 04/07/2025 6:51 AM CDT [employer] LAB URINE ORDERABLES Final Res ult Performing Organization Address City/[facility]/ZIP Co de Phone Number ELIDA [address] [facility] [place] [address] * CT Abdomen Pelvis WO Contrast (04/07/2025 [...] Jane Bailey M.D. SN: SN Report ID: [id number] Reading Location: [place] [address] Procedure Note Jane Bailey MD - 04/07/2025 [...] by Jane Bailey M.D. SN: Report ID: [id number] Reading Location: [place] [address] us Felix Hardy DO IMG CT PROCEDURES [...] was last reviewed 2021. Testing performed by: [address] [address] Blood 04/07/2025 1:49 AM CDT 04/07/2025 1:55 AM CDT us Felix Hardy DO LAB BLOOD ORDERABLES Final Res ult ELIDA [address] [facility] [place] [address] * (ABNORMAL) Differential, auto (04/07/2025 1:49 AM CDT) Neutrophil abs 6.21 1.50 - 6.50 K/cumm Comment:Testing performed by : [address] [address] Imm gran abs 0.08 0.00 - 0.10 K/cumm ELIDA Comment:Testing performed by : [address] [address] Lymphocyte abs 2.54 0.80 - 3.30 K/cumm ELIDA Comment:Testing performed by : [address] [address] Monocyte abs 0.81(H) 0.20 - 0.80 K/cumm ELIDA Comment:Testing performed by : [address] [address] Eosinophil abs 0.09 0.00 - 0.50 K/cumm ELIDA Comment:Testing performed by : [address] [address] Basophil abs 0.09 0.00 - 0.10 K/latesha MARRERO Comment:Testing performed by : [address] [address] Neutrophil pct 63.3 % ELIDA Comment: Interpretive Data Percent cell count reference ranges are not reported, since discordance with absolute values may lead to misinterpretation of CBC data. Current Interpretive Data was last revised on 2017. Testing performed by: [address] [address] Imm gran pct 0.8 % [facility] Comment: Interpretive Data Percent cell count reference ranges are not reported, since discordance with absolute values may lead to misinterpretation of CBC data. Current Interpretive Data was last revised on 2017. Testing performed by: [address] [address] Lymphocyte pct 25.9 % [facility] Comment: Interpretive Data Percent cell count reference ranges are not reported, since discordance with absolute values may lead to misinterpretation of CBC data. Current Interpretive Data was last revised on 2017. Testing performed by: [address] [address] Monocyte pct 8.2 % [facility] Comment: Interpretive Data Percent cell count reference ranges are not reported, since discordance with absolute values may lead to misinterpretation of CBC data. Current Interpretive Data was last revised on 2017. Testing performed by: [address] [address] Eosinophil pct 0.9 % [facility] Comment: Interpretive Data Percent cell count reference ranges are not reported, since discordance with absolute values may lead to misinterpretation of CBC data. Current Interpretive Data was last revised on 2017. Testing performed by: [address] [address] Basophil pct 0.9 % [facility] Comment: Interpretive Data Percent cell count reference ranges are not reported, since discordance with absolute values may lead to misinterpretation of CBC data. Current Interpretive Data was last revised on 2017. Testing performed by: [address] [address] Blood 04/07/2025 1:49 AM CDT 04/07/2025 1:55 AM CDT us Felix Hardy DO LAB BLOOD ORDERABLES Final Res ult [facility] [address] [facility] [place] [address] * (ABNORMAL) CBC with auto differential (04/07/2025 1:49 AM CDT) WBC 9.82 3.80 - 9.90 K/cumm Comment:Testing performed by : [address] [address] Hgb 14.9 13.0 - 17.5 g/dL ELIDA Comment:Testing performed by : [address] [address] Hct 41.4 38.9 - 50.3 % ELIDA Comment:Testing performed by : [address] [address] Plt 233 150 - 400 K/cumm ELIDA Comment:Testing performed by : [address] [address] MPV 10.5 9.1 - 12.3 fL ELIDA Comment:Testing performed by : [address] [address] RBC 4.78 4.30 - 5.80 M/cumm ELIDA Comment:Testing performed by : [address] [address] MCV 86.6 81.3 - 96.4 fL ELIDA Comment:Testing performed by : [address] [address] MCH 31.2 27.1 - 33.3 pg ELIDA KLINE Comment:Testing performed by : [address] [address] MCHC 36.0(H) 32.3 - 35.7 g/dL ELIDA KLINE Comment:Testing performed by : [address] [address] RDW CV 11.5 11.1 - 14.9 % ELIDA Comment:Testing performed by : [address] [address] RDW SD 36.6 35.7 - 48.1 fL ELIDA Comment:Testing performed by : [address] [address] NRBC abs 0.00 0.00 - 0.01 K/cumm ELIDA Comment:Testing performed by : [address] [address] Blood Venous blood specimen / Unknown 04/07/2025 1:49 AM CDT 04/07/2025 1:55 AM CDT Felix Hardy DO LAB BLOOD ORDERABLES Final Res ult Performing Organization Address [facility] Co de Phone Number [address] [place] [address] * Lipase (04/07/2025 1:49 AM CDT) Pathologist [facility] Lipase 84 10 - 99 Units/L Comment:Testing performed by : [address], [address] Blood Venous blood specimen / Unknown 04/07/2025 1:49 AM CDT 04/07/2025 1:55 AM CDT [employer] LAB BLOOD ORDERABLES Final Res ult Performing Organization Address City/[facility] de Phone Number [address] [place] [address] * (ABNORMAL) Comprehensive metabolic panel (04/07/2025 1:49 AM CDT) Pathologist [facility] Sodium 138 135 - 145 mmol/L Comment:Testing performed by : [address] [address] Potassium, pl 4.1 3.3 - 4.9 mmol/L ELIDA Comment: Hemolyzed; Potassium value may be falsely elevated by as much as 1.0 mmol/L. Suggest redraw and reanalysis. Testing performed by: [address] [address] Chloride 98 97 - 110 mmol/L [facility] Comment:Testing performed by : [address], [place]., [address] CO2 18(L) 22 - 32 mmol/L ELIDA Comment:Testing performed by : [address], [place]., [address] Anion gap 22(H) 2 - 15 mmol/L [facility] Comment:Testing performed by : [address] [address] BUN 15 6 - 25 mg/dL [facility] Comment:Testing performed by : [address], [place]., [address] Creatinine 1.19 0.80 - 1.30 mg/dL [facility] Comment:Testing performed by : [address] [address] Glucose 114 70 - 199 mg/dL [facility] Comment: Interpretive Data Fasting glucose [...] was last revised 2022. Testing performed by: [address] [address] Calcium 10.2 8.5 - 10.3 mg/dL ELIDA Comment:Testing performed by : [address] [address] Bilirubin, total 0.4 0.1 - 1.2 mg/dL [facility] Comment:Testing performed by : [address] [address] Protein, pl 7.5 6.5 - 8.5 g/dL ELIDA Comment:Testing performed by : [address] [address] Albumin 4.7 3.5 - 5.0 g/dL ELIDA Comment:Testing performed by : [address] [address] Alk phos 79 40 - 130 Units/L ELIDA Comment:Testing performed by : [address] [address] ALT 17 7 - 55 Units/L ELIDA Comment:Testing performed by : [address] [address] AST 31 10 - 50 Units/L ELIDA Comment: Hemolyzed; result may be falsely elevated Testing performed by: [address] [address] Blood Venous blood specimen / Unknown 04/07/2025 1:49 AM CDT 04/07/2025 1:55 AM CDT us Felix Hardy DO LAB BLOOD ORDERABLES Final Res ult Performing Organization Address [facility] Co de Phone Number ELIDA [address] [facility] [place], [place] [id number] * FL Fluoroscopy < 1 Hour (03/06/2025 1:31 PM CDT) Narrative [email or web address] - 03/06/2025 1:32 PM CDT The images from this study are not interpreted by Radiology. Please refer to the physician's procedure / OR operative note. us Christopher Yates MD IMG FLUOROSCOPY PROCED URES Final Result Performing Organization Address [facility] Co de Phone Number [email or web address] * MA AN ELECTIVE SUPRAGLOTTIC AIRWAY, MA AN PROCEDURE PLACEHOLDER (03/06/2025 12:11 PM CDT) Narrative Dionna Stewart CRNA - 03/06/2025 12:11 PM CDDionna Ortez CRNA 03/06/2025 12:11 PM Airway Patient location: OR Urgency: elective Indications for airway management: anesthesia Difficult airway: no Staff: Placed by: [employer]OMOTIONS DIRECTOR: Dionna Stewart CRNA Emergent airway documentation: Risks [...] MD IMG FLUOROSCOPY PROCED URES Final Result [email or web address] * MA AN ELECTIVE SUPRAGLOTTIC AIRWAY, MA AN PROCEDURE PLACEHOLDER (02/23/2025 3:59 PM CDT) Narrative Brianna Bhatti CRNA - 02/23/2025 3:59 PM CDT Brianna Bhatti [...] bladder (02/17/2025 4:01 PM CDT) Urine [facility] Comment: CULTURE, URINE, ROUTINE Micro Number: [id number] Test Status: Final Specimen Source: Urine, clean catch Specimen Quality: Adequate Result: No Growth Urine, bladder 02/17/2025 4: 01 PM CDT 02/17/2025 4:02 PM CDT Darby Rubio CLINICAL LAB SCIENTIST LAB MICROBIOLOGY - [facility] ORDERABLES Final Result [facility] [address] [place] [address] * CT Abdomen Pelvis WO Contrast (02/15/2025 [...] Jane Bailey M.D. SN: SN Report ID: [id number] Reading Location: [id number] Procedure Note Jane Bailey MD - 02/15/2025 [...] by Jane Bailey M.D. SN: Report ID: [id number] Reading Location: [place] [address] Felix Hardy DO IMG CT PROCEDURES Final [...] was last reviewed 2021. Testing performed by: [address] [address] Blood 02/15/2025 1:29 AM CDT 02/15/2025 1:32 AM CDT Felix Hardy DO LAB BLOOD ORDERABLES Final Res ult [facility] [address] [facility] [place] [address] * (ABNORMAL) Differential, auto (02/15/2025 1:29 AM CDT) Neutrophil abs 6.59(H) 1.50 - 6.50 K/cumm Comment:Testing performed by : [address] [address] Imm gran abs 0.06 0.00 - 0.10 K/cumm ELIDA Comment:Testing performed by : [address] [address] Lymphocyte abs 1.94 0.80 - 3.30 K/cumm ELIDA Comment:Testing performed by : [address] [address] Monocyte abs 0.76 0.20 - 0.80 K/cumm ELIDA Comment:Testing performed by : [address] [address] Eosinophil abs 0.12 0.00 - 0.50 K/cumm ELIDA Comment:Testing performed by : [address] [address] Basophil abs 0.09 0.00 - 0.10 K/cumm ELIDA Comment:Testing performed by : [address] [address] Neutrophil pct 69.0 % ELIDA Comment: Interpretive Data Percent cell count reference ranges are not reported, since discordance with absolute values may lead to misinterpretation of CBC data. Current Interpretive Data was last revised on 2017. Testing performed by: [address] [address] Imm gran pct 0.6 % [facility] Comment: Interpretive Data Percent cell count reference ranges are not reported, since discordance with absolute values may lead to misinterpretation of CBC data. Current Interpretive Data was last revised on 2017. Testing performed by: [address] [address] Lymphocyte pct 20.3 % [facility] Comment: Interpretive Data Percent cell count reference ranges are not reported, since discordance with absolute values may lead to misinterpretation of CBC data. Current Interpretive Data was last revised on 2017. Testing performed by: [address] [address] Monocyte pct 7.9 % [facility] Comment: Interpretive Data Percent cell count reference ranges are not reported, since discordance with absolute values may lead to misinterpretation of CBC data. Current Interpretive Data was last revised on 2017. Testing performed by: [address] [address] Eosinophil pct 1.3 % [facility] Comment: Interpretive Data Percent cell count reference ranges are not reported, since discordance with absolute values may lead to misinterpretation of CBC data. Current Interpretive Data was last revised on 2017. Testing performed by: [address] [address] Basophil pct 0.9 % [facility] Comment: Interpretive Data Percent cell count reference ranges are not reported, since discordance with absolute values may lead to misinterpretation of CBC data. Current Interpretive Data was last revised on 2017. Testing performed by: [address] [address] Blood 02/15/2025 1:29 AM CDT 02/15/2025 1:32 AM CDT us Felix Hardy DO LAB BLOOD ORDERABLES Final Res ult ELIDA [address] [facility] [place] [address] * (ABNORMAL) Urinalysis reflex to microscopic and culture Urine (02/15/2025 1:29 AM CDT) Color, ur Yellow Yellow Comment:Testing performed by : [address] [address] Clarity, ur Clear Clear ELIDA Comment:Testing performed by : [address] [address] Specific gravity, ur 1.029 1.003 - 1.030 ELIDA Comment:Testing performed by : [address] [address] pH, urine 7.0 ELIDA Comment: Interpretive Data U rine pH is affected by diet, medications, systemic acid-base disturbances, and renal tubular function. pH may affect urinary stone formation. For example, urine pH below 6.0 may help reduce the tendency for calcium phosphate stones and pH greater than 6.0 may reduce the tendency for uric acid stone formation. Source: [facility] Latest Medical Current Interpretive Data was last revised on 2017 Testing performed by: [address] [address] Protein, ur ql Trace(A) Negative ELIDA Comment:Testing performed by : [address] [address] Glucose, ur ql Negative Negative ELIDA Comment:Testing performed by : [address] [address] Ketones, ur Trace(A) Negative ELIDA Comment:Testing performed by : [address] [address] Bilirubin, ur Negative Negative ELIDA Comment:Testing performed by : [address] [address] Blood, ur 2+(A) Negative ELIDA Comment:Testing performed by : [address] [address] Urobilinogen, ur <2.0 <2.0 mg/dL ELIDA Comment:Testing performed by : [address] [address] Nitrite, ur Negative Negative ELIDA Comment:Testing performed by : [address] [address] Leukocyte esterase, ur Negative Negative ELIDA KLINE Comment:Testing performed by : [address] [address] UA reflex comment Reflex to microscopic UA will be performed. ELIDA KLINE Comment:Testing performed by : [address] [address] Urine 02/15/2025 1:29 AM CDT 02/15/2025 1:32 AM CDT us Felix Hardy DO LAB MICROBIOLOGY - GENERAL ORD ERABLES Final Result ELIDA KLINE [address] [facility] [place] [address] * (ABNORMAL) CBC with auto differential (02/15/2025 1:29 AM CDT) WBC 9.56 3.80 - 9.90 K/cumm Comment:Testing performed by : [address] [address] Hgb 15.0 13.0 - 17.5 g/dL ELIDA KLINE Comment:Testing performed by : [address] [address] Hct 42.0 38.9 - 50.3 % LEIDA KLINE Comment:Testing performed by : [address] [address] Plt 230 150 - 400 K/cumm ELIDA KLINE Comment:Testing performed by : [address] [address] MPV 10.4 9.1 - 12.3 fL ELIDA KLINE Comment:Testing performed by : [address] [address] RBC 4.93 4.30 - 5.80 M/cumm ELIDA KLINE Comment:Testing performed by : [address] [address] MCV 85.2 81.3 - 96.4 fL EL[place] KLINE Comment:Testing performed by : [address] [place]., [address] MCH 30.4 27.1 - 33.3 pg ELIDA KLINE Comment:Testing performed by : [address] [address] MCHC 35.7 32.3 - 35.7 g/dL ELIDA KLINE Comment:Testing performed by : [address] [address] RDW CV 11.5 11.1 - 14.9 % ELIDA Comment:Testing performed by : [address] [address] RDW SD 35.4(L) 35.7 - 48.1 fL ELIDA KLINE Comment:Testing performed by : [address] [address] NRBC abs 0.00 0.00 - 0.01 K/cumm ELIDA KLINE Comment:Testing performed by : [address] [address] Blood 02/15/2025 1:29 AM CDT 02/15/2025 1:32 AM CDT us Felix Hardy DO LAB BLOOD ORDERABLES Final Res ult EL[place] KLINE [address] [facility] [place] [address] * (ABNORMAL) Urinalysis, microscopic only (02/15/2025 1:29 AM CDT) WBC, ur 6-10(A) 0 - 5 /HPF Comment:Testing performed by : [address] [address] RBC, ur >50(A) 0 - 2 /HPF ELIDA KLINE Comment:Testing performed by : [address] [address] Mucous, ur Present(A) ELIDA KLINE Comment:Testing performed by : [address], [address] Culture Reflex Comment Reflex conditions for urine culture (WBC >10) not met. ELIDA KLINE Comment:Testing performed by : [address] [address] Urine 02/15/2025 1:29 AM CDT 02/15/2025 1:32 AM CDT [employer] LAB URINE ORDERABLES Final Res ult Performing Organization Address City/[facility]/ZIP Co de Phone Number [address] [place] [address] * Lipase (02/15/2025 1:29 AM CDT) Lipase 67 10 - 99 Units/L Comment:Testing performed by : [address] [address] Blood Venous blood specimen / Unknown 02/15/2025 1:29 AM CDT 02/15/2025 1:32 AM CDT [employer] LAB BLOOD ORDERABLES Final Res ult Performing Organization Address [facility] Co de Phone Number [address] [place] [address] * (ABNORMAL) Comprehensive metabolic panel (02/15/2025 1:29 AM CDT) Sodium 140 135 - 145 mmol/L Comment:Testing performed by : [address] [address] Potassium, pl 3.6 3.3 - 4.9 mmol/L ELIDA Comment: Hemolyzed; Potassium value may be falsely elevated by as much as 1.0 mmol/L. Suggest redraw and reanalysis. Testing performed by: [address] [address] Chloride 101 97 - 110 mmol/L ELIDA Comment:Testing performed by : [address] [address] CO2 25 22 - 32 mmol/L ELIDA Comment:Testing performed by : [address] [address] Anion gap 14 2 - 15 mmol/L EL[place] Comment:Testing performed by : [address] [address] BUN 17 6 - 25 mg/dL EL[place] Comment:Testing performed by : [address] [address] Creatinine 1.35(H) 0.80 - 1.30 mg/dL EL[place] Comment:Testing performed by : [address] [address] Glucose 125 70 - 199 mg/dL [facility] Comment: Interpretive Data Fasting glucose >/= 126 [...] was last revised 2022. Testing performed by: [address] [address] Calcium 9.7 8.5 - 10.3 mg/dL ELIDA Comment:Testing performed by : [address] [address] Bilirubin, total 0.3 0.1 - 1.2 mg/dL ELIDA Comment:Testing performed by : [address] [address] Protein, pl 7.1 6.5 - 8.5 g/dL ELIDA Comment:Testing performed by : [address] [address] Albumin 4.4 3.5 - 5.0 g/dL ELIDA Comment:Testing performed by : [address] [address] Alk phos 72 40 - 130 Units/L ELIDA Comment:Testing performed by : [address] [address] ALT 28 7 - 55 Units/L ELIDA Comment:Testing performed by : [facility], [address] [place] [address]., [address] AST 31 10 - 50 Units/L ELIDA Comment: Hemolyzed; result may be falsely elevated Testing performed by: [facility], [address] [place] [address]., [address] Blood 02/15/2025 1:29 AM CDT 02/15/2025 1:32 AM CDT us Felix Hardy DO LAB BLOOD ORDERABLES Final Res ult [place] [address] [facility] [place] [address] from Last 3 Months Insurance [facility] ACCESS CHOICE [facility] CHOICE OOS [facility] ACCESS CHOICE Advance Directives For more information, please contact: [phone] * Full Code (Latest Code Status on File) Date Activated Date Inactivated Comments 04/07/2025 9:16 AM 04/13/2025 2:19 PM Care Teams [employer] Fin[employer] Relationship Specialty Start Date End Date Margie Santos MD [address] [place] [id number] PCP - General Internal Medicine 02/13/23
[2025-04-13 19:35] LABS: Alanine Aminotransferase 21 U/L (6-50); Albumin Level 4.4 g/dL (3.5-5.1); Alkaline Phosphatase 69 U/L (38-126); Anion Gap 13 mmol/L (4-12); Aspartate Amino Transferase 26 U/L (17-59); Bilirubin,Total 0.4 mg/dL (0.2-1.3); Blood Urea Nitrogen 13 mg/dL (9-20); CRP < 0.5 mg/dL (<1.0); Calcium 9.8 mg/dL (8.4-10.2); Carbon Dioxide 21 mmol/L (22-30); Chloride 102 mmol/L (98-107); Estimated CRCL calculation 79 ml/min; Estimated Glomerular Filt Rate > 60; Glucose 111 mg/dL (65-110); Potassium 3.3 mmol/L (3.4-5.0); Sodium 136 mmol/L (137-145); Total Protein 7.3 g/dL (6.3-8.2)
[2025-04-13 20:00] VITALS: BP 143/75; PULSE 83; RESP 16; O2SAT 100
[2025-04-13 20:15] VITALS: BP 137/76; PULSE 82; RESP 16; O2SAT 100
[2025-04-13 20:50] LABS: Add Urine Microscopic? YES; Appearance Urine Clear (Clear); Glucose Urine UA Negative (Negative); Leukocyte Esterase Ur 1+ LEU/UL (Negative); Need Manual Microscopic Reviewed; Nitrate Urine Negative (Negative); Non Pathogenic Casts 0-2; Specific Grav Ur 1.035 (1.001-1.035)
[2025-04-13 21:16] VITALS: BP 134/81; PULSE 83; RESP 16; O2SAT 100
[2025-04-13] MEDS: ENOXAPARIN 100 MG/ML SYRINGE 84 MG SUB-Q (22:12)
[2025-04-14] VITALS (14 sets, daily range): BP systolic 128–144; BP diastolic 69–83; PULSE 66–98; RESP 14–18; TEMP 36.6–37.1; O2SAT 94–100; BMI 25.8
--- NOTE | 2025-04-14 00:16 | ADMGEN ---
This patient, Neo Galvan, was admitted to IMU Room 210-01. Patient/family oriented to hospital policies and general routines including ID bracelet, bed and alarms, visiting hours, pain management, procedures, bathroom and other care routines, personal items, smoking policy, room service/diet, and visiting hours. Information on how to activate the Rapid Response Team has been discussed. Patient/Family are encouraged to report perceived risks to care and to ask questions if they do not understand what they are told or what they should do.
[2025-04-14] MEDS: SODIUM CHLORIDE 0.9% IV 1,000 ML 75 ML IV CONT ×2 (01:00→13:58)
--- NOTE | 2025-04-14 02:14 | P.HP_ITS ---
H&P: HPI History of Present Illness Date/Time: 04/14/25 02:14 Chief Complaint: Shortness of breath, cramping in his left calf Narrative: 45-year-old male presents with shortness of breath, cramping in his left calf on the day presents to [facility] ER on 04/13/2025. Patient was just discharged from [facility] where he stayed for a week with kidney stones hematuria and CBI. He reports he was in bed the whole time, reports he did not receive any blood thinners or lower extremity compressions. Dizziness, syncope, cough, fever, nausea vomiting abdominal pain or diarrhea. Oddly enough, he thinks the pain traveled from his left calf to his left chest. Those symptoms have resolved since he presented to the ER. WBC 10.6, hemoglobin 13.8, sodium 136, potassium 3.3, serum creatinine 1.09, lactic acid 4. Urinalysis with 1+ leukocyte esterase, 11-20 rbc's. A left lower extremity venous Doppler was performed which was negative for DVT. Subsequently a chest CTA revealed multiple bilateral pulmonary emboli with mild to moderate clot burden move without evidence of right heart strain. His blood pressure on arrival was 84/50 which improved rapidly after a 1 L normal saline bolus. He received 1 milligram/kilogram of enoxaparin subcutaneous. 84 mg total. Then placed on sodium chloride 75 cc/hour. As mentioned, was resting comfortably in bed without any respiratory distress/tachypnea. Lactic acid was 4.0. Review of Systems Review of Systems: All systems reviewed & are unremarkable except as noted in HPI and below (Subjective/HPI) [facility] Family History Family History (Updated 04/14/25 @ 00:20 by Gretchen Murphy RN) Mother Hypertension Asthma Hypothyroidism Father Hypertension Dementia Social History Social History Smoking status: Never smoker Alcohol intake: current Drinks per week: 4 Substance use: never Lack of Transportation: No Lack of Food: Never True Current Housing: I Have Housing Concerned About Future Housing: No Difficulty Paying Gas/Electric Bills: No Difficulty Paying for Meds: No Currently Unemployed: No Education: Bachelor's Degree Difficulty w/ Childcare or Family Care: No Spiritual care concerns: No Meds Home Medications and Allergies Home Medications ?Medication ?Instructions ?Recorded ?Confirmed ?Type tamsulosin 0.4 mg capsule 0.4 mg PO Q24H 04/14/25 04/14/25 History Allergies Allergy/AdvReac Type Severity Reaction Status Date / Time No Known Allergies Allergy Verified 04/13/25 19:23 Vital Signs Vital Signs - 24 hr 04/13/25 18:46 04/13/25 20:00 04/13/25 20:15 Temperature Pulse Rate 77 83 82 Respiratory Rate 18 16 16 Blood Pressure 84/50 L 143/75 H 137/76 Pulse Oximetry 100 100 100 Oxygen Delivery 04/13/25 21:16 04/14/25 00:08 04/14/25 00:31 Temperature 98.0 F Pulse Rate 83 77 Respiratory Rate 16 18 Blood Pressure 134/81 134/78 Pulse Oximetry 100 99 Oxygen Delivery Room Air Exam Const: General: comfortable and no acute distress HENMT: Mouth: Yes moist mucous membranes Eyes: Pupils: Equal, round and reactive pupils present Neck: Neck: supple Resp: Effort & Inspection: normal respiratory effort Auscultation: clear to auscultation bilaterally Cardio: Rate: regular rate Rhythm: regular rhythm GI: Inspection: non-distended GI Palp: Yes Soft to palpation Neuro: Motor exam (neuro): 5/5 motor strength present throughout Extrem: General: no edema H&P: Results Labs Labs: Short CBC 04/13/25 Range/Units 18:47 WBC 10.6 H (4.5-10.0) K/mm3 Hgb 13.8 L (14.0-18.0) g/dL Hct 38.8 L (42.0-52.0) % Plt Count 322 (150-375) k/mm3 BMP 04/13/25 18:47 Sodium 136 L Potassium 3.3 L Chloride 102 Carbon Dioxide 21 L BUN 13 Creatinine 1.09 Glucose 111 H Calcium 9.8 Liver Function 04/13/25 Range/Units 18:47 Total Bilirubin 0.4 (0.2-1.3) mg/dL AST 26 (17-59) U/L ALT 21 (6-50) U/L Alkaline Phosphatase 69 (38-126) U/L Albumin 4.4 (3.5-5.1) g/dL Urine 04/13/25 Range/Units 20:31 Urine Color Yellow (Yellow) Urine Appearance Clear (Clear) Urine pH 6.5 (5.0-9.0) Ur Specific [place] 1.035 (1.001-1.035) Urine Protein Negative (Negative) mg/dL Urine Glucose (UA) Negative (Negative) mg/dL Assessment and Plan Assessment and plan (1) Pulmonary embolism: Qualifiers: Acute cor pulmonale presence: without acute cor pulmonale Chronicity: acute Pulmonary embolism type: unspecified Qualified Code(s): I26.99 - Other pulmonary embolism without acute cor pulmonale Code(s): I26.99 - Other pulmonary embolism without acute cor pulmonale Status: Acute (2) Lactic acidosis: Code(s): E87.20 - Acidosis, unspecified Status: Acute (3) Hypokalemia: Code(s): E87.6 - Hypokalemia Status: Acute Plan 45-year-old male presents with shortness of breath, cramping in his left calf on the day presents to [facility] ER on 04/13/2025. Patient was just discharged from [facility] where he stayed for a week with kidney stones hematuria and CBI. He reports he was in bed the whole time, reports he did not receive any blood thinners or lower extremity compressions. Dizziness, syncope, cough, fever, nausea vomiting abdominal pain or diarrhea. Oddly enough, he thinks the pain traveled from his left calf to his left chest. Those symptoms have resolved since he presented to the ER. WBC 10.6, hemoglobin 13.8, sodium 136, potassium 3.3, serum creatinine 1.09, lactic acid 4. Urinalysis with 1+ leukocyte esterase, 11-20 rbc's. A left lower extremity venous Doppler was performed which was negative for DVT. Subsequently a chest CTA revealed multiple bilateral pulmonary emboli with mild to moderate clot burden move without evidence of right heart strain. His blood pressure on arrival was 84/50 which improved rapidly after a 1 L normal saline bolus. He received 1 milligram/kilogram of enoxaparin subcutaneous. 84 mg total. Then placed on sodium chloride 75 cc/hour. As mentioned, was resting comfortably in bed without any respiratory distress/tachypnea. Lactic acid was 4.0. ----- He is hemodynamically stable without any further symptomatology or respiratory distress. Admission for monitoring. Start Eliquis. Replace potassium, check magnesium. Patient wishes to be full code. Regular diet. Normal saline at 75 cc/hour. Hospitalist MIPS Advance Care Plan I have confirmed that the patient's Advanced Care Plan is present, code status is documented, or surrogate decision maker is listed in patient medical record.: Yes Medication Reconciliation I have utilized all available resources to obtain, update and review the patients current medications (includes all prescriptions, OTC, herbals, cannabis, and nutritional supplements).: Yes
[2025-04-14 04:06] LABS: Hematocrit 36.2 % (42.0-52.0); Hemoglobin 12.4 g/dL (14.0-18.0); Immature Granulocyte Percent A 1.2 % (0-0.5); Lymphocytes Absolute Auto 1.35 K/mm3 (0.9-3.2); Mean Corpuscular HGB Conc 34.3 g/dl (32-36); Mean Corpuscular Hemoglobin 30.6 pg (26-34); Mean Corpuscular Volume 89.4 fl (80-100); Nucleated Red Blood Cells Absolute Auto 0.000 K/mm3 (0.0-0.012); Nucleated Red Blood Cells Perc 0.0 % (0.0-0.2); Platelet Count Result 217 k/mm3 (150-375); Red Blood Count 4.05 M/mm3 (4.6-6.20); White Blood Count 9.1 K/mm3 (4.5-10.0)
[2025-04-14 04:38] LABS: Anion Gap 5 mmol/L (4-12); Blood Urea Nitrogen 13 mg/dL (9-20); Calcium 9.0 mg/dL (8.4-10.2); Carbon Dioxide 26 mmol/L (22-30); Chloride 103 mmol/L (98-107); Estimated CRCL calculation 81 ml/min; Estimated Glomerular Filt Rate > 60; Glucose 116 mg/dL (65-110); Magnesium 2.1 mg/dL (1.6-2.3); Potassium 4.0 mmol/L (3.4-5.0); Sodium 134 mmol/L (137-145)
[2025-04-14] MEDS: POTASSIUM CHLORIDE 10 MEQ ER TABLET PO (05:53)
[2025-04-14] MEDS: TAMSULOSIN HCL 0.4 MG CAPSULE PO (08:38)
[2025-04-14] MEDS: ENOXAPARIN 100 MG/ML SYRINGE 85 MG SUB-Q (12:09)
--- NOTE | 2025-04-14 16:04 | PM.IMPN ---
Progress Note: A&P Assessment and Plan (1) Pulmonary embolism: Qualifiers: Acute cor pulmonale presence: without acute cor pulmonale Chronicity: acute Pulmonary embolism type: unspecified Qualified Code(s): I26.99 - Other pulmonary embolism without acute cor pulmonale Code(s): I26.99 - Other pulmonary embolism without acute cor pulmonale Status: Acute (2) Lactic acidosis: Code(s): E87.20 - Acidosis, unspecified Status: Acute (3) Hypokalemia: Code(s): E87.6 - Hypokalemia Status: Acute Plan 45-year-old male presents with shortness of breath, cramping in his left calf on the day presents to [facility] ER on 04/13/2025. Patient was just discharged from [facility] where he stayed for a week with kidney stones hematuria and CBI. He reports he was in bed the whole time, reports he did not receive any blood thinners or lower extremity compressions. Dizziness, syncope, cough, fever, nausea vomiting abdominal pain or diarrhea. Oddly enough, he thinks the pain traveled from his left calf to his left chest. Those symptoms have resolved since he presented to the ER. WBC 10.6, hemoglobin 13.8, sodium 136, potassium 3.3, serum creatinine 1.09, lactic acid 4. Urinalysis with 1+ leukocyte esterase, 11-20 rbc's. A left lower extremity venous Doppler was performed which was negative for DVT. Subsequently a chest CTA revealed multiple bilateral pulmonary emboli with mild to moderate clot burden move without evidence of right heart strain. His blood pressure on arrival was 84/50 which improved rapidly after a 1 L normal saline bolus. He received 1 milligram/kilogram of enoxaparin subcutaneous. 84 mg total. Then placed on sodium chloride 75 cc/hour. As mentioned, was resting comfortably in bed without any respiratory distress/tachypnea. Lactic acid was 4.0. ----- He is hemodynamically stable without any further symptomatology or respiratory distress. Admission for monitoring. Start Eliquis. patient is found to have PE but no DVT, most likely provoked as patient was recently hospitalized for 1 week, while in that hospital he was not give and prophylactic anticoagulation to prevent clots. currently patient is anticoagulated with Lovenox, will do cardiac echo to rule any right heart strain, his is pharmacist and agree to start Eliquis in the morning, will monitor and plan. Replace potassium, check magnesium. Patient wishes to be full code. Regular diet. Normal saline at 75 cc/hour. Subjective Date/time seen: 04/14/25 16:04 Interval history: Shortness of breath, cramping in his left calf H&P-Narrative: 45-year-old male presents with shortness of breath, cramping in his left calf on the day presents to [facility] ER on 04/13/2025. Patient was just discharged from [facility] where he stayed for a week with kidney stones hematuria and CBI. He reports he was in bed the whole time, reports he did not receive any blood thinners or lower extremity compressions. Dizziness, syncope, cough, fever, nausea vomiting abdominal pain or diarrhea. Oddly enough, he thinks the pain traveled from his left calf to his left chest. Those symptoms have resolved since he presented to the ER. WBC 10.6, hemoglobin 13.8, sodium 136, potassium 3.3, serum creatinine 1.09, lactic acid 4. Urinalysis with 1+ leukocyte esterase, 11-20 rbc's. A left lower extremity venous Doppler was performed which was negative for DVT. Subsequently a chest CTA revealed multiple bilateral pulmonary emboli with mild to moderate clot burden move without evidence of right heart strain. His blood pressure on arrival was 84/50 which improved rapidly after a 1 L normal saline bolus. He received 1 milligram/kilogram of enoxaparin subcutaneous. 84 mg total. Then placed on sodium chloride 75 cc/hour. As mentioned, was resting comfortably in bed without any respiratory distress/tachypnea. Lactic acid was 4.0. patient is found to have PE but no DVT, most likely provoked as patient was recently hospitalized for 1 week, while in that hospital he was not give and prophylactic anticoagulation to prevent clots. currently patient is anticoagulated with Lovenox, will do cardiac echo to rule any right heart strain, his is pharmacist and agree to start Eliquis in the morning, will monitor and plan. Review of Systems Review of Systems: All systems reviewed & are unremarkable except as noted in HPI and below (Subjective/HPI) Exam Narrative: Patient is comfortable, NAD HEENT: eyes are clear and none icteric LUNGS:CTA HEART: RR S1S2 ABD: BS+, Soft and nontender Lower extremities: no edema SKIN: nonjaundiced Neuro: grossly intact. Objective Data Vital Signs Vital Signs: Vital Signs - 24 hr 04/13/25 18:46 04/13/25 20:00 04/13/25 20:15 Temperature Pulse Rate 77 83 82 Respiratory Rate 18 16 16 Blood Pressure 84/50 L 143/75 H 137/76 Pulse Oximetry 100 100 100 Oxygen Delivery 04/13/25 21:16 04/14/25 00:08 04/14/25 00:31 Temperature 36.7 C Pulse Rate 83 77 Respiratory Rate 16 18 Blood Pressure 134/81 134/78 Pulse Oximetry 100 99 Oxygen Delivery Room Air 04/14/25 02:00 04/14/25 04:00 04/14/25 04:00 Temperature Pulse Rate 75 73 Respiratory Rate Blood Pressure Pulse Oximetry Oxygen Delivery Room Air 04/14/25 04:00 04/14/25 06:00 04/14/25 07:30 Temperature 36.7 C 37.0 C Pulse Rate 66 98 76 Respiratory Rate 14 14 Blood Pressure 128/71 142/69 H Pulse Oximetry 99 100 Oxygen Delivery 04/14/25 08:00 04/14/25 08:00 04/14/25 10:00 Temperature Pulse Rate 76 86 76 Respiratory Rate 14 Blood Pressure Pulse Oximetry 100 Oxygen Delivery Room Air 04/14/25 11:21 04/14/25 12:00 04/14/25 14:02 Temperature 36.6 C 37.1 C Pulse Rate 69 81 74 Respiratory Rate 14 16 Blood Pressure 129/69 136/76 Pulse Oximetry 95 94 Oxygen Delivery Intake/Output Intake/Output: Intake & Output 04/11/25 04/12/25 04/13/25 04/14/25 23:59 23:59 23:59 23:59 Intake Total 1000 1532.5 Balance 1000 1532.5 Meds/Results Medications: Active Medications Generic Name Dose Route Start Last Admin Trade Name Freq PRN Reason Stop Dose Admin Acetaminophen 650 mg 04/13/25 21:28 Acetaminophen 325 Mg Tablet PO Q4H PRN Mild Pain (1-3) or Fever Enoxaparin Sodium 85 mg 04/14/25 12:00 04/14/25 12:09 Enoxaparin 100 Mg/Ml Syringe SUB-Q 85 mg Q12H BRITTANY Administration Sodium Chloride 1,000 mls @ 75 mls/hr 04/13/25 21:30 04/14/25 13:58 Normal Saline Iv IV CONT 75 mls/hr .[id number] BRITTANY Administration Morphine Sulfate 2 mg 04/13/25 21:28 Morphine Sulfate (*Crx) 2 Mg/Ml Inj IV PUSH Q2H PRN Pain Rated 7-10 Ondansetron HCl 4 mg 04/13/25 21:28 Ondansetron Inj 4 Mg/2 Ml Vial IV PUSH Q4H PRN Nausea Perflutren Lipid Microsphere 0 ml 04/14/25 12:32 Perflutren Lipid Microspheres 1.5 Ml Vial Diluted To 10 Ml Total Volume IV PUSH 04/17/25 12:32 ONCE PRN adequate visualization Protocol Tamsulosin HCl 0.4 mg 04/14/25 09:00 04/14/25 08:38 Tamsulosin Hcl 0.4 Mg Capsule PO 0.4 mg DAILY BRITTANY Administration Radiology Results: ITS Impressions Venous Doppler Study 04/13/25 19:44 IMPRESSION: 1. No deep venous thrombosis. Chest X-Ray 04/13/25 19:55 IMPRESSION: No focal infiltrate or effusion. Chest CTA 04/13/25 20:26 IMPRESSION: 1. Multiple bilateral pulmonary emboli with mild to moderate clot burden but without evident right heart strain. Dr. Leahy discussed these findings with Dr. Hunt at 8:32 PM. Labs Labs: Laboratory Results - last 24 hr 04/13/25 04/13/25 04/14/25 18:47 20:31 03:58 WBC 10.6 H 9.1 RBC 4.46 L 4.05 L Hgb 13.8 L 12.4 L Hct 38.8 L 36.2 L MCV 87.0 89.4 MCH 30.9 30.6 MCHC 35.6 34.3 RDW 11.7 11.8 Plt Count 322 217 MPV 10.1 9.4 Immature Gran % (Auto) 1.7 H 1.2 H Neut % (Auto) 58.2 73.5 H Lymph % (Auto) 29.2 14.9 L [place] % (Auto) 8.7 H 8.7 H Eos % (Auto) 1.2 0.9 Baso % (Auto) 1.0 0.8 Lymph # (Auto) 3.10 1.35 [place] # (Auto) 0.9 H 0.8 H Eos # (Auto) 0.1 0.1 Baso # (Auto) 0.1 0.1 Abs Immat Gran (auto) 0.18 H 0.11 H Absolute Neuts (auto) 6.2 6.7 Absolute Nucleated RBC 0.000 0.000 Nucleated RBC % 0.0 0.0 PT 12.9 INR 1.0 APTT 23.8 Sodium 136 L 134 L Potassium 3.3 L 4.0 Chloride 102 103 Carbon Dioxide 21 L 26 Anion Gap 13 H 5 BUN 13 13 Creatinine 1.09 1.07 Estim Creat Clear Calc 79 81 Estimated GFR > 60 > 60 Glucose 111 H 116 H Lactic Acid 4.0 H 1.2 Calcium 9.8 9.0 Magnesium 2.1 Total Bilirubin 0.4 AST 26 ALT 21 Alkaline Phosphatase 69 C-Reactive Protein < 0.5 Total Protein 7.3 Albumin 4.4 Urine Color Yellow Urine Appearance Clear Urine pH 6.5 Ur Specific [place] 1.035 Urine Protein Negative Urine Glucose (UA) Negative Urine Ketones Negative Ur Blood (Man) 2+ H Urine Nitrate Negative Urine Bilirubin Negative Urine Urobilinogen 0.2 Add Ur Microanalysis Reviewed Leukocyte Esterase Rfl 1+ H Urine RBC 11-20 H Urine WBC 0-5 Ur Squamous Epith Cells None seen Urine Bacteria None seen Urine Casts 0-2
[2025-04-15] VITALS (7 sets, daily range): BP systolic 132–144; BP diastolic 75–83; PULSE 60–96; RESP 16–18; TEMP 36.8–37.1; O2SAT 98–99
--- NOTE | 2025-04-15 | ECHO_ITS ---
Patient Info Name: Neo Galvan Age: 45 years : 1980 Gender: Male Ht: 71 in Wt: 187 lbs BSA: 2.07 m2 HR: 71 bpm BP: 144 / 83 mmHg Heart Rhythm: Sinus Rhythm Technical Quality: Good Exam Date: 04/15/2025 12:09 PM Patient Status: unknown Admit Date: 04/13/2025 Exam Type: CA echo doppler color flow Complete two-dimensional, color flow and Doppler transthoracic echocardiogram is performed. Staff Referring Physician: Brenda Lay [place] Guide: Paula Crow Attending Provider: Ratna Browne Summary 1. Complete two-dimensional, color flow and Doppler transthoracic echocardiogram is performed. 2. Normal left and right ventricular systolic function. 3. Trivial amount of tricuspid regurgitation with velocities suggesting that RV systolic pressure is normal. 4. No stigmata of right ventricular pressure overload. Left Ventricle Left ventricular chamber dimension is normal. Left ventricular systolic function is normal, estimated at 65-70. The left ventricular diastolic function is normal. Right Ventricle Right ventricular chamber dimension is normal. Right ventricular systolic function is normal. Left Atria Left atrial chamber dimension is normal. Right Atria Right atrial chamber dimension is normal. Aortic Valve The aortic valve is normal. Pulmonic Valve The pulmonic valve is normal. There is mild pulmonic regurgitation. Mitral Valve The mitral valve has normal leaflets. Tricuspid Valve The tricuspid valve leaflets are normal. There is trace tricuspid valve regurgitation. No pulmonary hypertension, estimated pulmonary arterial systolic pressure is 28 mmHg. Pericardium/Pleural The pericardium appears normal. Aorta The aortic root size at the sinus of Valsalva is normal. Left Ventricular Outflow Tract Name Value Normal LVOT 2D LVOT Diameter 2.0 cm LVOT Doppler LVOT Peak Velocity 123 cm/s LVOT Peak Gradient 6 mmHg LVOT Mean Gradient 3 mmHg LVOT VTI 21 cm LVOT VTI/AV VTI Ratio 0.7 LVOT Stroke Volume 64 ml LVOT CO 3.8 l/min LVOT CI 1.9 l/min/m2 Pulmonic Valve Name Value Normal RVOT Doppler RVOT Peak Velocity 82 cm/s RVOT Peak Gradient 3 mmHg PV Doppler PV Peak Velocity 127 cm/s PV Peak Gradient 6 mmHg Mitral Valve Name Value Normal MV Diastolic Function MV E Peak Velocity 78 cm/s MV A Peak Velocity 62 cm/s MV E/A 1.3 MV Decel Time (PW) 207 ms MV Annular TDI MV E/e' (Septal) 8.3 MV E/e' (Lateral) 7.4 MV E/e' (Average) 7.8 Tricuspid Valve Name Value Normal TV Regurgitation Doppler TR Peak Velocity 210 cm/s TR Peak Gradient 17 mmHg Estimated PAP/RSVP RA Pressure 10 mmHg <=5 PA Systolic Pressure 28 mmHg <36 RV Systolic Pressure 28 mmHg <36 TV Annular TDI TV Lateral Carlyn s' Velocity 13.4 cm/s >=9.5 Aorta Name Value Normal Ascending Aorta Ao Root Diameter (MM) 3.0 cm Ao Root Diam Index (MM) 1.5 cm/m2 Aortic Valve Name Value Normal AV Doppler AV Peak Velocity 154 cm/s AV Peak Gradient 9 mmHg AV Mean Gradient 5 mmHg AV VTI 30 cm AV Area (Cont Eq VTI) 2.1 cm2 >=3.0 AV Area (Cont Eq Anand) 2.4 cm2 AV DI (Anand) 0.80 AV Regurgitation 2D LVOT Area 3.0 cm2 Ventricles Name Value Normal LV Dimensions 2D/MM IVS Diastolic Thickness (2D) 1.0 cm 0.6-1.0 LVID Diastole (2D) 5.7 cm 4.2-5.8 LVIW Diastolic Thickness (2D) 1.0 cm 0.6-1.0 LVID Systole (2D) 3.4 cm 2.5-4.0 LVOT Diameter 2.0 cm LV Mass (2D Cubed) 219.68 g 88.00-224.00 LV Mass Index (2D Cubed) 106 g/m2 49-115 Relative Wall Thickness (2D) 0.34 <=0.42 LV Fractional Shortening/Ejection Fraction 2D/MM LV Fractional Shortening (2D) 40 % 25-43 LV EF (2D Teichholz) 70 % LV Diastolic Volume (4C MOD) 89 ml LV EF (4C MOD) 69 % LV Diastolic Volume (2C MOD) 89 ml LV EF (2C MOD) 69 % LV Diastolic Volume (BP MOD) 92 ml 62-150 LV Diastolic Volume Index (BP MOD) 44 ml/m2 34-74 LV Systolic Volume (BP MOD) 28 ml 21-61 LV Systolic Volume Index (BP MOD) 13 ml/m2 11-31 LV EF (BP MOD) 70 % 52-72 LV Diastolic Length (4C) 8.4 cm LV Systolic Length (4C) 6.7 cm LV Stroke Volume (4C MOD) 62 ml Atria Name Value Normal LA Dimensions LA Dimension (MM) 4.1 cm 3.0-4.0 LA Volume (4C A-L) 53 ml LA Volume (BP A-L) 56 ml RA Dimensions RA Area (4C) 17.1 cm2 <=18.0 Report Signatures
[2025-04-15] MEDS: ENOXAPARIN 100 MG/ML SYRINGE 85 MG SUB-Q (00:52)
[2025-04-15] MEDS: SODIUM CHLORIDE 0.9% IV 1,000 ML 75 ML IV CONT (00:56)
[2025-04-15] MEDS: TAMSULOSIN HCL 0.4 MG CAPSULE PO (07:55)
[2025-04-15] MEDS: APIXABAN 5 MG TABLET 10 MG PO (11:30)
--- NOTE | 2025-04-15 16:10 | P.DS_ITS ---
DS: Admitting Diagnosis Discharge Date 04/15/25 Admitting Diagnosis Shortness of breath, cramping in his left calf DS: Discharge Diagnosis Discharge Diagnosis (1) Pulmonary embolism: Qualifiers: Acute cor pulmonale presence: without acute cor pulmonale Chronicity: acute Pulmonary embolism type: unspecified Qualified Code(s): I26.99 - Other pulmonary embolism without acute cor pulmonale Code(s): I26.99 - Other pulmonary embolism without acute cor pulmonale Status: Acute (2) Lactic acidosis: Code(s): E87.20 - Acidosis, unspecified Status: Acute (3) Hypokalemia: Code(s): E87.6 - Hypokalemia Status: Acute Plan 45-year-old male presents with shortness of breath, cramping in his left calf on the day presents to [facility] ER on 04/13/2025. Patient was just discharged from [facility] where he stayed for a week with kidney stones hematuria and CBI. He reports he was in bed the whole time, reports he did not receive any blood thinners or lower extremity compressions. Dizziness, syncope, cough, fever, nausea vomiting abdominal pain or diarrhea. Oddly enough, he thinks the pain traveled from his left calf to his left chest. Those symptoms have resolved since he presented to the ER. WBC 10.6, hemoglobin 13.8, sodium 136, potassium 3.3, serum creatinine 1.09, lactic acid 4. Urinalysis with 1+ leukocyte esterase, 11-20 rbc's. A left lower extremity venous Doppler was performed which was negative for DVT. Subsequently a chest CTA revealed multiple bilateral pulmonary emboli with mild to moderate clot burden move without evidence of right heart strain. His blood pressure on arrival was 84/50 which improved rapidly after a 1 L normal saline bolus. He received 1 milligram/kilogram of enoxaparin subcutaneous. 84 mg total. Then placed on sodium chloride 75 cc/hour. As mentioned, was resting comfortably in bed without any respiratory distress/tachypnea. Lactic acid was 4.0. ----- He is hemodynamically stable without any further symptomatology or respiratory distress. Admission for monitoring. Start Eliquis. patient is found to have PE but no DVT, most likely provoked as patient was recently hospitalized for 1 week, while in that hospital he was not give and prophylactic anticoagulation to prevent clots. currently patient is anticoagulated with Lovenox, will do cardiac echo to rule any right heart strain, his is pharmacist and agree to start Eliquis in the morning, will monitor and plan. Replace potassium, check magnesium. Patient wishes to be full code. Regular diet. Normal saline at 75 cc/hour. DS: Summary Hospital Course Hospital Course: patient is found to have PE but no DVT, most likely provoked as patient was recently hospitalized for 1 week, while in that hospital he was not given any prophylactic anticoagulation to prevent clots. currently patient is anticoagulated with Lovenox, will do cardiac echo to rule any right heart strain, his is pharmacist and agree to start Eliquis in the morning, will monitor and plan. Patient cardiac ECHO is essentially normal, will discharge to follow up with his primary care provider Time Spent with Patient Time attestation: Total time spent providing and/or coordinating discharge services: Exam Narrative: Patient is comfortable, NAD HEENT: eyes are clear and none icteric LUNGS:CTA HEART: RR S1S2 ABD: BS+, Soft and nontender Lower extremities: no edema SKIN: nonjaundiced Neuro: grossly intact. Discharge Plan Discharge Attending physician on discharge: Ratna Browne Consulting providers: Francis Dennis; Brenda Lay; Bereket Briones; Debra Monson; Maurice Leahy Discharging Clinician: Lesia Castillo Patient Disposition: Home Activity: as tolerated Diet: heart healthy Discharge Instructions: patient to follow up with his primary care provider as soon as possible, patient is instructed if any symptoms worsen to go nearest ER. You will start Eliquis 10 mg (5 mg tablets) twice a day, taking a dose tonight. This equates to two 5 mg pills twice a day. You should finish the 10 mg dosage on April 21. After finishing the 10 mg dosage, switch to 5 mg Eliquis twice a day and make sure to follow up with PCP about this new medication. Patient Instructions: Apixaban (By mouth), Pulmonary Embolism (DC) Patient Language: Sudanese Stand Alone Forms: General Discharge Information, Work/School Release IP Follow-up/Referrals: Tom,Margie Brown MD [Primary Care Provider] - Discharge Medications: New Eliquis 5 mg Tablet 10 mg PO Q12HR Qty: 27 0RF apixaban 5 mg tablet 5 mg PO BID Qty: 60 0RF Continued tamsulosin 0.4 mg capsule 0.4 mg PO Q24H Date of admission: 04/13/25 21:28 Primary Care Provider: Tom,Margie Brown Admitting Provider: Ratna Browne Attending physician on admission: Lesia Castillo Condition: Stable
== END 2025-04-15 17:25 | disposition home or self-care (01) | DRG 176 ==
LOC: ANHED 21:27 → ANHIMU 22:18 → ANH3MEDSUR 04-15 09:36 → ANHIMU 04-16 09:14
PROVIDERS: Registered Nurse; Admitting Provider General Practice; Emergency Provider Family Medicine; PCP Internal Medicine; Visit Provider Family Medicine
DX: I26.99 Other pulmonary embolism without acute cor pulmonale (principal); E87.20 Acidosis, unspecified; E87.6 Hypokalemia; Z87.442 Personal history of urinary calculi
CPT/HCPCS: 36415; 71046; 71275; 80048; 80053; 81001; 83605; 83735; 85025; 85610; 85730; 86140; 87086; 93005; 93306; 93971; 96361; 96372; 96374; 96375; 99285; A9270; J1650; J7030; Q9967